=== PATIENT | male | born 1950 | race Caucasian/White ===

== ENCOUNTER → 2023-10-28 12:33 | Outpatient (REF) | payer OTHER, SELFPAY | LOC: HWRCS 12:33 | PROVIDERS: ATTENDING PHYSICIAN Nurse Practitioner Family; FAMILY PHYSICIAN Family Medicine | DX: M79.89 Other specified soft tissue disorders (principal); I10 Essential (primary) hypertension; C34.90 Malignant neoplasm of unspecified part of unspecified bronchus or lung | CPT/HCPCS: 71046; 93306 ==

== ENCOUNTER → 2024-03-09 07:51 | Outpatient (REF) | payer OTHER, SELFPAY | LOC: RAD 07:51 | PROVIDERS: ATTENDING PHYSICIAN Radiology Radiation Oncology; FAMILY PHYSICIAN Family Medicine | DX: C34.11 Malignant neoplasm of upper lobe, right bronchus or lung (principal) | CPT/HCPCS: 71250 ==

== ENCOUNTER → 2024-09-09 09:56 | Outpatient (REF) | payer MEDICARE, SELFPAY | LOC: RAD 09:56 | PROVIDERS: ATTENDING PHYSICIAN Radiology Radiation Oncology; FAMILY PHYSICIAN Family Medicine | DX: C34.11 Malignant neoplasm of upper lobe, right bronchus or lung (principal) | CPT/HCPCS: 71250 ==

== ENCOUNTER 2024-10-04 18:21 | Inpatient (IN) | payer OTHER, SELFPAY ==
[2024-10-03] VITALS (7 sets, daily range): BP systolic 114–149; BP diastolic 69–86; BMI 24.6; BMI 23.6
--- NOTE | 2024-10-03 09:03 | ED.GENMED ---
History of Present Illness
General
Chief Complaint: Failure to Thrive
Source: patient and spouse
Exam Limitations: none
Time Seen by Provider: 10/03/24 08:31
Nursing documentation reviewed up to this point in time: agreed with
History of Present Illness
History of Present Illness:
74-year-old male with history of HLD, HTN, alcohol abuse, cholecystectomy, cancerous spot in left right with radiation therapy and has been told that that is clear, presents stating he is here for 'malnourishment and dehydration brought on by
alcohol abuse.'
He states he drinks 2 bottles of Chardonnay daily but this is not new for him. His last drink was 530 this a.m.
He states for the past 5 to 6 days he lost his appetite, even the smell of food makes him sick.
He states he has had diarrhea the past couple of days, his last diarrheal stool was yesterday, he denies abdominal pain.
He denies vomiting but has been having frequent episodes of dry heaving he states mostly in the mornings.
He lives with his of 41 years, Madi who is at bedside and states this change in his behavior came on suddenly about a week ago after an appointment with his oncologist where he was expecting a really good visit but was told that his left lung
has 'something' and it. He states the patient has had episodes of 'ranting and delirious,' at times stating 'life is awful.' His states he has had severe anxiety and depression since that doctor visit. He has another visit scheduled in
December and will most likely have a scan prescribed at that time.
Al has been preparing him smoothies and soup which patient has been taking very little.
Past History
Past History
ED Past Medical History: GERD, HTN, Hypercholesterolemia and Other (Lung cancer)
ED Past Surgical History: Cholecystectomy
Social History
Tobacco: Former smoker
Alcohol: Daily (1-2 bottles wine)
Drug: None
Personal:
Living: with family
Review of Systems
Review of Systems
Allergies reviewed?: Yes
All Other Systems: ROS reviewed and negative except as documented in HPI and ROS
Constitutional: Reports fatigue; Denies fever
EENT: Denies sore throat
Respiratory: Denies trouble breathing
Cardiac: Denies chest pain
ABD/GI: Reports nausea, diarrhea and anorexia; Denies abdominal pain, vomiting, constipated, bloody stools or black stools
: Denies dysuria, frequency or difficulty voiding
Musculoskeletal: Reports no symptoms
Skin: Reports no symptoms
Neurological: Reports no symptoms
Phy Exam
Physical Exam
Physical Exam:
GENERAL: No acute distress. A&Ox3.
CONSTITUTIONAL: Afebrile.
EYES: clear, conjunctivae normal
ENMT: dry mucus membranes, Pharynx nl
RESPIRATORY: Regular respirations, nonlabored, lungs clear.
CARDIOVASCULAR: Regular rate and rhythm, no murmurs, no rubs.
GI: Soft, nontender, normal BS
MUSCULOSKELETAL: Moves with ease. Well perfused.
SKIN: Warm, dry, pink
PSYCH: Depressed mood and affect. Well kept, interactive and appropriate
NEUROLOGIC: Awake, alert and oriented. No focal neurological deficits
Scores
Withdrawal Assessment of Alcohol
Withdrawal Assessment Completed?: Yes
Nausea and Vomiting: Intermittent nausea with dry heaves
Tactile Disturbances: None
Tremor: No tremor
Auditory Disturbances: Not present
Paroxysmal Sweats: No sweat visible
Visual Disturbances: Not present
Anxiety: Mild anxiety
Headache, Fullness in Head: Not present
Agitation: Normal activity
Orientation and clouding of sensorium: Oriented and can do serial additions
Total CIWA Score: 5
Alcohol Withdrawal Medication Recommendation: Equal to MSAS Score 0-4. Monitor & re-assess q2hrs, NO MEDICATION NEEDED
Course
Orders/Labs/Results
Orders:
Orders
10/03/24 08:58
0.9% Sodium Chloride 1000 ml [Nss] 1,000 ml IV BOLUS
10/03/24 09:07
Pantoprazole [Protonix IV] 80 mg IV NOW STA
10/03/24 09:10
Complete Blood Count/With Diff Urgent
Comprehensive Metabolic Panel Urgent
Lipase Urgent
Serum Osmolality Urgent
Comment: ADD ON
10/03/24 10:00
0.9% Sodium Chloride 1000 ml [Nss] 1,000 ml Mvi, Adult [Multivitamin] 10 ml Thiamine Injection 100 mg IV 250 mls/hr
10/03/24 11:23
Osmolality, Random Urine Urgent
Date Specimen was Collected: 10/03/24
Time Specimen was Collected: 12:04
Urine Sodium Urgent
Date Specimen was Collected: 10/03/24
Time Specimen was Collected: 12:04
10/03/24 11:25
Add On- LAB Urgent
Tests Added?: Serum osmolality
10/03/24 11:26
Osmolality, Random Urine Urgent
Date Specimen was Collected: 10/03/24
Time Specimen was Collected: 12:04
10/03/24 12:25
Admit/Transfer Patient As Directed
Co-Sign Provider:
Level of Care: Observation services
Assign to:: Telemetry
Physician / Group: david
Diagnosis: alcohol withdrawal
Reason for Telemetry: Arrhythmia
Date to Stop Telemetry: 10/06/24
Time to Stop Telemetry: 11:00
PRN Pain Medication Management As Directed
May give lesser potent ordered pain med per pt: Yes
preference::
Protocol:: Medication orders for pain may be administered in a
manner that supports deferring to patient preference
when the pt is:
- Requesting an ordered lesser potent pain medication.
Least to most potent pain medications are defined
as: acetaminophen < NSAID < tramadol < opioids
(morphine, oxycodone, hydromorphone).
- Requesting a lesser dose of the same medication IF
ORDERED.
- Requesting a less intrusive route of administration
if both routes are prescribed by the provider (PO <
IV).
10/03/24 12:27
Code Status As Directed
Resuscitation Status: Full Code
10/03/24 Dinner
Regular
At Your Request: Full Participation
Does patient need a safe tray?: No
Liquid Modification: Thin Liquids
10/03/24 15:36
0.9% Sodium Chloride 1000 ml [Nss] 1,000 ml IV 100 mls/hr
0.9% Sodium Chloride [Nss (Preservative Free)] See Protocol IV PRN PRN
FOLic ACID [Folvite] 1 mg 0.9% Sodium Chloride 50 ml [Nss] 50 ml IV DAILYPRN
Lorazepam [Ativan] 1 mg IV Q1HPRN PRN
Lorazepam [Ativan] 1 mg PO Q2HPRN PRN
Lorazepam [Ativan] 2 mg IV Q1HPRN PRN
Ondansetron Injectable [Zofran] 4 mg IV Q6HPRN PRN
10/03/24 15:36
Activity As Directed
Activity Level: As Tolerated
MSAS SCORE As Directed
MSAS Score 0-4: Repeat MSAS every 2 hours until 0-4 for three consecutive assessments, then every 4 hours x 48
hours.
MSAS Score 5-7: For MILD withdrawl symptoms. Repeat MSAS and RASS every 2 hours
MSAS Score 8-11: For MODERATE withdrawal symptoms. Repeat MSAS and RASS every 1 hour. Consider ICU or IMU
level of care.
MSAS Score > 11: For SEVERE withdrawal symptoms. Repeat MSAS and RASS every 1 hour. Notify provider, consider
ICU level of care.
MSAS Additional Instructions: If no improvement or no decrease in score from severe to moderate within 12
hours, consult psychiatry
MSAS Notify Provider: Notify provider if patient requires more than 10 mg of Lorazepam in eight hour period.
Vital Signs As Directed
Frequency: Per unit guidelines
DX Deep Vein Thrombosis Video Routine
10/03/24 18:00
Lisinopril [Zestril] 40 mg PO QPM
10/03/24 20:00
Carvedilol [Coreg] 6.25 mg PO BID
Heparin 5,000 units SC Q12
Pantoprazole [Protonix IV] 40 mg IV BID
Thiamine Injection 200 mg IV Q12
rrhsrggfyib-nnwnwzvoz-tfe C-Mn 1 tablet PO BID
10/04/24 06:00
Complete Blood Count/With Diff IN AM
Comprehensive Metabolic Panel IN AM
10/04/24 08:00
Ascorbic Acid [Vitamin C] 500 mg PO DAILY
FOLic ACID [Folvite] 1 mg PO DAILY
Gabapentin [Neurontin] 300 mg PO DAILY
Multivitamin [Theragran] 1 tablet PO DAILY
Psyllium [Metamucil, Konsyl] 1 packet PO DAILY
Spironolactone [Aldactone] 50 mg PO DAILY
10/06/24 11:00
DC Protocol for Telemetry ONCE
10/06/24 20:00
Thiamine HCl [Vitamin B1] 100 mg PO BID
Abnormal Lab Results
10/03/24
09:10
RBC 4.11 L 10^6/uL
(4.70-6.10)
Hgb 12.4 L g/dL
(13.0-18.0)
Hct 37.1 L %
(39.0-52.0)
Absolute Lymphs (auto) 0.6 L 10^3/uL
(1.2-3.4)
Neutrophils % 80.6 H %
(42.2-75.2)
Lymphocytes % 10.0 L %
(20.5-51.1)
Sodium 127 L mmol/L
(135-145)
Chloride 90 L mmol/L
(98-107)
Carbon Dioxide 19 L mmol/L
(22-30)
Glucose 100 H mg/dl
(70-99)
Serum Osmolality 313 H mOsm/kg
(275-300)
AST 379 H U/L
(17-59)
ALT 258 H U/L
(0-50)
10/03/24 09:10
10/03/24 09:10
Vital Signs
Initial and Last Documented VS:
Initial Vital Signs
Temp
98.2 F
10/03/24 08:29
Last Documented Vital Signs
Temp Pulse Resp BP Pulse Ox
98.7 F 66 18 142/81 94
10/03/24 15:45 10/03/24 15:45 10/03/24 15:45 10/03/24 15:45 10/03/24 15:45
Television Maintenance Man consulted with Physician
Television Maintenance Man consulted with physician?: Yes
Name of Physician Consulted: Niranjan
MDM/Problems Addressed
Differential Diagnosis Includes:
Alcoholic gastritis, depression/anxiety about health, GERD
MDM/Problems Addressed:
74-year-old male with history of HLD, HTN, alcohol abuse, cholecystectomy, cancerous spot in left right with radiation therapy and has been told that that is clear, presents stating he is here for 'malnourishment and dehydration brought on by
alcohol abuse.'
He states he drinks 2 bottles of Chardonnay daily but this is not new for him. His last drink was 530 this a.m.
He states for the past 5 to 6 days he lost his appetite, even the smell of food makes him sick.
He states he has had diarrhea the past couple of days, his last diarrheal stool was yesterday, he denies abdominal pain.
He denies vomiting but has been having frequent episodes of dry heaving he states mostly in the mornings.
Patient denies wanting to , denies SI
He lives with his of 41 years, Madi who is at bedside and states this change in his behavior came on suddenly about a week ago after an appointment with his oncologist where he was expecting a really good visit but was told that his left lung
has 'something' and it. He states the patient has had episodes of 'ranting and delirious,' at times stating 'life is awful.' His states he has had severe anxiety and depression since that doctor visit. He has another visit scheduled in
December and will most likely have a scan prescribed at that time.
Al has been preparing him smoothies and soup which patient has been taking very little.
MSAS SCORE: 4 medication not indicated at this time
11:15 AM:
CBC with no clinically significant abnormality
CMP sodium 127, chloride 90, bicarb 19, mild to moderate elevated liver enzymes
[id number]
Lipase normal
Albumin normal
Plan: Admit: Acute Hyponatremia, alcoholic ketoacidosis
Hospitalist notified of admission
Patient remains calm, stable
*Critical Care Note
Total Time (30-74mins, 75-104mins- exclusive of procedures): Not Applicable
ED Attending Note
-
Portions of this chart may have been created with voice recognition software.� Occasional wrong word or��sound alike� substitutions may have occurred due to the inherent limitations of voice recognition software.
Discharge Plan
Departure
Patient Disposition: Admit
Date of Disposition: 10/03/24
Time of Disposition: 11:
Admit to: Med/Surg
Presentation/result/management discussed w/ accepting MD/DO: Hospitalist
Condition: Fair
Discharge Problem:
Acute hyponatremia, Alcoholic ketoacidosis
Interventions
Interventions:
*Risk Screen - Suicide Last Done: 10/03/24 08:29
*General Assessment Last Done: 10/03/24 08:29
*Neglect/Abuse Screening Last Done: 10/03/24 08:29
ED- Fall Risk Assessment Last Done: 10/03/24 08:29
*ED COVID-19 Vaccine History Last Done: 10/03/24 08:29
*Nursing Disposition Last Done: 10/03/24 16:00
[2024-10-03 09:23] LABS: % Basophils 0.9 % (0-2); % Eosinophils 0.2 % (0-6); % Immature Granulocytes 0.4 % (0-0.5); % Monocytes 7.9 % (1.7-9.3); % Neutrophils 80.6 % (42.2-75.2); Absolute Basophils 0.1 10^3/uL (0-0.2); Absolute Lymphocytes 0.6 10^3/uL (1.2-3.4); Absolute Monocytes 0.5 10^3/uL (0.1-0.6); Absolute Neutrophils 4.6 10^3/uL (1.4-6.5); Hematocrit 37.1 % (39.0-52.0); Hemoglobin 12.4 g/dL (13.0-18.0); Mean Corp Hgb Conc. 33.4 g/dL (33.0-37.0); Mean Corpuscular Hgb 30.2 pg (27.0-31.0); Mean Corpuscular Volume 90.3 fL (80.0-94.0); Mean Platelet Volume 9.2 fL (7.4-10.4); Nucleated Red Blood Cells % 0 % (-); Platelet Count 183 10^3/uL (130-400); Red Blood Cell Count 4.11 10^6/uL (4.70-6.10); Red Cell Dist. Width 12.6 % (11.5-14.5); White Blood Cell Count 5.7 10^3/uL (4.8-10.8)
[2024-10-03 09:35] LABS: ALT (SGPT) 258 U/L (0-50); AST (SGOT) 379 U/L (17-59); Albumin 4.3 g/dl (3.5-5.0); Alkaline Phosphatase 70 U/L (38-126); Blood Urea Nitrogen 19 mg/dl (9-20); Calcium 9.3 mg/dl (8.4-10.2); Carbon Dioxide 19 mmol/L (22-30); Chloride 90 mmol/L (98-107); Estimated Creatinine Clearance 66 ml/min; Glucose 100 mg/dl (70-99); Lipase 214 U/L (23-300); Sodium 127 mmol/L (135-145); Total Bilirubin 0.8 mg/dl (0.2-1.3); Total Protein 6.4 g/dl (6.3-8.2); eGFR > 60.00
[2024-10-03] MEDS: PROTONIX IV 80 MG IV (09:52)
[2024-10-03] MEDS: MULTIVITAMIN 1011 ML IV (10:34)
[2024-10-03] MEDS: MULTIVITAMIN 1011 MG IV (10:34)
--- NOTE | 2024-10-03 12:33 | HPS.HSE ---
Addendum entered and electronically signed by Kevin Sal MD 10/03/24 16:27:
Patient with sinus bradycardia HR 30s no symptoms. Hold Coreg.
Original Note:
Family Physician
-
Family Physician: Charis Guardado
Chief Complaint
-
alcohol withdrawal
History of Present Illness
74-year-old male past medical history of right lung cancer status post radiation, hypertension, hyperlipidemia, alcohol use disorder presenting for malnourishment and dehydration secondary to alcohol use. He has been having episodes of dry heaving
and spasms sometimes in his chest. He denies sensation of food sticking in his throat but expresses that he has an aversion to consuming solids and no trouble with consuming liquids.
He drinks 2 bottles of Chardonnay daily and his last drink was 530 this morning. For the past 5 to 6 days he has lost appetite and feeling nauseous. He has been having diarrhea for few days but denies abdominal pain. Denies shortness of breath or
fevers or chills. Denies any shaking or tremors or palpitations.
He denies smoking or any drugs.
Patient has a history of right lung cancer status post radiation and previously had a lesion in his lung that could not be biopsied. Lesion subsequently disappeared on further imaging but as per recent appointment with his oncologist last week
there has been a new lesion which patient is very anxious about.
He has been very anxious and depressed. Denies any suicidal intent.
Medical History
Past Medical History
Past Medical History: Reports Other ( right lung cancer status post radiation, hypertension, hyperlipidemia, alcohol use disorder)
Past Surgical History: Reports None
Social History
Tobacco: Non-smoker
Alcohol: Daily
Drug: None
Family History
Family History: Not pertinent
Allergies / Home Medications
Allergies reflects when Allergies were last updated in [facility].
Home Medications with original date entered in [facility]
Allergy/Medication List:
Allergies
Allergy/AdvReac Type Severity Reaction Status Date / Time
codeine Allergy Shortness Verified 07/21/23 08:40
of Breath
Opioids - Morphine Analogues Allergy Unknown Verified 07/21/23 08:40
Home Medications
ascorbic acid (vitamin C) 1,000 mg tablet (Vitamin C) 500 mg PO DAILY Supplement 01/03/21
multivitamin with folic acid 400 mcg tablet (Tab-A-Ellen) 1 tab PO DAILY Supplement 11/10/21
rosuvastatin 20 mg tablet 20 mg PO QPM High Cholesterol 11/10/21
bgxbulbpvbv-kiaqrmhkf-xpk C-Mn 750 mg-600 mg-55 mg-5 mg tablet 1 tab PO BID Supplement 01/09/22
lisinopril 40 mg tablet 40 mg PO QPM Blood Pressure ##0 04/03/23
diphenhydramine HCl 50 mg tablet 50 mg PO HSPRN PRN sleep 07/21/23
carvedilol 6.25 mg tablet (Coreg) 6.25 mg PO BID Blood Pressure 10/03/24
gabapentin 300 mg capsule 300 mg PO DAILY pain 10/03/24
psyllium 1 packet PO DAILY Constipation 10/03/24
spironolactone 50 mg tablet 50 mg PO DAILY Blood Pressure 10/03/24
Review of Systems
-
History Source: Patient
A 12 point ROS was completed and negative except as noted: Yes
Constitutional: Reports No Symptoms
EENT: Reports No Symptoms
Respiratory: Reports No Symptoms
Cardiac: Reports No Symptoms
Abdomen/GI: Reports See HPI
: Reports No Symptoms
Musculoskeletal: Reports No Symptoms
Skin: Reports No Symptoms
Neurological: Reports No Symptoms
Endocrine: Reports No Symptoms
Hematologic/Lymphatic: Reports No Symptoms
Psych: Reports No Symptoms
Physical Exam
Vital Signs
Vital Signs
Temp Pulse Resp BP Pulse Ox
98.2 F 74 13 117/76 94
10/03/24 08:29 10/03/24 11:33 10/03/24 11:33 10/03/24 11:32 10/03/24 11:33
Physical Exam
General: Well Developed, Well Nourished and No Apparent Distress
HEENT: NormoCephalic, Moist mucous membranes and Atraumatic
Respiratory: Clear
Cardiac: S1/S2 and Regular Rhythm; No Murmur or Rub
GI: Soft, Non Tender, Non Distended and Normal Bowel Sounds; No Organomegaly
Rectal: Deferred by Provider
Musculoskeletal: No Clubbing, No Cyanosis and No Edema
Skin: No Rash
Neuro: Nonfocal/grossly intact
Laboratory Results
-
10/03/24 09:10
10/03/24 09:10
Laboratory Results
Total Bilirubin 0.8 mg/dl (0.2-1.3) 10/03/24 09:10
AST 379 U/L (17-59) H 10/03/24 09:10
ALT 258 U/L (0-50) H 10/03/24 09:10
Alkaline Phosphatase 70 U/L (38-126) 10/03/24 09:10
Lipase 214 U/L (23-300) 10/03/24 09:10
Data Reviewed
-
Lab Data: Labs Reviewed by me
Old Records: Reviewed
Impression/Plan
-
IMPRESSION:
PLAN:
# Hyponatremia secondary to alcohol use
# Alcohol use disorder/withdrawal
# Transaminitis secondary to alcohol
-Sodium of 127 from 132 previously
-IV fluids
-Thiamine and folate
-Alcohol withdrawal protocol
# GERD/diarrhea likely secondary to alcohol gastritis/esophagitis
-Protonix 40 twice daily
-Not quite described as dysphagia or esophageal spasm although patient has had documented dysphagia in the past
-He has had endoscopy in 2022 without any notable findings
-Trial regular diet
Lung cancer status post radiation
-Recent recurrence of lung lesion
Anxiety/depression secondary to lung cancer
-No suicidal ideations
Essential hypertension
-Continue Coreg, lisinopril, spironolactone
Hyperlipidemia
-Hold statin
Neuropathy
-Continue gabapentin
Full code
DVT prophylaxis�heparin
Regular diet
[2024-10-03 12:56] LABS: Osmolality Serum 313 mOsm/kg (275-300)
[2024-10-03] MEDS: NSS 1000 IV (16:12)
--- NOTE | 2024-10-03 16:37 | PTCARENOTE ---
Received pt from ER via stretcher, accompanied by ER staff. Pt AAO x3, BURKETT well, ambulatory to bed, with minimal assistance; pt sl unsteady w/OOB activity; denies weakness/dizziness. Pt with (+) arm tremors. Fall prec initiated. VSS. Placed on
telemetry:NSR/SB to 30's. Dr. Sal notified. On room air- pulse ox 94%, no SOB noted. Abd large, rounded, no c/o abd discomfort. To start regular diet. Pt DTV; urinal at bedside. Afebrile; skin intact. IVF's NSS @ 100 ml/hr started via Lt
forearm site, currently infusing without sx of infiltration. Pt oriented to 4East, currently resting comfortably. Will continue to monitor.
[2024-10-03] MEDS: ZESTRIL 40 MG PO (17:46)
[2024-10-03] MEDS: PROTONIX IV 40 MG IV (19:36)
[2024-10-03] MEDS: NSS (PRESERVATIVE FREE) 10 ML IV (19:36)
[2024-10-03] MEDS: THIAMINE INJECTION 200 MG IV (19:36)
[2024-10-03] MEDS: HEPARIN 5000 UNITS SC (19:36)
[2024-10-03] MEDS: TYLENOL 500 MG PO (20:04)
[2024-10-03] MEDS: BENADRYL 25 MG PO (23:42)
[2024-10-04] VITALS (7 sets, daily range): BP systolic 112–140; BP diastolic 58–71
[2024-10-04] MEDS: NSS 1000 IV ×2 (02:19→12:11)
[2024-10-04] MEDS: THERAGRAN 1 TABLET PO (07:56)
[2024-10-04] MEDS: VITAMIN C 500 MG PO (07:56)
[2024-10-04] MEDS: FOLVITE 1 MG PO (07:56)
[2024-10-04] MEDS: NEURONTIN 300 MG PO (07:56)
[2024-10-04] MEDS: NSS (PRESERVATIVE FREE) 10 ML IV ×2 (07:57→20:05)
[2024-10-04] MEDS: METAMUCIL, KONSYL 1 PACKET PO (07:57)
[2024-10-04] MEDS: HEPARIN 5000 UNITS SC ×2 (07:57→20:05)
[2024-10-04] MEDS: PROTONIX IV 40 MG IV ×2 (07:57→20:05)
[2024-10-04] MEDS: ALDACTONE 50 MG PO (07:57)
[2024-10-04] MEDS: THIAMINE INJECTION 200 MG IV ×2 (07:58→20:05)
[2024-10-04 08:14] LABS: % Basophils 1.1 % (0-2); % Eosinophils 2.7 % (0-6); % Immature Granulocytes 0.3 % (0-0.5); % Lymphocytes 27.6 % (20.5-51.1); % Monocytes 12.3 % (1.7-9.3); Absolute Eosinophils 0.1 10^3/uL (0-0.7); Absolute Monocytes 0.5 10^3/uL (0.1-0.6); Absolute Neutrophils 2.1 10^3/uL (1.4-6.5); Hematocrit 30.2 % (39.0-52.0); Hemoglobin 10.2 g/dL (13.0-18.0); Mean Corp Hgb Conc. 33.8 g/dL (33.0-37.0); Mean Corpuscular Hgb 31.4 pg (27.0-31.0); Mean Corpuscular Volume 92.9 fL (80.0-94.0); Mean Platelet Volume 9.7 fL (7.4-10.4); Nucleated Red Blood Cells % 0 % (-); Platelet Count 126 10^3/uL (130-400); Red Blood Cell Count 3.25 10^6/uL (4.70-6.10); Red Cell Dist. Width 13.1 % (11.5-14.5); White Blood Cell Count 3.7 10^3/uL (4.8-10.8)
[2024-10-04 08:15] LABS: ALT (SGPT) 165 U/L (0-50); AST (SGOT) 186 U/L (17-59); Albumin 3.2 g/dl (3.5-5.0); Alkaline Phosphatase 55 U/L (38-126); Blood Urea Nitrogen 19 mg/dl (9-20); Calcium 8.6 mg/dl (8.4-10.2); Carbon Dioxide 20 mmol/L (22-30); Chloride 97 mmol/L (98-107); Estimated Creatinine Clearance 66 ml/min; Glucose 65 mg/dl (70-99); Potassium 4.5 mmol/L (3.5-5.1); Sodium 130 mmol/L (135-145); Total Bilirubin 0.9 mg/dl (0.2-1.3); Total Protein 5.1 g/dl (6.3-8.2); eGFR > 60.00
[2024-10-04 09:00] LABS: Hepatitis C Antibody Negative (Negative)
[2024-10-04 10:02] LABS: Osmolality Urine 638 mOsm/kg (300-900)
[2024-10-04 10:22] LABS: Urine Sodium 42 mmol/L (30-90)
--- NOTE | 2024-10-04 11:54 | PTCARENOTE ---
pt alarming vane on monitor HR dipping as low as 34 briefly. Pt endorses fatigue but denies any other complaints of CP or discomfort. significant other at bedside. Attending notified. obtaining EKG
[2024-10-04 13:11] LABS: Troponin I < 0.012 ng/ml
--- NOTE | 2024-10-04 15:28 | W.PN.HOSP.TC ---
Today's Communication/Plan
-
Patient is interested in alcohol rehab will request case management to look into it
Check routine echo
Watch heart rate off of Coreg
PT eval
Watch and follow sodium
tsh
Assessment / Plan
Assessment / Plan
73-year-old male with alcohol withdrawal. He drinks 2 bottles of Chardonnay daily he has a history of right lung cancer and recently found to have a new lesion
CVS: S1-S2 normal
Chest: CTA B/L
Abdomen: Soft, NT / Bowel sounds present
Extremities: No edema
# Hyponatremia
Elevated serum osmolality
Wait for urine osmolality
Follow sodium-getting better
# Bradycardia-echo. Check troponin. EKG noted. Check TSH. Hold Coreg and watch HR
# Alcohol abuse/withdrawal
Alcohol-related hepatitis elevated transaminitis
Thiamine replacement
Alcohol withdrawal protocol with Ativan as needed
# GERD-continue PPI
Patient may also have alcohol-related gastritis
Able to tolerate diet now without difficulty
# Diarrhea-check stool studies if possible
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
Recent lung lesion discovered ?
CT of the chest without IV contrast on 09/09/2024-shows no acute disease. Mild right upper lobe atelectasis versus scarring versus postsurgical changes-stable. Progressed left lower lobe atelectasis versus scarring.
Needs outpatient follow-up with oncologist
# Mild thrombocytopenia-likely secondary to alcohol use
# Anxiety and depression
No suicidal ideation
Denies any depression to me.
# Hypertension-continue , lisinopril and Aldactone. Hold Coreg
# Hyperlipidemia hold statin secondary to elevated LFTs
# Neuropathy-likely bljhdge-wsmmnjs-tpwffgpz gabapentin
#History of dysphagia
# Ex-smoker
# DVT prophylaxis-subcutaneous heparin
# Full code
Discussed with at bedside
Discussed with nursing
Anticipated Discharge: Within 24 hours
Subjective/Interval History
-
Date of Service: October 04, 2024
Objective Data
-
Labs:
Laboratory Results
10/04/24
06:02
WBC 3.7 L
Hgb 10.2 L
Hct 30.2 L
Plt Count 126 L D
Sodium 130 L
Potassium 4.5
Chloride 97 L
Carbon Dioxide 20 L
BUN 19
Creatinine 1.0
Glucose 65 L
Calcium 8.6
Total Bilirubin 0.9
AST 186 H
ALT 165 H
Alkaline Phosphatase 55
Vital Signs:
Vital Signs
Temp Pulse Resp BP Pulse Ox
98.3 F 52 18 137/61 95
10/04/24 11:46 10/04/24 11:46 10/04/24 11:46 10/04/24 11:46 10/04/24 11:46
I&O
10/03/24 10/04/24 10/05/24
06:59 06:59 06:59
Intake Total 320 / 320
Output Total 0 / 0
Balance 320 / 320
--- NOTE | 2024-10-04 16:11 | CM ---
Alert awake oriented patient who lives with his spouse Marc who lives in a 2 story home with 1 step to enter and 17 steps to bed and bathroom. He is independent in driving and in all activities of daily living.He was offered VN he declined
need.Beverley explained pt signed MIKE on chart copy give.Pt requested Alcohol rehab. Juliocesar called [facility] called pt to be seen in am.
Pt VN hx / No SNF history
Pharmacy [facility]
PCP DR Guardado
PLAN Home with JULIOCESAR recourses
[2024-10-04 16:42] LABS: Cortisol, Random 12.5 ug/dl
[2024-10-04] MEDS: ZESTRIL PO (18:01)
[2024-10-04 18:48] LABS: Troponin I < 0.012 ng/ml
[2024-10-04] MEDS: BENADRYL 25 MG PO (23:40)
[2024-10-05] VITALS (7 sets, daily range): BP systolic 96–147; BP diastolic 55–83; PULSE 82–99; O2SAT 97
[2024-10-05] MEDS: NSS 1000 IV (00:41)
[2024-10-05 07:33] LABS: Hematocrit 30.8 % (39.0-52.0); Hemoglobin 10.1 g/dL (13.0-18.0); Mean Corp Hgb Conc. 32.8 g/dL (33.0-37.0); Mean Corpuscular Hgb 31.1 pg (27.0-31.0); Mean Corpuscular Volume 94.8 fL (80.0-94.0); Mean Platelet Volume 9.9 fL (7.4-10.4); Platelet Count 123 10^3/uL (130-400); Red Blood Cell Count 3.25 10^6/uL (4.70-6.10); Red Cell Dist. Width 13.3 % (11.5-14.5); White Blood Cell Count 3.4 10^3/uL (4.8-10.8)
[2024-10-05 07:54] LABS: ALT (SGPT) 133 U/L (0-50); AST (SGOT) 129 U/L (17-59); Albumin 2.9 g/dl (3.5-5.0); Alkaline Phosphatase 58 U/L (38-126); Blood Urea Nitrogen 16 mg/dl (9-20); Carbon Dioxide 26 mmol/L (22-30); Chloride 101 mmol/L (98-107); Estimated Creatinine Clearance 73 ml/min; Glucose 92 mg/dl (70-99); Sodium 131 mmol/L (135-145); Total Bilirubin 0.5 mg/dl (0.2-1.3); Total Protein 4.9 g/dl (6.3-8.2); eGFR > 60.00
[2024-10-05] MEDS: PROTONIX IV 40 MG IV ×2 (07:59→20:04)
[2024-10-05] MEDS: NEURONTIN 300 MG PO (08:00)
[2024-10-05] MEDS: METAMUCIL, KONSYL PO (08:00)
[2024-10-05] MEDS: ALDACTONE 50 MG PO (08:00)
[2024-10-05] MEDS: NSS (PRESERVATIVE FREE) 10 ML IV ×2 (08:00→20:04)
[2024-10-05] MEDS: THERAGRAN 1 TABLET PO (08:01)
[2024-10-05] MEDS: VITAMIN C 500 MG PO (08:01)
[2024-10-05] MEDS: FOLVITE 1 MG PO (08:01)
[2024-10-05] MEDS: THIAMINE INJECTION 200 MG IV ×2 (08:01→20:03)
[2024-10-05] MEDS: HEPARIN 5000 UNITS SC ×2 (08:01→20:03)
--- NOTE | 2024-10-05 08:49 | CON.CAR ---
Consultation
Consultation Request
Date/Time Consultation Requested: 10/05/24
Date/Time Consultation Performed: 10/05/24
Requesting Provider: Miguelangel
Performing Provider: Ravinder
Reason for Consultation: bradycardia
Medical History
-
Chief Complaint: failure to thrive
History of Present Illness:
74M presents for evaluation of malnutrition and dehydration thought to be 2/2 alcohol use disorder. While being monitored on tele patient was noted to by bradycardia on telemetry with HR into the 30s for which cardiology is consulted.
Admitted for dehydration and treatment of EtOH withdrawal. Receiving IVF currently. Nocturnal bradycardia noted on tele, patient tells me he was sleeping at the time it was asymptomatic. He was recommended to have testing for sleep apnea in the
past but it sounds like he did not complete the testing.
Overall patient is not offering any cardiac complaints at present
No chest pain, shortness of breath, palpitations. Tells me he has not been out of bed since being in the hospital but no lightheadedness or dizziness at rest today.
PMHx:
right lung cancer status post radiation
hypertension
hyperlipidemia
alcohol use disorder
former smoker
Past Medical History
Past Medical History: Other (As above)
Past Surgical History: Other ( as above)
Social History
Tobacco: Former Smoker
Alcohol: Daily
Family History
Family History: Reviewed & Not Pertinent
Allergies / Home Medications
Allergy/AdvReac Type Severity Reaction Status Date / Time
codeine Allergy Shortness Verified 10/03/24 15:52
of Breath
Opioids - Morphine Analogues Allergy Unknown Verified 10/03/24 15:52
�Medication �Instructions �Recorded �Confirmed �Type
ascorbic acid (vitamin C) 1,000 mg 500 mg PO DAILY Supplement 01/03/21 10/03/24 History
tablet (Vitamin C)
multivitamin with folic acid 400 1 tab PO DAILY Supplement 11/10/21 10/03/24 History
mcg tablet (Tab-A-Ellen)
rosuvastatin 20 mg tablet 20 mg PO QPM High Cholesterol 11/10/21 10/03/24 History
esjrtwmdlfb-vigwbyupr-swf C-Mn 750 1 tab PO BID Supplement 01/09/22 10/03/24 History
mg-600 mg-55 mg-5 mg tablet
lisinopril 40 mg tablet 40 mg PO QPM Blood Pressure ##0 04/03/23 10/03/24 History
diphenhydramine HCl 50 mg tablet 50 mg PO HSPRN PRN sleep 07/21/23 10/03/24 History
carvedilol 6.25 mg tablet (Coreg) 6.25 mg PO BID Blood Pressure 10/03/24 10/03/24 History
gabapentin 300 mg capsule 300 mg PO DAILY pain 10/03/24 10/03/24 History
psyllium 1 packet PO DAILY Constipation 10/03/24 10/03/24 History
spironolactone 50 mg tablet 50 mg PO DAILY Blood Pressure 10/03/24 10/03/24 History
Review of Systems
-
History Source: Patient
All other systems: Negative unless noted
Physical Exam
Vital Signs
Temp Pulse Resp BP Pulse Ox
98.7 F 60 18 144/74 96
10/05/24 07:25 10/05/24 08:00 10/05/24 07:25 10/05/24 08:00 10/05/24 07:59
Lab Results
10/05/24 05:14
10/05/24 05:14
Troponin I < 0.012 ng/ml 10/04/24 18:13
Physical Exam
General: Well Developed
HEENT: Normocephalic
Respiratory: Clear and Non Labored Respirations
Cardiac: S1/S2 and Regular Rhythm
GI: Soft
Musculoskeletal: No Edema
Skin: Warm and Dry
Neuro: AO x 3
Psych: Calm
Impression / Plan
-
Enlisted Aircrew/Aerial Observer/Gunner: DL Castellon, has not seen in many years
Assessment:
HypoNa
EtOH use disorder
Bradycardia
Lung CA
HTN
HLD
Plan:
-We are asked to comment on bradycardia. Initially ECG showing sinus bradycardia in the 40s. Patient is not reporting any presyncope or syncope to me.
-Telemetry reviewed showing sinus bradycardia, but no significant pauses >3 seconds seen.
-Agree with discontinuing Coreg which he is on for hypertension. Would avoid AV augusta blockers for now. If additional anti-hypertensive medication is needed could consider amlodipine as an alternative.
-Monitor on tele overnight.
-Discussed with patient possible KARMEN as a cause of nocturnal bradycardiac and consideration of sleep study as an outpatient.
Data Reviewed
-
EKG: Tracing Personally Visualized and interpreted
Medical Tests (Nuc Med, Echo etc): Report Reviewed by me
Labs: Labs Reviewed by me
Old Records: Reviewed
[2024-10-05] MEDS: D5/0.9% SODIUM CHLORIDE 1000 IV (14:02)
--- NOTE | 2024-10-05 15:19 | W.PN.HOSP.TC ---
Today's Communication/Plan
-
patient did not do well in PT he was orthostatic and also tachycardic therefore discharge plan dropped. Hold Aldactone and lisinopril. Lisinopril was held last night. IV fluids ordered.
Watch
Assessment / Plan
Assessment / Plan
73-year-old male with alcohol withdrawal. He drinks 2 bottles of Chardonnay daily he has a history of right lung cancer and recently found to have a new lesion
CVS: S1-S2 normal
Chest: CTA B/L
Abdomen: Soft, NT / Bowel sounds present
Extremities: No edema
# Hyponatremia
Elevated serum osmolality
Wait for urine osmolality
Follow sodium-getting better
# Bradycardia-echo 10/05/2024-normal LV size, wall thickness and systolic function. EF 68%. Normal diastolic function. Normal RV size and function.
Negative troponin. EKG noted. Normal TSH. Hold Coreg
Heart rate improved.
Tachycardia noted with patient ambulating
# Orthostatic hypotension-
# Alcohol abuse/withdrawal
Alcohol-related hepatitis elevated transaminitis
Thiamine replacement
Alcohol withdrawal protocol with Ativan as needed
He was seen by Bacilio ortiz and he wants to follow-up as outpatient.
# GERD-continue PPI
Patient may also have alcohol-related gastritis
Able to tolerate diet now without difficulty
# Diarrhea-check stool studies if possible
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
Recent lung lesion discovered ?
CT of the chest without IV contrast on 09/09/2024-shows no acute disease. Mild right upper lobe atelectasis versus scarring versus postsurgical changes-stable. Progressed left lower lobe atelectasis versus scarring.
Needs outpatient follow-up with oncologist
# Mild thrombocytopenia-likely secondary to alcohol use
# Anxiety and depression
No suicidal ideation
Denies any depression to me.
# Hypertension-continue , lisinopril and Aldactone. Hold Coreg
# Hyperlipidemia hold statin secondary to elevated LFTs
# Neuropathy-likely nydnnzu-oqogkak-muzqqgzm gabapentin
#History of dysphagia
# Ex-smoker
# DVT prophylaxis-subcutaneous heparin
# Full code
Discussed with at bedside
Discussed with nursing
Discussed with case management
Discussed with cardiology
Discussed with physical therapy-patient did not do well in PT he was orthostatic and also tachycardic therefore discharge plan dropped. Hold Aldactone and lisinopril. Lisinopril was held last night. IV fluids ordered.
Watch
time over 50 min
Anticipated Discharge: Within 24 hours
Subjective/Interval History
-
Date of Service: October 05, 2024
Objective Data
-
Labs:
Laboratory Results
10/05/24
05:14
WBC 3.4 L
Hgb 10.1 L
Hct 30.8 L
Plt Count 123 L
Sodium 131 L
Potassium 4.0
Chloride 101
Carbon Dioxide 26
BUN 16
Creatinine 0.9
Glucose 92
Calcium 9.0
Total Bilirubin 0.5
AST 129 H
ALT 133 H
Alkaline Phosphatase 58
Vital Signs:
Vital Signs
Temp Pulse Resp BP Pulse Ox
98.1 F 85 18 101/66 95
10/05/24 15:02 10/05/24 15:02 10/05/24 15:02 10/05/24 15:02 10/05/24 11:25
I&O
10/04/24 10/05/24 10/06/24
06:59 06:59 06:59
Intake Total 320 / 320 2079 / 2079
Output Total 0 / 0 200 / 200
Balance 320 / 320 1880 / 1880
--- NOTE | 2024-10-05 15:26 | CM ---
Pt changed to inpatient . IMM reviewed signed and on chart.
BCARES saw pt and gave out pt resources for alcohol rehab.
Pt said he will follow up with alcohol rehab.
Marc will drive him home.
PLAN Home no needs
--- NOTE | 2024-10-05 16:04 | PTCARENOTE ---
Pt AAO x3, BURKETT; sl unsteady w/OOB activity. Tremulous at times. Pleasant and cooperative. VSS. Telemetry:NSR; tachy to 130's with OOB activity, no c/o weakness/dizziness. On room air- pulse ox 97%, no SOB noted. Abd large, soft, turner PO well.
Voiding clear lt yana urine in urinal; also voids in BR. Knee high TEDS in place. IVF's D5NSS @ 80 ml/hr infusing via Lt forearm site without sx of infiltration. Resting comfortably at present, no c/o. Will continue to monitor.
[2024-10-05] MEDS: BENADRYL 25 MG PO (22:56)
[2024-10-06] MEDS: D5/0.9% SODIUM CHLORIDE 1000 IV (02:08)
[2024-10-06 03:44] VITALS: BP 135/79
[2024-10-06 07:38] VITALS: BP 135/86
[2024-10-06] MEDS: NEURONTIN 300 MG PO (09:43)
[2024-10-06] MEDS: PROTONIX IV 40 MG IV (09:43)
[2024-10-06] MEDS: NSS (PRESERVATIVE FREE) 10 ML IV (09:43)
[2024-10-06] MEDS: THIAMINE INJECTION 200 MG IV (09:43)
[2024-10-06] MEDS: HEPARIN 5000 UNITS SC (09:43)
[2024-10-06] MEDS: METAMUCIL, KONSYL PO (09:44)
[2024-10-06] MEDS: THERAGRAN 1 TABLET PO (09:44)
[2024-10-06] MEDS: FOLVITE 1 MG PO (09:44)
[2024-10-06] MEDS: VITAMIN C 500 MG PO (09:44)
[2024-10-06 11:45] VITALS: BP 120/67
--- NOTE | 2024-10-06 14:30 | W.PN.CARDCBS ---
Today's Communication / Plan
-
D/C to home and follow up with PCP for BP meds
Impression / Plan
-
PCP: Dr. Charis Guardado
Medication Administration Professional: SERENITY Castellon, has not seen in many years
Impression:
Admitted with change in mental status, anorexia and ETOH abuse 10/03/24
Hyponatremia
ETOH use disorder, severe and longstanding
Sinus bradycardia
Orthostatic hypotension
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
h/o HTN
HLD
Echo 10/05/24: EF 68%, normal RV size and function, no significant valve disease, compared to prior study dated 10/28/23, there is no significant change
Plan:
-Patient with increased agitation on admission thought to be related to recent bad news at an oncology appt coupled with severe long-term ETOH use disorder.
-EF stable on echo
-Patient with a h/o HTN and was on a regimen of Coreg 6.25 mg BID, lisinopril 40 mg daily and spironolactone 50 mg daily. This regimen looks like standard GDMT for CHF, but patient does not have a h/o CHF.
-Spent time looking through [facility] records and patient used to be on amlodipine, but was switched to lisinopril due to LE edema in 2022. Same thing with nifedipine that was stopped due to edema and changed to Coreg in 12/2023.
-BP this admission has been normotensive to hypotensive, but asymptomatic. Recommend stopping all BP meds for now and to follow BP at home. Patient should follow up with his PCP for BP med management.
-Tele reviewed by me looks like sinus bradycardia.
-Recommend an outpatient sleep study to investigate nocturnal bradycardia. Patient is not terribly receptive to additional testing for now and currently awaiting more information about an abnormality seen on lung scan recently with his h/o lung CA.
-Stable for d/c to home from a cardiac standpoint
Progress Note - Medication Administration Professional
Subjective
Date of Service: October 06, 2024
Feels well, wants to go home
Objective
Labs:
10/05/24 05:14
10/05/24 05:14
Labs
Hgb 10.1 g/dL (13.0-18.0) L 10/05/24 05:14
Hct 30.8 % (39.0-52.0) L 10/05/24 05:14
Plt Count 123 10^3/uL (130-400) L 10/05/24 05:14
Sodium 131 mmol/L (135-145) L 10/05/24 05:14
Potassium 4.0 mmol/L (3.5-5.1) 10/05/24 05:14
BUN 16 mg/dl (9-20) 10/05/24 05:14
Creatinine 0.9 mg/dL (0.7-1.3) 10/05/24 05:14
Glucose 92 mg/dl (70-99) 10/05/24 05:14
Troponins
10/04/24 10/04/24
12:17 18:13
Troponin I < 0.012 < 0.012
Vital Signs and I&O:
Vital Signs
Temp Pulse Resp BP Pulse Ox
98.6 F 82 18 120/67 98
10/06/24 11:45 10/06/24 11:45 10/06/24 11:45 10/06/24 11:45 10/06/24 11:45
Vital Signs
Temp Pulse Resp BP Pulse Ox
98.6 F 82 18 120/67 98
10/06/24 11:45 10/06/24 11:45 10/06/24 11:45 10/06/24 11:45 10/06/24 11:45
Intake & Output
10/04/24 10/05/24 10/06/24 10/07/24
06:59 06:59 06:59 06:59
Intake Total 320 / 320 2080 / 2080 2340 / 2340
Output Total 0 / 0 200 / 200 300 / 300
Balance 320 / 320 188 / 1880 2039
Physical Exam
Physical Exam
General: AAO x3
HEENT: EOMI
Respiratory: RA. No audible wheeze
Cardiac: SR on tele
GI: ND
Musculoskeletal: No edema B/L
Skin: No rash
Neuro: AO x 3
[2024-10-06 15:02] VITALS: BP 144/85
--- NOTE | 2024-10-06 15:31 | W.PN.HOSP.TC ---
Today's Communication/Plan
-
Discharge
Assessment / Plan
Assessment / Plan
73-year-old male with alcohol withdrawal. He drinks 2 bottles of Chardonnay daily he has a history of right lung cancer and recently found to have a new lesion
Really wants to go home. He did not sleep well last night because of his roommate
CVS: S1-S2 normal
Chest: CTA B/L
Abdomen: Soft, NT / Bowel sounds present
Extremities: No edema
# Hyponatremia
Follow sodium-getting better
# Bradycardia-echo 10/05/2024-normal LV size, wall thickness and systolic function. EF 68%. Normal diastolic function. Normal RV size and function.
Negative troponin. EKG noted. Normal TSH. Hold Coreg
Heart rate improved.
Does not appear that patient has heart failure. He has seen Dr. Edel Castellon in the past but not followed up. Blood pressure stable without any medicines therefore discontinued lisinopril Aldactone and Coreg
# Orthostatic hypotension- Resolved
# Alcohol abuse/withdrawal
Alcohol-related hepatitis elevated transaminitis
Thiamine replacement
Alcohol withdrawal protocol with Ativan as needed
He was seen by Bacilio ortiz and he wants to follow-up as outpatient.
# GERD-continue PPI
Patient may also have alcohol-related gastritis
Able to tolerate diet now without difficulty
# Diarrhea-check stool studies if possible
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
Recent lung lesion discovered ?
CT of the chest without IV contrast on 09/09/2024-shows no acute disease. Mild right upper lobe atelectasis versus scarring versus postsurgical changes-stable. Progressed left lower lobe atelectasis versus scarring.
Needs outpatient follow-up with oncologist
# Mild thrombocytopenia-likely secondary to alcohol use. Rpt cbc and BMP as OP
# Anxiety and depression
No suicidal ideation
Denies any depression to me.
# Hypertension-continue , lisinopril and Aldactone. Hold Coreg
# Hyperlipidemia hold statin secondary to elevated LFTs
# Neuropathy-likely zdefnrm-qopebyv-wcvpifkd gabapentin
#History of dysphagia
# Ex-smoker
# DVT prophylaxis-subcutaneous heparin
# Full code
Discussed with at bedside
Discussed with nursing
Discussed with case management
Discussed with cardiology
More than 30 minutes spent in discharge including
Final examination of the patient
Summarizing hospital stay
Instructions for continuing care to all relevant caregivers
Preparation of discharge records, prescriptions, and referral forms
Total time spent (in minutes): 35
Anticipated Discharge: Today
Subjective/Interval History
-
Date of Service: October 06, 2024
Objective Data
-
Vital Signs:
Vital Signs
Temp Pulse Resp BP Pulse Ox
98.6 F 82 18 120/67 98
10/06/24 11:45 10/06/24 11:45 10/06/24 11:45 10/06/24 11:45 10/06/24 11:45
I&O
10/05/24 10/06/24 10/07/24
06:59 06:59 06:59
Intake Total 2079 / 2339
Output Total 200 / 200 300 / 300
Balance 1879
--- NOTE | 2024-10-06 15:46 | W.DS.TRANS ---
Addendum entered and electronically signed by Rickey Means MD 10/06/24 17:18:
Dictation- [id number]
Original Note:
DC Summary - Relief Charge Nurse
-
Discharge Instructions:
Discharge Diagnosis/Procedures Alcohol abuse and withdrawal
Hyponatremia
Bradycardia
History of adenocarcinoma of the right upper
lobe of the lung
Mild thrombocytopenia
Hyperlipidemia
Neuropathy
Diet As tolerated
Activity As tolerated
Driving Restrictions No driving for 1 week
Blood Work CBC, CMP in 1 week
Other Services VN
Instructions:
Stand-Alone Forms:
Changes to Home Medications: Yes
Discharge Medications:
DC Medications w/original date entered in [employer]
Ascorbic acid (vitamin C) 1,000 mg tablet (Vitamin C) 500 mg PO DAILY Supplement 01/03/21
Multivitamin with folic acid 400 mcg tablet (Tab-A-Ellen) 1 tab PO DAILY Supplement 11/10/21
Rosuvastatin 20 mg tablet 20 mg PO QPM High Cholesterol 11/10/21
Ukqiupaspad-ymquvgnpw-pcx C-Mn 750 mg-600 mg-55 mg-5 mg tablet 1 tab PO BID Supplement 01/09/22
Diphenhydramine HCl 50 mg tablet 50 mg PO HSPRN PRN sleep 07/21/23
Gabapentin 300 mg capsule 300 mg PO DAILY pain 10/03/24
Psyllium 1 packet PO DAILY Constipation 10/03/24
Folic acid 1 mg tablet 1 mg PO DAILY Supplement #30 tabs 10/06/24
Thiamine mononitrate (vit B1) 100 mg tablet 100 mg PO BID Supplement #0 tabs 10/06/24
Home Medication Changes
Stopped Coreg, Lisinopril, Aldactone
new
Folic acid 1 mg tablet 1 mg PO DAILY Supplement #30 tabs 10/06/24
Thiamine mononitrate (vit B1) 100 mg tablet 100 mg PO BID Supplement #0 tabs 10/06/24
Pending Results: No
--- NOTE | 2024-10-06 16:11 | CM ---
MD entered order for discharge.
ENEIDA saw pt and gave out pt resources for alcohol rehab.
Pt said he will follow up with alcohol rehab.
Marc will drive him home.
PLAN Home no needs
== END 2024-10-06 17:06 | disposition home or self-care (01) | DRG 433 ==
LOC: 4 EAST ACU 18:21
PROVIDERS: Registered Nurse; ADMITTING PHYSICIAN Hospitalist; ATTENDING PHYSICIAN Hospitalist; CONSULT PHYSICIAN Internal Medicine Cardiovascular Disease; EMERGENCY PHYSICIAN Student in an Organized Health Care Education/Training Program; FAMILY PHYSICIAN Family Medicine
DX: K70.10 Alcoholic hepatitis without ascites (principal); E46 Unspecified protein-calorie malnutrition; E87.1 Hypo-osmolality and hyponatremia; F10.139 Alcohol abuse with withdrawal, unspecified; E87.29 Other acidosis; K29.20 Alcoholic gastritis without bleeding; R00.1 Bradycardia, unspecified; G62.9 Polyneuropathy, unspecified; E86.0 Dehydration; F32.A Depression, unspecified; F41.9 Anxiety disorder, unspecified; K21.9 Gastro-esophageal reflux disease without esophagitis; D69.6 Thrombocytopenia, unspecified; R62.7 Adult failure to thrive; I95.1 Orthostatic hypotension; I10 Essential (primary) hypertension; Z87.891 Personal history of nicotine dependence; Z88.5 Allergy status to narcotic agent; Z92.3 Personal history of irradiation; Z85.118 Personal history of other malignant neoplasm of bronchus and lung; Z79.899 Other long term (current) drug therapy; Z68.23 Body mass index [BMI] 23.0-23.9, adult
CPT/HCPCS: 80053; 82533; 83690; 83735; 83930; 83935; 84300; 84443; 84484; 85025; 85027; 86803; 93005; 93306; 96374; 96375; 97116; 97163; 99285

== ENCOUNTER → 2024-12-14 09:31 | Outpatient (REF) | payer OTHER, SELFPAY | LOC: HWRAD 09:31 | PROVIDERS: ATTENDING PHYSICIAN Radiology Radiation Oncology; FAMILY PHYSICIAN Family Medicine | DX: C34.11 Malignant neoplasm of upper lobe, right bronchus or lung (principal) | CPT/HCPCS: 71250 ==

== ENCOUNTER → 2025-01-19 13:20 | Outpatient (REF) | payer OTHER, SELFPAY ==
[2025-01-19 14:18] LABS: Lactic Acid 1.4 mmol/L (0.7-2.0)
[2025-01-19 15:15] LABS: Urine Albumin Negative (Neg - Trace); Urine Bilirubin Negative (Negative); Urine Character Clear (Clear); Urine Color Yellow; Urine Glucose Negative (Negative); Urine Ketone 2+ (Negative); Urine Leukocyte Negative (Negative); Urine Nitrite Negative (Negative); Urine Occult Blood Negative (Negative); Urine Specific Gravity 1.025 (<1.030); Urine Urobilinogen Negative (Neg - 1+)
[2025-01-19 15:32] LABS: Hematocrit 44.1 % (39.0-52.0); Hemoglobin 14.2 g/dL (13.0-18.0); Mean Corp Hgb Conc. 32.2 g/dL (33.0-37.0); Red Blood Cell Count 5.25 10^6/uL (4.70-6.10); Red Cell Dist. Width 13.4 % (11.5-14.5); White Blood Cell Count 5.1 10^3/uL (4.8-10.8)
[2025-01-19 15:39] LABS: ALT (SGPT) 23 U/L (0-50); AST (SGOT) 396 U/L (17-59); Albumin 4.3 g/dl (3.5-5.0); Alkaline Phosphatase 144 U/L (38-126); Blood Urea Nitrogen 30 mg/dl (9-20); Calcium 10.7 mg/dl (8.4-10.2); Carbon Dioxide 24 mmol/L (22-30); Chloride 94 mmol/L (98-107); Glucose 86 mg/dl (70-99); Potassium 4.9 mmol/L (3.5-5.1); Sodium 129 mmol/L (135-145); Total Bilirubin 0.8 mg/dl (0.2-1.3); eGFR > 60.00
[2025-01-19 15:53] LABS: Free T4 1.42 ng/dl (0.78-2.19)
[2025-01-19 16:07] LABS: TSH 2.53 uIU/ml (0.47-4.68)
[2025-01-19 16:31] LABS: % Basophils 1.6 % (0-2); % Immature Granulocytes 13.4 % (0-0.5); % Lymphocytes 22.5 % (20.5-51.1); % Monocytes 10.1 % (1.7-9.3); % Neutrophils 51.4 % (42.2-75.2); Absolute Basophils 0.1 10^3/uL (0-0.2); Absolute Eosinophils 0.1 10^3/uL (0-0.7); Absolute Immature Granulocytes 0.7 10^3/uL (0-0.05); Absolute Lymphocytes 1.1 10^3/uL (1.2-3.4); Absolute Monocytes 0.5 10^3/uL (0.1-0.6); Absolute Neutrophils 2.6 10^3/uL (1.4-6.5); Nucleated Red Blood Cells % 0.8 % (-)
[2025-01-19 16:33] LABS: Mean Platelet Volume 11.2 fL (7.4-10.4); Platelet Count 97 10^3/uL (130-400)
[2025-01-20 11:25] LABS: Lipase 140 U/L (23-300)
== END ==
LOC: RAD 13:20
PROVIDERS: ATTENDING PHYSICIAN Nurse Practitioner Family
DX: R10.32 Left lower quadrant pain (principal); K21.01 Gastro-esophageal reflux disease with esophagitis, with bleeding; F10.10 Alcohol abuse, uncomplicated; R79.89 Other specified abnormal findings of blood chemistry
CPT/HCPCS: 36415; 74177; 80053; 81003; 83605; 83690; 84439; 84443; 85025; Q9967

== ENCOUNTER → 2025-02-13 18:02 | Outpatient (REF) | payer OTHER, SELFPAY | LOC: MRI 18:02 | PROVIDERS: ATTENDING PHYSICIAN Family Medicine | DX: R10.32 Left lower quadrant pain (principal); R10.84 Generalized abdominal pain; F10.10 Alcohol abuse, uncomplicated; R79.89 Other specified abnormal findings of blood chemistry | CPT/HCPCS: 74183; A9575 ==

== ENCOUNTER 2025-03-08 07:34 | Inpatient (IN) | payer OTHER, SELFPAY ==
[2025-03-07] VITALS (9 sets, daily range): BP systolic 98–138; BP diastolic 57–77; PULSE 87–107; BMI 21.0
--- NOTE | 2025-03-07 13:04 | ED.GENMED ---
History of Present Illness
General
Chief Complaint: Breathing Problem
Time Seen by Provider: 03/07/25 12:39
History of Present Illness
History of Present Illness:
Patient is a 74 year old man with history of lung cancer s/p radiation, new renal and pancreatic masses presenting to the emergency department with shortness of breath and weight loss over the past month. Patient states for the past month he has
been having significant shortness of breath especially upon exertion. He also has decreased appetite with a 30 pound weight loss in 3 months. He has noticed some perioral numbness as well. He states that he has seen his primary care doctor has
had numerous blood work done with unclear etiology. He does state that he has had new pancreatic and renal masses found. No treatment plan in place just yet. He denies any chest pain hemoptysis leg swelling fevers or chills. He has been having
increased night sweats.
Past History
Past History
ED Past Medical History: GERD, HTN, Hypercholesterolemia and Other (Lung cancer)
ED Past Surgical History: Cholecystectomy
Social History
Tobacco: Former smoker
Alcohol: Daily (1-2 bottles wine)
Drug: None
Personal:
Living: with family
Phy Exam
Physical Exam
Physical Exam:
GENERAL: in no acute distress
HEENT: normocephalic, extraocular movements intact, dry oral mucosa
NECK: normal inspection
RESPIRATORY: no respiratory distress, diminished breath sounds left upper base otherwise clear breath sounds
CARDIOVASCULAR: regular rate and rhythm
ABDOMEN/: soft, non-distended, non-tender to palpation, no rebound or guarding
EXTREMITIES: non-tender, no edema/swelling
NEUROLOGIC: awake and alert, moves all extremities
SKIN: warm
Scores
Heart Failure Risk
Heart Failure Risk Score: Not Applicable
Course
Orders/Labs/Results
Orders:
Orders
03/07/25 11:09
Electrocardiogram (*1) Urgent
Reason for Study: Shortness of Breath
EKG- Treatment ONCE
03/07/25 13:03
CT Pe/abd/pel W Urgent
Comment:
Reason For Exam: sob lung mass, dec apetite, panc/renal mass
03/07/25 13:04
0.9% Sodium Chloride 1000 ml [Nss] 1,000 ml IV BOLUS
03/07/25 13:25
Complete Blood Count/With Diff Urgent
Comprehensive Metabolic Panel Urgent
Lipase Urgent
Manual Differential Urgent
NT-proBNP Urgent
Troponin I Urgent
Urinalysis Reflex To Culture Urgent
Date Specimen was Collected: 03/07/25
Time Specimen was Collected: 13:16
Urine Microscopic Reflex Cult Urgent
Abnormal Lab Results
03/07/25
13:25
RBC 3.24 L 10^6/uL
(4.70-6.10)
Hgb 8.6 L g/dL
(13.0-18.0)
Hct 27.7 L %
(39.0-52.0)
MCH 26.5 L pg
(27.0-31.0)
MCHC 31.0 L g/dL
(33.0-37.0)
RDW 17.1 H %
(11.5-14.5)
Plt Count 53 L 10^3/uL
(130-400)
MPV 11.4 H fL
(7.4-10.4)
Segmented Neutrophils 27 L %
(42-75)
Band Neutrophils 22 H %
(0-3)
Sodium 130 L mmol/L
(135-145)
BUN 27 H mg/dl
(9-20)
AST 277 H U/L
(17-59)
Alkaline Phosphatase 135 H U/L
(38-126)
Total Protein 6.2 L g/dl
(6.3-8.2)
Urine Ketones 1+ A
(Negative)
Urine Albumin (Reflex) 1+ A
(Neg - Trace)
03/07/25 13:25
03/07/25 13:25
Vital Signs
Initial and Last Documented VS:
Initial Vital Signs
Temp Pulse Resp BP Pulse Ox
97.8 F 117 20 98/72 99
03/07/25 11:22 03/07/25 11:22 03/07/25 11:22 03/07/25 11:22 03/07/25 11:22
Last Documented Vital Signs
Temp Pulse Resp BP Pulse Ox
97.8 F 83 21 126/77 97
03/07/25 11:22 03/07/25 14:00 03/07/25 14:00 03/07/25 14:00 03/07/25 14:00
MDM/Problems Addressed
Differential Diagnosis Includes:
Patient is a 74-year-old male with history of lung cancer in remission who recently found new renal and pancreatic masses presenting to the emergency department with shortness of breath upon exertion as well as decreased appetite and weight loss.
Vitals initially were notable for blood pressure of 98/72 with a heart rate in the 1 teens. Malachi does show dry oral mucosa and clear breath sounds with a benign abdomen. Concern for PE versus atypical ACS versus new malignancy. Will obtain broad
workup with blood work urine EKG CT PE as well as CT abdomen pelvis. Will give IV fluids.
*Pulse Oximetry
SaO2: 99
Oxygen Mode of Delivery: Room air
Patient hypoxic: no
*Critical Care Note
Total Time (30-74mins, 75-104mins- exclusive of procedures): Not Applicable
Update Note
Update Note:
Hemoglobin with significant drop. This 8.6 today. No melena. No hematochezia. Received a critical from radiology. He does have pathologic retroperitoneal and right pelvic lymphadenopathy that could be amenable to CT-guided biopsy. Given the
ongoing weakness new lymphadenopathy anemia patient will need admission. Discussed with hospitalist accepted patient to their service.
ED Attending Note
-
Portions of this chart may have been created with voice recognition software.� Occasional wrong word or��sound alike� substitutions may have occurred due to the inherent limitations of voice recognition software.
Discharge Plan
Departure
Patient Disposition: Admit
Date of Disposition: 03/07/25
Time of Disposition: 15:25
Presentation/result/management discussed w/ accepting MD/DO: Hospitalist
Discharge Problem:
Weakness, Lymphadenopathy
Prescriptions:
No Action
ascorbic acid (vitamin C) [Vitamin C] 1,000 MG tablet
500 mg PO DAILY
rosuvastatin 20 MG tablet
20 mg PO QPM
multivitamin with folic acid [Tab-A-Ellen] 1 TABLET tablet
1 tab PO DAILY
mvdhuoqcftl-uxircjkkr-cfc C-Mn 1 TAB tablet
1 tab PO BID
diphenhydramine HCl 50 mg Tablet
50 mg PO HSPRN PRN (Reason: sleep)
psyllium Packet
1 packet PO DAILY
gabapentin 300 mg Capsule
300 mg PO DAILY
folic acid 1 mg Tablet
1 mg PO DAILY Qty: 30 0RF
thiamine mononitrate (vit B1) 100 mg Tablet
100 mg PO BID Qty: 0 0RF
Referrals:
Charis Guardado DO [Family Provider, Family Practice]
Interventions
Interventions:
*Risk Screen - Suicide Last Done: 03/07/25 11:22
*General Assessment Last Done: 03/07/25 13:07
*Neglect/Abuse Screening Last Done: 03/07/25 11:22
*ED COVID-19 Vaccine History Last Done: 03/07/25 11:22
ED- Cardiac Assessment Last Done: 03/07/25 13:07
ED- Pulmonary Assessment Last Done: 03/07/25 13:07
Discharge Date and Time
Print Language: SLOVAK
[2025-03-07] MEDS: NSS 1000 IV (13:22)
[2025-03-07 13:35] LABS: Urine Character Clear (Clear)
[2025-03-07 13:52] LABS: Potassium 4.7 mmol/L (3.5-5.1)
[2025-03-07 13:54] LABS: Hematocrit 27.7 % (39.0-52.0); Hemoglobin 8.6 g/dL (13.0-18.0); Mean Corp Hgb Conc. 31.0 g/dL (33.0-37.0); Mean Corpuscular Volume 85.5 fL (80.0-94.0); Platelet Count 53 10^3/uL (130-400); Red Cell Dist. Width 17.1 % (11.5-14.5)
[2025-03-07 13:55] LABS: ALT (SGPT) 16 U/L (0-50); AST (SGOT) 277 U/L (17-59); Albumin 3.6 g/dl (3.5-5.0); Alkaline Phosphatase 135 U/L (38-126); Blood Urea Nitrogen 27 mg/dl (9-20); Calcium 10.2 mg/dl (8.4-10.2); Carbon Dioxide 24 mmol/L (22-30); Chloride 98 mmol/L (98-107); Estimated Creatinine Clearance 68 ml/min; Glucose 99 mg/dl (70-99); Lipase 94 U/L (23-300); Sodium 130 mmol/L (135-145); Total Protein 6.2 g/dl (6.3-8.2); eGFR > 60.00
[2025-03-07 14:06] LABS: Troponin I < 0.012 ng/ml; Urine Squamous Cell 0-2 /LPF (Few)
[2025-03-07 14:08] LABS: Urine Red Blood Cell 0-2 /HPF (0-2)
[2025-03-07 15:04] LABS: Absolute Neutrophils -Man Diff 2.8 10^3/uL (1.4-6.5)
[2025-03-07 15:05] LABS: Platelets Checked Yes
[2025-03-07 15:06] LABS: Anisocytosis 1+; Normal RBC Morphology No; Ovalocytes FEW; Polychromasia 1+; Total Cells Counted 100
--- NOTE | 2025-03-07 15:29 | HPS.HSE ---
Family Physician
-
Family Physician: Charis Guardado
Chief Complaint
-
shortness of breath and unintentional weight loss
History of Present Illness
Patient is a 74-year-old male with past medical history significant for hypertension, hyperlipidemia, alcohol use disorder and Hx right lung adenocarcinoma, in remission, who presented to [facility] ED for evaluation at recommendation of primary provider.
Patient saw primary provider today in regards to progressive exertional dyspnea and unintentional weight loss of about 45 pounds in 2-3 months. Patient states approximately 3 months ago he had acute onset of chest and abdominal pain that started a
series of doctor visits and testing. With most recently having been told there was a pancreatic and renal mass found, pending further testing for a treatment plan to be put in place. Patient reports significant decreased appetite in last several
months with some days only have protein shake for intake. He reports diarrhea and lightheadedness over past 1-2 weeks. He also has complaint of perioral numbness more prominent in lower jaw. Denies any recent sick contact, fever, chills, cough,
constipation or urinary symptoms.
Medical History
Past Medical History
Past Medical History: Reports Other
Additional Past Medical History:
hypertension
hyperlipidemia
alcohol use disorder
Hx right lung adenocarcinoma
Past Surgical History: Reports Other
Additional Past Surgical History:
cholecystectomy
right lung biopsy (01/03/2021)
Social History
Tobacco: Former Smoker (approximate 40 pack year history, quiting 20 years ago )
Alcohol: Former (generally 2 cups of wine per day, has not had any alcohol in 10 days )
Drug: None
Personal:
Living: With Family
Family History
Family History: Not pertinent
Allergies / Home Medications
Allergies reflects when Allergies were last updated in [employer].
Home Medications with original date entered in [employer]
Allergy/Medication List:
Allergies
Allergy/AdvReac Type Severity Reaction Status Date / Time
aspirin (From Percodan) Allergy Shortness Verified 03/07/25 11:31
of Breath
codeine Allergy Shortness Verified 03/07/25 11:31
of Breath
Opioids - Morphine Analogues Allergy Unknown Verified 03/07/25 11:31
oxycodone (From Percodan) Allergy Shortness Verified 03/07/25 11:31
of Breath
Home Medications
caqulhwhibr-scpzlbdcf-whk C-Mn 750 mg-600 mg-55 mg-5 mg tablet 1 tab PO DAILYPRN PRN supplement 01/09/22
gabapentin 300 mg capsule 300 mg PO HS pain 10/03/24
folic acid 1 mg tablet 1 mg PO DAILY Supplement #30 tabs 10/06/24
Stool Softener-Laxative 2 cap PO HSPRN PRN constipation 03/07/25
acetaminophen 500 mg tablet (Tylenol Extra Strength) 1,000 mg PO BIDPRN PRN mild pain 03/07/25
ascorbic acid (vitamin C) 500 mg tablet (Vitamin C) 500 mg PO DAILY 03/07/25
diphenhydramine HCl 50 mg/30 mL oral liquid (ZzzQuil) 50 mg PO HS PRN sleep 03/07/25
niacin 1 tab PO DAILY 03/07/25
pantoprazole 40 mg tablet,delayed release 40 mg PO BID 03/07/25
rosuvastatin 20 mg tablet 20 mg PO HS 03/07/25
spironolactone 50 mg tablet 25 mg PO DAILY 03/07/25
therapeutic multivitamin 1 tab PO DAILY 03/07/25
thiamine mononitrate (vit B1) 100 mg tablet 100 mg PO DAILY Supplement 03/07/25
Review of Systems
-
History Source: Patient
Constitutional: Reports Weight Loss (45 pounds in 2-3 months )
EENT: Reports Other (perioral numbness )
Respiratory: Reports Trouble Breathing (exertional dyspnea )
Cardiac: Reports Chest Pain
Abdomen/GI: Reports Abdominal Pain, Diarrhea and Anorexia; Denies Bloody Stools or Black Stools
: Reports No Symptoms
Musculoskeletal: Reports No Symptoms
Skin: Reports No Symptoms
Neurological: Reports Dizzy
Endocrine: Reports No Symptoms
Hematologic/Lymphatic: Reports No Symptoms
Psych: Reports No Symptoms
Physical Exam
Vital Signs
Vital Signs
Temp Pulse Resp BP Pulse Ox
97.8 F 83 21 126/77 97
03/07/25 11:22 03/07/25 14:00 03/07/25 14:00 03/07/25 14:00 03/07/25 14:00
Physical Exam
General: Well Developed, Well Nourished, No Apparent Distress, Comfortable and Conversant
HEENT: NormoCephalic, Moist mucous membranes, Atraumatic, [place] Conjunctivae, Nose Appears Normal and Ears Appear Normal
Respiratory: Clear
Cardiac: S1/S2 and Regular Rhythm
Breast: Deferred by me
GI: Soft, Non Tender, Non Distended and Normal Bowel Sounds; No Organomegaly
Rectal: Deferred by Provider
Genito-urinary: Deferred by me
Musculoskeletal: No Clubbing, No Cyanosis and No Edema
Skin: Warm and IV/Catheter Site
Neuro: Awake, Alert, AO x 3 and Nonfocal/grossly intact
Psych: Calm and Intact Judgment/Insight
Laboratory Results
-
03/07/25 13:25
03/07/25 13:25
Laboratory Results
Total Bilirubin 0.7 mg/dl (0.2-1.3) 03/07/25 13:25
AST 277 U/L (17-59) H 03/07/25 13:25
ALT 16 U/L (0-50) 03/07/25 13:25
Alkaline Phosphatase 135 U/L (38-126) H 03/07/25 13:25
Troponin I < 0.012 ng/ml 03/07/25 13:25
Lipase 94 U/L (23-300) 03/07/25 13:25
Data Reviewed
-
CT Scan: Report Reviewed by me (Chest/Abd/Pel: 1. No evidence of pulmonary embolism or thoracic aortic dissection. 2. Pathologic retroperitoneal and right pelvic lymphadenopathy, new/increased in size compared to recent prior CT dated 01/19/2025.
Large confluent mass of lymph nodes in the right external iliac region measures 3.1 c)
Lab Data: Labs Reviewed by me (hgb 8.6, hct 27.7, plt 53, Na+ 130, AST 277, ALT 16, Alk Phos 135)
Impression/Plan
-
IMPRESSION/PLAN:
#adult failure to thrive likely 2/2 reoccurrence of cancer
unintentional weight loss of about 45 pounds in 2-3 months
Na+ 130, AST 277, ALT 16, Alk Phos 135
EKG: SINUS TACHYCARDIA
Chest/Abd/Pel CT: 1. No evidence of pulmonary embolism or thoracic aortic dissection.
2. Pathologic retroperitoneal and right pelvic lymphadenopathy, new/increased in size compared to recent prior CT dated 01/19/2025. Large confluent mass of lymph nodes in the right
external iliac region measures 3.1 cm and diameter, significantly increased in size compared to recent prior CT. This confluent mass of lymph nodes may be amenable to CT-guided
percutaneous biopsy, as clinically appropriate.
3. Small lung nodules as detailed above, measuring up to 4 mm in diameter. As per Fleischner Society recommendations, no further CT follow-up is required unless the patient is high risk
for lung carcinoma, in which case a follow-up chest CT should be considered in approximately 12 months.
4. Moderate coronary arterial calcification. Please correlate with symptoms of and risk factors for coronary artery disease, with further workup as clinically appropriate.
5. Mild hydronephrosis of the left kidney, and perhaps dilation of the left extrarenal pelvis. Transition point at the left UPJ, which may be related to chronic or functional UPJ obstruction.
6. Mild prostatic enlargement.
- Admit to med/surg
- Consult Heme/Onc
- Consult IR for biopsy
- supportive care
#anemia
#thrombocytopenia
hgb 8.6, hct 27.7, plt 53
- heme test stool
- Consult Heme/Onc
- iron studies
#transaminitis
#Hx alcohol use disorder
known alcohol use disorder, no drink in 10 days
AST 277, ALT 16, Alk Phos 135
- monitor LFTs
#hypertension
- continue spironolactone
#hyperlipidemia
- continue rosuvastatin
#GERD
- continue pantoprazole
#Hx right lung adenocarcinoma
s/p radiation at [facility], now in remission
Follows out patient with [facility]
Code status: full code
DVT prophylaxis: Lovenox sq
--- NOTE | 2025-03-07 17:59 | W.PN.UPDATE ---
Update Note
Progress Note Update
This is an addendum to H&P written by Gracie Drummond on 03/07/2025. �Patient seen and examined independently with PODIATRIC SURGEON.
74-year-old male past medical history of lung cancer status post radiation, new renal and pancreatic masses, alcohol use disorder, orthostatic hypotension, GERD, thrombocytopenia, anxiety/depression, hypertension, hyperlipidemia, elevated
neuropathy, dysphagia, former smoker, hyponatremia, here for shortness of breath, 30 pound weight loss. �Also perioral numbness.
Labs show hemoglobin 8.6 significantly decreased from 14.2.
CT abdomen pelvis shows retroperitoneal/right pelvic lymphadenopathy increased in size, large mass of lymph nodes in the right external iliac region.
Patient with symptomatic anemia as well as thrombocytopenia. �Check Hemoccult, iron studies, B12 and folate. �Oncology consulted. �IR consulted for biopsy.
Unclear etiology of perioral numbness could be related to underlying malignancy versus less likely hyponatremia.
[2025-03-07] MEDS: PROTONIX 40 MG PO (20:46)
[2025-03-07] MEDS: LOVENOX 40 MG SC (20:46)
[2025-03-07] MEDS: NEURONTIN 300 MG PO (20:46)
[2025-03-07] MEDS: CRESTOR 20 MG PO (20:47)
[2025-03-07] MEDS: BENADRYL 50 MG PO (22:33)
[2025-03-08] MEDS: THERAGRAN 1 TABLET PO (07:28)
[2025-03-08] MEDS: ALDACTONE 25 MG PO (07:28)
[2025-03-08] MEDS: PROTONIX 40 MG PO ×2 (07:28→21:30)
[2025-03-08] MEDS: FOLVITE 1 MG PO (07:28)
[2025-03-08] MEDS: VITAMIN C 500 MG PO (07:28)
[2025-03-08] MEDS: NIACIN 100 MG PO (07:28)
[2025-03-08] MEDS: LOVENOX SC (07:30)
[2025-03-08] MEDS: VITAMIN B1 100 MG PO (07:30)
[2025-03-08 07:31] VITALS: BP 132/69
--- NOTE | 2025-03-08 07:45 | W.PN.HOSP.TC ---
Addendum entered and electronically signed by Jw Coy MD 03/08/25 21:09:
Attending Addendum-
I saw and evaluated the patient. I reviewed the resident�s note and agree with findings and plan as documented in the resident�s note. Sub: seen with SO present. Feels weak. States that his SOB has improved. 'I wanna figure out whats going on!'
Full 12 point ROS reviewed and negative except as documented Exam: Vitals reviewed in chart GEN-NAD heart RRR no MRG Lungs clear abd soft NT ND LE no edema
Plan:
#Weight Loss likely 2/2 reoccurrence of cancer
unintentional weight loss of about 45 pounds in 2-3 months
Chest/Abd/Pel CT: -No evidence of pulmonary embolism or thoracic aortic dissection.
-Pathologic retroperitoneal and right pelvic lymphadenopathy, new/increased in size compared to recent prior CT dated 01/19/2025. Large confluent mass of lymph nodes in the right
external iliac region measures 3.1 cm and diameter, significantly increased in size
-Small lung nodules as detailed above, measuring up to 4 mm in diameter-CT should be considered in approximately 12 months
-Mild hydronephrosis of the left kidney
- Appreciate Heme/Onc input- multiple lab tests ordered - follow
- IRAD for biopsy of right ext iliac LN today
- supportive care
#Pancytopenia
-appreciate Heme/Onc input- for bx of LN today
-may eventually need BMbx
-r/o HLH,marrow infiltration, heme malig
-cont to trend
#Transaminitis
#Hx alcohol use disorder
-no ETOH in 7-10 days per patient and verified with partner
-isolated worsening AST
-monitor LFTs
-possible BM, RBC, LN source
-cont to trend
# Left Mild Hydronephrosis (congenital)
- urinating as usual
- CTM
# Hyponatremia-
- appears euvolemic
- possibly SIADH
- check studies
#Hx right lung adenocarcinoma
-s/p radiation at [facility], now in remission
-Follows out patient with [facility]
#hypertension
-continue spironolactone
#hyperlipidemia
-continue rosuvastatin
#GERD
-continue pantoprazole
CODE FULL d/w SO
DVT-P- SCDs thrombocytopenia
ACP
Patient consented to discuss, was with , time spent explanation of advance directives, changes in health status, patient�s health care wishes if the patient becomes unable to make health decisions, goals of care, code status, and prognosis,
'yes i want everything to be done'- 16 minutes
Time spent coordinating care, review of plan of care with resident, personally reviewed previous records in EMR, med rec, labs, radiology, d/w nursing, family total time documented is exclusive of any additional time listed that was spent in advance
care planning discussion - 52� minutes
Original Note:
Today's Communication/Plan
-
HIV Screening tomorrow
Biopsy done today
Oncology referal
Assessment / Plan
Assessment / Plan
CT Scan: (Chest/Abd/Pel: 1. No evidence of pulmonary embolism or thoracic aortic dissection.
2. Pathologic retroperitoneal and right pelvic lymphadenopathy, new/increased in size compared to recent prior CT dated 01/19/2025.
Large confluent mass of lymph nodes in the right external iliac region measures 3.1 c)
Lab Data: Labs Reviewed by me (hgb 8.6, hct 27.7, plt 53, Na+ 130, AST 277, ALT 16, Alk Phos 135)
CT Guided biopsy: Retroperitoneal and right iliac lymphadenopathy
adult failure to thrive likely 2/2 reoccurrence of cancer
unintentional weight loss of about 45 pounds in 2-3 months
Na+ 130, AST 277, ALT 16, Alk Phos 135
EKG: SINUS TACHYCARDIA
Chest/Abd/Pel CT: 1. No evidence of pulmonary embolism or thoracic aortic dissection.
2. Pathologic retroperitoneal and right pelvic lymphadenopathy, new/increased in size compared to recent prior CT dated 01/19/2025. Large confluent mass of lymph nodes in the right
external iliac region measures 3.1 cm and diameter, significantly increased in size compared to recent prior CT. This confluent mass of lymph nodes may be amenable to CT-guided
percutaneous biopsy, as clinically appropriate.
3. Small lung nodules as detailed above, measuring up to 4 mm in diameter. As per Fleischner Society recommendations, no further CT follow-up is required unless the patient is high risk
for lung carcinoma, in which case a follow-up chest CT should be considered in approximately 12 months.
4. Moderate coronary arterial calcification. Please correlate with symptoms of and risk factors for coronary artery disease, with further workup as clinically appropriate.
5. Mild hydronephrosis of the left kidney, and perhaps dilation of the left extrarenal pelvis. Transition point at the left UPJ, which may be related to chronic or functional UPJ obstruction.
6. Mild prostatic enlargement.
thrombocytopenia
hgb 8.6, hct 27.7, plt 53
- heme test stool
- Consult Heme/Onc
- iron studies
Hx right lung adenocarcinoma
s/p radiation at [facility], now in remission
Follows out patient with [facility]
Anticipated Discharge: > 48 hours
Subjective/Interval History
-
Date of Service: March 08, 2025
74 M arrived to the ER yesterday with shortness of breath, unintentional weight loss with known h/o right side lung adenocarcinoma, in remission, recommended by primary care provider because of progressive exertional dyspnea and unintentional weight
loss of about 45 pounds in 2-3 months. Patient states approximately 3 months ago he had acute onset of chest and abdominal pain that started a series of doctor visits and testing. With most recently having been told there was a pancreatic and renal
mass found, pending further testing for a treatment plan to be put in place. complaint of perioral numbness more prominent in lower jaw. Denied any recent sick contact, fever, chills, cough, constipation or urinary symptoms.
past medical history hypertension
hyperlipidemia
alcohol use disorder.
Objective Data
-
Labs:
Laboratory Results
03/08/25 07:46
03/08/25 07:46
Laboratory Results
PT 18.8 Sec (11.4-14.6) H 03/08/25 08:19
INR 1.51 03/08/25 08:19
APTT Cancelled 03/08/25 12:44
Total Bilirubin 0.7 mg/dl (0.2-1.3) 03/08/25 07:46
AST 528 U/L (17-59) H* 03/08/25 07:46
ALT 15 U/L (0-50) 03/08/25 07:46
Alkaline Phosphatase 144 U/L (38-126) H 03/08/25 07:46
Troponin I < 0.012 ng/ml 03/07/25 13:25
Lipase 94 U/L (23-300) 03/07/25 13:25
Vital Signs:
Vital Signs
Temp Pulse Resp BP Pulse Ox
98.1 F 87 18 104/57 97
03/07/25 23:55 03/07/25 23:55 03/07/25 23:55 03/07/25 23:55 03/07/25 23:55
I&O
03/07/25 03/08/25 03/09/25
06:59 06:59 06:59
Intake Total 480 / 480
Balance 480 / 480
Review of Systems
-
History Source: Patient
Constitutional: Reports Weight Loss (30 pounds weight loss)
Respiratory: Reports No Symptoms
Cardiac: Reports No Symptoms
Abdomen/GI: Reports No Symptoms
Genitourinary: Reports No Symptoms
Musculoskeletal: Reports No Symptoms
Skin: Reports No Symptoms
Neuro: Reports No Symptoms
Endocrine: Reports No Symptoms
Hematologic / Lymphatic: Reports No Symptoms
Allergy / Immunology: Reports No Symptoms
Physical Exam
-
General: Cachectic
Respiratory: Decreased Breath Sounds (right upper, middle lobe )
Cardiac: Regular Rhythm and S1/S2
GI: Soft and Nontender
Genito-urinary: No Costovertebral Tender
Musculoskeletal: No Clubbing and No Edema
Neuro: Awake
[2025-03-08 08:33] VITALS: BP 110/65; BP 115/74; BP 132/69; PULSE 105; PULSE 112; PULSE 92
[2025-03-08 08:50] LABS: Hematocrit 26.5 % (39.0-52.0); Hemoglobin 8.2 g/dL (13.0-18.0); Mean Corp Hgb Conc. 30.9 g/dL (33.0-37.0); Mean Corpuscular Volume 86.3 fL (80.0-94.0); Platelet Count 41 10^3/uL (130-400); Red Cell Dist. Width 17.4 % (11.5-14.5)
[2025-03-08 08:52] LABS: INR 1.51; PT 18.8 Sec (11.4-14.6)
[2025-03-08 09:07] LABS: ALT (SGPT) 15 U/L (0-50); AST (SGOT) 528 U/L (17-59); Albumin 3.5 g/dl (3.5-5.0); Alkaline Phosphatase 144 U/L (38-126); Blood Urea Nitrogen 21 mg/dl (9-20); Calcium 10.0 mg/dl (8.4-10.2); Carbon Dioxide 23 mmol/L (22-30); Chloride 102 mmol/L (98-107); Estimated Creatinine Clearance 77 ml/min; Glucose 86 mg/dl (70-99); Iron 38 ug/dl (49-181); Potassium 4.2 mmol/L (3.5-5.1); Sodium 132 mmol/L (135-145); Total Protein 5.9 g/dl (6.3-8.2); eGFR > 60.00
[2025-03-08 09:12] LABS: Total Iron Binding Capacity 227 ug/dl (261-462)
[2025-03-08 09:37] LABS: Absolute Neutrophils -Man Diff 1.4 10^3/uL (1.4-6.5)
[2025-03-08 09:38] LABS: Anisocytosis 1+; Normal RBC Morphology No; Platelets Checked Yes; Polychromasia 1+; Total Cells Counted 100
[2025-03-08 09:48] LABS: Vitamin B12 506 pg/ml (239-931)
--- NOTE | 2025-03-08 09:57 | CM ---
Initial assessment completed. Patient is a 74-year-old male with past medical history significant for hypertension, hyperlipidemia, alcohol use disorder and Hx right lung adenocarcinoma, in remission, who presented to [facility] ED for evaluation of sob
and unintentional weight loss.
Patient resides w/ spouse in a 2STH, 1 step to enter. 17 steps to second floor where bedroom and main bathroom is located. Patient is independent in all area, no DME. No SNF/HC hx reported.
Address, point of contact and insurance verified
PCP: Charis Guardado
Pharmacy: [facility]
Plan: Anticipate home, will watch for any needs
[2025-03-08 10:23] VITALS: BMI 21.0
[2025-03-08 11:06] LABS: Ferritin > 10000.0 ng/ml (17.9-464.0)
[2025-03-08 13:07] LABS: Reticulocyte Count 4.6 % (0.4-2.8)
[2025-03-08 13:10] LABS: APTT 42.2 Sec (23.4-35.0); Fibrinogen 761 MG/DL (199-459)
--- NOTE | 2025-03-08 13:30 | CON.ONC ---
Documented by User: Tamela Pickett DO, Resident 03/08/25 14:29
Consultation
-
Date Consultation Requested: 03/08/25
Date Consultation Performed: 03/08/25
Performing Provider: Abdi Chandler
Impression
Impression
Patient is a 74 year old male with a PMH of lung cancer diagnosed in 2020, s/p SBRT (50 Gy in 5 fractions), now presenting to the ED with SOB and 40lbs weight loss over the last two months.
History of Lung Cancer
- patient has been in followup with [facility], s/p SBRT in 2020
Anemia and Thrombocytopenia
- hgb 8.2, hct 26.75, plt 41
R iliac mass
- seen on CT AP 03/07
- pending IR consult for biopsy
Plan
Plan
IR consult pending for biopsy of lymph node mass
Will continue to follow
Would suggest additional infectious work up and GI consult for abnormal liver enzymes
Orders entered:
- Flow cytometry
- B12, folic acid, iron
- SPEP
- hemolysis panel: retic count, LDH, haptoglobin
- hepatitis B and C panel
- PTT and fibrinogen
Patient History
History of Present Illness
Patient is a 74 year old male with a PMH of lung cancer diagnosed in 2020, s/p SBRT (50 Gy in 5 fractions), now presenting to the ED with SOB and 30lb weight loss over the last two months. Patient was first diagnosed with lung cancer in December 2020
via a screening chest CT which revealed a pulmonary nodule in the RUL. Biopsy showed it to be adenocarcinoma in situ. 01/16/21 patient had a PET showing the known 1.1 cm RUL nodule (0.7 SUV), no evidence of metastatic disease. Patient was recommended
for surgery but decided to undergo RT (50 Gy in 5 fxs) with Dr. Zuniga/Dr. Arambula at [facility]. Patient was followed every [address] Arambula, had a CT chest most recently in 12/14/2024, which showed No convincing evidence for
residual/recurrent or metastatic disease in the chest.
Patient has been recently experiencing worsening shortness of breath on exertion, weight loss for the last 2 months, night sweats, pain in his abdomen and perioral numbness. He was seeing his PCP, Dr. Guardado, for these issues and she advised he come
to the ED to get worked up for a possible underlying malignancy.
Patient had a CT CAP completed in the ED 03/07/2025 which showed retroperitoneal and right pelvic lymphadenopathy, new/increased in size compared to recent prior CT dated 01/19/2025. Large confluent mass of lymph nodes in the right external iliac
region measures 3.1 cm and diameter, significantly increased in size compared to recent prior CT.
Patient also found to have symptomatic anemia and thrombocytopenia on lab work
Patient was seen today at the bedside. Patient is aware of the results the CT AP and is eager to schedule the biopsy. Per patient, he is up to date on colonoscopies and was told he didn't need another one in his life time.
Patient denies chest pain, N/V, changes in bowel movements.
Past-Medical/Surgical History
Medical History
T0N0M0 adenocarcinoma of the lung s/p SBRT
alcohol use disorder,
GERD,
thrombocytopenia,
anxiety/depression,
hypertension,
hyperlipidemia,
former smoker
Patient Medication
�Medication �Instructions �Recorded �Confirmed �Last Taken �Type
glrdedqvefg-gushpdlhu-rrg C-Mn 750 1 tab PO DAILYPRN PRN supplement 01/09/22 03/07/25 1 Week Ago History
mg-600 mg-55 mg-5 mg tablet ~02/28/25
gabapentin 300 mg capsule 300 mg PO HS pain 10/03/24 03/07/25 03/06/25 History
folic acid 1 mg tablet 1 mg PO DAILY Supplement #30 tabs 10/06/24 03/07/25 03/07/25 Rx
Stool Softener-Laxative 2 cap PO HSPRN PRN constipation 03/07/25 03/07/25 Unknown History
acetaminophen 500 mg tablet 1,000 mg PO BIDPRN PRN mild pain 03/07/25 03/07/25 03/06/25 History
(Tylenol Extra Strength)
ascorbic acid (vitamin C) 500 mg 500 mg PO DAILY Supplement 03/07/25 03/07/25 03/07/25 History
tablet (Vitamin C)
diphenhydramine HCl 50 mg/30 mL 50 mg PO HS PRN sleep 03/07/25 03/07/25 1 Week Ago History
oral liquid (ZzzQuil) ~02/28/25
niacin 1 tab PO DAILY Supplement 03/07/25 03/07/25 03/07/25 History
pantoprazole 40 mg tablet,delayed 40 mg PO BID GERD 03/07/25 03/07/25 03/07/25 History
release
rosuvastatin 20 mg tablet 20 mg PO HS High Cholesterol 03/07/25 03/07/25 03/06/25 History
spironolactone 50 mg tablet 25 mg PO DAILY Fluid 03/07/25 03/07/25 03/07/25 History
Retention/Swelling
therapeutic multivitamin 1 tab PO DAILY Supplement 03/07/25 03/07/25 03/07/25 History
thiamine mononitrate (vit B1) 100 100 mg PO DAILY Supplement 03/07/25 03/07/25 03/07/25 History
mg tablet
Active Medications
Generic Name Dose Route Start Last Admin
Trade Name Freq PRN Reason Stop Dose Admin
Acetaminophen 650 mg 03/07/25 20:02
Acetaminophen 325 Mg Tablet PO 04/04/25 20:01
Q4HPRN PRN
mild pain/LOPEZ/temp> 100.4F
Ascorbic Acid 500 mg 03/08/25 08:00 03/08/25 07:28
Ascorbic Acid 500 Mg Tablet PO 04/05/25 07:59 500 mg
DAILY YOJANA Administration
Diphenhydramine HCl 50 mg 03/07/25 20:14 03/07/25 22:33
Diphenhydramine 50 Mg Capsule PO 04/04/25 20:13 50 mg
HS PRN Administration
sleep
Enoxaparin Sodium 40 mg 03/07/25 20:02 03/08/25 07:30
Enoxaparin Sodium 40 Mg/0.4 Ml Syringe SC 04/04/25 20:01 Not Given
QPM YOJANA
Folic Acid 1 mg 03/08/25 08:00 03/08/25 07:28
Folic Acid 1 Mg Tablet PO 04/05/25 07:59 1 mg
DAILY YOJANA Administration
Gabapentin 300 mg 03/07/25 22:00 03/07/25 20:46
Gabapentin 300 Mg Capsule PO 04/04/25 21:59 300 mg
HS YOJANA Administration
Multivitamins Therapeutic 1 tablet 03/08/25 08:00 03/08/25 07:28
Multivitamin Tablet PO 04/05/25 07:59 1 tablet
DAILY YOJANA Administration
Niacin 100 mg 03/08/25 08:00 03/08/25 07:28
Niacin 100 Mg Tablet PO 04/05/25 07:59 100 mg
DAILY YOJANA Administration
Pantoprazole Sodium 40 mg 03/07/25 20:02 03/08/25 07:28
Pantoprazole 40 Mg Delayed Release Tablet PO 04/04/25 20:01 40 mg
BID YOJANA Administration
Rosuvastatin Calcium 20 mg 03/07/25 22:00 03/07/25 20:47
Rosuvastatin (Crestor) 20 Mg Tablet PO 04/04/25 21:59 20 mg
HS YOJANA Administration
Sodium Chloride 0 flush 03/07/25 21:00
Sodium Chloride 0.9% (Flush) Syringe IV 04/04/25 20:59
PER PROTOCOL YOJANA
Spironolactone 25 mg 03/08/25 08:00 03/08/25 07:28
Spironolactone 50 Mg Tablet PO 04/05/25 07:59 25 mg
DAILY YOJANA Administration
Thiamine HCl 100 mg 03/08/25 08:00 03/08/25 07:30
Thiamine 100 Mg Tablet PO 04/05/25 07:59 100 mg
DAILY YOJANA Administration
Review of Systems
-
History Source: Patient
Constitutional: Reports Weight Loss and Night Sweats
Respiratory: Reports Cough and Trouble Breathing (SOB on exertion)
Cardiac: Reports No Symptoms
GI: Reports No Symptoms and GERD
Neuro: Reports No Symptoms and Numbness (perioral numbness)
Endocrine: Reports No Symptoms
Hematologic/Lymphatic: Reports No Symptoms
Physical Exam
-
General: No Apparent Distress
Cardiology: Normal Sinus Rhythm
Pulmonary: Clear
GI: Soft
Skin: Warm and Dry
Psych: Calm and Intact Judgement/Insight
Labs
Lab Results
WBC 4.3 10^3/uL (4.8-10.8) L 03/08/25 07:46
RBC 3.07 10^6/uL (4.70-6.10) L 03/08/25 07:46
Hgb 8.2 g/dL (13.0-18.0) L 03/08/25 07:46
Hct 26.5 % (39.0-52.0) L 03/08/25 07:46
MCV 86.3 fL (80.0-94.0) 03/08/25 07:46
MCH 26.7 pg (27.0-31.0) L 03/08/25 07:46
MCHC 30.9 g/dL (33.0-37.0) L 03/08/25 07:46
RDW 17.4 % (11.5-14.5) H 03/08/25 07:46
Plt Count 41 10^3/uL (130-400) L D 03/08/25 07:46
MPV 9.4 fL (7.4-10.4) 03/08/25 07:46
Creatinine 0.8 mg/dL (0.7-1.3) 03/08/25 07:46
Vital Signs
Vital Signs
Temp Pulse Resp BP Pulse Ox
99.3 F 92 16 132/69 95
03/08/25 07:31 03/08/25 07:31 03/08/25 07:31 03/08/25 07:31 03/08/25 07:31

Documented by User: Abdi Chandler MD 03/08/25 17:43
Plan
Plan
IR consult pending for biopsy of lymph node mass
Will continue to follow
Would suggest additional infectious work up and GI consult for abnormal liver enzymes
Orders entered:
- Flow cytometry
- B12, folic acid, iron
- SPEP
- hemolysis panel: retic count, LDH, haptoglobin
- hepatitis B and C panel
- PTT and fibrinogen
Hematology/Oncology Addendum:
Patient seen and evaluated and agree w/ resident note and plan as outlined
-h/o small lung nodule 2020 - tx w/ SBRT
-now w/ retroperitoneal /pelvic adenopathy and pancytopenia
-reviewed peripheral smear - demonstrating numerous nucleated RBCs concerning for underlying hematologic process
-for IR guided biopsy of retroperitoneal node
-depending upon pathology - bone marrow biopsy could be considered
-check anemia w/u iron studies, B12/ folic acid levels, hemolysis panel, SPEP
-peripheral blood flow cytometry
-PT/INR slightly prolonged w/ AST elevation - pt admits to being an alcoholic - check PTT and fibrinogen
-check hepatitis panel/ HIV
Will continue to follow with you
Patient History
Past-Medical/Surgical History
Medical History
T0N0M0 carcinoma of the lung s/p SBRT
alcohol use disorder,
GERD,
thrombocytopenia,
anxiety/depression,
hypertension,
hyperlipidemia,
former smoker
[2025-03-08 13:48] LABS: LDH 4393 U/L (120-246)
[2025-03-08 14:47] LABS: Folate > 20.0 ng/ml (2.76-20); Vitamin B12 498 pg/ml (239-931)
[2025-03-08 15:02] VITALS: BP 130/69; BP_SYST 99
[2025-03-08 15:46] LABS: Ferritin > 10000.0 ng/ml (17.9-464.0)
[2025-03-08 16:00] VITALS: BP 122/69; BP_SYST 91
[2025-03-08] MEDS: CRESTOR 20 MG PO (21:30)
[2025-03-08] MEDS: NEURONTIN 300 MG PO (21:30)
[2025-03-08] MEDS: BENADRYL 50 MG PO (21:32)
[2025-03-08 23:19] VITALS: BP 124/70
[2025-03-09 07:42] VITALS: BP 109/67
[2025-03-09] MEDS: NIACIN 100 MG PO (07:55)
[2025-03-09] MEDS: FOLVITE 1 MG PO (07:55)
[2025-03-09] MEDS: PROTONIX 40 MG PO ×2 (07:55→20:41)
[2025-03-09] MEDS: THERAGRAN 1 TABLET PO (07:55)
[2025-03-09] MEDS: ALDACTONE 25 MG PO (07:56)
[2025-03-09] MEDS: VITAMIN B1 100 MG PO (07:56)
[2025-03-09] MEDS: VITAMIN C 500 MG PO (07:56)
[2025-03-09 08:11] LABS: Hematocrit 23.2 % (39.0-52.0); Hemoglobin 7.2 g/dL (13.0-18.0); Mean Corp Hgb Conc. 31.0 g/dL (33.0-37.0); Mean Corpuscular Volume 85.9 fL (80.0-94.0); Platelet Count 42 10^3/uL (130-400); Red Cell Dist. Width 17.3 % (11.5-14.5)
[2025-03-09 08:40] LABS: Absolute Neutrophils -Man Diff 2.1 10^3/uL (1.4-6.5)
[2025-03-09 08:41] LABS: Anisocytosis 1+; Hypochromasia Slight; Normal RBC Morphology No; Platelets Checked Yes; Polychromasia Slight; Total Cells Counted 100
--- NOTE | 2025-03-09 08:57 | W.PN.ONC ---
Today's Communication / Plan
-
R illiac mass
-03/08 biopsy results pending
- Suggested to patient to follow up with [facility] after results come back and make an appointment for the week of 03/20/25
Anemia and Thrombocytopenia
- ferritin > 92470 possibly indicating infectious process
- blood cultures pending
Will continue to follow
Impression
Impression
Patient is a 74 year old male with a PMH of lung cancer diagnosed in 2020, s/p SBRT (50 Gy in 5 fractions), now presenting to the ED with SOB and 40lbs weight loss over the last two months.
History of Lung Cancer
- patient has been in followup with [facility] onc, s/p SBRT in 2020
Anemia and Thrombocytopenia
- hgb 7.2, wbc 4.5, hct 23.2, plt 42
R iliac mass
- seen on CT AP 03/07
- biopsy completed 03/08, pending results
Plan
Plan
R illiac mass
-03/08 biopsy results pending
- Suggested to patient to follow up with [facility] after results come back and make an appointment for the week of 03/20/25
Anemia and Thrombocytopenia
- blood cultures pending
Will continue to follow
Subjective/Objective
Subjective/Objective
Patient feels well today. Seen sitting in chair doing the crossword. Patient denies all ROS. Patient notes he had the largest meal he has had in weeks this morning and plans to shower later today.
General: AAOx3, not in acute distress
Cardiovascular: RRR
Respiratory: normal breath sounds b/l
Vital Signs:
Vital Signs
Temp Pulse Resp BP Pulse Ox
97.5 F 100 20 109/67 99
03/09/25 07:42 03/09/25 07:42 03/09/25 07:42 03/09/25 07:42 03/09/25 07:42
Lab Results:
Laboratory Data
WBC 4.5 10^3/uL (4.8-10.8) L 03/09/25 07:43
Hgb 7.2 g/dL (13.0-18.0) L 03/09/25 07:43
Plt Count 42 10^3/uL (130-400) L 03/09/25 07:43
PT 18.8 Sec (11.4-14.6) H 03/08/25 08:19
INR 1.51 03/08/25 08:19
APTT Cancelled 03/08/25 12:44
eGFR > 60.00 03/08/25 07:46
[2025-03-09 08:58] LABS: ALT (SGPT) 18 U/L (0-50); AST (SGOT) 308 U/L (17-59); Albumin 3.4 g/dl (3.5-5.0); Alkaline Phosphatase 125 U/L (38-126); Blood Urea Nitrogen 18 mg/dl (9-20); Calcium 9.9 mg/dl (8.4-10.2); Carbon Dioxide 24 mmol/L (22-30); Chloride 100 mmol/L (98-107); Estimated Creatinine Clearance 77 ml/min; Glucose 105 mg/dl (70-99); Potassium 3.9 mmol/L (3.5-5.1); Sodium 131 mmol/L (135-145); Total Protein 5.8 g/dl (6.3-8.2); eGFR > 60.00
--- NOTE | 2025-03-09 10:52 | PN.CDI ---
CDI
- -
CDI:
Physician Documentation Request
Admit Date: 03/08/25 07:34
Dear Doctor Piter,
Please review the following and provide your response in the progress notes.
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
#Current BW: (03/07) 150 lbs 5.684 oz BMI: 21.0 (normal).
#...Weight history (10/04/24) 171 lbs. This is a 12.3% BW loss over 6 months (significant).
#...meets AND and ASPEN criteria for severe protein calorie malnutrition
#...of chronic disease due to a BW loss of more than 10% over 6 months
#...and due to consuming less than 75% of estimated needs for over 1 month.
Based on the above information and your clinical assessment, which of the following most accurately represents the patient's nutritional status?
Severe protein calorie malnutrition of chronic disease
Other (please specify)
[place] Criteria (ACP Hospitalist 2017)
2 or more criteria must be present for either
non severe or severe malnutrition
Note that the criteria differs related to the
presence of an acute or chronic illness
Chronic Illness
Energy Intake Non Severe: <75% for >1 month
Severe: <75% for >1 month
Weight Loss Non Severe: 5% over 1 month
7.5% over 3 months
10% over 6 months
20% over 1 year
Severe: >5% over 1 month
>7.5% over 3 months
>10% over 6 months
>20% over 1 year
Body Fat Non Severe: Mild Loss
Severe: Severe Loss
Use of terms such as suspected, likely, concern for, or probable (associated with a specific diagnosis that is being evaluated, monitored, or treated as if it exists) are acceptable and can be coded in the inpatient setting, when documented at the
time of discharge.
Thank you,
Yessica Rivers RN BSN CCDS
CDI Specialist
Please contact via tiger text
Please use your independent medical judgment in providing your response.
[2025-03-09 12:19] VITALS: BP 107/71; BP 118/68; PULSE 98; O2SAT 97
[2025-03-09 15:25] VITALS: BP 117/67
[2025-03-09] MEDS: CASODEX 50 MG PO (16:06)
--- NOTE | 2025-03-09 16:24 | W.PN.HOSP.TC ---
Addendum entered and electronically signed by Jw Coy MD 03/09/25 19:44:
Attending Addendum-
I saw and evaluated the patient. I reviewed the resident�s note and agree with findings and plan as documented in the resident�s note. Sub: seen with SO present. Feels improved. States SOB still present but has improved. complains of constipation.
Full 12 point ROS reviewed and negative except as documented Exam: Vitals reviewed in chart GEN-NAD heart RRR no MRG Lungs clear abd soft NT ND LE no edema
Plan:
#Weight Loss likely 2/2 malignancy / Severe PCM
unintentional weight loss of about 45 pounds in 2-3 months
Chest/Abd/Pel CT: -No evidence of pulmonary embolism or thoracic aortic dissection.
-Pathologic retroperitoneal and right pelvic lymphadenopathy, new/increased in size compared to recent prior CT dated 01/19/2025. Large confluent mass of lymph nodes in the right
external iliac region measures 3.1 cm and diameter, significantly increased in size
-Small lung nodules as detailed above, measuring up to 4 mm in diameter-CT should be considered in approximately 12 months
-Mild hydronephrosis of the left kidney
- Appreciate Heme/Onc input- multiple lab tests ordered - follow
- IRAD for biopsy of right ext iliac LN-03/08 results P
- supportive care
#Pancytopenia
# Anemia of Chronic Disease, Thrombocytopenia, Leukopenia
-appreciate Heme/Onc input- bx of LN 03/08
-may eventually need BMbx as OP
-ferritin > 10,000! r/o HLH, marrow infiltration, heme malig
-cont to trend CBC daily
#constipation
- start bowel regimin
#Transaminitis
#Hx alcohol use disorder
-no ETOH in 7-10 days per patient and verified with partner
-isolated improving AST
-monitor LFTs
-possible BM, RBC, LN source
-cont to trend
# Left Mild Hydronephrosis (congenital)
- urinating as usual
- CTM
# Hyponatremia-
- stable
- appears euvolemic
- possibly SIADH
- check studies
#Hx right lung adenocarcinoma
-s/p radiation at [facility], now in remission
-Follows out patient with [facility]
#hypertension
-continue spironolactone
#hyperlipidemia
-continue rosuvastatin
#GERD
-continue pantoprazole
CODE FULL d/w SO
DVT-P- SCDs thrombocytopenia
Dispo Eventual DC home with HC
Time spent coordinating care, review of plan of care with resident, personally reviewed records in EMR, med rec, consults, notes, labs, radiology, d/w nursing and POA � 51 mins
Original Note:
Today's Communication/Plan
-
PT/OT Assessment done today
Tomorrow CBC, CMP.
Waiting for the CT guided right iliac mass biopsy.
Assessment / Plan
Assessment / Plan
CT Scan: (Chest/Abd/Pel: 1. No evidence of pulmonary embolism or thoracic aortic dissection.
2. Pathologic retroperitoneal and right pelvic lymphadenopathy, new/increased in size compared to recent prior CT dated 01/19/2025.
Large confluent mass of lymph nodes in the right external iliac region measures 3.1 c)
Lab Data: (hgb 7.2, )
CT Guided biopsy: Retroperitoneal and right iliac lymphadenopathy
waiting for the Biopsy results.
adult failure to thrive likely 2/2 reoccurrence of cancer
unintentional weight loss of about 45 pounds in 2-3 months
EKG: SINUS TACHYCARDIA
Chest/Abd/Pel CT: 1. No evidence of pulmonary embolism or thoracic aortic dissection.
2. Pathologic retroperitoneal and right pelvic lymphadenopathy, new/increased in size compared to recent prior CT dated 01/19/2025. Large confluent mass of lymph nodes in the right
external iliac region measures 3.1 cm and diameter, significantly increased in size compared to recent prior CT. This confluent mass of lymph nodes may be amenable to CT-guided
percutaneous biopsy, as clinically appropriate.
3. Small lung nodules as detailed above, measuring up to 4 mm in diameter. As per Fleischner Society recommendations, no further CT follow-up is required unless the patient is high risk
for lung carcinoma, in which case a follow-up chest CT should be considered in approximately 12 months.
4. Moderate coronary arterial calcification. Please correlate with symptoms of and risk factors for coronary artery disease, with further workup as clinically appropriate.
5. Mild hydronephrosis of the left kidney, and perhaps dilation of the left extrarenal pelvis. Transition point at the left UPJ, which may be related to chronic or functional UPJ obstruction.
6. Mild prostatic enlargement.
thrombocytopenia
- heme test stool
- Consulted Heme/Onc
- iron studies
Hx right lung adenocarcinoma
s/p radiation at [facility], now in remission
Follows out patient with [facility]
#Severe protein calorie malnutrition of chronic disease
Anticipated Discharge: Within 24 hours
Subjective/Interval History
-
Date of Service: March 09, 2025
Patient had a known h/o lung cancer (right side adeno carcinoma) with weight loss, today the patient is feeling good. He doesnt have abdominal pain, fever, vomiting.
Objective Data
-
Labs:
Laboratory Results
03/09/25 07:43
03/09/25 07:43
Laboratory Results
PT 18.8 Sec (11.4-14.6) H 03/08/25 08:19
INR 1.51 03/08/25 08:19
APTT Cancelled 03/08/25 12:44
Total Bilirubin 0.6 mg/dl (0.2-1.3) 03/09/25 07:43
AST 308 U/L (17-59) H 03/09/25 07:43
ALT 18 U/L (0-50) 03/09/25 07:43
Alkaline Phosphatase 125 U/L (38-126) 03/09/25 07:43
Troponin I < 0.012 ng/ml 03/07/25 13:25
Lipase 94 U/L (23-300) 03/07/25 13:25
03/09/25
07:43
WBC 4.5 L
Hgb 7.2 L
Hct 23.2 L
Plt Count 42 L
Sodium 131 L
Potassium 3.9
Chloride 100
Carbon Dioxide 24
BUN 18
Creatinine 0.8
Glucose 105 H
Calcium 9.9
Total Bilirubin 0.6
AST 308 H
ALT 18
Alkaline Phosphatase 125
Vital Signs:
Vital Signs
Temp Pulse Resp BP Pulse Ox
98.1 F 96 20 117/67 100
03/09/25 15:25 03/09/25 15:25 03/09/25 15:25 03/09/25 15:25 03/09/25 15:25
I&O
03/08/25 03/09/25 03/10/25
06:59 06:59 06:59
Intake Total 480 / 480 570 / 570
Balance 480 / 480 570 / 570
Review of Systems
-
History Source: Patient
All other systems: Reviewed and negative
Constitutional: Reports No Symptoms
EENT: Reports No Symptoms Reported
Respiratory: Reports No Symptoms
Cardiac: Reports No Symptoms
Abdomen/GI: Reports No Symptoms
Genitourinary: Reports No Symptoms
Musculoskeletal: Reports No Symptoms
Skin: Reports No Symptoms
Neuro: Reports No Symptoms
Endocrine: Reports No Symptoms
Hematologic / Lymphatic: Reports No Symptoms
Allergy / Immunology: Reports No Symptoms
Physical Exam
-
General: Well Developed
Respiratory: Clear to Auscultation
Cardiac: Regular Rhythm and S1/S2
GI: Soft and Nontender
Genito-urinary: No Costovertebral Tender
Musculoskeletal: No Clubbing
Skin: Warm
Neuro: AO x 3
Psych: Calm
--- NOTE | 2025-03-09 17:00 | CM ---
Spoke with pt and Macr in room.
Offered VN they declined need.
Marc will drive him home.
PLAN Home no needs
[2025-03-09 19:46] LABS: Hepatitis B Surface Antigen Negative (Negative)
[2025-03-09 20:04] LABS: Hepatitis A Antibody, Total Negative (Negative); Hepatitis C Antibody Negative (Negative)
[2025-03-09] MEDS: TYLENOL 650 MG PO (20:41)
[2025-03-09] MEDS: MIRALAX 17 GRAMS PO (21:06)
[2025-03-09] MEDS: CRESTOR 20 MG PO (21:07)
[2025-03-09] MEDS: NEURONTIN 300 MG PO (21:07)
[2025-03-09] MEDS: COLACE 100 MG PO (21:08)
[2025-03-09 23:09] VITALS: BP 104/65
[2025-03-10 07:19] VITALS: BP 107/62
[2025-03-10 07:26] LABS: Hematocrit 23.2 % (39.0-52.0); Hemoglobin 7.4 g/dL (13.0-18.0); Mean Corp Hgb Conc. 31.9 g/dL (33.0-37.0); Mean Corpuscular Volume 85.9 fL (80.0-94.0); Platelet Count 40 10^3/uL (130-400); Red Cell Dist. Width 17.1 % (11.5-14.5)
[2025-03-10] MEDS: NIACIN 100 MG PO (07:47)
[2025-03-10] MEDS: VITAMIN C 500 MG PO (07:48)
[2025-03-10] MEDS: VITAMIN B1 100 MG PO (07:48)
[2025-03-10] MEDS: THERAGRAN 1 TABLET PO (07:48)
[2025-03-10] MEDS: ALDACTONE 25 MG PO (07:49)
[2025-03-10] MEDS: PROTONIX 40 MG PO (07:49)
[2025-03-10] MEDS: CASODEX 50 MG PO (07:50)
[2025-03-10 07:52] LABS: ALT (SGPT) 22 U/L (0-50); AST (SGOT) 557 U/L (17-59); Albumin 3.1 g/dl (3.5-5.0); Alkaline Phosphatase 131 U/L (38-126); Blood Urea Nitrogen 18 mg/dl (9-20); Calcium 9.6 mg/dl (8.4-10.2); Carbon Dioxide 23 mmol/L (22-30); Chloride 99 mmol/L (98-107); Estimated Creatinine Clearance 77 ml/min; Glucose 87 mg/dl (70-99); Potassium 4.5 mmol/L (3.5-5.1); Sodium 130 mmol/L (135-145); Total Protein 5.4 g/dl (6.3-8.2); eGFR > 60.00
[2025-03-10] MEDS: FOLVITE 1 MG PO (07:52)
[2025-03-10] MEDS: TYLENOL 650 MG PO (07:54)
[2025-03-10 08:32] LABS: Nucleated Red Blood Cells % 8.9 % (-)
[2025-03-10 08:39] LABS: Absolute Neutrophils -Man Diff 1.7 10^3/uL (1.4-6.5)
[2025-03-10 08:41] LABS: Anisocytosis 1+; Hypochromasia Slight; Normal RBC Morphology No; Platelets Checked Yes; Polychromasia FEW
[2025-03-10 08:42] LABS: Total Cells Counted 100
[2025-03-10 08:55] LABS: PSA, Total - Diagnostic 178.00 ng/ml (0.0-4.0)
--- NOTE | 2025-03-10 13:16 | W.PN.ONC ---
Today's Communication / Plan
-
Started Casodex 03/09/25 for stage 4 prostate cancer; Rx sent for 30 day supply
Will initiate Lupron as outpatient in ~2 weeks
f/u with Dr. Amanda to be scheduled. t/c bone marrow biopsy as outpatient. High fibrinogen suggests against HLH, suspect malignant marrow involvement
Okay for d/c
Impression
Impression
Metastatic prostate cancer, confirmed w/ biopsy of right iliac node
Pancytopenia, suspect marrow involvement
h/o early stage lung ca, tx w/ SBRT 2020
Plan
Plan
Started Casodex 03/09/25 for stage 4 prostate cancer; Rx sent for 30 day supply
Will initiate Lupron as outpatient in ~2 weeks
f/u with Dr. Amanda to be scheduled. t/c bone marrow biopsy as outpatient. High fibrinogen suggests against HLH, suspect malignant marrow involvement
Okay for d/c
Subjective/Objective
Subjective/Objective
eager to go home
Vital Signs:
Vital Signs
Temp Pulse Resp BP Pulse Ox
98.5 F 91 16 107/62 98
03/10/25 07:19 03/10/25 07:49 03/10/25 07:19 03/10/25 07:49 03/10/25 07:19
Lab Results:
Laboratory Data
WBC 4.0 10^3/uL (4.8-10.8) L 03/10/25 06:13
Hgb 7.4 g/dL (13.0-18.0) L 03/10/25 06:13
Plt Count 40 10^3/uL (130-400) L 03/10/25 06:13
PT 18.8 Sec (11.4-14.6) H 03/08/25 08:19
INR 1.51 03/08/25 08:19
APTT Cancelled 03/08/25 12:44
eGFR > 60.00 03/10/25 06:13
--- NOTE | 2025-03-10 13:39 | W.PN.HOSP.TC ---
Addendum entered and electronically signed by Jw Coy MD 03/10/25 22:20:
Attending Addendum-
I saw and evaluated the patient. I reviewed the resident�s note and agree with findings and plan as documented in the resident�s note. Sub: seen with SO present. ready to go home. constipation and sob resolved. Full 12 point ROS reviewed and
negative except as documented Exam: Vitals reviewed in chart GEN-NAD heart RRR no MRG Lungs clear abd soft NT ND LE no edema
Plan:
#Weight Loss 2/2 malignancy / Severe PCM
unintentional weight loss of about 45 pounds in 2-3 months
Chest/Abd/Pel CT: -No evidence of pulmonary embolism or thoracic aortic dissection.
-Pathologic retroperitoneal and right pelvic lymphadenopathy, new/increased in size compared to recent prior CT dated 01/19/2025. Large confluent mass of lymph nodes in the right
external iliac region measures 3.1 cm and diameter, significantly increased in size
-Small lung nodules as detailed above, measuring up to 4 mm in diameter-CT should be considered in approximately 12 months
-Mild hydronephrosis of the left kidney
- IRAD right ext iliac LN-03/08- results met prostate ca d/w onc started on casodex
- d/c home with close follow up with onc
- d/w onc at great length
#Pancytopenia due to malignancy
# Anemia of Chronic Disease, Thrombocytopenia, Leukopenia
-appreciate Heme/Onc input- bx of LN /-met prostate ca
-may eventually need BMbx as OP
-ferritin > 10,000!
#constipation
- start bowel regimin
- resolved
#Transaminitis
#Hx alcohol use disorder
-no ETOH in 7-10 days per patient and verified with partner
-isolated improving AST
-monitor LFTs
-possible BM, RBC, LN source
-cont to trend
# Left Mild Hydronephrosis (congenital)
- urinating as usual
- CTM
# Hyponatremia-
- stable
- appears euvolemic
- possibly SIADH
- check studies
#Hx right lung adenocarcinoma
-s/p radiation at [facility], now in remission
-Follows out patient with [facility]
#hypertension
-continue spironolactone
#hyperlipidemia
-continue rosuvastatin
#GERD
-continue pantoprazole
CODE FULL d/w SO
DVT-P- SCDs thrombocytopenia
DispoDC home with HC
Time spent coordinating care, DC planning, review of DC plan of care with resident, transition of care, review of records, med rec/scripts sent electronically, consults, notes, d/w consultants, nursing, family, and CM� 32 mins >50% of this time was
devoted to counseling and coordination of care
Original Note:
Today's Communication/Plan
-
discharge to home
Follow up Oncology OP for Stage 4 PROSTATE CANCER, f/u with Dr. Amanda to be scheduled.
Follow up with PCP in a week.
Biopsy results are pending.
Assessment / Plan
Assessment / Plan
#adult failure to thrive likely 2/2 reoccurrence of cancer
unintentional weight loss of about 45 pounds in 2-3 months
Started Casodex 03/09/25 for stage 4 prostate cancer; Rx sent for 30 day supply
Will initiate Lupron as outpatient in ~2 weeks
f/u with Dr. Amanda to be scheduled.
t/c bone marrow biopsy as outpatient.
#High fibrinogen suggests against HLH, suspect malignant marrow involvement.
CT Scan: (Chest/Abd/Pel: 1. No evidence of pulmonary embolism or thoracic aortic dissection.
2. Pathologic retroperitoneal and right pelvic lymphadenopathy, new/increased in size compared to recent prior CT dated 01/19/2025.
Large confluent mass of lymph nodes in the right external iliac region measures 3.1 c)
Lab Data: (hgb 7.2, )
CT Guided biopsy: Retroperitoneal and right iliac lymphadenopathy
waiting for the Biopsy results.
#Severe protein calorie malnutrition of chronic disease.
EKG: SINUS TACHYCARDIA:
Chest/Abd/Pel CT: 1. No evidence of pulmonary embolism or thoracic aortic dissection.
2. Pathologic retroperitoneal and right pelvic lymphadenopathy, new/increased in size compared to recent prior CT dated 01/19/2025. Large confluent mass of lymph nodes in the right
external iliac region measures 3.1 cm and diameter, significantly increased in size compared to recent prior CT. This confluent mass of lymph nodes may be amenable to CT-guided
percutaneous biopsy, as clinically appropriate.
3. Small lung nodules as detailed above, measuring up to 4 mm in diameter. As per Fleischner Society recommendations, no further CT follow-up is required unless the patient is high risk
for lung carcinoma, in which case a follow-up chest CT should be considered in approximately 12 months.
4. Moderate coronary arterial calcification. Please correlate with symptoms of and risk factors for coronary artery disease, with further workup as clinically appropriate.
5. Mild hydronephrosis of the left kidney, and perhaps dilation of the left extrarenal pelvis. Transition point at the left UPJ, which may be related to chronic or functional UPJ obstruction.
6. Mild prostatic enlargement.
#thrombocytopenia
- heme test stool
- Consulted Heme/Onc
- iron studies.
#Hx right lung adenocarcinoma
s/p radiation at [facility], now in remission
Follows out patient with [facility].
Anticipated Discharge: Today
Subjective/Interval History
-
Date of Service: March 10, 2025
74 yrs M with past h/o anemia, Adenocarcinoma of the upper lobe lung, transaminitis, alcohol withdrawal has no concerns for today.
Objective Data
-
Labs:
Laboratory Results
03/10/25 06:13
03/10/25 06:13
Laboratory Results
PT 18.8 Sec (11.4-14.6) H 03/08/25 08:19
INR 1.51 03/08/25 08:19
APTT Cancelled 03/08/25 12:44
Total Bilirubin 0.5 mg/dl (0.2-1.3) 03/10/25 06:13
AST 557 U/L (17-59) H* 03/10/25 06:13
ALT 22 U/L (0-50) 03/10/25 06:13
Alkaline Phosphatase 131 U/L (38-126) H 03/10/25 06:13
Troponin I < 0.012 ng/ml 03/07/25 13:25
Lipase 94 U/L (23-300) 03/07/25 13:25
03/10/25
06:13
WBC 4.0 L
Hgb 7.4 L
Hct 23.2 L
Plt Count 40 L
Sodium 130 L
Potassium 4.5
Chloride 99
Carbon Dioxide 23
BUN 18
Creatinine 0.8
Glucose 87
Calcium 9.6
Total Bilirubin 0.5
AST 557 H*
ALT 22
Alkaline Phosphatase 131 H
Vital Signs:
Vital Signs
Temp Pulse Resp BP Pulse Ox
98.5 F 91 16 107/62 98
03/10/25 07:19 03/10/25 07:49 03/10/25 07:19 03/10/25 07:49 03/10/25 07:19
I&O
03/09/25 03/10/25 03/11/25
06:59 06:59 06:59
Intake Total 570 / 570
Balance 570 / 570
Review of Systems
-
History Source: Patient
All other systems: Reviewed and negative
Constitutional: Reports No Symptoms
Respiratory: Reports No Symptoms
Cardiac: Reports No Symptoms
Abdomen/GI: Reports No Symptoms
Genitourinary: Reports No Symptoms
Musculoskeletal: Reports No Symptoms
Skin: Reports No Symptoms
Endocrine: Reports No Symptoms
Hematologic / Lymphatic: Reports No Symptoms
Allergy / Immunology: Reports No Symptoms
Physical Exam
-
General: Well Developed
HEENT: Moist Mucous Membranes
Respiratory: Clear to Auscultation
Cardiac: Regular Rhythm and S1/S2
GI: Soft and Nontender
Genito-urinary: No Costovertebral Tender
Musculoskeletal: No Clubbing
Skin: Warm
Neuro: Awake
Hematologic / Lymphatic: No Lymphadenopathy
Psych: Calm
[2025-03-10 15:25] VITALS: BP 125/76
--- NOTE | 2025-03-10 22:40 | W.DCSUMMARY ---
Addendum entered and electronically signed by Jw Coy MD 03/13/25 19:29:
Read, reviewed, and agree. See same day progress note for additional details.
Jonathon Coy MD
Original Note:
Documented by User: Quinn Dumas MD, Resident 03/11/25 23:28
Discharge Summary
Discharge Data
Date of Admission: 03/08/25
Date of Discharge: 03/10/25
-
Pending Results: No
Hospital Course
Discharging Physician : Dr Olive Dumas
Dr Jw Coy
Disposition : Home
Primary care physician : Charis Guardado
Principal Discharge diagnosis : Weight Loss 2/2 malignancy / Severe PCM
unintentional weight loss of about 45 pounds in 2-3 months
Chronic Discharge diagnosis :
#hypertension
#hyperlipidemia
#alcohol use disorder.
# Right side Lung Adenocarcinoma tx w/ radiotherapy at [facility] 2020
Hospital Course : On 03/07 74 M arrived to the ER with shortness of breath, unintentional weight loss with known h/o right side lung adenocarcinoma, in remission, recommended by primary care provider because of progressive exertional dyspnea and
unintentional weight loss of about 45 pounds in 2-3 months. complaints of perioral numbness more prominent in lower jaw and denied any recent sick contact, fever, chills, cough, constipation or urinary symptoms.
During the hospital course Oncology depart was consulted for Right side Metastatic prostate cancer, confirmed w/ biopsy of right iliac node from 03/09 suspecting marrow involvement.
Started Casodex 03/09/25 for stage 4 prostate cancer; Rx sent for 30 day supply
Will initiate Lupron as outpatient in ~2 weeks
Discharge advice:
f/u with Dr. Amanda to be scheduled for t/c bone marrow biopsy as outpatient. High fibrinogen suggests against HLH, suspect malignant marrow involvement.
Continue the home medications.
Important imaging findings :
03/07/25 CT scan Abd/Pel:
1. Pathologic retroperitoneal and right pelvic lymphadenopathy, new/increased in size compared to recent prior CT dated 01/19/2025. Large confluent mass of lymph nodes in the right external iliac region. This confluent mass of lymph nodes may be
amenable to CT-guided percutaneous biopsy.
2. Small lung nodules as detailed above, measuring up to 4 mm in diameter. As per Fleischner Society recommendations, no further CT follow-up is required unless the patient is high risk for lung carcinoma, in which case a follow-up chest CT should
be considered in approximately 12 months.
Procedure findings :
On 03/09 biopsy of right iliac node resulted in Metastatic right side prostate cancer.
Discharge Plan
-
Patient Disposition: Home (Routine Discharge)
Discharge Diagnosis/Procedures: Pancytopenia, Weight loss likely secondary to malignancy, h/o Right lung adenocarcinoma.
Condition: Fair
Diet: Regular
Activity: No restrictions
Driving Restrictions: As prior to admission
Bathing Restrictions: None
Others Tests: Right Illiac mass Biopsy results pending
Other Services: PT and OT
Referrals:
Federico Amanda DO [Active, Hematology / Oncology] - in one to two weeks
Referral Note: Bone marrow biopsy as outpatient, High fibrinogen suspect malignancy marrow involvement.
Charis Guardado DO [Family Provider, Family Practice]
Additional Discharge Medication Instructions:
FOLLOW UP with PCP in 1 week from today after the discharge
Oncology Follow up: with Outpatient Dr Amanda for the future. (T/C Bone marrow biopsy)
Started Casodex 03/09/25 for stage 4 prostate cancer;
Will initiate Lupron as outpatient in ~2 weeks.
Prescriptions:
New
bicalutamide 50 mg Tablet
50 mg PO DAILY 30 Days Qty: 30 0RF
Continued
luznlaklyyv-engdvbifr-zim C-Mn 1 TAB tablet
1 tab PO DAILYPRN PRN (Reason: supplement)
gabapentin 300 mg Capsule
300 mg PO HS
folic acid 1 mg Tablet
1 mg PO DAILY Qty: 30 0RF
therapeutic multivitamin Tablet
1 tab PO DAILY
acetaminophen [Tylenol Extra Strength] 500 mg Tablet
1,000 mg PO BIDPRN PRN (Reason: mild pain)
ascorbic acid (vitamin C) [Vitamin C] 500 mg Tablet
500 mg PO DAILY
pantoprazole 40 mg Tablet,Delayed Release (Dr/Ec)
40 mg PO BID
spironolactone 50 mg Tablet
25 mg PO DAILY
rosuvastatin 20 mg Tablet
20 mg PO HS
ZzzQuil 50 mg/30 mL Liquid
50 mg PO HS PRN (Reason: sleep)
Stool Softener-Laxative
2 cap PO HSPRN PRN (Reason: constipation)
Patient Comments:
03/07/2025, pt. uses some herbal stool-softener w/ laxative for constipation.
niacin
1 tab PO DAILY
thiamine mononitrate (vit B1) 100 mg tablet
100 mg PO DAILY
Discharge Orders:
Discharge Patient (As Directed); Ordered 03/10/25
Ordered By: Quinn Dumas
Discharge Date and Time
Discharge Date/Time: 03/10/25 16:37
Print Language: HONG KONGER

Documented by User: Jw Coy MD 03/13/25 19:29
Discharge Summary
Discharge Data
Date of Admission: 03/08/25
Date of Discharge: 03/13/25
Discharge Plan
-
Patient Disposition: Home (Routine Discharge)
Discharge Diagnosis/Procedures: Pancytopenia, Weight loss likely secondary to malignancy, h/o Right lung adenocarcinoma.
Condition: Fair
Diet: Regular
Activity: No restrictions
Driving Restrictions: As prior to admission
Bathing Restrictions: None
Others Tests: Right Illiac mass Biopsy results pending
Other Services: PT and OT
Referrals:
Federico Amanda DO [Active, Hematology / Oncology] - in one to two weeks
Referral Note: Bone marrow biopsy as outpatient, High fibrinogen suspect malignancy marrow involvement.
Charis Guardado DO [Family Provider, Family Practice]
Additional Discharge Medication Instructions:
FOLLOW UP with PCP in 1 week from today after the discharge
Oncology Follow up: with Outpatient Dr Amanda for the future. (T/C Bone marrow biopsy)
Started Casodex 03/09/25 for stage 4 prostate cancer;
Will initiate Lupron as outpatient in ~2 weeks.
Prescriptions:
New
bicalutamide 50 mg Tablet
50 mg PO DAILY 30 Days Qty: 30 0RF
Continued
qyjqdksxznx-rhiqhskvf-bev C-Mn 1 TAB tablet
1 tab PO DAILYPRN PRN (Reason: supplement)
gabapentin 300 mg Capsule
300 mg PO HS
folic acid 1 mg Tablet
1 mg PO DAILY Qty: 30 0RF
therapeutic multivitamin Tablet
1 tab PO DAILY
acetaminophen [Tylenol Extra Strength] 500 mg Tablet
1,000 mg PO BIDPRN PRN (Reason: mild pain)
ascorbic acid (vitamin C) [Vitamin C] 500 mg Tablet
500 mg PO DAILY
pantoprazole 40 mg Tablet,Delayed Release (Dr/Ec)
40 mg PO BID
spironolactone 50 mg Tablet
25 mg PO DAILY
rosuvastatin 20 mg Tablet
20 mg PO HS
ZzzQuil 50 mg/30 mL Liquid
50 mg PO HS PRN (Reason: sleep)
Stool Softener-Laxative
2 cap PO HSPRN PRN (Reason: constipation)
Patient Comments:
03/07/2025, pt. uses some herbal stool-softener w/ laxative for constipation.
niacin
1 tab PO DAILY
thiamine mononitrate (vit B1) 100 mg tablet
100 mg PO DAILY
Discharge Orders:
Discharge Patient (As Directed); Ordered 03/10/25
Ordered By: Quinn Dumas
Discharge Date and Time
Discharge Date/Time: 03/10/25 16:37
Print Language: HONG KONGER
[2025-03-11 14:12] LABS: Source Blood
[2025-03-14 15:00] LABS: Albumin 2.76 g/dL (3.75-5.01); SPEP IFE Reflex IFE Done; Total Protein-Electrophoresis 5.8 g/dL (6.3-8.2)
== END 2025-03-10 16:37 | disposition home or self-care (01) | DRG 715 ==
LOC: 4 WEST ACU 07:34
PROVIDERS: Internal Medicine Hematology & Oncology; Nurse Practitioner Family; Radiology Vascular & Interventional Radiology; ADMITTING PHYSICIAN Hospitalist; ATTENDING PHYSICIAN Family Medicine; EMERGENCY PHYSICIAN Student in an Organized Health Care Education/Training Program; FAMILY PHYSICIAN Family Medicine; OTHER PHYSICIAN Internal Medicine Hematology & Oncology
PROC: 0QB23ZX Excision of Right Pelvic Bone, Percutaneous Approach, Diagnostic (ICD-10-PCS; 2025-03-08)
DX: C61 Malignant neoplasm of prostate (principal); E43 Unspecified severe protein-calorie malnutrition; D61.818 Other pancytopenia; Z85.118 Personal history of other malignant neoplasm of bronchus and lung; R62.7 Adult failure to thrive; E78.00 Pure hypercholesterolemia, unspecified; F10.10 Alcohol abuse, uncomplicated; I10 Essential (primary) hypertension; Z87.891 Personal history of nicotine dependence; Z88.5 Allergy status to narcotic agent; K21.9 Gastro-esophageal reflux disease without esophagitis; Z92.3 Personal history of irradiation; F32.A Depression, unspecified; F41.9 Anxiety disorder, unspecified; Z68.21 Body mass index [BMI] 21.0-21.9, adult
CPT/HCPCS: 49180; 71275; 74177; 77012; 80053; 81003; 81015; 82550; 82607; 82728; 82746; 82784; 83010; 83540; 83550; 83615; 83690; 83880; 84153; 84155; 84165; 84484; 85025; 85045; 85384; 85610; 85730; 86334; 86704; 86706; 86708; 86803; 87040; 87340; 88305; 88333; 88341; 88342; 93005; 97162; 99152; 99153; 99285; Q9967

== ENCOUNTER → 2025-04-07 11:53 | Outpatient (REF) | payer OTHER, SELFPAY | LOC: PET 11:53 | PROVIDERS: ATTENDING PHYSICIAN Internal Medicine Hematology & Oncology | DX: C61 Malignant neoplasm of prostate (principal) | CPT/HCPCS: 78815 ==

== ENCOUNTER → 2025-04-25 06:56 | Outpatient (REF) | payer OTHER, SELFPAY ==
[2025-04-25] VITALS (9 sets, daily range): BP systolic 74–134; BP diastolic 57–80
[2025-04-25 07:48] LABS: Hematocrit 27.3 % (39.0-52.0); Hemoglobin 8.0 g/dL (13.0-18.0); Mean Corp Hgb Conc. 29.3 g/dL (33.0-37.0); Mean Corpuscular Volume 95.1 fL (80.0-94.0); Platelet Count 40 10^3/uL (130-400); Red Cell Dist. Width 20.9 % (11.5-14.5)
[2025-04-25] MEDS: ATIVAN 1 MG PO (07:54)
[2025-04-25 08:53] LABS: Absolute Neutrophils -Man Diff 1.4 10^3/uL (1.4-6.5)
[2025-04-25 08:54] LABS: Platelets Checked Yes
[2025-04-25 08:55] LABS: Anisocytosis 1+; Basophilic Stippling 2+; Hypochromasia 1+; Normal RBC Morphology No; Ovalocytes 1+; Polychromasia 2+; Total Cells Counted 100
== END ==
LOC: RADI 06:56
PROVIDERS: ATTENDING PHYSICIAN Internal Medicine Hematology & Oncology; FAMILY PHYSICIAN Family Medicine; REFERRING PHYSICIAN Physician Assistant
DX: D46.9 Myelodysplastic syndrome, unspecified (principal); D61.818 Other pancytopenia; C61 Malignant neoplasm of prostate; C34.2 Malignant neoplasm of middle lobe, bronchus or lung; D68.8 Other specified coagulation defects
CPT/HCPCS: 36415; 38222; 77012; 85025; 88305; 88311; 88312; 88313

== ENCOUNTER 2025-07-05 17:21 | Inpatient (IN) | payer OTHER, SELFPAY ==
[2025-07-05] VITALS (9 sets, daily range): BP systolic 127–163; BP diastolic 67–77; BMI 22.5; BMI 21.9
--- NOTE | 2025-07-05 14:46 | ED.GENMED ---
History of Present Illness
<Chivo Rivera PA-C - Last Filed: 07/05/25 16:48>
General
Chief Complaint: Abdominal Symptoms
Time Seen by Provider: 07/05/25 14:43
History of Present Illness
History of Present Illness:
75-year-old male with history of metastatic prostate cancer presents to the emergency department for evaluation of diffuse body pain for the past several days. Initially was seen in urgent care where he had negative COVID and flu test. Pain is new
to him and this is not a symptom of his prostate cancer previously. He reports diffuse abdominal as well as widespread bone and joint pain. Denies any night sweats or weight loss. Patient does note a productive cough, uncertain duration that this
has been going on. Denies dyspnea but was noted to have a room air saturation of 90%
Past History
<Chivo Rivera PA-C - Last Filed: 07/05/25 16:48>
Past History
ED Past Medical History: GERD, HTN, Hypercholesterolemia and Other (Lung cancer)
ED Past Surgical History: Cholecystectomy
Social History
Tobacco: Former smoker
Alcohol: Daily (1-2 bottles wine)
Drug: None
Personal:
Living: with family
Review of Systems
<Chivo Rivera PA-C - Last Filed: 07/05/25 16:48>
Review of Systems
Allergies reviewed?: Yes
All Other Systems: ROS reviewed and negative except as documented in HPI and ROS
Phy Exam
<Chivo Rivera PA-C - Last Filed: 07/05/25 16:48>
Physical Exam
Physical Exam:
GEN: Well appearing, NAD, WDWN
HEENT: Oral mucosa moist, no scleral icterus
Cardiac: Regular rate and rhythm, no murmur
Lung: No respiratory distress, no tachypnea, lungs clear to auscultation
Abdomen: Soft, grossly nontender
MSK: No gross deformity or injuries
Skin: Good color, no pallor or jaundice, no rashes
Neuro: AO x3, moves all extremities freely
Psych: Calm, cooperative
Course
<Chivo Rivera PA-C - Last Filed: 07/05/25 16:48>
Orders/Labs/Results
Orders:
Orders
07/05/25 14:46
HYDROmorphone [Dilaudid] 0.5 mg IV NOW STA
07/05/25 14:47
0.9% Sodium Chloride 1000 ml [Nss] 1,000 ml IV BOLUS
CR Chest - 2 Views Urgent
Comment:
Reason For Exam: chest burning
07/05/25 14:48
Electrocardiogram (*1) Urgent
Reason for Study: Chest Pain
EKG- Treatment ONCE
07/05/25 16:21
COVID-19 Antigen Urgent
Source: Nasal Swab
Complete Blood Count/With Diff Urgent
Comprehensive Metabolic Panel Urgent
Lactic Acid Q4H
Comment: CANCEL 2nd LACTIC ACID IF 1st LACTIC ACID IS LESS THAN 2
Magnesium Urgent
Troponin I Urgent
Urinalysis Reflex To Culture Urgent
Date Specimen was Collected: 07/05/25
Time Specimen was Collected: 16:14
Urine Microscopic Reflex Cult Urgent
Blood Culture Q30M
RONALD Source: Blood/Venous
Specimen Description:
Blood Culture Q30M
RONALD Source: Blood/Venous
Specimen Description:
Influenza A+B Rapid Molecular Urgent
RONALD Source: Nasal Swab
Specimen Description:
07/05/25 16:39
Acetaminophen [Tylenol] 1,000 mg PO NOW STA
Azithromycin 500 mg/250 ml [Zithromax Infusion] 500 mg in 250 ml IV NOW
CefTRIAXone [Rocephin] 1,000 mg IV NOW STA
07/05/25 20:30
Lactic Acid Q4H
Comment: CANCEL 2nd LACTIC ACID IF 1st LACTIC ACID IS LESS THAN 2
Abnormal Lab Results
07/05/25
16:21
WBC 4.5 L 10^3/uL
(4.8-10.8)
RBC 3.32 L 10^6/uL
(4.70-6.10)
Hgb 9.3 L g/dL
(13.0-18.0)
Hct 28.7 L %
(39.0-52.0)
MCHC 32.4 L g/dL
(33.0-37.0)
RDW 17.2 H %
(11.5-14.5)
MPV 10.6 H fL
(7.4-10.4)
Abs Immat Gran (auto) 0.2 H 10^3/uL
(0-0.05)
Absolute Lymphs (auto) 0.7 L 10^3/uL
(1.2-3.4)
Immature Gran % 4.2 H %
(0-0.5)
Lymphocytes % 16.2 L %
(20.5-51.1)
Monocytes % 12.6 H %
(1.7-9.3)
Urine Albumin (Reflex) 2+ A
(Neg - Trace)
07/05/25 16:21
Vital Signs
Initial and Last Documented VS:
Initial Vital Signs
Temp Pulse Resp BP Pulse Ox
99.7 F 107 20 127/67 97
07/05/25 13:54 07/05/25 13:54 07/05/25 13:54 07/05/25 13:54 07/05/25 13:54
Last Documented Vital Signs
Temp Pulse Resp BP Pulse Ox
102 F H 104 14 153/76 96
07/05/25 16:15 07/05/25 16:15 07/05/25 16:15 07/05/25 16:10 07/05/25 16:30
<Stefan MercadoViridiana Calel, DO - Last Filed: 07/05/25 14:53>
Orders/Labs/Results
Orders:
Orders
07/05/25 14:46
HYDROmorphone [Dilaudid] 0.5 mg IV NOW STA
07/05/25 14:47
0.9% Sodium Chloride 1000 ml [Nss] 1,000 ml IV BOLUS
CR Chest - 2 Views Urgent
Comment:
Reason For Exam: chest burning
07/05/25 14:48
Electrocardiogram (*1) Urgent
Reason for Study: Chest Pain
EKG- Treatment ONCE
07/05/25 16:21
COVID-19 Antigen Urgent
Source: Nasal Swab
Complete Blood Count/With Diff Urgent
Comprehensive Metabolic Panel Urgent
Lactic Acid Q4H
Comment: CANCEL 2nd LACTIC ACID IF 1st LACTIC ACID IS LESS THAN 2
Magnesium Urgent
Troponin I Urgent
Urinalysis Reflex To Culture Urgent
Date Specimen was Collected: 07/05/25
Time Specimen was Collected: 16:14
Urine Microscopic Reflex Cult Urgent
Blood Culture Q30M
RONALD Source: Blood/Venous
Specimen Description:
Blood Culture Q30M
RONALD Source: Blood/Venous
Specimen Description:
Influenza A+B Rapid Molecular Urgent
RONALD Source: Nasal Swab
Specimen Description:
07/05/25 16:39
Acetaminophen [Tylenol] 1,000 mg PO NOW STA
Azithromycin 500 mg/250 ml [Zithromax Infusion] 500 mg in 250 ml IV NOW
CefTRIAXone [Rocephin] 1,000 mg IV NOW STA
07/05/25 20:30
Lactic Acid Q4H
Comment: CANCEL 2nd LACTIC ACID IF 1st LACTIC ACID IS LESS THAN 2
Abnormal Lab Results
07/05/25
16:21
WBC 4.5 L 10^3/uL
(4.8-10.8)
RBC 3.32 L 10^6/uL
(4.70-6.10)
Hgb 9.3 L g/dL
(13.0-18.0)
Hct 28.7 L %
(39.0-52.0)
MCHC 32.4 L g/dL
(33.0-37.0)
RDW 17.2 H %
(11.5-14.5)
MPV 10.6 H fL
(7.4-10.4)
Abs Immat Gran (auto) 0.2 H 10^3/uL
(0-0.05)
Absolute Lymphs (auto) 0.7 L 10^3/uL
(1.2-3.4)
Immature Gran % 4.2 H %
(0-0.5)
Lymphocytes % 16.2 L %
(20.5-51.1)
Monocytes % 12.6 H %
(1.7-9.3)
Urine Albumin (Reflex) 2+ A
(Neg - Trace)
07/05/25 16:21
Vital Signs
Initial and Last Documented VS:
Initial Vital Signs
Temp Pulse Resp BP Pulse Ox
99.7 F 107 20 127/67 97
07/05/25 13:54 07/05/25 13:54 07/05/25 13:54 07/05/25 13:54 07/05/25 13:54
Last Documented Vital Signs
Temp Pulse Resp BP Pulse Ox
102 F H 104 14 153/76 96
07/05/25 16:15 07/05/25 16:15 07/05/25 16:15 07/05/25 16:10 07/05/25 16:30
<Chivo Rivera PA-C - Last Filed: 07/05/25 16:48>
MDM/Problems Addressed
MDM/Problems Addressed:
Patient is immunocompromised currently with metastatic prostate cancer, he has a productive cough and signs of sepsis with fever, tachypnea, and tachycardia. Source is most likely pneumonia based on chest x-ray findings in the right lower field.
Will plan to admit to the hospital for IV antibiotics
<Chivo Rivera PA-C - Last Filed: 07/05/25 16:48>
Comment
Comment:
EKG independently interpreted by me shows normal sinus rhythm at a rate of [address] changes and a normal QT interval. Chest x-ray independently interpreted by me shows fluid in the right upper fissure as well as a nodular density in
the left lower lobe, no acute disease
*Pulse Oximetry
SaO2: 97
Oxygen Mode of Delivery: Room air
Patient hypoxic: yes (90% RA)
*Critical Care Note
Total Time (30-74mins, 75-104mins- exclusive of procedures): Not Applicable
ED Attending Note
<Chivo Rivera PA-C - Last Filed: 07/05/25 16:48>
-
Portions of this chart may have been created with voice recognition software.� Occasional wrong word or��sound alike� substitutions may have occurred due to the inherent limitations of voice recognition software.
<Stefan Calle DO - Last Filed: 07/05/25 14:53>
ED Attending Note
Patient seen and examined by attending physician: Yes
I performed the substantive portion of visit, reviewed & personally made and approve the management plan that is documented in note by myself or SAMEER.: Yes
ED Attending Note:
Patient presents with generalized pain, fatigue, nausea. Patient's been feeling increasingly poor for the past 10 days or so. He has been diagnosed with prostate cancer which is widely metastatic. However he was doing fairly well until 10 days
ago. He went to an urgent care where he had a negative COVID and flu test. Symptoms have not improved. He has been taking Advil for pain. Patient sees [facility] here at [place].
General: Awake, Alert, Oriented X3. Appears uncomfortable
Vitals: unremarkable
Head: Atraumatic
Eyes: Pupils equal, EOMI
Throat: Airway intact, no exudates
Neck: Trachea midline
Lungs: Clear and equal b/l
Heart: Regular rate, no murmurs
Abd: Soft, no significant tenderness to palpation, certainly no peritoneal signs, No pulsatile mass
Neuro: Nonfocal
Skin: Warm, dry, no rash
Extremities: pulses equal b/l, no edema
Analgesia, IV fluids, check labs and a chest x-ray
Discharge Plan
Departure
Patient Disposition: Admit
Date of Disposition: 07/05/25
Time of Disposition: 16:48
Admit to: Med/Surg
Presentation/result/management discussed w/ accepting MD/DO: Hospitalist
Discharge Problem:
Pneumonia
Prescriptions:
No Action
avrmvmacuuu-oxjbtmxit-jvm C-Mn 1 TAB tablet
1 tab PO DAILYPRN PRN (Reason: supplement)
gabapentin 300 mg Capsule
300 mg PO HS
therapeutic multivitamin Tablet
1 tab PO DAILY
acetaminophen [Tylenol Extra Strength] 500 mg Tablet
1,000 mg PO BIDPRN PRN (Reason: mild pain)
ascorbic acid (vitamin C) [Vitamin C] 500 mg Tablet
500 mg PO DAILY
spironolactone 50 mg Tablet
100 mg PO DAILY
ZzzQuil 50 mg/30 mL Liquid
50 mg PO HS PRN (Reason: sleep)
Stool Softener-Laxative
2 cap PO HSPRN PRN (Reason: constipation)
Patient Comments:
03/07/2025, pt. uses some herbal stool-softener w/ laxative for constipation.
thiamine mononitrate (vit B1) 100 mg tablet
100 mg PO DAILY
diphenhydramine HCl 50 mg Capsule
50 mg PO HS PRN (Reason: sleep)
rosuvastatin 5 mg Tablet
5 mg PO DAILY
folic acid 0.8 mg Capsule
0.8 mg PO DAILY
Nubeqa 300 mg Tablet
600 mg PO BID
Referrals:
Charis Guardado DO [Family Provider, Family Practice]
Interventions
Interventions:
*Risk Screen - Suicide Last Done: 07/05/25 16:30
*General Assessment Last Done: 07/05/25 16:30
*Neglect/Abuse Screening Last Done: 07/05/25 16:30
*ED- Fall Risk Assessment Last Done: 07/05/25 16:30
*ED COVID-19 Vaccine History Last Done: 07/05/25 16:30
*ED Influenza Vaccine History Last Done: 07/05/25 16:30
SJ-Ctepca-Bpkbqcaqqm Assessment Last Done: 07/05/25 16:30
Discharge Date and Time
Print Language: UPPER SORBIAN
[2025-07-05] MEDS: DILAUDID 0.5 MG IV (16:05)
[2025-07-05] MEDS: NSS 1000 IV ×2 (16:07→19:31)
[2025-07-05 16:33] LABS: Urine Character Clear (Clear)
[2025-07-05 16:34] LABS: Hematocrit 28.7 % (39.0-52.0); Hemoglobin 9.3 g/dL (13.0-18.0); Mean Corp Hgb Conc. 32.4 g/dL (33.0-37.0); Mean Corpuscular Volume 86.4 fL (80.0-94.0); Nucleated Red Blood Cells % 0.9 % (-); Platelet Count 203 10^3/uL (130-400); Red Cell Dist. Width 17.2 % (11.5-14.5)
[2025-07-05 16:47] LABS: COVID-19 Antigen Negative (Negative)
[2025-07-05 16:49] LABS: Urine Squamous Cell 0-2 /LPF (Few)
[2025-07-05 16:50] LABS: Urine Red Blood Cell 0-2 /HPF (0-2); Urine White Cell 0-2 /HPF (0-5)
[2025-07-05 16:53] LABS: ALT (SGPT) 16 U/L (0-50); Albumin 4.0 g/dl (3.5-5.0); Alkaline Phosphatase 369 U/L (38-126); Blood Urea Nitrogen 14 mg/dl (9-20); Calcium 9.2 mg/dl (8.4-10.2); Carbon Dioxide 25 mmol/L (22-30); Chloride 91 mmol/L (98-107); Estimated Creatinine Clearance 90 ml/min; Glucose 97 mg/dl (70-99); Magnesium 1.6 mg/dl (1.6-2.3); Potassium 4.7 mmol/L (3.5-5.1); Sodium 125 mmol/L (135-145); Total Protein 6.6 g/dl (6.3-8.2); eGFR > 60.00
[2025-07-05] MEDS: TYLENOL 1000 MG PO ×2 (16:53→23:03)
[2025-07-05 16:57] LABS: Troponin I < 0.012 ng/ml
[2025-07-05 16:58] LABS: AST (SGOT) 796 U/L (17-59)
[2025-07-05] MEDS: ROCEPHIN 1000 MG IV (17:00)
--- NOTE | 2025-07-05 17:09 | HPS.HSE ---
Family Physician
-
Family Physician: Charis Guardado
Chief Complaint
-
Muscle aches, dyspnea
History of Present Illness
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
today with a complaint of generalized bodyaches over the last several days. Was seen in urgent care prior to arrival where he had negative COVID and flu test. Reports diffuse abdomen tenderness as well as widespread bone and joint pain. Denies
night sweats, weight loss. Does complain of productive cough over the last few days with dyspnea. Upon arrival was febrile 102 �F but otherwise hemodynamically stable, saturating in the 90s on 2 L O2 via NC. Labs in the ED showed WBC 4.5,
hemoglobin 9.3, sodium 125, ALP 369. UA was with many bacteria though otherwise bland, no pyuria or other infectious markers. ECG showed NSR without ischemic findings or QTc prolongation. CXR showed small infiltrate at the right lung base
consistent with pneumonia. Blood cultures x 2 obtained and he was was ordered IV ceftriaxone and azithromycin in the ED, as well as IVF.
Medical History
Past Medical History
Past Medical History: Reports Other
Additional Past Medical History:
Gastritis/duodenitis
Alcohol use disorder
Obstructive sleep apnea
Primary hypertension
Dyslipidemia
Dysphagia
Right lung cancer s/p proton therapy
Stage IV pancreatic cancer
Past Surgical History: Reports Other
Additional Past Surgical History:
Cholecystectomy
Right lung biopsy (01/03/2021)
Social History
Tobacco: Former Smoker
Alcohol: Daily
Drug: None
Personal:
Living: With Family
Family History
Family History: Not pertinent
Allergies / Home Medications
Allergies reflects when Allergies were last updated in [facility].
Home Medications with original date entered in [facility]
Allergy/Medication List:
Allergies
Allergy/AdvReac Type Severity Reaction Status Date / Time
aspirin (From Percodan) Allergy Shortness Verified 04/25/25 07:56
of Breath
codeine Allergy Anaphylaxis Verified 04/25/25 07:56
Opioids - Morphine Analogues Allergy Unknown Verified 04/25/25 07:56
oxycodone (From Percodan) Allergy Shortness Verified 04/25/25 07:56
of Breath
Home Medications
cgqkhrrlyku-zpijgxbyf-jxz C-Mn 750 mg-600 mg-55 mg-5 mg tablet 1 tab PO DAILYPRN PRN supplement 01/09/22
gabapentin 300 mg capsule 300 mg PO HS pain 10/03/24
Stool Softener-Laxative 2 cap PO HSPRN PRN constipation 03/07/25
acetaminophen 500 mg tablet (Tylenol Extra Strength) 1,000 mg PO BIDPRN PRN mild pain 03/07/25
ascorbic acid (vitamin C) 500 mg tablet (Vitamin C) 500 mg PO DAILY Supplement 03/07/25
diphenhydramine HCl 50 mg/30 mL oral liquid (ZzzQuil) 50 mg PO HS PRN sleep 03/07/25
spironolactone 50 mg tablet 100 mg PO DAILY Fluid Retention/Swelling 03/07/25
therapeutic multivitamin 1 tab PO DAILY Supplement 03/07/25
thiamine mononitrate (vit B1) 100 mg tablet 100 mg PO DAILY Supplement 03/07/25
darolutamide 300 mg tablet (Nubeqa) 600 mg PO BID 04/25/25
diphenhydramine HCl 50 mg capsule 50 mg PO HS PRN sleep 04/25/25
folic acid 0.8 mg capsule 0.8 mg PO DAILY 04/25/25
rosuvastatin 5 mg tablet 5 mg PO DAILY 04/25/25
Review of Systems
-
History Source: Patient
A 12 point ROS was completed and negative except as noted: Yes
Constitutional: Reports See HPI
EENT: Reports No Symptoms
Respiratory: Reports See HPI
Cardiac: Reports No Symptoms
Abdomen/GI: Reports See HPI
: Reports No Symptoms
Musculoskeletal: Reports No Symptoms
Skin: Reports No Symptoms
Neurological: Reports No Symptoms
Endocrine: Reports No Symptoms
Hematologic/Lymphatic: Reports No Symptoms
Psych: Reports No Symptoms
Physical Exam
Vital Signs
Vital Signs
Temp Pulse Resp BP Pulse Ox
102 F H 104 14 153/76 96
07/05/25 16:15 07/05/25 16:15 07/05/25 16:15 07/05/25 16:10 07/05/25 16:30
Physical Exam
General: Well Developed, No Apparent Distress and Appears Chronically Ill
HEENT: NormoCephalic, Anicteric, Moist mucous membranes, Atraumatic, Good Dentition and PERRLA
Respiratory: Rhonchi and Non Labored Respirations; No Wheezes, Crackles or Accessory Resp Muscle Use
Cardiac: S1/S2, Regular Rhythm and Tachycardia; No Murmur, Rub, Gallop or Peripheral Edema
GI: Soft, Non Tender, Non Distended and Normal Bowel Sounds
Musculoskeletal: No Clubbing and No Cyanosis
Skin: Warm and Dry; No Rash
Neuro: AO x 3, Nonfocal/grossly intact and Cranial Nerves Intact; No Tremors
Psych: Calm
Laboratory Results
-
07/05/25 16:21
07/05/25 16:21
Laboratory Results
Lactic Acid 1.3 mmol/L (0.7-2.0) 07/05/25 16:21
Total Bilirubin 1.0 mg/dl (0.2-1.3) 07/05/25 16:21
AST 796 U/L (17-59) H* 07/05/25 16:21
ALT 16 U/L (0-50) 07/05/25 16:21
Alkaline Phosphatase 369 U/L (38-126) H 07/05/25 16:21
Troponin I < 0.012 ng/ml 07/05/25 16:21
Data Reviewed
-
Diagnostic Radiology: Report Reviewed by me, Discussed with Physician (ED) and Discussed with Patient
Lab Data: Labs Reviewed by me and Discussed with Patient
Impression/Plan
-
#Acute hypoxemic respiratory insufficiency
#Sepsis secondary to community-acquired pneumonia
#History of dysphagia
- Question aspiration event with possible deconditioning in context of metastatic cancer
- Presented with high-grade fever, RLL opacity, leukopenia, tachycardia and hypoxemia
- Since blood cultures x 2 were obtained in the ED, started on IV ceftriaxone and azithromycin
- Placed on the 2 L O2 in the ED, SpO2 now in the mid to high 90s, nonlabored on exam
- Hemodynamically stable without need for vasopressors at this time
Plan
- Order sputum culture, Streptococcus and Legionella antigens
- Continue IV ceftriaxone and azithromycin
- Trend CBC and temperature curve
- Follow blood cultures and sputum culture
- Tylenol as needed for fever
- SpO2 goal >90%
- FLIGHT COMMUNICATIONS OPERATOR eval
#Hypovolemic hyponatremia
- Presented with serum sodium 125, likely hypovolemic with systemic illness and reduced intake
- Does have a chronic component with sodium baseline near 130, possibly SIADH with previous lung mass
- No signs or symptoms associated with hyponatremia at this time, started on IVF in ED
- Examines hypovolemic
Plan
- Continue with maintenance IV fluid
- Start dietary fluid restriction
- Check urine osmolality, urine sodium
- Trend BMP, consider neph consult
#Alcohol use disorder
- Drinks 1-2 bottles of wine daily, does have history of withdrawal
- No signs of active withdrawal throughout ED course
- Start MSAS protocol for now
- Folate and thiamine supplement
#Elevated AST and ALP
- Suspect this is not associated with liver disease/metastases as ALT normal
- Likely related to bone metastases and possibly component of muscle breakdown/wasting
- Will trend LFTs for now on IV fluids, check CK level to rule out rhabdo
- Maintenance IVF as above
#Severe protein calorie malnutrition
- Likely associated with metastatic disease, increased caloric demand and poor intake
- Patient states he has lost 40 to 45 pounds since the start of this year
- Current BMI 22.5, does not appear significantly cachectic
- Will monitor calorie counts, start Ensure with meals
#Gastritis/duodenitis
#Anemia of chronic disease
- Chronic, likely associated with alcohol use
- Hemoglobin baseline near 9-10, was at 9.3 on arrival
- Not currently on PPI or other antacid therapies
- With active drinking status will start daily PPI
#Obstructive sleep apnea
- Ordered CPAP with order to titrate to comfort
#Primary hypertension
- Home regimen includes spironolactone 100 mg daily, not on first-line agents
- Blood pressure currently elevated though possibly in the context of hypoxemia and stress
- Monitor blood pressure and uptitrate antihypertensives as needed
#Dyslipidemia
- No known ASCVD history
- Home regimen includes moderate intensity rosuvastatin
#Insomnia
- Home regimen includes NyQuil and Benadryl
- Consider transitioning to trazodone if effective to avoid anticholinergic effects
#Right lung cancer s/p proton therapy
- Received care at [facility], seems to be in remission
- Adenocarcinoma on lung biopsy in 2020
#Stage IV pancreatic cancer
- Noted to have metastases to bone
- Home regimen includes darolutamide 600 mg BID
Diet -- Regular with 48 oz FR, aspiration precautions pending FLIGHT COMMUNICATIONS OPERATOR eval
Thromboprophylaxis -- SQ lovenox
CODE STATUS -- Full code
Disposition -- Admit to telemetry
Discussed with ED attending
[2025-07-05] MEDS: ZITHROMAX INFUSION 250 IV ×2 (17:10→19:30)
[2025-07-05] MEDS: THIAMINE INJECTION 200 MG IV (19:31)
[2025-07-05] MEDS: LOVENOX 40 MG SC (19:31)
[2025-07-05 21:37] LABS: Procalcitonin 0.51 ng/ml (0.0-0.25)
[2025-07-05] MEDS: NEURONTIN 300 MG PO (21:39)
[2025-07-05] MEDS: NON-FORMULARY ITEM PO (23:18)
--- NOTE | 2025-07-05 23:20 | PTCARENOTE ---
Pt's own medication was sent down to pharmacy for verification. Pt refused to take his own medication Marissa newell, he stated 'I didn't eat anything, I will take it tomorrow.'
--- NOTE | 2025-07-06 02:00 | PTCARENOTE ---
Made FINANCIAL OPERATIONS ANALYST aware of pt's procalcitonin lab result. Will continue to monitor.
[2025-07-06 03:58] VITALS: BP 140/79
[2025-07-06] MEDS: NSS 1000 IV ×2 (05:25→17:57)
[2025-07-06 06:00] VITALS: BMI 22.0
[2025-07-06] MEDS: TYLENOL 1000 MG PO ×3 (06:19→21:39)
[2025-07-06 07:00] VITALS: BP 129/70
--- NOTE | 2025-07-06 08:12 | W.PN.HOSP.TC ---
Addendum entered and electronically signed by Abdi Junior DO 07/06/25 15:51:
Dictation error: patient with stage IV prostate ca, not pancreatic cancer as noted below
Original Note:
Today's Communication/Plan
-
Continue IV antibiotics
Follow cultures
Calorie counts
40 ounce FR diet
Assessment / Plan
Assessment / Plan
#Acute hypoxemic respiratory insufficiency
#Sepsis secondary to community-acquired pneumonia
#History of dysphagia
- Likely postviral; had viral prodrome likely nonspecific etiology, then developed worsening
- Question aspiration event with possible deconditioning in context of metastatic cancer
- Presented with high-grade fever, RLL opacity, leukopenia, tachycardia and hypoxemia
- Since blood cultures x 2 were obtained in the ED, started on IV ceftriaxone and azithromycin
- Placed on the 2 L O2 in the ED, SpO2 now in the mid to high 90s, nonlabored on exam
- Hemodynamically stable without need for vasopressors at this time
- Strep and Legionella urinary antigens were negative
Plan
- Continue IV ceftriaxone and azithromycin
- Trend CBC and temperature curve
- Follow blood cultures and sputum culture
- Tylenol as needed for fever
- SpO2 goal >90%
- PLYWOOD PATCHER eval
# Euvolemic hyponatremia
- Presented with serum sodium 125, urine osmolality 538; likely SIADH from cancer versus lung disease
- Does have a chronic component with sodium baseline near 130, possibly SIADH with previous lung mass
- No signs or symptoms associated with hyponatremia at this time, started on IVF in ED
- Examines euvolemic as of this morning, sodium stable at 125
Plan
- Fluid restricted diet of 40 ounces daily
- Trend BMP and volume status
- Consider neph consult for tolvaptan
#Alcohol use disorder
- Drinks 1-2 bottles of wine daily, does have history of withdrawal
- No signs of active withdrawal throughout ED course
- Start MSAS protocol for now
- Folate and thiamine supplement
#Elevated AST and ALP
- Suspect this is not associated with liver disease/metastases as ALT normal
- Likely related to bone metastases and possibly component of muscle breakdown/wasting
- Will trend LFTs for now on IV fluids, check CK level to rule out rhabdo
- Maintenance IVF as above
#Severe protein calorie malnutrition
- Likely associated with metastatic disease, increased caloric demand and poor intake
- Patient states he has lost 40 to 45 pounds since the start of this year
- Current BMI 22.5, does not appear significantly cachectic
- Will monitor calorie counts, start Ensure with meals
#Gastritis/duodenitis
#Anemia of chronic disease
- Chronic, likely associated with alcohol use
- Hemoglobin baseline near 9-10, was at 9.3 on arrival
- Not currently on PPI or other antacid therapies
- With active drinking status will start daily PPI
#Obstructive sleep apnea
- Ordered CPAP with order to titrate to comfort
#Primary hypertension
- Home regimen includes spironolactone 100 mg daily, not on first-line agents
- Blood pressure currently elevated though possibly in the context of hypoxemia and stress
- Monitor blood pressure and uptitrate antihypertensives as needed
#Dyslipidemia
- No known ASCVD history
- Home regimen includes moderate intensity rosuvastatin
#Insomnia
- Home regimen includes NyQuil and Benadryl
- Consider transitioning to trazodone if effective to avoid anticholinergic effects
#Right lung cancer s/p proton therapy
- Received care at [facility], seems to be in remission
- Adenocarcinoma on lung biopsy in 2020
#Stage IV pancreatic cancer
- Noted to have metastases to bone
- Home regimen includes darolutamide 600 mg BID
Diet -- Regular with 48 oz FR, aspiration precautions pending PLYWOOD PATCHER eval
Thromboprophylaxis -- SQ lovenox
CODE STATUS -- Full code
Disposition -- Admit to telemetry
Anticipated Discharge: 24 - 48 hours
Subjective/Interval History
-
Date of Service: July 06, 2025
Seen and examined at the bedside. No acute events reported overnight. AFVSS
Patient feeling slightly better today. Tachycardia improved. WBC down trended from 4.5-3.8. Sodium and LFT stable
Denies any new complaints this morning
Objective Data
-
Labs:
Laboratory Results
07/06/25
07:38
WBC Pending
Hgb Pending
Hct Pending
Plt Count Pending
Sodium Pending
Potassium Pending
Chloride Pending
Carbon Dioxide Pending
BUN Pending
Creatinine Pending
Glucose Pending
Calcium Pending
Vital Signs:
Vital Signs
Temp Pulse Resp BP Pulse Ox
99 F 94 16 129/70 98
07/06/25 07:00 07/06/25 07:00 07/06/25 07:00 07/06/25 07:00 07/06/25 07:00
I&O
07/05/25 07/06/25 07/07/25
06:59 06:59 06:59
Intake Total 480 / 480
Output Total 425 / 425
Balance 55 / 55
Review of Systems
-
History Source: Patient
All other systems: Reviewed and negative
Physical Exam
-
General: Well Developed, No Apparent Distress and Appears Chronically Ill
HEENT: Normocephalic, Atraumatic, Moist Mucous Membranes and Anicteric
Respiratory: Clear to Auscultation and Non Labored Respirations; Negative Accessory Resp Muscle Use
Cardiac: Regular Rhythm and S1/S2; Negative Murmur, Rub or Gallop
GI: Soft, Nontender, Nondistended and Normal Bowel Sounds
Musculoskeletal: No Clubbing, No Cyanosis and No Edema
Skin: Warm and Dry; Negative Rash
Neuro: AO x 3, Nonfocal/Grossly Intact and Central Nerve's Intact
Psych: Calm
[2025-07-06 08:23] LABS: Hematocrit 25.4 % (39.0-52.0); Hemoglobin 8.1 g/dL (13.0-18.0); Mean Corp Hgb Conc. 31.9 g/dL (33.0-37.0); Mean Corpuscular Volume 89.4 fL (80.0-94.0); Nucleated Red Blood Cells % 1.1 % (-); Red Cell Dist. Width 17.1 % (11.5-14.5)
[2025-07-06 08:30] LABS: Blood Urea Nitrogen 17 mg/dl (9-20); Calcium 8.9 mg/dl (8.4-10.2); Carbon Dioxide 25 mmol/L (22-30); Chloride 97 mmol/L (98-107); Estimated Creatinine Clearance 103 ml/min; Glucose 95 mg/dl (70-99); Magnesium 1.6 mg/dl (1.6-2.3); Potassium 4.6 mmol/L (3.5-5.1); Sodium 125 mmol/L (135-145); eGFR > 60.00
[2025-07-06 08:43] LABS: ALT (SGPT) 17 U/L (0-50); AST (SGOT) 737 U/L (17-59); Albumin 2.9 g/dl (3.5-5.0); Alkaline Phosphatase 360 U/L (38-126); Total Protein 5.4 g/dl (6.3-8.2)
--- NOTE | 2025-07-06 09:15 | PTOTSP ---
Speech Language Pathology
Pt seen for clinical bedside swallow evaluation. Pt reported significant GI history, but reported no significant difficulties recently. Denied previous PNA. P.O. trials of puree, regular solids, and thin liquids provided. Adequate mastication,
bolus formation, and A-P transit noted with no oral residue. No overt signs of aspiration.
Recommend:
(1) Regular solids/thin liquids
(2) General aspiration precautions
(3) Meds as tolerated
(4) SALES SUPPORT CONSULTANT to sign off. Please reconsult as indicated
[2025-07-06 09:22] LABS: Platelet Count 153 10^3/uL (130-400)
[2025-07-06] MEDS: PROTONIX 40 MG PO (09:48)
[2025-07-06] MEDS: THERAGRAN 1 TABLET PO (09:50)
[2025-07-06] MEDS: ALDACTONE 12.5 MG PO (09:50)
[2025-07-06] MEDS: CRESTOR 5 MG PO (09:50)
[2025-07-06] MEDS: THIAMINE INJECTION 200 MG IV ×2 (09:50→20:15)
[2025-07-06] MEDS: VITAMIN C 500 MG PO (09:51)
[2025-07-06] MEDS: FOLVITE 1 MG PO (09:52)
[2025-07-06] MEDS: NON-FORMULARY ITEM 600 MG PO ×2 (09:52→20:15)
[2025-07-06 11:16] VITALS: BP 109/63
[2025-07-06 11:33] VITALS: BMI 22.0
[2025-07-06 11:47] LABS: Glucose - Point of Care 141 mg/dl (70-99)
[2025-07-06 15:00] VITALS: BP 126/63
--- NOTE | 2025-07-06 15:40 | CM ---
Initial assessment completed. Patient is a 74-year-old male with past medical history significant for hypertension, hyperlipidemia, alcohol use disorder and Hx right lung adenocarcinoma, in remission, who presented to [facility] ED for evaluation of sob
and unintentional weight loss.
Patient resides w/ spouse in a 2STH, 1 step to enter. 17 steps to second floor where bedroom and main bathroom is located. Patient is independent in all area, no DME. No SNF/HC hx reported.
Address, point of contact and insurance verified
PCP: Charis Guardado
Pharmacy: [facility]
[2025-07-06] MEDS: ROCEPHIN 1000 MG IV (17:49)
[2025-07-06] MEDS: LOVENOX 40 MG SC (17:50)
[2025-07-06] MEDS: STERILE WATER FOR INJECTION 10 ML IV (17:50)
[2025-07-06] MEDS: ZITHROMAX INFUSION 250 IV (18:08)
[2025-07-06] MEDS: MAALOX 30 ML PO (18:08)
[2025-07-06 19:40] VITALS: BP 104/54
[2025-07-06] MEDS: NEURONTIN 300 MG PO (20:17)
[2025-07-06 23:43] VITALS: BP 123/63
[2025-07-07] VITALS (8 sets, daily range): BP systolic 104–152; BP diastolic 58–88; PULSE 71–99; O2SAT 98–99; BMI 22.5
[2025-07-07] MEDS: NSS 1000 IV (04:43)
[2025-07-07 07:00] LABS: Hematocrit 24.7 % (39.0-52.0); Hemoglobin 7.4 g/dL (13.0-18.0); Mean Corp Hgb Conc. 30.0 g/dL (33.0-37.0); Mean Corpuscular Volume 92.2 fL (80.0-94.0); Nucleated Red Blood Cells % 0.7 % (-); Platelet Count 150 10^3/uL (130-400); Red Cell Dist. Width 17.1 % (11.5-14.5)
[2025-07-07 07:27] LABS: Blood Urea Nitrogen 15 mg/dl (9-20); Calcium 8.9 mg/dl (8.4-10.2); Carbon Dioxide 24 mmol/L (22-30); Chloride 100 mmol/L (98-107); Estimated Creatinine Clearance 106 ml/min; Glucose 88 mg/dl (70-99); Potassium 4.4 mmol/L (3.5-5.1); Sodium 125 mmol/L (135-145); eGFR > 60.00
[2025-07-07] MEDS: PROTONIX 40 MG PO (08:36)
[2025-07-07] MEDS: FOLVITE 1 MG PO (08:36)
[2025-07-07] MEDS: CRESTOR 5 MG PO (08:36)
[2025-07-07] MEDS: ALDACTONE 12.5 MG PO (08:36)
[2025-07-07] MEDS: THERAGRAN 1 TABLET PO (08:37)
[2025-07-07] MEDS: VITAMIN C 500 MG PO (08:37)
[2025-07-07] MEDS: THIAMINE INJECTION 200 MG IV ×2 (08:38→19:52)
[2025-07-07] MEDS: TYLENOL 1000 MG PO ×2 (08:38→15:41)
[2025-07-07] MEDS: SENOKOT-S 1 TABLET PO (08:38)
[2025-07-07] MEDS: NON-FORMULARY ITEM 600 MG PO ×2 (08:39→19:52)
[2025-07-07] MEDS: FLUSH (NSS) 2 FLUSH IV (08:40)
--- NOTE | 2025-07-07 08:54 | W.PN.HOSP.TC ---
Today's Communication/Plan
-
Continue IV antibiotic
Nephrology consult for that a.m. consideration
Possibly transition to oral antibiotics tomorrow
CBC and temperature
Follow-up repeat CXR
Assessment / Plan
Assessment / Plan
#Acute hypoxemic respiratory insufficiency
#Sepsis secondary to community-acquired pneumonia
#History of dysphagia
- Likely postviral; had viral prodrome likely nonspecific etiology, then developed worsening
- Question aspiration event with possible deconditioning in context of metastatic cancer
- Presented with high-grade fever, RLL opacity, leukopenia, tachycardia and hypoxemia
- Since blood cultures x 2 were obtained in the ED, started on IV ceftriaxone and azithromycin
- Placed on the 2 L O2 in the ED, SpO2 now in the mid to high 90s, nonlabored on exam
- Hemodynamically stable without need for vasopressors at this time
- Strep and Legionella urinary antigens were negative
Plan
- Continue IV ceftriaxone and azithromycin
- Trend CBC and temperature curve
- Follow blood cultures and sputum culture
- Follow-up repeat two-view chest x-ray this morning
- Tylenol as needed for fever
- SpO2 goal >90%
#Euvolemic hyponatremia
- Presented with serum sodium 125, urine osmolality 538; likely SIADH from cancer versus lung disease
- Does have a chronic component with sodium baseline near 130, possibly SIADH with previous lung mass
- No signs or symptoms associated with hyponatremia at this time, started on IVF in ED
- Examines euvolemic as of this morning, sodium stable at 125
Plan
- Fluid restricted diet of 40 ounces daily
- Trend BMP and volume status
- Neph consult for consideration of tolvaptan
#Alcohol use disorder
- Drinks 1-2 bottles of wine daily, does have history of withdrawal
- No signs of active withdrawal throughout ED course
- Start MSAS protocol for now
- Folate and thiamine supplement
#Elevated AST and ALP
- Suspect this is not associated with liver disease/metastases as ALT normal
- Likely related to bone metastases and possibly component of muscle breakdown/wasting
- CK level was low, LFTs stable otherwise
#Severe protein calorie malnutrition
- Likely associated with metastatic disease, increased caloric demand and poor intake
- Patient states he has lost 40 to 45 pounds since the start of this year
- Current BMI 22.5, does not appear significantly cachectic
- Will monitor calorie counts, start Ensure with meals
#Gastritis/duodenitis
#Anemia of chronic disease
- Chronic, likely associated with alcohol use
- Hemoglobin baseline near 9-10, was at 9.3 on arrival
- Not currently on PPI or other antacid therapies
- With active drinking status will start daily PPI
#Obstructive sleep apnea
- Ordered CPAP with order to titrate to comfort
#Primary hypertension
- Home regimen includes spironolactone 100 mg daily, not on first-line agents
- Blood pressure currently elevated though possibly in the context of hypoxemia and stress
- Monitor blood pressure and uptitrate antihypertensives as needed
#Dyslipidemia
- No known ASCVD history
- Home regimen includes moderate intensity rosuvastatin
#Insomnia
- Home regimen includes NyQuil and Benadryl
- Consider transitioning to trazodone if effective to avoid anticholinergic effects
#Right lung cancer s/p proton therapy
- Received care at [facility], seems to be in remission
- Adenocarcinoma on lung biopsy in 2020
#Stage IV prostate cancer
- Noted to have metastases to bone
- Home regimen includes darolutamide 600 mg BID
Diet -- Regular with 40 oz FR, aspiration precautions pending LOOM FIXER HELPER eval
Thromboprophylaxis -- SQ lovenox
CODE STATUS -- Full code
Disposition -- Home when medically stable
Anticipated Discharge: 24 - 48 hours
Subjective/Interval History
-
Date of Service: July 07, 2025
Seen and examined at the bedside. No acute events reported overnight. AFVSS this morning, no further fever since yesterday
Patient states he is feeling better today, less pleuritic chest pain and breathing is improved. Denies any new complaints
Serum sodium remains stable at 125 over multiple lab draws. Fluid restriction was increased yesterday
Objective Data
-
Labs:
Laboratory Results
07/07/25
06:29
WBC 2.9 L
Hgb 7.4 L
Hct 24.7 L
Plt Count 150
Sodium 125 L
Potassium 4.4
Chloride 100
Carbon Dioxide 24
BUN 15
Creatinine 0.5 L
Glucose 88
Calcium 8.9
Vital Signs:
Vital Signs
Temp Pulse Resp BP Pulse Ox
98.9 F 100 20 140/73 96
07/07/25 07:00 07/07/25 08:36 07/07/25 07:00 07/07/25 08:36 07/07/25 07:00
I&O
07/06/25 07/07/25 07/08/25
06:59 06:59 06:59
Intake Total 480 / 480
Output Total 425 / 425 200 / 200
Balance 55 / 55 -200 / -200
Review of Systems
-
History Source: Patient
All other systems: Reviewed and negative
Physical Exam
-
General: Well Developed, No Apparent Distress and Comfortable
HEENT: Normocephalic, Atraumatic, Moist Mucous Membranes and Anicteric
Respiratory: Clear to Auscultation and Non Labored Respirations; Negative Accessory Resp Muscle Use
Cardiac: Regular Rhythm and S1/S2; Negative Murmur, Rub or Gallop
GI: Soft, Nontender, Nondistended and Normal Bowel Sounds
Musculoskeletal: No Clubbing, No Cyanosis and No Edema
Skin: Warm and Dry; Negative Rash
Neuro: AO x 3, Nonfocal/Grossly Intact and Central Nerve's Intact
Psych: Calm
Data Reviewed
-
Labs: Labs Reviewed by me, Discussed with Patient and Discussed with Family
[2025-07-07] MEDS: SAMSCA 7.5 MG PO (12:52)
--- NOTE | 2025-07-07 15:28 | W.CON.NEPH ---
Consultation
-
Date/Time Consultation Requested: 07/07/2025 9 AM
Date/Time Consultation Performed: 07/07/2025 10 AM
Requesting Provider: Dr. Sims
Performing Provider: Dr. Ma
Reason for Consultation: Hyponatremia
Medical History
-
Chief Complaint: Hyponatremia
History of Present Illness:
This is a 75-year-old gentleman who has alcohol use disorder, hypertension on a mild therapy regimen only of spironolactone 100 mg daily by his report. He has known history of lung cancer status post proton therapy in the past. He also has stage
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 He was admitted because of generalized malaise and bodyaches over several days. He was febrile on admission and was found to have a pneumonia. He appears to have had chronic hyponatremia
at least beginning this year. Typically it runs in the 130s though on admission he was 125. He says that he has never known about hyponatremia previously. He does have blood work done fairly frequently for oncology though is not certain if there
are metabolic panels.
Past Medical History
Gastritis/duodenitis
Alcohol use disorder
Obstructive sleep apnea
Primary hypertension
Dyslipidemia
Dysphagia
Right lung cancer s/p proton therapy
Stage IV pancreatic cancer
Cholecystectomy
Right lung biopsy (01/03/2021)
Social History
Tobacco: Former Smoker
Alcohol: Daily
Family History
Family History: Not Pertinent
Allergies / Home Medications
Allergy/AdvReac Type Severity Reaction Status Date / Time
aspirin (From Percodan) Allergy Shortness Verified 04/25/25 07:56
of Breath
codeine Allergy Anaphylaxis Verified 04/25/25 07:56
Opioids - Morphine Analogues Allergy Unknown Verified 04/25/25 07:56
oxycodone (From Percodan) Allergy Shortness Verified 04/25/25 07:56
of Breath
�Medication �Instructions �Recorded �Confirmed �Type
acwxreyapjf-qvnyckhzc-lsk C-Mn 750 1 tab PO DAILY Supplement 01/09/22 07/05/25 History
mg-600 mg-55 mg-5 mg tablet
gabapentin 300 mg capsule 300 mg PO HS Neurological Condition 10/03/24 07/05/25 History
ascorbic acid (vitamin C) 500 mg 500 mg PO DAILY Supplement 03/07/25 07/05/25 History
tablet (Vitamin C)
sennosides 8.6 mg tablet (senna) 8.6 mg PO DAILYPRN PRN 03/07/25 07/05/25 History
constipation ##0
spironolactone 50 mg tablet 12.5 mg PO DAILY Fluid 03/07/25 07/05/25 History
Retention/Swelling
therapeutic multivitamin 1 tab PO DAILY Supplement 03/07/25 07/05/25 History
thiamine mononitrate (vit B1) 100 100 mg PO DAILY Supplement 03/07/25 07/05/25 History
mg tablet
darolutamide 300 mg tablet (Nubeqa) 600 mg PO BID chemo 04/25/25 07/05/25 History
diphenhydramine HCl 50 mg capsule 50 mg PO HSPRN PRN sleep 04/25/25 07/05/25 History
folic acid 0.8 mg capsule 0.8 mg PO DAILY Supplement 04/25/25 07/05/25 History
rosuvastatin 5 mg tablet 5 mg PO DAILY High Cholesterol 04/25/25 07/05/25 History
Review of Systems
-
Malaise, decreased appetite
All other systems: Negative unless noted
Physical Exam
Vital Signs
Vital Signs
Temp Pulse Resp BP Pulse Ox
97.7 F 95 16 104/58 96
07/07/25 11:06 07/07/25 11:06 07/07/25 11:06 07/07/25 11:06 07/07/25 11:06
Lab Results
WBC 2.9 10^3/uL (4.8-10.8) L 07/07/25
RBC 2.68 10^6/uL (4.70-6.10) L 07/07/25
Hgb 7.4 g/dL (13.0-18.0) L 07/07/25
Hct 24.7 % (39.0-52.0) L 07/07/25
Plt Count 150 10^3/uL (130-400) 07/07/25
Sodium 125 mmol/L (135-145) L 07/07/25
Potassium 4.4 mmol/L (3.5-5.1) 07/07/25
Chloride 100 mmol/L (98-107) 07/07/25
Carbon Dioxide 24 mmol/L (22-30) 07/07/25
BUN 15 mg/dl (9-20) 07/07/25
Creatinine 0.5 mg/dL (0.7-1.3) L 07/07/25
eGFR > 60.00 07/07/25
Glucose 88 mg/dl (70-99) 07/07/25
Calcium 8.9 mg/dl (8.4-10.2) 07/07/25
Albumin 2.9 g/dl (3.5-5.0) L 07/06/25 07:38
Laboratory Tests
03/10/25 07/05/25
06:13 16:21
Sodium 130 L
Urine Osmolality 563
Urine Sodium 39
Physical Exam
Patient is awake alert oriented and in no distress. Mood and affect were pleasant, insight and judgment were good. Pupils are equal round and reactive to light, extraocular movements are intact, sclera were anicteric. Hearing was normal, ears and
nose are intact. Oropharynx was clear. Neck was supple with trachea midline and no thyromegaly. Heart was regular rate and rhythm without rubs. Lower extremities without edema. Lungs were coarse to auscultation bilaterally and with normal
excursion. Abdomen was soft, nontender, with normal active bowel sounds, and no hepatosplenomegaly. Skin was without rash and with normal turgor.
Data Reviewed
-
Radiology: Image Personally Visualized and interpreted (Chest x-ray 07/07/2025 by my reading bilateral lower lobe infiltrates)
Medical Tests (Nuc Med, Echo etc): Image Personally Visualized and interpreted (EKG 07/05/2025 by my reading normal sinus rhythm)
Labs: Labs Reviewed by me
Old Records: Reviewed
Assessment/Plan
-
Assessment
Hypertension
Hyponatremia acute on chronic
pneumonia
Metastatic prostate cancer to bone
History lung cancer with proton therapy
Chronic alcohol use
elevated LFTs
Plan
Samsca low-dose today
Follow BMP
Maintain fluid restriction
Encourage oral intake
[2025-07-07] MEDS: MAALOX 30 ML PO (15:40)
--- NOTE | 2025-07-07 16:34 | CM ---
Addendum entered by Brandy Tijerina 07/07/25 16:52:
IA worklist completed on 07/06/25. Remainder of IA completed. Pt lives in w 2 story home with his spouse . There are 2 steps to the entrance of the home and 18 steps inside the home. Full BR is on the 2nd floor. Independent with ADLs and IADLs. No
hx of HH,, snf or home O2. DME: [facility]. No insecurities identified. COnfirmd PCP, RX, insurance and drug coverage.
PCP: Charis Guardado
RX. [facility] [place]
Original Note:
Reviewed chart. Met with patient and spouse bedside. IMM given and placed on the chart. Continues on IV ABX. Pt is on room air. PT rec HH. Pt is not interested in this service at this time.
Plan: home, no needs
[2025-07-07] MEDS: LOVENOX 40 MG SC (18:17)
[2025-07-07] MEDS: STERILE WATER FOR INJECTION 10 ML IV (18:17)
[2025-07-07] MEDS: ZITHROMAX INFUSION 250 IV (18:17)
[2025-07-07] MEDS: ROCEPHIN 1000 MG IV (18:17)
[2025-07-07] MEDS: NEURONTIN 300 MG PO (19:56)
[2025-07-07] MEDS: BENADRYL 50 MG PO (20:42)
[2025-07-08] VITALS (7 sets, daily range): BP systolic 118–142; BP diastolic 63–83; BMI 22.4
[2025-07-08 06:29] LABS: Hematocrit 25.3 % (39.0-52.0); Hemoglobin 7.4 g/dL (13.0-18.0); Mean Corp Hgb Conc. 29.2 g/dL (33.0-37.0); Mean Corpuscular Volume 94.8 fL (80.0-94.0); Nucleated Red Blood Cells % 3.1 % (-); Platelet Count 165 10^3/uL (130-400); Red Cell Dist. Width 17.1 % (11.5-14.5)
[2025-07-08 06:51] LABS: Blood Urea Nitrogen 14 mg/dl (9-20); Calcium 9.0 mg/dl (8.4-10.2); Carbon Dioxide 28 mmol/L (22-30); Chloride 102 mmol/L (98-107); Estimated Creatinine Clearance 90 ml/min; Glucose 93 mg/dl (70-99); Magnesium 1.8 mg/dl (1.6-2.3); Potassium 4.4 mmol/L (3.5-5.1); Sodium 132 mmol/L (135-145); eGFR > 60.00
[2025-07-08] MEDS: TYLENOL 1000 MG PO ×3 (08:47→23:46)
[2025-07-08] MEDS: FOLVITE 1 MG PO (08:48)
[2025-07-08] MEDS: VITAMIN C 500 MG PO (08:48)
[2025-07-08] MEDS: THERAGRAN 1 TABLET PO (08:48)
[2025-07-08] MEDS: PROTONIX 40 MG PO (08:48)
[2025-07-08] MEDS: CRESTOR 5 MG PO (08:48)
[2025-07-08] MEDS: ALDACTONE 12.5 MG PO (08:48)
[2025-07-08] MEDS: THIAMINE INJECTION 200 MG IV (08:49)
[2025-07-08] MEDS: NON-FORMULARY ITEM 600 MG PO ×2 (08:56→20:36)
--- NOTE | 2025-07-08 08:59 | W.PN.HOSP.TC ---
Today's Communication/Plan
-
Continue IV antibiotics
Repeat chest x-ray
Monitor for recurrent fever
Assessment / Plan
Assessment / Plan
#Acute hypoxemic respiratory insufficiency
#Sepsis secondary to community-acquired pneumonia
#History of dysphagia
- Likely postviral; had viral prodrome likely nonspecific etiology, then developed worsening
- Question aspiration event with possible deconditioning in context of metastatic cancer
- Presented with high-grade fever, RLL opacity, leukopenia, tachycardia and hypoxemia
- Since blood cultures x 2 were obtained in the ED, started on IV ceftriaxone and azithromycin
- Placed on the 2 L O2 in the ED, SpO2 now in the mid to high 90s, nonlabored on exam
- Hemodynamically stable without need for vasopressors at this time
- Strep and Legionella urinary antigens were negative
- Remains with high-grade fevers
Plan
- Continue IV ceftriaxone and azithromycin
- Trend CBC and temperature curve
- Follow blood cultures and sputum culture
- Order Repeat CXR
- Tylenol as needed for fever
- SpO2 goal >90%
#Euvolemic hyponatremia
- Presented with serum sodium 125, urine osmolality 538; likely SIADH from cancer versus lung disease
- Does have a chronic component with sodium baseline near 130, possibly SIADH with previous lung mass
- No signs or symptoms associated with hyponatremia at this time, started on IVF in ED
- Examines euvolemic as of this morning, sodium up to 132 after tolvaptan
Plan
- Fluid restricted diet of 40 ounces daily
- Trend BMP and volume status
#Alcohol use disorder
- Drinks 1-2 bottles of wine daily, does have history of withdrawal
- No signs of active withdrawal throughout ED course
- Start MSAS protocol for now
- Folate and thiamine supplement
#Elevated AST and ALP
- Suspect this is not associated with liver disease/metastases as ALT normal
- Likely related to bone metastases and possibly component of muscle breakdown/wasting
- CK level was low, LFTs stable otherwise
#Severe protein calorie malnutrition
- Likely associated with metastatic disease, increased caloric demand and poor intake
- Patient states he has lost 40 to 45 pounds since the start of this year
- Current BMI 22.5, does not appear significantly cachectic
- Will monitor calorie counts, start Ensure with meals
#Gastritis/duodenitis
#Anemia of chronic disease
- Chronic, likely associated with alcohol use
- Hemoglobin baseline near 9-10, was at 9.3 on arrival
- Not currently on PPI or other antacid therapies
- With active drinking status will start daily PPI
#Obstructive sleep apnea
- Ordered CPAP with order to titrate to comfort
#Primary hypertension
- Home regimen includes spironolactone 100 mg daily, not on first-line agents
- Blood pressure currently elevated though possibly in the context of hypoxemia and stress
- Monitor blood pressure and uptitrate antihypertensives as needed
#Dyslipidemia
- No known ASCVD history
- Home regimen includes moderate intensity rosuvastatin
#Insomnia
- Home regimen includes NyQuil and Benadryl
- Consider transitioning to trazodone if effective to avoid anticholinergic effects
#Right lung cancer s/p proton therapy
- Received care at [facility], seems to be in remission
- Adenocarcinoma on lung biopsy in 2020
#Stage IV prostate cancer
- Noted to have metastases to bone
- Home regimen includes darolutamide 600 mg BID
Diet -- Regular with 40 oz FR
Thromboprophylaxis -- SQ lovenox
CODE STATUS -- Full code
Disposition -- Home when medically stable
Discussed with ID and pulm
Anticipated Discharge: Within 24 hours
Subjective/Interval History
-
Date of Service: July 08, 2025
Seen and examined at the bedside. No acute events reported overnight. Temperature this morning 102 �F, otherwise hemodynamically stable and on room air
Patient states he feels generally well though did since his fever. Breathing remains improved, pleuritic chest pain minimal at this point. CXR yesterday relatively unchanged
Denies any other new complaints including dysuria, vomiting or diarrhea, rashes, pain. Denies dyspnea, cough improving. WBC stable. Sodium improved following tolvaptan
Objective Data
-
Labs:
Laboratory Results
07/08/25
05:28
WBC 3.3 L
Hgb 7.4 L
Hct 25.3 L
Plt Count 165
Sodium 132 L
Potassium 4.4
Chloride 102
Carbon Dioxide 28
BUN 14
Creatinine 0.7
Glucose 93
Calcium 9.0
Vital Signs:
Vital Signs
Temp Pulse Resp BP Pulse Ox
102.4 F H 110 18 137/83 93
07/08/25 07:48 07/08/25 07:48 07/08/25 07:48 07/08/25 07:48 07/08/25 07:48
I&O
07/07/25 07/08/25 07/09/25
06:59 06:59 05:59
Intake Total 1969 / 1969
Output Total 200 / 200 1300 / 1300
Balance -200 / -200 670 / 670
Review of Systems
-
History Source: Patient
All other systems: Reviewed and negative
Physical Exam
-
General: Well Developed, Well Nourished and No Apparent Distress
HEENT: Normocephalic, Atraumatic and Moist Mucous Membranes
Respiratory: Clear to Auscultation and Non Labored Respirations; Negative Rhonchi, Crackles or Accessory Resp Muscle Use
Cardiac: Regular Rhythm and S1/S2; Negative Murmur, Rub or Gallop
GI: Soft, Nontender, Nondistended and Normal Bowel Sounds
Musculoskeletal: No Clubbing, No Cyanosis and No Edema
Skin: Warm and Dry; Negative Rash
Neuro: AO x 3, Nonfocal/Grossly Intact and Central Nerve's Intact
Psych: Calm
--- NOTE | 2025-07-08 11:52 | W.PN.NEPH.PH ---
Today's Communication / Plan
-
follow BMP
Assessment/Plan
-
Assessment
Hypertension
Hyponatremia acute on chronic
pneumonia
Metastatic prostate cancer to bone
History lung cancer with proton therapy
Chronic alcohol use
elevated LFTs
Plan
Follow BMP
Maintain fluid restriction
Encourage oral intake
follow LFTs
-
-
Date of Service: July 08, 2025
CC / HPI / ROS
-
Chief Complaint:
hyponatremia
History of Present Illness:
hgb low 7.4
Na up to 132 with samsca
BP stable
LFTs remain elevated, particularly AST
Review of Systems:
no CP/SOB
Labs
-
Labs:
WBC 3.3 10^3/uL (4.8-10.8) L 07/08/25 05:28
RBC 2.67 10^6/uL (4.70-6.10) L 07/08/25 05:28
Hgb 7.4 g/dL (13.0-18.0) L 07/08/25 05:28
Hct 25.3 % (39.0-52.0) L 07/08/25 05:28
Plt Count 165 10^3/uL (130-400) 07/08/25 05:28
Sodium 132 mmol/L (135-145) L 07/08/25 05:28
Potassium 4.4 mmol/L (3.5-5.1) 07/08/25 05:28
Chloride 102 mmol/L (98-107) 07/08/25 05:28
Carbon Dioxide 28 mmol/L (22-30) 07/08/25 05:28
BUN 14 mg/dl (9-20) 07/08/25 05:28
Creatinine 0.7 mg/dL (0.7-1.3) 07/08/25 05:28
eGFR > 60.00 07/08/25 05:28
Glucose 93 mg/dl (70-99) 07/08/25 05:28
Calcium 9.0 mg/dl (8.4-10.2) 07/08/25 05:28
Albumin 2.9 g/dl (3.5-5.0) L 07/06/25 07:38
Physical Exam
-
Vital Signs:
Vital Signs
Temp Pulse Resp BP Pulse Ox
98.6 F 113 18 119/70 97
07/08/25 11:00 07/08/25 11:00 07/08/25 11:00 07/08/25 11:00 07/08/25 11:00
Cardiovascular:: Regular rate and rhythm
Respiratory:: Bilateral: Coarse
Lung Excursion:: Normal
Abdomen:: Nontender and Soft
Bowel Sounds:: Normal
Extremity Edema:: None: Bilateral:
[2025-07-08] MEDS: ROCEPHIN 1000 MG IV (16:52)
[2025-07-08] MEDS: STERILE WATER FOR INJECTION 10 ML IV (16:52)
[2025-07-08] MEDS: LOVENOX 40 MG SC (17:01)
[2025-07-08] MEDS: ZITHROMAX INFUSION 250 IV (18:09)
--- NOTE | 2025-07-08 19:34 | RESPNOTE ---
PT was ordered to wear the CPAP for KARMEN but PT denies having KARMEN or ever using CPAP. Machine was pulled from the room.
[2025-07-08] MEDS: VITAMIN B1 100 MG PO (20:35)
[2025-07-08] MEDS: NEURONTIN 300 MG PO (20:35)
[2025-07-09 03:40] VITALS: BP 107/50
[2025-07-09 06:00] VITALS: BMI 22.4
[2025-07-09 07:29] VITALS: BP 146/71
--- NOTE | 2025-07-09 08:25 | W.PN.HOSP.TC ---
Today's Communication/Plan
-
Transition to oral antibiotics
Discharge
Follow-up with oncology Thursday
Assessment / Plan
Assessment / Plan
#Acute hypoxemic respiratory insufficiency
#Sepsis secondary to community-acquired pneumonia
#History of dysphagia
- Likely postviral; had viral prodrome likely nonspecific etiology, then developed worsening
- Question aspiration event with possible deconditioning in context of metastatic cancer
- Presented with high-grade fever, RLL opacity, leukopenia, tachycardia and hypoxemia
- Since blood cultures x 2 were obtained in the ED, started on IV ceftriaxone and azithromycin
- Placed on the 2 L O2 in the ED, SpO2 now in the mid to high 90s, nonlabored on exam
- Hemodynamically stable without need for vasopressors at this time
- Strep and Legionella urinary antigens were negative
- Remains with high-grade fevers
Plan
- Transition from ceftriaxone and azithromycin to Augmentin to complete 7-day course
- Trend CBC and temperature curve
- Tylenol as needed for fever
- SpO2 goal >90%
#Euvolemic hyponatremia
- Presented with serum sodium 125, urine osmolality 538; likely SIADH from cancer versus lung disease
- Does have a chronic component with sodium baseline near 130, possibly SIADH with previous lung mass
- No signs or symptoms associated with hyponatremia at this time, started on IVF in ED
- Examines euvolemic as of this morning, sodium up to 132 after tolvaptan
Plan
- Fluid restricted diet of 48 ounces daily
- Trend BMP and volume status
#Alcohol use disorder
- Drinks 1-2 bottles of wine daily, does have history of withdrawal
- No signs of active withdrawal throughout ED course
- Start MSAS protocol for now
- Folate and thiamine supplement
#Elevated AST and ALP
- Suspect this is not associated with liver disease/metastases as ALT normal
- Likely related to bone metastases and possibly component of muscle breakdown/wasting
- CK level was low, LFTs stable otherwise
#Severe protein calorie malnutrition
- Likely associated with metastatic disease, increased caloric demand and poor intake
- Patient states he has lost 40 to 45 pounds since the start of this year
- Current BMI 22.5, does not appear significantly cachectic
- Will monitor calorie counts, start Ensure with meals
#Gastritis/duodenitis
#Anemia of chronic disease
- Chronic, likely associated with alcohol use
- Hemoglobin baseline near 9-10, was at 9.3 on arrival
- Not currently on PPI or other antacid therapies
- With active drinking status will start daily PPI
#Obstructive sleep apnea
- Ordered CPAP with order to titrate to comfort
#Primary hypertension
- Home regimen includes spironolactone 100 mg daily, not on first-line agents
- Blood pressure currently elevated though possibly in the context of hypoxemia and stress
- Monitor blood pressure and uptitrate antihypertensives as needed
#Dyslipidemia
- No known ASCVD history
- Home regimen includes moderate intensity rosuvastatin
#Insomnia
- Home regimen includes NyQuil and Benadryl
- Consider transitioning to trazodone if effective to avoid anticholinergic effects
#Right lung cancer s/p proton therapy
- Received care at [facility], seems to be in remission
- Adenocarcinoma on lung biopsy in 2020
#Stage IV prostate cancer
- Noted to have metastases to bone
- Home regimen includes darolutamide 600 mg BID
Diet -- Regular with 40 oz FR
Thromboprophylaxis -- SQ lovenox
CODE STATUS -- Full code
Disposition -- Home when medically stable
Anticipated Discharge: Today
Subjective/Interval History
-
Date of Service: July 09, 2025
Seen and examined at the bedside. No acute events overnight. AFVSS this morning. Did have 1 more fever near 101 �F yesterday evening
Denies any complaints this morning, breathing improved, no pleuritic pain nor fevers.
States he feels well and eager for discharge, has follow-up with Dr. Amanda from oncology on Thursday
Objective Data
-
Labs:
Laboratory Results
07/09/25
07:23
WBC Pending
Hgb Pending
Hct Pending
Plt Count Pending
Sodium Pending
Potassium Pending
Chloride Pending
Carbon Dioxide Pending
BUN Pending
Creatinine Pending
Glucose Pending
Calcium Pending
Total Bilirubin Pending
AST Pending
ALT Pending
Alkaline Phosphatase Pending
Vital Signs:
Vital Signs
Temp Pulse Resp BP Pulse Ox
97.9 F 93 18 107/50 98
07/09/25 03:40 07/09/25 03:40 07/09/25 03:40 07/09/25 03:40 07/09/25 03:40
I&O
07/08/25 07/09/25 07/10/25
06:59 05:59 06:59
Intake Total 1970 / 1970 720 / 720
Output Total 1300 / 1300 310 / 310
Balance 670 / 670 410 / 410
Review of Systems
-
History Source: Patient
All other systems: Reviewed and negative
Physical Exam
-
General: Well Developed, No Apparent Distress and Comfortable
HEENT: Normocephalic, Atraumatic, Moist Mucous Membranes and Anicteric
Respiratory: Clear to Auscultation and Non Labored Respirations; Negative Accessory Resp Muscle Use
Cardiac: Regular Rhythm and S1/S2; Negative Murmur, Rub or Gallop
GI: Soft, Nontender, Nondistended and Normal Bowel Sounds
Musculoskeletal: No Clubbing, No Cyanosis and Other (Trace edema)
Skin: Warm and Dry; Negative Rash
Neuro: AO x 3, Nonfocal/Grossly Intact and Central Nerve's Intact; Negative Tremors
Psych: Calm
Data Reviewed
-
Labs: Labs Reviewed by me, Discussed with Patient and Discussed with Family
[2025-07-09] MEDS: CRESTOR 5 MG PO (09:18)
[2025-07-09] MEDS: PROTONIX 40 MG PO (09:18)
[2025-07-09] MEDS: FOLVITE 1 MG PO (09:18)
[2025-07-09] MEDS: THERAGRAN 1 TABLET PO (09:18)
[2025-07-09] MEDS: VITAMIN B1 100 MG PO (09:18)
[2025-07-09] MEDS: ALDACTONE 12.5 MG PO (09:18)
[2025-07-09] MEDS: NON-FORMULARY ITEM 600 MG PO (09:19)
[2025-07-09] MEDS: VITAMIN C 500 MG PO (09:20)
[2025-07-09] MEDS: TYLENOL 1000 MG PO (09:32)
[2025-07-09 09:33] LABS: ALT (SGPT) 16 U/L (0-50); AST (SGOT) 195 U/L (17-59); Albumin 2.8 g/dl (3.5-5.0); Alkaline Phosphatase 278 U/L (38-126); Blood Urea Nitrogen 18 mg/dl (9-20); Calcium 9.2 mg/dl (8.4-10.2); Carbon Dioxide 27 mmol/L (22-30); Chloride 101 mmol/L (98-107); Estimated Creatinine Clearance 90 ml/min; Glucose 116 mg/dl (70-99); Potassium 3.9 mmol/L (3.5-5.1); Sodium 131 mmol/L (135-145); Total Protein 5.3 g/dl (6.3-8.2); eGFR > 60.00
[2025-07-09 09:40] LABS: Hematocrit 24.4 % (39.0-52.0); Hemoglobin 7.3 g/dL (13.0-18.0); Mean Corp Hgb Conc. 29.9 g/dL (33.0-37.0); Mean Corpuscular Volume 92.4 fL (80.0-94.0); Platelet Count 202 10^3/uL (130-400); Red Cell Dist. Width 17.2 % (11.5-14.5)
--- NOTE | 2025-07-09 10:52 | CM ---
Pt is discharged home. PT rec HH but pt does not want this. Pt informed if he gets home and changes his mind, he should call his PCP. with take pt home in his car.
[2025-07-09 11:25] VITALS: BP 128/64
[2025-07-09 11:36] LABS: Nucleated Red Blood Cells % 3.0 % (-)
--- NOTE | 2025-07-09 14:45 | W.DCSUMMARY ---
Discharge Summary
Discharge Data
Date of Admission: 07/05/25
Date of Discharge: 07/09/25
Total time spent discharging patient (in min): 32
-
Pending Results: No
Hospital Course
Discharging physician: Abdi Junior DO
Discharge disposition: Home
Primary discharge diagnoses:
Community-acquired pneumonia
Hypoxemia
Fever
Hyponatremia due to SIADH
Chronic discharge diagnoses:
Gastritis
KRAMEN on CPAP
Anemia of chronic disease
Hypertension
Dyslipidemia
Stage IV prostate cancer on Nubeqa
History of lung cancer s/p proton therapy
Hospital course:
75-year-old male that presented to the hospital with pleuritic chest pain, dyspnea, fever and hypoxemia. Initial chest x-ray showed dense of right lower lobe opacification, had elevated procalcitonin at 0.51 and diagnosed with community-acquired
pneumonia. Was started on IV ceftriaxone and azithromycin for which she received 4 days of therapy in the hospital. Sputum culture unable to be obtained, blood cultures ultimately negative. He had quick clinical improvement to his hypoxemia and
pleurisy however intermittently with recurrent fevers between 101 and 102 �F. Ultimately had improvement to fevers and was transition to Augmentin 875-125 mg every 12 hours to complete a 7-day course of antibiotics. During the hospitalization he
was seen by optical fabricator for a dose of tolvaptan due to his euvolemic hyponatremia due to SIADH. Serum sodium improved from 125-131. At time of discharge was recommended to follow-up with his oncologist to he was scheduled to see on 07/11
Consultants:
Estimator Project Manager�Chivo Ma MD
Pertinent imaging findings:
CXR (07/05/2025)
IMPRESSION: Mild cardiomegaly without definitive evidence of congestive heart failure. Small infiltrate at the right lung base which could represent atelectasis or subtle pneumonia. Possible nipple shadow overlying the left lung base. Follow-up may
be considered with nipple markers.
CXR (07/07/2025)
IMPRESSION: Patchy parenchymal opacity within both lower lungs, suggesting basilar atelectasis and/or pneumonia. Basilar linear densities of increased recent chest radiograph. Small bilateral pleural effusions, which appear increased from recent
radiograph. No evidence for pulmonary edema pattern.
CXR (07/08/2025)
IMPRESSION: Slight improvement in right lower lung patchy parenchymal opacity, suggesting improvement in atelectasis and/or pneumonia.
Procedures: N/A
Follow-up:
Oncologist appointment on 07/11/25
Family doctor within 1 week
Discharge Plan
-
Patient Disposition: Home (Routine Discharge)
Discharge Diagnosis/Procedures: Community-acquired pneumonia
Intermittent fever
SIADH
Condition: Fair
Diet: Restrict fluids to 48 oz and Other diet
Additional Diets: Use nutritional shakes with meals (would recommend boost or Ensure)
Activity: As tolerated
Driving Restrictions: No driving for 24 hours
Bathing Restrictions: None
Blood Work: Follow-up with oncologist for labs Thursday (BMP, CBC w/ diff)
Referrals:
Federico Amanda DO [Active, Hematology / Oncology] - in two days
Charis Guardado DO [Family Provider, [facility]]
Additional Discharge Medication Instructions: Continue Augmentin 875-125 mg every 12 hours for 4 more days to finish course of antibiotics for pneumonia
Take pantoprazole 40 mg daily for your history of gastritis and alcohol use
Continue thiamine 100 mg daily, folate 0.8 mg daily (can be obtained [id number] if needed)
Prescriptions:
New
pantoprazole 40 mg Tablet,Delayed Release (Dr/Ec)
40 mg PO DAILY 30 Days Qty: 30 0RF
amoxicillin-pot clavulanate 875-125 mg tablet
1 tab PO Q12H 4 Days Qty: 8 0RF
Continued
ykbmffpwipc-wottwqjhy-str C-Mn 1 TAB tablet
1 tab PO DAILY
gabapentin 300 mg Capsule
300 mg PO HS
sennosides [senna] 8.6 mg Tablet
8.6 mg PO DAILYPRN PRN (Reason: constipation) Qty: 0
therapeutic multivitamin Tablet
1 tab PO DAILY
ascorbic acid (vitamin C) [Vitamin C] 500 mg Tablet
500 mg PO DAILY
spironolactone 50 mg Tablet
12.5 mg PO DAILY
thiamine mononitrate (vit B1) 100 mg tablet
100 mg PO DAILY
diphenhydramine HCl 50 mg Capsule
50 mg PO HSPRN PRN (Reason: sleep)
rosuvastatin 5 mg Tablet
5 mg PO DAILY
folic acid 0.8 mg Capsule
0.8 mg PO DAILY
Nubeqa 300 mg Tablet
600 mg PO BID
Discharge Orders:
Discharge Patient (As Directed); Ordered 07/09/25
Ordered By: Abdi Junior
Discharge Date and Time
Discharge Date/Time: 07/09/25 12:39
Print Language: WOLOF
== END 2025-07-09 12:39 | disposition home or self-care (01) | DRG 193 ==
LOC: 4 EAST ACU 17:21
PROVIDERS: Nurse Practitioner Family; Physician Assistant; ADMITTING PHYSICIAN Internal Medicine; CONSULT PHYSICIAN Specialist; EMERGENCY PHYSICIAN Emergency Medicine; FAMILY PHYSICIAN Family Medicine
DX: J18.9 Pneumonia, unspecified organism (principal); E43 Unspecified severe protein-calorie malnutrition; C25.9 Malignant neoplasm of pancreas, unspecified; E22.2 Syndrome of inappropriate secretion of antidiuretic hormone; C79.51 Secondary malignant neoplasm of bone; D84.9 Immunodeficiency, unspecified; Z87.891 Personal history of nicotine dependence; Z11.52 Encounter for screening for COVID-19; R09.02 Hypoxemia; R06.89 Other abnormalities of breathing; E86.1 Hypovolemia; F10.10 Alcohol abuse, uncomplicated; Z68.22 Body mass index [BMI] 22.0-22.9, adult; K29.80 Duodenitis without bleeding; K29.70 Gastritis, unspecified, without bleeding; D63.8 Anemia in other chronic diseases classified elsewhere; G47.33 Obstructive sleep apnea (adult) (pediatric); I10 Essential (primary) hypertension; G47.00 Insomnia, unspecified; Z79.899 Other long term (current) drug therapy
CPT/HCPCS: 71045; 71046; 80048; 80053; 80076; 81003; 81015; 82077; 82248; 82550; 82962; 83605; 83735; 83930; 83935; 84145; 84300; 84484; 85025; 87040; 87086; 87449; 87502; 87811; 87899; 92610; 93005; 96365; 96375; 97110; 97162; 97166; 99285

== ENCOUNTER → 2025-08-01 08:40 | Outpatient (REF) | payer OTHER, SELFPAY | LOC: HWRAD 08:40 | PROVIDERS: ATTENDING PHYSICIAN Radiology Radiation Oncology; FAMILY PHYSICIAN Family Medicine | DX: C34.11 Malignant neoplasm of upper lobe, right bronchus or lung (principal) | CPT/HCPCS: 71250 ==

== ENCOUNTER 2025-08-09 11:59 | Inpatient (IN) | payer OTHER, SELFPAY ==
[2025-08-09] VITALS (10 sets, daily range): BP systolic 117–155; BP diastolic 60–84; BMI 24.9; BMI 24.3
[2025-08-09 04:48] LABS: Hematocrit 24.6 % (39.0-52.0); Hemoglobin 7.6 g/dL (13.0-18.0); Mean Corp Hgb Conc. 30.9 g/dL (33.0-37.0); Mean Corpuscular Volume 89.1 fL (80.0-94.0); Nucleated Red Blood Cells % 5.2 % (-); Platelet Count 114 10^3/uL (130-400); Red Cell Dist. Width 20.8 % (11.5-14.5)
[2025-08-09] MEDS: ZOFRAN 4 MG IV ×2 (04:56→20:36)
[2025-08-09 05:01] LABS: ALT (SGPT) 13 U/L (0-50); AST (SGOT) 353 U/L (17-59); Albumin 3.4 g/dl (3.5-5.0); Alkaline Phosphatase 237 U/L (38-126); Blood Urea Nitrogen 14 mg/dl (9-20); Calcium 8.7 mg/dl (8.4-10.2); Carbon Dioxide 28 mmol/L (22-30); Chloride 95 mmol/L (98-107); Estimated Creatinine Clearance 95 ml/min; Glucose 107 mg/dl (70-99); Potassium 4.8 mmol/L (3.5-5.1); Sodium 128 mmol/L (135-145); Total Protein 6.2 g/dl (6.3-8.2); eGFR > 60.00
--- NOTE | 2025-08-09 06:27 | ED.GENMED ---
History of Present Illness
<Tiffani Maldonado MD, Resident - Last Filed: 08/09/25 10:34>
General
Chief Complaint: Abdominal Symptoms
Source: patient and significant other
Exam Limitations: none
Time Seen by Provider: 08/09/25 05:58
Nursing documentation reviewed up to this point in time: agreed with
History of Present Illness
History of Present Illness:
Pt is a 75yo M with a hx of stage IV prostate cancer (on nubeqa), lung ca (s/p proton therapy, in remission), HTN, GERD, HLD, and recent admission with PNA & SIADH who presents with severe abdominal pain & constipation.
Pt states that yesterday he began feeling nauseous, without vomiting. Has been constipated for 2 days, straining without success. Has been passing a significant amount of flatus. States that last night around 1am he took milk of magnesia to help
with BMs. Also took tylenol. Then, he was woken from sleep with severe, sharp lower abdominal pain that has since spread and radiated to upper abdomen. 8/10 pain. Denies any recent illness (aside from PNA admission, discharged 07/09), just some
seasonal allergies.
Denies any SOB, although his partner states that he sometimes seems breathless at home recently walking around. Endorses some swelling of RLE. Pt states that he has lost a significant amt of weight recently and feels deconditioned.
Pt was diagnosed with stage IV prostate ca in March, has been managed thus far with anti-testosterone agents. Was having positive response until July, when labs began to trend in wrong direction - has repeat PET scheduled with oncologist (
Danny Amanda) this month. PET in April 2025 demonstrated pelvic, retroperitoneal, & mediastinal metastatic dz, along with widespread osseous metastatic disease. Has thus far not had severe pain, so has not had home analgesic regimen rx. Has been
pancytopenic chronically over last months.
Past History
<Tiffani Maldonado MD, Resident - Last Filed: 08/09/25 10:34>
Past History
ED Past Medical History: GERD, HTN, Hypercholesterolemia and Other (Lung cancer)
ED Past Surgical History: Cholecystectomy
Social History
Tobacco: Former smoker
Alcohol: Daily (1-2 bottles wine)
Drug: None
Personal:
Living: with family
Review of Systems
<Tiffani Maldonado MD, Resident - Last Filed: 08/09/25 10:34>
Review of Systems
Allergies reviewed?: Yes
All Other Systems: ROS reviewed and negative except as documented in HPI and ROS
Constitutional: Reports weight loss and fatigue
EENT: Reports runny nose
Respiratory: Reports other (slight CAMARGO )
Cardiac: Reports no symptoms
ABD/GI: Reports abdominal pain, nausea and constipated
: Reports no symptoms
Musculoskeletal: Reports other (neuropathic pain)
Skin: Reports no symptoms
Neurological: Reports no symptoms
Psychiatric: Reports no symptoms
Phy Exam
<Tiffani Maldonado MD, Resident - Last Filed: 08/09/25 10:34>
General Physical Exam
General Presentation: moderate distress
General age: appears stated age
General Skin: warm and dry
General Habitus: normal
General Mental: alert
ENT Exam
ENT Exam: lymphnodes (posterior JENNIFER)
Eye Exam
Eye Exam: EOMI
Cardiovascular Exam
Cardiovascular Exam: regular rate/rhythm and other (RLE edema +1 pitting )
Heart Sounds: normal
Pulmonary Exam
Pulmonary Exam: no respiratory distress and other (crackles in R lung base, otherwise clear )
Oxygen Status: oxygen 2 liters via NC
Gastrointestinal Exam
Gastrointestinal Exam: soft and tender (tender to palpation throughout; no rebound or guarding )
Neurological Exam
Neurological Exam: alert and oriented x3
Musculoskeletal Exam
Musculoskeletal Exam: edema (1+ pitting edema to mid-mak in RLE )
Skin Exam
Skin Exam: normal color and warm/dry
Psychiatric Exam
Psychiatric Exam: depressed
Sepsis
<Tiffani Maldonado MD, Resident - Last Filed: 08/09/25 10:34>
Sepsis Screen
Sepsis Screen: Sepsis
Date: 08/09/25
Time: 10:32
<Nikki Allred, DO - Last Filed: 08/09/25 09:59>
Sepsis Screening
Sepsis Assessment: Sepsis
Sepsis Screen
Sepsis Screen: Sepsis
Date: 08/09/25
Time: 09:58
Course
<Tiffani Maldonado MD, Resident - Last Filed: 08/09/25 10:34>
Orders/Labs/Results
Orders:
Orders
08/09/25 04:33
Complete Blood Count/With Diff Urgent
Comprehensive Metabolic Panel Urgent
PSA, Total - Screen Routine
Comment: ADD ON
08/09/25 04:54
Ondansetron Injectable [Zofran] 4 mg IV NOW STA
08/09/25 06:42
CR Chest - 2 Views Urgent
Comment:
Reason For Exam: CAMARGO
08/09/25 06:43
CT Abd/pelvis W Iv Cont Urgent
Comment:
Reason For Exam: abdominal pain
08/09/25 06:45
Lactic Acid Q4H
Comment: CANCEL 2nd LACTIC ACID IF 1st LACTIC ACID IS LESS THAN 2
Urinalysis Reflex To Culture Urgent
Date Specimen was Collected: 08/09/25
Time Specimen was Collected: 06:38
Urine Microscopic Reflex Cult Urgent
Blood Culture Q30M
RONALD Source: Blood/Venous
Specimen Description:
08/09/25 06:49
COVID-19 Antigen Urgent
Source: Nasal Swab
Influenza A+B Rapid Molecular Urgent
RONALD Source: Nasal Swab
Specimen Description:
12/03/25 06:50
Acetaminophen [Tylenol] 325 mg PO NOW STA
Ketorolac [Toradol] 15 mg IV NOW STA
08/09/25 06:54
HYDROmorphone [Dilaudid] 0.5 mg IV NOW STA
08/09/25 07:45
Blood Culture Q30M
RONALD Source: Blood/Venous
Specimen Description:
08/09/25 09:57
0.9% Sodium Chloride 1000 ml [Nss] 1,000 ml IV BOLUS
Cefepime HCl [Maxipime] 2,000 mg IV NOW STA
Vancomycin [Vancocin] 2,000 mg 0.9% Sodium Chloride 500 ml [Nss] 500 ml IV NOW
08/09/25 10:15
Lactic Acid Q4H
Comment: CANCEL 2nd LACTIC ACID IF 1st LACTIC ACID IS LESS THAN 2
Abnormal Lab Results
08/09/25 08/09/25
04:33 06:45
WBC 3.6 L 10^3/uL
(4.8-10.8)
RBC 2.76 L 10^6/uL
(4.70-6.10)
Hgb 7.6 L g/dL
(13.0-18.0)
Hct 24.6 L %
(39.0-52.0)
MCHC 30.9 L g/dL
(33.0-37.0)
RDW 20.8 H %
(11.5-14.5)
Plt Count 114 L 10^3/uL
(130-400)
Abs Immat Gran (auto) 0.1 H 10^3/uL
(0-0.05)
Absolute Lymphs (auto) 0.7 L 10^3/uL
(1.2-3.4)
Immature Gran % 2.2 H %
(0-0.5)
Lymphocytes % 17.9 L %
(20.5-51.1)
Monocytes % 14.0 H %
(1.7-9.3)
Sodium 128 L mmol/L
(135-145)
Chloride 95 L mmol/L
(98-107)
Creatinine 0.6 L mg/dL
(0.7-1.3)
Glucose 107 H mg/dl
(70-99)
AST 353 H U/L
(17-59)
Alkaline Phosphatase 237 H U/L
(38-126)
Total Protein 6.2 L g/dl
(6.3-8.2)
Albumin 3.4 L g/dl
(3.5-5.0)
PSA Screen 121.00 H ng/ml
(0.0-4.0)
Urine Albumin (Reflex) 1+ A
(Neg - Trace)
08/09/25 04:33
08/09/25 04:33
Vital Signs
Initial and Last Documented VS:
Initial Vital Signs
BP
120/60
08/09/25 04:06
Last Documented Vital Signs
Temp Pulse Resp BP Pulse Ox
101 F H 99 19 129/65 97
08/09/25 04:17 08/09/25 08:00 08/09/25 08:00 08/09/25 08:00 08/09/25 09:30
<Nikki Allred, DO - Last Filed: 08/09/25 09:59>
Orders/Labs/Results
Orders:
Orders
08/09/25 04:33
Complete Blood Count/With Diff Urgent
Comprehensive Metabolic Panel Urgent
PSA, Total - Screen Routine
Comment: ADD ON
08/09/25 04:54
Ondansetron Injectable [Zofran] 4 mg IV NOW STA
08/09/25 06:42
CR Chest - 2 Views Urgent
Comment:
Reason For Exam: CAMARGO
08/09/25 06:43
CT Abd/pelvis W Iv Cont Urgent
Comment:
Reason For Exam: abdominal pain
08/09/25 06:45
Lactic Acid Q4H
Comment: CANCEL 2nd LACTIC ACID IF 1st LACTIC ACID IS LESS THAN 2
Urinalysis Reflex To Culture Urgent
Date Specimen was Collected: 08/09/25
Time Specimen was Collected: 06:38
Urine Microscopic Reflex Cult Urgent
Blood Culture Q30M
RONALD Source: Blood/Venous
Specimen Description:
08/09/25 06:49
COVID-19 Antigen Urgent
Source: Nasal Swab
Influenza A+B Rapid Molecular Urgent
RONALD Source: Nasal Swab
Specimen Description:
08/09/25 06:50
Acetaminophen [Tylenol] 325 mg PO NOW STA
Ketorolac [Toradol] 15 mg IV NOW STA
08/09/25 06:54
HYDROmorphone [Dilaudid] 0.5 mg IV NOW STA
08/09/25 07:45
Blood Culture Q30M
RONALD Source: Blood/Venous
Specimen Description:
08/09/25 09:57
0.9% Sodium Chloride 1000 ml [Nss] 1,000 ml IV BOLUS
Cefepime HCl [Maxipime] 2,000 mg IV NOW STA
Vancomycin [Vancocin] 2,000 mg 0.9% Sodium Chloride 500 ml [Nss] 500 ml IV NOW
08/09/25 10:15
Lactic Acid Q4H
Comment: CANCEL 2nd LACTIC ACID IF 1st LACTIC ACID IS LESS THAN 2
Abnormal Lab Results
08/09/25 08/09/25
04:33 06:45
WBC 3.6 L 10^3/uL
(4.8-10.8)
RBC 2.76 L 10^6/uL
(4.70-6.10)
Hgb 7.6 L g/dL
(13.0-18.0)
Hct 24.6 L %
(39.0-52.0)
MCHC 30.9 L g/dL
(33.0-37.0)
RDW 20.8 H %
(11.5-14.5)
Plt Count 114 L 10^3/uL
(130-400)
Abs Immat Gran (auto) 0.1 H 10^3/uL
(0-0.05)
Absolute Lymphs (auto) 0.7 L 10^3/uL
(1.2-3.4)
Immature Gran % 2.2 H %
(0-0.5)
Lymphocytes % 17.9 L %
(20.5-51.1)
Monocytes % 14.0 H %
(1.7-9.3)
Sodium 128 L mmol/L
(135-145)
Chloride 95 L mmol/L
(98-107)
Creatinine 0.6 L mg/dL
(0.7-1.3)
Glucose 107 H mg/dl
(70-99)
AST 353 H U/L
(17-59)
Alkaline Phosphatase 237 H U/L
(38-126)
Total Protein 6.2 L g/dl
(6.3-8.2)
Albumin 3.4 L g/dl
(3.5-5.0)
PSA Screen 121.00 H ng/ml
(0.0-4.0)
Urine Albumin (Reflex) 1+ A
(Neg - Trace)
08/09/25 04:33
08/09/25 04:33
Vital Signs
Initial and Last Documented VS:
Initial Vital Signs
BP
120/60
08/09/25 04:06
Last Documented Vital Signs
Temp Pulse Resp BP Pulse Ox
101 F H 99 19 129/65 97
08/09/25 04:17 08/09/25 08:00 08/09/25 08:00 08/09/25 08:00 08/09/25 09:30
<Tiffani Maldonado MD, Resident - Last Filed: 08/09/25 10:34>
MDM/Problems Addressed
Differential Diagnosis Includes:
Ddx:
Partial bowel obstruction due to retroperitoneal/pelvic metastasis leading to constipation & severe cramping/abd pain s/p Mg admin/spasm against obstruction
Intraabdominal infection (acute appendicitis vs. diverticulitis vs. abscess, less likely given timing) in s/o leukopenia & fever 101
Potential element of CHF given 87% sat on RA on admission, partner endorsing dyspnea at home, RLE edema, R sided lung base crackles
Known hyponatremia, likely 2/2 SIADH
Superimposed URI viral infection or UTI
MDM/Problems Addressed:
- CBC, CMP, PSA (<oncologist ordered PSA for today)
- Blood cx x2
- CXR
- CT a/p w IV contrast
- UA w reflex to cx
- COVID, flu antigen
- Dilaudid 0.5mg (received without issue 07/05/25)
- Toradol 15mg IV
- Tylenol
<Tiffani Maldonado MD, Resident - Last Filed: 08/09/25 10:34>
*Pulse Oximetry
SaO2: 91
Oxygen Mode of Delivery: Room air
Patient hypoxic: no
*Critical Care Note
Total Time (30-74mins, 75-104mins- exclusive of procedures): Not Applicable
<Tiffani Maldonado MD, Resident - Last Filed: 08/09/25 10:34>
Update Note
Update Note:
9:45am
CT a/p :
No acute findings in the abdomen or pelvis. Colonic diverticulosis. Mild colonic stool burden.
There are new nodular and ground glass opacities within the inferior right lower lobe of the lung suspicious for pneumonia. Diffusely heterogeneous appearance of the bones which are likely sequelae of known widespread osseous metastatic disease.
CXR:
R lower lobe w consolidation suspicious for PNA
10:30am
Will plan to admit to hospitalist service, start empiric abx for PNA, & plan for bowel regimen on floors for constipation
ED Attending Note
<Tiffani Maldonado MD, Resident - Last Filed: 08/09/25 10:34>
-
Portions of this chart may have been created with voice recognition software.� Occasional wrong word or��sound alike� substitutions may have occurred due to the inherent limitations of voice recognition software.
<Nikki Allred DO - Last Filed: 08/09/25 09:59>
ED Attending Note
Patient seen and examined by attending physician: Yes
I performed the substantive portion of visit, reviewed & personally made and approve the management plan that is documented in note by myself or SAMEER.: Yes
I performed a history and physical exam of patient and discussed management with resident, I reviewed resident's note and agree with documented findings and plan of care.: Yes
ED Attending Note:
75-year-old male with history of stage IV prostate cancer on antitestosterone therapy presenting to the emergency department for abdominal pain. Patient reports last evening he was feeling nauseous. He also started to have generalized abdominal
pain. Around 1 AM he had worsening abdominal pain so tried milk of magnesia in hopes that having a bowel movement would relieve his symptoms. A few hours later, he woke up with worsening pain. Denies vomiting. Notes that pain is diffuse.
Reports history of cholecystectomy, otherwise denies abdominal surgeries. Patient has been following with [facility] for his oncology care. Did recently have a PET scan in April which did show retroperitoneal spread of his cancer.
Patient notes that he still passing flatus. Recent admission from 07/05 to 07/09 for pneumonia. Also history of SIADH with history of hyponatremia. Patient does note that he has had some dyspnea since recent admission and discharge. Partner at
bedside also notes some dyspnea on exertion. Vital signs on arrival significant for fever.
On exam patient is in no acute distress, however is slightly comfortable secondary to pain. No significant increased work of breathing, however oxygen saturations slightly low so placed on nasal cannula. Lungs relatively clear to auscultation. On
abdominal exam, generalized nonfocal tenderness without distention. In the setting of abdominal pain and fever, concern for intra-abdominal infection. Labs obtained prior to my assessment. Patient with baseline anemia as well as hyponatremia.
Patient meeting SIRS criteria due to fever heart rate. However at this time blood pressure within normal limits without concern for septic shock or severe sepsis. Lactate also within normal limits. Holding IV fluids, given slightly low
oxygenation and dyspnea on exertion to ensure no signs of CHF. Will plan for chest x-ray imaging as well as CT abdominal imaging. Dilaudid ordered for pain. Tylenol ordered for fever
10:00 - After Dilaudid, patient's pain is more improved. CT without any signs of obstruction or intra-abdominal infection. However there is mention of infiltrate to the right lower lobe with concern for pneumonia. This is consistent with
patient's fever and dyspnea. Given recent hospitalization, will treat as hospital-acquired. Starting broad-spectrum antibiotics. CT also shows signs of constipation which is likely contributing to abdominal discomfort. Will try bowel regiment
Discharge Plan
Departure
Patient Disposition: Admit
Date of Disposition: 08/09/25
Time of Disposition: 10:11
Presentation/result/management discussed w/ accepting MD/DO: Hospitalist
Condition: Fair
Discharge Problem:
Right lower lobe pneumonia, Constipation
Prescriptions:
No Action
lqgzasjgjjm-aupzebcll-ydi C-Mn 1 TAB tablet
1 tab PO DAILY
gabapentin 300 mg Capsule
300 mg PO HS
therapeutic multivitamin Tablet
1 tab PO DAILY
ascorbic acid (vitamin C) [Vitamin C] 500 mg Tablet
500 mg PO DAILY
spironolactone 50 mg Tablet
12.5 mg PO DAILY
thiamine mononitrate (vit B1) 100 mg tablet
100 mg PO DAILY
diphenhydramine HCl 50 mg Capsule
50 mg PO HSPRN PRN (Reason: sleep)
rosuvastatin 5 mg Tablet
5 mg PO DAILY
folic acid 0.8 mg Capsule
0.8 mg PO DAILY
Nubeqa 300 mg Tablet
600 mg PO BID
pantoprazole 40 mg Tablet,Delayed Release (Dr/Ec)
40 mg PO DAILY 30 Days Qty: 30 0RF
Referrals:
Charis Guardado DO [Family Provider, Family Practice]
Interventions
Interventions:
*Risk Screen - Suicide Last Done: 08/09/25 04:22
*General Assessment Last Done: 08/09/25 04:22
*Neglect/Abuse Screening Last Done: 08/09/25 04:22
*ED COVID-19 Vaccine History Last Done: 08/09/25 04:22
*ED Influenza Vaccine History Last Done: 08/09/25 04:22
[facility] Fall Risk Assessment Tool Last Done: 08/09/25 04:23
CP-Jhqeuc-Cgjbtxcvtn Assessment Last Done: 08/09/25 04:24
Discharge Date and Time
Print Language: YAKUT
[2025-08-09 07:23] LABS: Urine Character Clear (Clear)
[2025-08-09 07:24] LABS: COVID-19 Antigen Negative (Negative)
[2025-08-09] MEDS: TYLENOL 325 MG PO (07:29)
[2025-08-09] MEDS: TORADOL 15 MG IV (07:29)
[2025-08-09] MEDS: DILAUDID 0.5 MG IV (07:30)
[2025-08-09 07:38] LABS: Urine Red Blood Cell 0-2 /HPF (0-2); Urine Squamous Cell 0-2 /LPF (Few); Urine White Cell 0-2 /HPF (0-5)
[2025-08-09 09:26] LABS: PSA, Total - Screen 121.00 ng/ml (0.0-4.0)
[2025-08-09] MEDS: MAXIPIME 2000 MG IV (10:31)
[2025-08-09] MEDS: NSS 1000 IV ×3 (10:31→23:36)
[2025-08-09] MEDS: VANCOCIN 540 MG IV (11:17)
--- NOTE | 2025-08-09 11:38 | HPS.HSE ---
Addendum entered and electronically signed by Luiz Figueroa MD 08/09/25 14:25:
I personally performed a history and physical exam of the patient and discussed management with the resident. I reviewed the resident's note and agree with the documented findings and plan of care HPI/CC.
75-year-old male with history of gastritis/duodenitis, alcohol use, hypertension, sleep apnea, hyperlipidemia, dysphagia, history of lung cancer status post proton therapy, stage IV prostate cancer with metastases came with generalized abdominal
pain along with some shortness of breath. Patient was hypoxic in the ED and was put on nasal cannula. Chest x-ray was consistent with pneumonia. Given his another episode of pneumonia, will consult speech therapy to evaluate. Okay for clear
liquids at this time. CT of the abdomen also was done which showed some constipation. There is no obstruction on imaging. Start laxative. Oncology evaluation. Does have fever in the ER. Admitted for sepsis with acute hypoxic respiratory
insufficiency secondary to pneumonia. Start Vanco and Zosyn. Follow cultures.
General: Comfortable and Conversant
HEENT: NormoCephalic and Anicteric
Respiratory: Clear
Cardiac: S1/S2 and Regular Rhythm
GI: Soft, Normal Bowel Sounds, Tender (mildly tender) and Distended
Musculoskeletal: No Edema
Neuro: AO x 3
Psych: Calm
Right lower lobe pneumonia
Sepsis with acute hypoxic respiratory insufficiency secondary to pneumonia
Follow cultures
Patient was admitted previously on 07/09 for right lower lobe pneumonia and was managed with abx.
Previous chest CT showed no recurrence of pneumonia
Chest x-ray showed NEW right basilar opacity
Start IV Zosyn and IV vancomycin and de-escalate as necessary
Tylenol as needed for fever
Speech evaluation
Check Streptococcus pneumonia antigen, Legionella antigen
Labs shows chronic pancytopenia which is likely secondary to malignancy
Monitor white count and WBC
Consult oncology
Generalized abdominal pain likely secondary to malignancy and constipation
CT with possible constipation
Start laxatives
some stool burden on abdominal/pelvis CT, no bowel obstruction.
MiraLAX and Senokot-S
Start on clears
Hyponatremia, acute on chronic
Does appear to have history of hyponatremia
Presented with serum sodium of 128, baseline sodium is nearly 130.
Check urine and serum studies
IV fluids were started in ED. Continue
Alcohol use disorder
Daily use of half a bottle of alcohol particularly wine
MSAS protocol
Thiamine, folate
Hyperlipidemia
Continue rosuvastatin
Hypertension
Continue with home meds
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
Diagnosed in March 2024, ongoing chemotherapy until July
Continuing Nubeqa 600 mg
Consult oncology
Elevated AST and alk phos
Suspect likely secondary to liver disease/metastases
Liver enzymes were a lot worse on last admission
Continue to monitor
History of gastritis/duodenitis
Continue to monitor
Alcohol use with abuse
Monitor for withdrawal
Anemia of chronic disease
Continue to monitor
History of GERD
continue pantoprazole
-History of right lung cancer s/p proton therapy
-KARMEN
order cppap while here
DVTppx
Lovenox
Code Status
Full code
I spent a total of 78 minutes with the patient or on the floor. More than 50% of this time involved counseling and coordination of care.
Original Note:
Family Physician
-
Family Physician: Charis Guardado
Chief Complaint
-
Abdominal pain
History of Present Illness
75-year-old male with history of gastritis/duodenitis, alcohol use, KARMEN, hypertension, dyslipidemia, dysphagia, H/O lung cancer s/p proton therapy, H/O stage IV pancreatic cancer with metastases to bone presents complaining of generalized abdominal
pain. Patient notes that 2 days ago he started to have generalized constant abdominal pain. He drank some alcohol to help relieve the pain however last night the intensity of the pain increased and he was unable to sleep. He denies nausea,
vomiting. He admits to decreased appetite. He was admitted on 07/09 for pneumonia. He denies any recent illnesses. He is currently on Nubeqa chemo drug for metastatic prostate cancer. He denies shortness of breath, chest pain, weakness, headache.
Pt was diagnosed with stage IV prostate ca in March, has been managed thus far with anti-testosterone agents. Was having positive response until July, when labs began to trend in wrong direction - has repeat PET scheduled with oncologist (
Danny Amanda) this month. PET in April 2025 demonstrated pelvic, retroperitoneal, & mediastinal metastatic dz, along with widespread osseous metastatic disease. Has thus far not had severe pain, so has not had home analgesic regimen rx. Has been
pancytopenic chronically over last months.
Medical History
Past Medical History
Past Medical History: Reports Other (gastritis/duodenitis, alcohol use, KARMEN, hypertension, dyslipidemia, dysphagia, H/O lung cancer s/p proton therapy, H/O stage IV pancreatic cancer with metastases)
Past Surgical History: Reports Cholecystectomy
Social History
Tobacco: Non-smoker
Alcohol: Daily (Half a bottle of wine )
Drug: None
Personal:
Living: With Family
Employment: Retired
Family History
Family History: Not pertinent
Allergies / Home Medications
Allergies reflects when Allergies were last updated in [facility].
Home Medications with original date entered in [facility]
Allergy/Medication List:
Allergies
Allergy/AdvReac Type Severity Reaction Status Date / Time
aspirin (From Percodan) Allergy Shortness Verified 08/09/25 05:49
of Breath
codeine Allergy Anaphylaxis Verified 08/09/25 05:49
Opioids - Morphine Analogues Allergy Unknown Verified 08/09/25 05:49
oxycodone (From Percodan) Allergy Shortness Verified 08/09/25 05:49
of Breath
Home Medications
opnlcylyuiv-apdaqzjza-nui C-Mn 750 mg-600 mg-55 mg-5 mg tablet 1 tab PO DAILY Supplement 01/09/22
gabapentin 300 mg capsule 300 mg PO HS Neurological Condition 10/03/24
ascorbic acid (vitamin C) 500 mg tablet (Vitamin C) 500 mg PO DAILY Supplement 03/07/25
spironolactone 50 mg tablet 12.5 mg PO DAILY Fluid Retention/Swelling 03/07/25
therapeutic multivitamin 1 tab PO DAILY Supplement 03/07/25
thiamine mononitrate (vit B1) 100 mg tablet 100 mg PO DAILY Supplement 03/07/25
darolutamide 300 mg tablet (Nubeqa) 600 mg PO BID chemo 04/25/25
diphenhydramine HCl 50 mg capsule 50 mg PO HSPRN PRN sleep 04/25/25
folic acid 0.8 mg capsule 0.8 mg PO DAILY Supplement 04/25/25
rosuvastatin 5 mg tablet 5 mg PO DAILY High Cholesterol 04/25/25
pantoprazole 40 mg tablet,delayed release 40 mg PO DAILY 1 month #30 tabs 07/09/25
Review of Systems
-
History Source: Patient
A 12 point ROS was completed and negative except as noted: Yes
Abdomen/GI: Reports Abdominal Pain; Denies Nausea or Vomiting
Physical Exam
Vital Signs
Vital Signs
Temp Pulse Resp BP Pulse Ox
101 F H 99 19 129/65 97
08/09/25 04:17 08/09/25 08:00 08/09/25 08:00 08/09/25 08:00 08/09/25 09:30
Physical Exam
General: Comfortable and Conversant
HEENT: NormoCephalic and Anicteric
Respiratory: Clear
Cardiac: S1/S2 and Regular Rhythm
GI: Soft, Normal Bowel Sounds, Tender (mildly tender) and Distended
Musculoskeletal: No Edema
Skin: Warm and Dry
Neuro: AO x 3
Hematologic/Lymphatic: No Lymphadenopathy
Psych: Calm
Laboratory Results
-
12/03/25 04:33
08/09/25 04:33
Laboratory Results
Lactic Acid 1.2 mmol/L (0.7-2.0) 08/09/25 06:45
Total Bilirubin 0.6 mg/dl (0.2-1.3) 08/09/25 04:33
AST 353 U/L (17-59) H 08/09/25 04:33
ALT 13 U/L (0-50) 08/09/25 04:33
Alkaline Phosphatase 237 U/L (38-126) H 08/09/25 04:33
Data Reviewed
-
Diagnostic Radiology: Report Reviewed by me and Discussed with Physician
Lab Data: Labs Reviewed by me and Discussed with Physician
Impression/Plan
-
IMPRESSION:
Right lower lobe pneumonia
Generalized abdominal pain
Euvolemic hyponatremia
Chronic pancytopenia
Alcohol use disorder
Hyperlipidemia
Hypertension
History of right lung cancer s/p proton therapy
Stage IV prostate cancer with mets
GERD
KARMEN
PLAN:
Right lower lobe pneumonia
Febrile with oral temperature 101 F
Patient was admitted previously on 07/09 for right lower lobe pneumonia and was managed with abx.
Previous chest CT showed no recurrence of pneumonia
Chest x-ray showed NEW right basilar opacity
Start IV Zosyn and IV vancomycin
Tylenol as needed for fever
Speech eval to check for aspiration
Check Streptococcus pneumonia antigen, Legionella antigen
Labs shows chronic pancytopenia, no left shift
Monitor white count and WBC
Wean oxygen as able
Consult oncology
Generalized abdominal pain
Last BM 1-2 days ago. Did not pass gas in like 2 days
some stool burden on abdominal/pelvis CT, no bowel obstruction.
On physical exam mild distention of the abdomen, normal BS
MiraLAX and Senokot-S
Start on clears
Euvolemic hyponatremia
Presented with serum sodium of 128, baseline sodium is nearly 130.
No signs or symptoms of hyponatremia at this time
IV fluids were started in ED. Continue
Euvolemic on exam.
Alcohol use disorder
Daily use of half a bottle of alcohol particularly wine
MSAS protocol
Start thiamine and folate PO
Hyperlipidemia
Continue rosuvastatin
Hypertension
Continue home regimen spironolactone 100 mg daily.
Not on any first-line antihypertensive medication
Monitor blood pressure
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
Chronic pancytopenia, no left shift, no acute change in abs neutrophils.
Diagnosed in March 2024, ongoing chemotherapy until July
Continuing Nubeqa 600 mg
Consult oncology
History of GERD
continue pantoprazole
-History of right lung cancer s/p proton therapy
-KARMEN
Full code
Clear liquid diet
Lovenox
--- NOTE | 2025-08-09 12:09 | EDCM ---
Reviewed chart and met with pt bedside in ED. Lives with his spouse in [address]. Has first floor half bath, full flight to second floor bedroom and full bath.
Independent in ADLs, personal care and ambulation at baseline. Has SPC but does not always use.
Confirms rx coverage.
No hx VN or SNF, PT recommended HH on last admit in early July but pt declined.
PCP: Charis Guardado but pt states Dr Layton Amanda at [facility] is handling his care now.
Pharmacy: [facility]
CM will continue to follow for all discharge planning needs.
[2025-08-09] MEDS: TYLENOL 500 MG PO (12:45)
[2025-08-09] MEDS: SENOKOT-S 1 TABLET PO (12:45)
[2025-08-09] MEDS: MIRALAX 17 GRAMS PO (12:51)
--- NOTE | 2025-08-09 13:56 | PHA.VAN.IN ---
Assessment
- Assessment
Renal Function: Appears similar to baseline
Concomitant Antimicrobials: piperacillin/tazobactam
AUC Dosing Plan
- Dosing Variables
Dosing Weight (kg): 68
Dosing CrCl (ml/min): 95
Vd coefficient (L/kg): 0.7
- Empiric Dosing
Initial / Loading Dose: 2000mg - 08/09 11:17
Maintenance Regimen: Vanc 1000mg Q12H
Estimated AUC (mcg*h/mL): 526
Estimated Peak (mcg*h/mL): 33.3
Estimated Trough (mcg/ml): 13.3
Estimated Half Life (H): 8.3
- Monitoring
No levels ordered at this time: consider levels in next few days
MRSA Screen: Ordered per protocol
Pharmacokinetics Vancomycin I
- -
Patient Age: 75
Patient Sex: Male
Vancomycin Day #: 1
Indication: Pulmonary/Respiratory
Requesting Provider: Dr. Rome (Resident)
Pertinent Antimicrobial Allergies:
no pertinent antibiotic allergies
Height / Weight:
Height 5 ft 6 in
Actual Weight 68.152 kg
Pertinent Past Medical History: Stage IV prostate cancer
- Vital Signs / Lab Results
Temp Pulse Resp BP Pulse Ox
99.8 F 97 16 155/84 97
08/09/25 13:47 08/09/25 13:47 08/09/25 13:47 08/09/25 13:47 08/09/25 13:47
Lab Results - Hematology
08/09/25
04:33
WBC 3.6 L
Lab Results - Chemistry
08/09/25
04:33
BUN 14
Creatinine 0.6 L
Estimated Creat Clear 95
Albumin 3.4 L
08/09/25 08/09/25
06:45 10:15
Lactic Acid 1.2 Cancelled
Lab Results - Urine
08/09/25
06:45
Urine Nitrite (Reflex) Negative
Leukocyte Esterase Rfl Negative
Urine WBC (Reflex) 0-2
Ur Squamous Epith Cells 0-2
Microbiology Results
08/09/25 06:49 Influenza Types A & B (SAMIR) - Final
Nasal Swab Negative for Influenza A & B, NAAT
Negative results must be combined with clinical observations
and patient history.
Nucleic Acid Amplification test (NAAT)performed on the
[employer] NOW platform.
--- NOTE | 2025-08-09 14:10 | PTOTSP ---
Speech Language Pathology
Pt seen for clinical bedside swallow evaluation. Pt denied any difficulty swallowing at home. P.O. trials of thin liquids provided (evaluation limited as pt on clear liquids currently). No oral or overt pharyngeal difficulty noted with liquids.
Pt with recurrent PNA, so recommend instrumental swallowing assessment to rule out dysphagia as contributing factor.
Recommend:
(1) VSE
(2) Continue diet (currently limited to clear liquids by MD)
(3) General aspiration precautions
(4) Meds as tolerated
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
[2025-08-09] MEDS: ZOSYN 50 IV ×2 (14:14→20:10)
[2025-08-09] MEDS: DILAUDID 0.25 MG IV ×2 (15:17→20:24)
--- NOTE | 2025-08-09 16:06 | RESPNOTE ---
Patient states he will not wear cpap while he is here
[2025-08-09] MEDS: LOVENOX 40 MG SC (17:15)
[2025-08-09] MEDS: THIAMINE INJECTION 200 MG IV (20:10)
[2025-08-09] MEDS: NON-FORMULARY ITEM 600 MG PO (20:10)
[2025-08-09] MEDS: NEURONTIN 300 MG PO (20:21)
[2025-08-09] MEDS: TORADOL 10 MG IV (23:33)
[2025-08-10] VITALS (7 sets, daily range): BP systolic 101–134; BP diastolic 51–79; BMI 24.3
[2025-08-10] MEDS: ZOSYN 50 IV ×4 (03:12→20:04)
[2025-08-10] MEDS: DILAUDID 0.25 MG IV ×3 (03:12→22:39)
[2025-08-10] MEDS: VANCOCIN 200 IV (06:01)
[2025-08-10 06:19] LABS: ALT (SGPT) 13 U/L (0-50); Albumin 2.7 g/dl (3.5-5.0); Alkaline Phosphatase 336 U/L (38-126); Blood Urea Nitrogen 21 mg/dl (9-20); Calcium 8.2 mg/dl (8.4-10.2); Carbon Dioxide 28 mmol/L (22-30); Chloride 99 mmol/L (98-107); Estimated Creatinine Clearance 63 ml/min; Glucose 94 mg/dl (70-99); Potassium 4.9 mmol/L (3.5-5.1); Sodium 127 mmol/L (135-145); Total Protein 5.3 g/dl (6.3-8.2); eGFR > 60.00
[2025-08-10 06:27] LABS: Hematocrit 22.3 % (39.0-52.0); Hemoglobin 6.6 g/dL (13.0-18.0); Mean Corp Hgb Conc. 29.6 g/dL (33.0-37.0); Mean Corpuscular Volume 91.0 fL (80.0-94.0); Nucleated Red Blood Cells % 6.7 % (-); Platelet Count 97 10^3/uL (130-400); Red Cell Dist. Width 20.5 % (11.5-14.5)
--- NOTE | 2025-08-10 06:55 | W.PN.UPDATE ---
Update Note
Progress Note Update
hgb 6.6, 08/09 hgb 7.6. no blood in stool or urine overnight. stable VS. asymptomatic.
Consent obtained and in chart.
will repeat h&h
[2025-08-10 07:19] LABS: Hematocrit 23.0 % (39.0-52.0); Hemoglobin 7.0 g/dL (13.0-18.0)
--- NOTE | 2025-08-10 07:21 | PTCARENOTE ---
Patient with a critical hgb of 6.6. LORENA Batres notified and consent signed with patient. Will continue to monitor.
[2025-08-10 07:23] LABS: AST (SGOT) 1366 U/L (17-59)
[2025-08-10] MEDS: THIAMINE INJECTION 200 MG IV ×2 (08:03→20:05)
[2025-08-10] MEDS: THERAGRAN 1 TABLET PO (08:03)
[2025-08-10] MEDS: PROTONIX 40 MG PO (08:03)
[2025-08-10] MEDS: VITAMIN C 500 MG PO (08:06)
[2025-08-10] MEDS: ALDACTONE 12.5 MG PO (08:06)
[2025-08-10] MEDS: FOLVITE 1 MG PO (08:09)
[2025-08-10] MEDS: MIRALAX 17 GRAMS PO (08:09)
[2025-08-10] MEDS: NON-FORMULARY ITEM 600 MG PO (08:10)
--- NOTE | 2025-08-10 08:33 | CON.ONC ---
Consultation
-
Date Consultation Requested: 08/10/25
Date Consultation Performed: 08/10/25
Requesting Provider: Dr. Clayton Rome
Performing Provider: Dr. Federico Amanda
Reason for Consultation: IV prostate cancer
Impression
Impression
stage IV prostate cancer with bone, LN, and bone marrow involvement
a/w hypoxia, fever, PNA, abdominal pain
acute on chronic anemia trending down from >9g/dL in Jun to ~7g/dL Jul 2025
acute thrombocytopenia likly secondary to infection
Leukopenia, ANC 1300
transaminitis unclear etiology
Plan
Plan
abx per primary service, follow cultures
transfuse Hgb <7 or as needed for symptomatic anemia
check iron studies, b12, folate, retic, heme stool
consider GI evaluation with worsening anemia, ab pain, transaminiti& daily ETOH intake if stool heme positive
hold Nubeqa with transaminitis
Pt has OV with Dr. Amanda and next dose of Lupron 09/25/2024
Patient History
History of Present Illness
75yo M who presented with abdominal pain and SOB. He notes abdominal pain started approximately 2 days ago. The intensity increased to affect ability to sleep with prompted further evaluation in the ER. He denies N/V. He is moving his bowels. His
initial evaluation was notable for hypoxia, Tmax 102.7F, WBC 3.6, ANC 2300, Hgb 7.6, platelet 114,000, sodium 128, AST 353, ALT 13, Alk phos 237, PSA 121. His CT ab/pelvis showed RLL GGO, colonic diverticulosis, and mild constipation.
In brief, this pt is known to Dr. Amanda for management of stage IV prostate cancer. 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 He was found to hae imaing abnormalities in this past
summer for which he underwent a right iliac LN bx that was diagnostic for IV prostate cancer. His PET/CT showed extensive bone mets and his bone marrow biopsy done for evaluation of cytopenias showed extensive involvement by metastatic prostate
cancer. He has been tolerating Lupron and Nubeqa. Since startin therapy, his PSA has improved and platelets normalized.
Clinically, he denies chest pain, palpations, n/v, or diarrhea.
Past-Medical/Surgical History
PMH lung cancer, prostate cancer, GERD, HTN, HLD, KARMEN, gastritis, duodenitis, dysphagia, emphysema
PSH cholecystectomy
Social former smoker, quit 2006, ETOH daily, denies recreational drug use. 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
Family non-contributory
Patient Medication
�Medication �Instructions �Recorded �Confirmed �Last Taken �Type
apnvnpazdpc-ghrqunerh-xib C-Mn 750 1 tab PO DAILY Supplement 01/09/22 08/09/25 08/08/25 History
mg-600 mg-55 mg-5 mg tablet
gabapentin 300 mg capsule 300 mg PO HS Neurological Condition 10/03/24 08/09/25 08/08/25 History
ascorbic acid (vitamin C) 500 mg 500 mg PO DAILY Supplement 03/07/25 08/09/25 08/08/25 History
tablet (Vitamin C)
spironolactone 50 mg tablet 12.5 mg PO DAILY Fluid 03/07/25 08/09/25 08/08/25 History
Retention/Swelling
therapeutic multivitamin 1 tab PO DAILY Supplement 03/07/25 08/09/25 08/08/25 History
thiamine mononitrate (vit B1) 100 100 mg PO DAILY Supplement 03/07/25 08/09/25 08/08/25 History
mg tablet
darolutamide 300 mg tablet (Nubeqa) 600 mg PO BID chemo 04/25/25 08/09/25 08/08/25 History
diphenhydramine HCl 50 mg capsule 50 mg PO HSPRN PRN sleep 04/25/25 08/09/25 08/08/25 History
folic acid 0.8 mg capsule 0.8 mg PO DAILY Supplement 04/25/25 08/09/25 08/08/25 History
rosuvastatin 5 mg tablet 5 mg PO DAILY High Cholesterol 04/25/25 08/09/25 08/08/25 History
pantoprazole 40 mg tablet,delayed 40 mg PO DAILY 1 month #30 tabs 07/09/25 08/09/25 08/08/25 Rx
release
Active Medications
Generic Name Dose Route Start Last Admin
Trade Name Freq PRN Reason Stop Dose Admin
Acetaminophen 650 mg 08/09/25 13:39
Acetaminophen 325 Mg Tablet PO 09/06/25 13:38
On Hold: 08/09/25 14:02 Q4HPRN PRN
Comment: AST > 5� ULN mild pain/LOPEZ/temp> 100.4F
Ascorbic Acid 500 mg 08/10/25 08:00 08/10/25 08:06
Ascorbic Acid 500 Mg Tablet PO 09/07/25 07:59 500 mg
DAILY YOJANA Administration
Bisacodyl 10 mg 08/09/25 13:39
Bisacodyl 10 Mg Rectal Suppository RECTAL 09/06/25 13:38
[id number] PRN
constipation
Diphenhydramine HCl 50 mg 08/09/25 13:39
Diphenhydramine 50 Mg Capsule PO 09/06/25 13:38
HSPRN PRN
sleep
Enoxaparin Sodium 40 mg 08/09/25 18:00 08/09/25 17:15
Enoxaparin Sodium 40 Mg/0.4 Ml Syringe SC 09/06/25 17:59 40 mg
QPM YOJANA Administration
Folic Acid 1 mg 08/10/25 08:00 08/10/25 08:09
Folic Acid 1 Mg Tablet PO 09/07/25 07:59 1 mg
DAILY YOJANA Administration
Gabapentin 300 mg 08/09/25 22:00 08/09/25 20:21
Gabapentin 300 Mg Capsule PO 09/06/25 21:59 300 mg
HS YOJANA Administration
Hydromorphone HCl 0.25 mg 08/09/25 13:39 08/10/25 03:12
Hydromorphone 0.5 Mg/0.5 Ml Syringe IV 08/23/25 13:38 0.25 mg
Q4HPRN PRN Administration
severe pain
Piperacillin Sod/Tazobactam Sod 3.375 gram in 50 mls @ 100 mls/hr 08/09/25 14:00 08/10/25 08:04
Zosyn IV 50 mls
Q6H YOJANA Administration
Sodium Chloride 1,000 mls @ 100 mls/hr 08/09/25 14:00 08/09/25 23:36
Nss IV 1,000 mls
.Q10H YOJANA Administration
Folic Acid 1 mg/ Sodium 50.2 mls @ 200.8 mls/hr 08/09/25 14:16
Chloride IV 09/06/25 14:15
DAILYPRN PRN
if NPO
Vancomycin HCl 1 gram in 200 mls @ 200 mls/hr 08/10/25 06:00 08/10/25 06:01
Vancocin IV 200 mls
Q12H YOJANA Administration
Protocol
Ketorolac Tromethamine 10 mg 08/09/25 13:39 08/09/25 23:33
Ketorolac 15 Mg/Ml Injection IV 08/14/25 13:38 10 mg
Q6HPRN PRN Administration
moderate pain
Lorazepam 1 mg 08/09/25 14:16
Lorazepam 1 Mg Tablet PO 09/06/25 14:15
Q2HPRN PRN
MSAS 5-7
Lorazepam 1 mg 08/09/25 14:16
Lorazepam 2 Mg/Ml Vial IV 09/06/25 14:15
Q1HPRN PRN
MSAS 8-11
Lorazepam 2 mg 08/09/25 14:16
Lorazepam 2 Mg/Ml Vial IV 09/06/25 14:15
Q1HPRN PRN
MSAS > 11
Multivitamins Therapeutic 1 tablet 08/10/25 08:00 08/10/25 08:03
Multivitamin Tablet PO 09/07/25 07:59 1 tablet
DAILY YOJANA Administration
Darolutamide [Nubeqa 0 mg 08/09/25 20:00 08/10/25 08:10
] 300 Mg Tablet - PO 09/06/25 19:59 600 mg
600 Mg Po Bid Pt's BID YOJANA Administration
Own
Ondansetron HCl 4 mg 08/09/25 13:39 08/09/25 20:36
Ondansetron 4 Mg/2 Ml Vial IV 09/06/25 13:38 4 mg
Q6HPRN PRN Administration
nausea and vomiting
Pantoprazole Sodium 40 mg 08/10/25 08:00 08/10/25 08:03
Pantoprazole 40 Mg Delayed Release Tablet PO 09/07/25 07:59 40 mg
DAILY YOJANA Administration
Polyethylene Glycol 17 grams 08/09/25 12:00 08/10/25 08:09
Polyethylene Glycol Powder 17 Grams Packet PO 09/06/25 11:59 17 grams
DAILY YOJANA Administration
Rosuvastatin Calcium 5 mg 08/10/25 08:00
Rosuvastatin (Crestor) 5 Mg Tablet PO 09/07/25 07:59
On Hold: 08/10/25 08:00 DAILY YOJANA
Comment: AST > 5� ULN; note:
ON HOLD for now. Per Lexicomp:
Although use is
contraindicated in patients
with active liver failure or
decompensated cirrhosis
according to the lard renderer'
s labeling, baseline elevation
in AST/ALT should not
preclude use of statins for
compelling indications in
patients with chronic stable
liver disease including
compensated cirrhosis.
Senna/Docusate Sodium 1 tablet 08/09/25 13:39
Docusate W/Senna (Justina-Colace) Tablet PO 09/06/25 13:38
BIDPRN PRN
constipation
Sodium Chloride 0 ml 08/09/25 14:16
Sodium Chloride 0.9% (Preservative Free) 10 Ml Vial IV 09/06/25 14:15
PRN PRN
To dilute IV Ativan
Protocol
Spironolactone 12.5 mg 08/10/25 08:00 08/10/25 08:06
Spironolactone 25 Mg Tablet PO 09/07/25 07:59 12.5 mg
DAILY YOJANA Administration
Thiamine HCl 200 mg 08/09/25 20:00 08/10/25 08:03
Thiamine (100 Mg/Ml) 2 Ml Vial IV 08/12/25 08:01 200 mg
Q12 YOJANA Administration
Thiamine HCl 100 mg 08/12/25 20:00
Thiamine 100 Mg Tablet PO 09/09/25 19:59
BID YOJANA
Review of Systems
-
ROS is notable for HPI, otherwise negative
Physical Exam
-
General: No Apparent Distress and Appears Chronically Ill
HEENT: Moist Mucous Membranes; Negative Jaundice
Pulmonary: Other (unlabored)
GI: Soft
Extremities: Pulses Present
Neurology: Non Focal
Skin: Warm
Labs
Lab Results
WBC 2.5 10^3/uL (4.8-10.8) L 08/10/25 05:20
RBC 2.45 10^6/uL (4.70-6.10) L 08/10/25 05:20
Hgb 7.0 g/dL (13.0-18.0) L 08/10/25 07:08
Hct 23.0 % (39.0-52.0) L 08/10/25 07:08
MCV 91.0 fL (80.0-94.0) 08/10/25 05:20
MCH 26.9 pg (27.0-31.0) L 08/10/25 05:20
MCHC 29.6 g/dL (33.0-37.0) L 08/10/25 05:20
RDW 20.5 % (11.5-14.5) H 08/10/25 05:20
Plt Count 97 10^3/uL (130-400) L 08/10/25 05:20
MPV 9.5 fL (7.4-10.4) 08/10/25 05:20
Abs Immat Gran (auto) 0.1 10^3/uL (0-0.05) H 08/10/25 05:20
Absolute Neuts (auto) 1.3 10^3/uL (1.4-6.5) L 08/10/25 05:20
Absolute Lymphs (auto) 0.6 10^3/uL (1.2-3.4) L 08/10/25 05:20
Absolute Monos (auto) 0.5 10^3/uL (0.1-0.6) 08/10/25 05:20
Absolute Eos (auto) 0.0 10^3/uL (0-0.7) 08/10/25 05:20
Absolute Basos (auto) 0.0 10^3/uL (0-0.2) 08/10/25 05:20
Immature Gran % 2.4 % (0-0.5) H 08/10/25 05:20
Neutrophils % 52.7 % (42.2-75.2) 08/10/25 05:20
Lymphocytes % 24.4 % (20.5-51.1) 08/10/25 05:20
Monocytes % 17.7 % (1.7-9.3) H 08/10/25 05:20
Eosinophils % 1.2 % (0-6) 08/10/25 05:20
Basophils % 1.6 % (0-2) 08/10/25 05:20
Creatinine 0.9 mg/dL (0.7-1.3) 08/10/25 05:20
Vital Signs
Vital Signs
Temp Pulse Resp BP Pulse Ox
98.5 F 99 16 130/69 94
08/10/25 07:08 08/10/25 07:08 08/10/25 07:08 08/10/25 07:08 08/10/25 07:08
[2025-08-10] MEDS: NSS 1000 IV (10:43)
--- NOTE | 2025-08-10 10:51 | PN.CDI ---
CDI
- -
CDI:
Physician Documentation Request
Admit Date: 08/09/25 11:59
Dear Doctor Wild and Dr. Figueroa,
Please review the following and provide your response in the progress notes.
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
H+P, 08/09
#Alcohol use disorder
#...Daily use of half a bottle of alcohol particularly wine
#...MSAS protocol
#...Start thiamine and folate PO
Selected Entries
08/09/25
20:00 08/09/25
22:00 08/10/25
00:00
MSAS SCORE 2 5 2
Medications:
08/09 14:32 Ativan 1 mg po
08/09 14:32 Ativan 1 mg IV
08/09 14:32 Ativan 2 mg IV
Based on the above and your clinical assessment, please provide further specificity as outlined below, based on continued evaluation, monitoring and treatment:
Alcohol use with withdrawal
Alcohol use disorder only
Other (please specify)
Use of terms such as suspected, likely, concern for, or probable (associated with a specific diagnosis that is being evaluated, monitored, or treated as if it exists) are acceptable and can be coded in the inpatient setting, when documented at the
time of discharge.
Thank you,
Yessica Rivers RN BSN CCDS
CDI Specialist
Please contact via tiger text
Please use your independent medical judgment in providing your response.
--- NOTE | 2025-08-10 12:13 | W.PN.HOSP.TC ---
Today's Communication/Plan
-
Monitor vitals
See plan
GI evaluation
Transfuse 1 unit PRBC
Monitor LFTs
clears for now
heme test stool
Assessment / Plan
Assessment / Plan
General: Comfortable and Conversant
HEENT: NormoCephalic and Anicteric
Respiratory: Clear
Cardiac: S1/S2 and Regular Rhythm
GI: Soft, Normal Bowel Sounds, Tender (mildly tender)
Musculoskeletal: No Edema
Neuro: AO x 3
Psych: Calm
Right lower lobe pneumonia
Sepsis with acute hypoxic respiratory insufficiency secondary to pneumonia
Follow cultures
Patient was admitted previously on 07/09 for right lower lobe pneumonia and was managed with abx.
Previous chest CT showed no recurrence of pneumonia
Chest x-ray showed NEW right basilar opacity
DC Vanco, MRSA negative. Continue with Zosyn
Tylenol as needed for fever
Speech following, status post VSG 08/10. Okay for regular diet when able. Currently on clears.
Streptococcus pneumonia antigen, Legionella antigen neg
Labs shows chronic pancytopenia which is likely secondary to malignancy
Monitor white count and WBC
Consulted oncology
Generalized abdominal pain likely secondary to malignancy and constipation
cannot r/o PUD. has hx of gastritis/duodenitis
CT with possible constipation
Continue laxatives
some stool burden on abdominal/pelvis CT, no bowel obstruction.
on clears
GI evaluation
PPI
Hyponatremia, acute on chronic
Does appear to have history of hyponatremia
baseline sodium is nearly 130.
on IVF
Alcohol use disorder
Daily use of half a bottle of alcohol particularly wine
MSAS protocol
Thiamine, folate
Acute on chronic anemia
Check heme test stool
Hemoglobin 7, transfuse 1 unit PRBC and monitor
PPI
Hyperlipidemia
Continue rosuvastatin
Hypertension
Continue with home meds
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
Diagnosed in March 2024, ongoing chemotherapy until July
Continuing Nubeqa 600 mg
Consulted oncology
Elevated AST and alk phos
Suspect likely secondary to liver disease/metastases
Liver enzymes has been high in the past as well. CT abdomen 08/09 without biliary dilation. Already has cholecystectomy
Continue to monitor
History of gastritis/duodenitis
Continue to monitor
Alcohol use with abuse
Monitor for withdrawal
History of GERD
continue pantoprazole
-History of right lung cancer s/p proton therapy
Hyperlipidemia
Hold statin
-KARMEN
order cppap while here
DVTppx
Lovenox
Code Status
Full code
I spent a total of 52 minutes with the patient or on the floor. More than 50% of this time involved counseling and coordination of care.
Anticipated Discharge: > 48 hours
Subjective/Interval History
-
Date of Service: August 10, 2025
Denies nausea
Objective Data
-
Labs:
Laboratory Results
08/10/25 08/10/25
05:20 07:08
WBC 2.5 L
Hgb 6.6 L* 7.0 L
Hct 22.3 L 23.0 L
Plt Count 97 L
Sodium 127 L
Potassium 4.9
Chloride 99
Carbon Dioxide 28
BUN 21 H
Creatinine 0.9
Glucose 94
Calcium 8.2 L
Total Bilirubin 1.1
AST 1366 H*
ALT 13
Alkaline Phosphatase 336 H
Vital Signs:
Vital Signs
Temp Pulse Resp BP Pulse Ox
100.2 F 110 16 134/74 94
08/10/25 10:59 08/10/25 10:59 08/10/25 10:59 08/10/25 10:59 08/10/25 10:59
I&O
08/09/25 08/10/25 08/11/25
06:59 06:59 06:59
Intake Total 1720 / 1720
Output Total 850 / 850
Balance 870 / 870
--- NOTE | 2025-08-10 12:58 | PTOTSP ---
Video Swallow Evaluation:
Pt presenting w/ WFL- mild oral and WFL-mild pharyngeal dysphagia. Transient upper penetration observed w/ consecutive cup sip via thins, cleared w/ additional swallows. See patient care note for more details.
Recommendations:
1. Regulars, Thins
2. Medications as best tolerated
3. General aspiration/reflux precautions
4. ST to sign off. Reconsult if change in pt presentation or diet level tolerance
[2025-08-10 13:06] LABS: Reticulocyte Count 4.0 % (0.4-2.8)
[2025-08-10 13:26] LABS: Iron 53 ug/dl (49-181)
[2025-08-10 13:39] LABS: Total Iron Binding Capacity 186 ug/dl (261-462)
[2025-08-10] MEDS: TYLENOL 650 MG PO (14:32)
--- NOTE | 2025-08-10 15:39 | CON.GI ---
Addendum entered and electronically signed by Geno Knight MD 08/10/25 18:28:
The patient was seen and examined by me independently in collaboration with the nurse practitioner.
Past medical history/social history/medications/allergies/family history reviewed.
Lab data and imaging data reviewed.
75-year-old male past medical history of stage IV prostate cancer, lung cancer status post radiation, alcohol abuse drinking 1 bottle daily presenting with pneumonia and SIADH as well as abdominal pain and constipation. He was given a bowel
regiment and his constipation and abdominal pain have both improved. However, he was incidentally also found to have significantly abnormal LFTs with AST 1366 and ALT 33, alk phos 336, normal bilirubin. He also has anemia with a hemoglobin of 6.6,
thrombocytopenia with platelets of 97. He denies any overt bleeding.
LFT abnormalities seems atypical that the AST is so elevated while the ALT is normal. Alcohol can cause elevated AST but this is more than expected. It could be related to his medications for his prostate cancer. I will also check a CK given the
extreme AST elevation is that can occur with rhabdomyolysis as well. Of note, the AST was elevated similarly in June with normal ALT. I did stress to the patient alcohol cessation. In regards to anemia, there is a chance for peptic ulcer
disease although his pain seems to improve with a bowel movement. We will continue PPI twice daily. Given patient's active infection, too high risk to endoscopic procedure at this time. No overt bleeding as well. Recommend conservative
management. Of note, his anemia was also present earlier in July although this seems to be more significant.
Addendum entered and electronically signed by LORENA Sims 08/10/25 17:23:
with anemia no signs of aggressive bleeding and still with fever-- hold on scopes at this time.
Original Note:
Consultation
-
Date/Time Consultation Requested: 08/10/25 7618
Date/Time Consultation Performed: 08/10/25 [id number]
Requesting Provider: Luiz Figueroa MD
Performing Provider: LORENA Coyle, Nury Knight MD
Reason for Consultation: abdominal pain/increased LFT's
Medical History
Chief Complaint / HPI
Chief Complaint: dry heaves
History of Present Illness:
Pt is a 75yo with hx HTN, GERD, hyperlipidemia, stage IV prostate CA on Nebeqa therapy diagnosed several months ago, lung cancer status postradiation, fatty liver with F0 on prior fibroscan in 2021, prior EUS for subepithelial lesion, alcohol
abuse with drinking 1 bottle daily with recent admission with PNA and SIADH now with abdominal pain and constipation. He is also noted with abnormal labs with hbg 7.6 then drop to 6.6 with platelets 114, WBC 3.6, Na 128, and rise in LFT's after
admission to bili 1.1, AST 1366, ALT 13, alk phos 336 ( with prior elevation over last few months with primary AST elevation) Repeat Ct on admission with new nodular and ground glass opacity within inferior right lower lobe of lung concern for PNA
prostate lesion with know malignancy and osseous mets. + fever 102.7 after admission.
In review with patient he admits to abdominal pain prior to admission. Pain became intense up to 910 now 09/08/09 He took MOM was initially bloated but then began passing stools and gas with slow improvement in symptoms. He does admits to
constipation prior to admission but denies any other issue with odynophagia, dysphagia, GERD, nausea, vomiting, or bleeding.
Past Medical History
Past Medical History: Cancer (Lung cancer status postradiation, prostate CA), GERD, HTN, Hypercholesterolemia and Other (Alcohol abuse, fatty liver with F0 on fibroscan in 2021, prior EUS for supepithelial lesion)
Past Surgical History: None and Cholecystectomy
Social History
Tobacco: Non-Smoker
Alcohol: Daily (Bottle and a half of wine daily)
Drug: None
Personal: Partner
Living: With Family
Employment: Retired
Family History
Family History: Other (No family history of gastrointestinal malignancy or inflammatory bowel disease)
Allergies / Home Medications
Allergy/AdvReac Type Severity Reaction Status Date / Time
aspirin (From Percodan) Allergy Shortness Verified 08/09/25 05:49
of Breath
codeine Allergy Anaphylaxis Verified 08/09/25 05:49
Opioids - Morphine Analogues Allergy Unknown Verified 08/09/25 05:49
oxycodone (From Percodan) Allergy Shortness Verified 08/09/25 05:49
of Breath
�Medication �Instructions �Recorded
kinjidghfkh-[id number] C-Mn 750 1 tab PO DAILY Supplement 01/09/22
mg-600 mg-55 mg-5 mg tablet
gabapentin 300 mg capsule 300 mg PO HS Neurological Condition 10/03/24
ascorbic acid (vitamin C) 500 mg 500 mg PO DAILY Supplement 03/07/25
tablet (Vitamin C)
spironolactone 50 mg tablet 12.5 mg PO DAILY Fluid 03/07/25
Retention/Swelling
therapeutic multivitamin 1 tab PO DAILY Supplement 03/07/25
thiamine mononitrate (vit B1) 100 100 mg PO DAILY Supplement 03/07/25
mg tablet
darolutamide 300 mg tablet (Nubeqa) 600 mg PO BID chemo 04/25/25
diphenhydramine HCl 50 mg capsule 50 mg PO HSPRN PRN sleep 04/25/25
folic acid 0.8 mg capsule 0.8 mg PO DAILY Supplement 04/25/25
rosuvastatin 5 mg tablet 5 mg PO DAILY High Cholesterol 04/25/25
pantoprazole 40 mg tablet,delayed 40 mg PO DAILY 1 month #30 tabs 07/09/25
release
Review of Systems
-
History Source: Patient and Family
Constitutional: Reports Fever and Weight Loss ( 40 lbs since january )
EENT: Reports No Symptoms
Respiratory: Reports No Symptoms
Cardiac: Reports No Symptoms
Abdomen/GI: Reports Abdominal Pain, Diarrhea (after admission ) and Constipated
: Reports No Symptoms
Musculoskeletal: Reports Other (back pain )
Skin: Reports No Symptoms
Neurological: Reports Weakness
Endocrine: Reports No Symptoms
Hematologic/Lymphatic: Reports No Symptoms
Vital Signs
Temp Pulse Resp BP Pulse Ox
101.5 F H 67 18 105/51 94
08/10/25 15:17 08/10/25 15:17 08/10/25 15:17 08/10/25 15:17 08/10/25 15:17
Physical Exam
Exam
General: Well Developed, Well Nourished and No Apparent Distress
HEENT: Normocephalic and Anicteric
Respiratory: Clear
Cardiac: Regular Rhythm
GI: Soft, Tender (very minimal ) and Distended
Musculoskeletal: No Clubbing and No Cyanosis
Skin: Warm and Dry
Neuro: Awake, Alert and AO x 3
Psych: Calm
Results
WBC 2.5 10^3/uL (4.8-10.8) L 08/10/25 05:20
Hgb 7.0 g/dL (13.0-18.0) L 08/10/25 07:08
Hct 23.0 % (39.0-52.0) L 08/10/25 07:08
MCV 91.0 fL (80.0-94.0) 08/10/25 05:20
Plt Count 97 10^3/uL (130-400) L 08/10/25 05:20
Absolute Neuts (auto) 1.3 10^3/uL (1.4-6.5) L 08/10/25 05:20
Sodium 127 mmol/L (135-145) L 08/10/25 05:20
Potassium 4.9 mmol/L (3.5-5.1) 08/10/25 05:20
Chloride 99 mmol/L (98-107) 08/10/25 05:20
Carbon Dioxide 28 mmol/L (22-30) 08/10/25 05:20
BUN 21 mg/dl (9-20) H 08/10/25 05:20
Creatinine 0.9 mg/dL (0.7-1.3) 08/10/25 05:20
Calcium 8.2 mg/dl (8.4-10.2) L 08/10/25 05:20
Total Bilirubin 1.1 mg/dl (0.2-1.3) 08/10/25 05:20
AST 1366 U/L (17-59) H* 08/10/25 05:20
ALT 13 U/L (0-50) 08/10/25 05:20
Alkaline Phosphatase 336 U/L (38-126) H 08/10/25 05:20
Diagnostic Image Results:
08/09/25 CT Abd/pelvis W Iv Cont
No acute findings in the abdomen or pelvis.
There are new nodular and ground glass opacities within the inferior right lower lobe of the lung suspicious for pneumonia.
There is a likely lesion within the left aspect of the prostate consistent with known malignancy.
Diffusely heterogeneous appearance of the bones which are likely sequelae of known widespread osseous metastatic disease.
Colonic diverticulosis. Mild colonic stool burden.
2022 EUS - Normal esophagus.
- No gross lesions in the entire stomach.
- Subepithelial nodule found in the duodenum.
- An intramural (subepithelial) lesion was found in
the second portion of the duodenum. The lesion
appeared to originate from within the submucosa (Layer
3).
- There was no sign of significant pathology in the
pancreatic head and pancreatic body.
- There was no sign of significant pathology in the
common bile duct.
- There was no sign of significant pathology in the
ampulla.
no specimen collected
01/09/22 colonoscopy - alfredaov - One 2 mm polyp in the cecum, removed with a jumbo
cold forceps. Resected and retrieved.
- Diverticulosis in the sigmoid colon, in the
transverse colon and in the ascending colon.
- Non-bleeding external internal hemorrhoids.
03/2023 EGD - Mekapati Normal esophagus.
- Erythematous mucosa in the antrum. Biopsied.
- Submucosal nodules found in the duodenum. Biopsied.
Assessment / Plan
-
Pt is a 75yo with hx HTN, GERD, hyperlipidemia, stage IV prostate CA on Nebeqa therapy diagnosed several months ago, lung cancer status postradiation, fatty liver with F0 on prior fibroscan in 2021, prior EUS for subepithelial lesion, alcohol
abuse with drinking 1 bottle daily with recent admission with PNA and SIADH now with abdominal pain and constipation. He is also noted with abnormal labs with hbg 7.6 then drop to 6.6 with platelets 114, WBC 3.6, Na 128, and rise in LFT's after
admission to bili 1.1, AST 1366, ALT 13, alk phos 336 ( with prior elevation over last few months with primary AST elevation) Repeat Ct on admission with new nodular and ground glass opacity within inferior right lower lobe of lung concern for PNA
prostate lesion with know malignancy and osseous mets. + fever 102.7 after admission. In review with patient he admits to abdominal pain prior to admission. Pain became intense up to 05/17 now 09/08/09 He took MOM was initially bloated but then
began passing stools and gas with slow improvement in symptoms.
-abdominal pain
-constipation
-elevated LFT's with marked elevate AST
-fever
-pancytopenia
- stage IV prostate CA on Nebeqa therapy diagnosed several months ago,
other med problems:
HTN, GERD, hyperlipidemia lung cancer status postradiation, fatty liver with F0 on prior fibroscan in 2021, prior EUS for subepithelial lesion, alcohol abuse with drinking 1 bottle daily
PLAN:
etiology of symptoms with concern for constipation with abdominal pain
pain now improving
cont Miralax daily
clear diet t/c advance in AM if abdominal pain continued improvement and still passing stool and flatus
noted with pancytopenia -- unclear if liver related, bone marrow process with osseous mets, vs other
agree with transfusion
cont PPI BID
trend labs
appreciate heme input -- Nebeqa on hold -- per up to date Nebeqa may lead to LFT elevation -- has had elevation last few months
add INR for am
discussed ETOH abstinence with current other medical issue and marked elevated LFT's
cont work up for fever, remains on Abx
updated family at bedside
-
-
Thank you for consultation and allowing me to participate in the patient's care. Please call the honing machine try out setter GI physician during the after hours with any questions or concerns.
[2025-08-10 15:58] LABS: Folate > 20.0 ng/ml (2.76-20); Vitamin B12 352 pg/ml (239-931)
[2025-08-10] MEDS: LOVENOX 40 MG SC (17:10)
[2025-08-10 18:31] LABS: Ferritin > 10000.0 ng/ml (17.9-464.0)
[2025-08-10] MEDS: PROTONIX IV 40 MG IV (20:01)
[2025-08-10] MEDS: NSS (PRESERVATIVE FREE) 10 ML IV (20:01)
[2025-08-10] MEDS: NEURONTIN 300 MG PO (20:12)
[2025-08-11] MEDS: NSS IV (00:52)
[2025-08-11] MEDS: ZOSYN 50 IV ×4 (03:22→21:16)
[2025-08-11] MEDS: NSS 1000 IV ×2 (03:29→16:51)
[2025-08-11 05:40] LABS: Hematocrit 24.9 % (39.0-52.0); Hemoglobin 7.8 g/dL (13.0-18.0); Mean Corp Hgb Conc. 31.3 g/dL (33.0-37.0); Mean Corpuscular Volume 89.9 fL (80.0-94.0); Nucleated Red Blood Cells % 8.1 % (-); Platelet Count 129 10^3/uL (130-400); Red Cell Dist. Width 18.9 % (11.5-14.5)
[2025-08-11 05:49] LABS: INR 1.49; PT 17.7 Sec (11.4-14.6)
[2025-08-11 06:07] LABS: ALT (SGPT) 14 U/L (0-50); Albumin 2.8 g/dl (3.5-5.0); Alkaline Phosphatase 362 U/L (38-126); Blood Urea Nitrogen 20 mg/dl (9-20); Calcium 8.9 mg/dl (8.4-10.2); Carbon Dioxide 21 mmol/L (22-30); Chloride 101 mmol/L (98-107); Estimated Creatinine Clearance 71 ml/min; Glucose 103 mg/dl (70-99); Potassium 4.9 mmol/L (3.5-5.1); Sodium 126 mmol/L (135-145); Total Protein 5.7 g/dl (6.3-8.2); eGFR > 60.00
[2025-08-11 06:21] LABS: AST (SGOT) 891 U/L (17-59)
[2025-08-11 07:39] VITALS: BP 107/65
--- NOTE | 2025-08-11 08:31 | W.PN.ONC2 ---
Today's Communication / Plan
-
.
Impression
Impression
stage IV prostate cancer with bone, LN, and bone marrow involvement
a/w hypoxia, fever, PNA, abdominal pain
acute on chronic anemia trending down from >9g/dL in Jun to ~7g/dL Jul 2025 -no B12 or folate deficiency. iron studies c/w AOCD. retic 4, unclear etiology
acute thrombocytopenia likely secondary to infection -improving
Leukopenia, ANC 1400
transaminitis unclear etiology
hyponatremia
Plan
Plan
abx per primary service, follow cultures
transfuse Hgb <7 or as needed for symptomatic anemia
check heme stool, LDH, haptoglobin for further evaluation of elevated retic
appreciate GI assist with worsening anemia, ab pain, transaminitis & daily ETOH intake if stool heme positive
hold Nubeqa with transaminitis
Pt has OV with Dr. Amanda and next dose of Lupron 09/25/2024
significant other at bedside provided updates and questions answered
Subjective/Objective
Subjective
Tmax 102F, 3L NC, no hypotension
using tylenol prn
general weakness and fatigue
moving bowels
Vital Signs:
Vital Signs
Temp Pulse Resp BP Pulse Ox
102 F H 126 16 107/65 91
08/11/25 07:39 08/11/25 07:39 08/11/25 07:39 08/11/25 07:39 08/11/25 07:39
Lab Results:
Laboratory Data
WBC 2.5 10^3/uL (4.8-10.8) L 08/11/25 05:14
Hgb 7.8 g/dL (13.0-18.0) L 08/11/25 05:14
Plt Count 129 10^3/uL (130-400) L D 08/11/25 05:14
PT 17.7 Sec (11.4-14.6) H 08/11/25 05:14
INR 1.49 08/11/25 05:14
eGFR > 60.00 08/11/25 05:14
Physical Exam
General: No Apparent Distress and Appears Chronically Ill
HEENT: Moist Mucous Membranes; Negative Jaundice
Pulmonary: Other (unlabored)
GI: Soft
Extremities: Pulses Present
Neurology: Non Focal
Skin: Warm
Orders
Orders
Orders From Last 24 Hours
08/10/25 12:35
Add On- LAB Routine
Stool for occult blood [Hemetest Stools] As Directed
[2025-08-11] MEDS: ALDACTONE 12.5 MG PO (09:24)
[2025-08-11] MEDS: TYLENOL 650 MG PO (09:24)
[2025-08-11] MEDS: THERAGRAN 1 TABLET PO (09:24)
[2025-08-11] MEDS: PROTONIX IV 40 MG IV ×2 (09:24→21:15)
[2025-08-11] MEDS: NSS (PRESERVATIVE FREE) 10 ML IV ×2 (09:25→21:15)
[2025-08-11] MEDS: FOLVITE 1 MG PO (09:25)
[2025-08-11] MEDS: VITAMIN C 500 MG PO (09:25)
[2025-08-11] MEDS: THIAMINE INJECTION 200 MG IV ×2 (09:25→21:16)
[2025-08-11] MEDS: MIRALAX 17 GRAMS PO (09:25)
[2025-08-11 10:12] LABS: LDH > 10000 U/L (120-246)
--- NOTE | 2025-08-11 10:35 | CM ---
Initial assessment completed. Patient is a 74-year-old male with past medical history significant for hypertension, hyperlipidemia, alcohol use disorder and Hx right lung adenocarcinoma, in remission, who presented to [facility] ED for evaluation of sob
and unintentional weight loss.
Patient resides w/ spouse in a 2STH, 1 step to enter. 17 steps to second floor where bedroom and main bathroom is located. Patient is independent in all area, no DME. No SNF/HC hx reported.
Plan: CM will continue to follow for discharge planning needs. Pt has not been accepting of VN in the past, but will offer services.
PCP: Charis Guardado
Pharmacy: [facility]
[2025-08-11 10:43] VITALS: BP 95/57
--- NOTE | 2025-08-11 12:23 | W.PN.HOSP.TC ---
Today's Communication/Plan
-
Monitor vital signs and see plan
Continues to spike fever, follow fever curve
Continue antibiotic
ID evaluation
Monitor LFTs
Monitor hemoglobin
Assessment / Plan
Assessment / Plan
General: Comfortable and Conversant
HEENT: NormoCephalic and Anicteric
Respiratory: Clear
Cardiac: S1/S2 and Regular Rhythm
GI: Soft, Normal Bowel Sounds, nontender
Musculoskeletal: No Edema
Neuro: AO x 3
Psych: Calm
Right lower lobe pneumonia
Sepsis with acute hypoxic respiratory insufficiency secondary to pneumonia
Follow cultures
Patient was admitted previously on 07/09 for right lower lobe pneumonia and was managed with abx.
Previous chest CT showed no recurrence of pneumonia
Chest x-ray showed NEW right basilar opacity
DC Vanco, MRSA negative. Continue with Zosyn
Tylenol as needed for fever
Speech following, status post VSE 08/10. Now on regular diet
Streptococcus pneumonia antigen, Legionella antigen neg
Labs shows chronic pancytopenia which is likely secondary to malignancy
Monitor white count and WBC
Oncology following
Persistent fever, ID evaluation. Blood cultures so far negative. Follow fever curve. Could fever be secondary to malignancy
Generalized abdominal pain likely secondary to malignancy and constipation
cannot r/o PUD. has hx of gastritis/duodenitis
CT with possible constipation
Continue laxatives
some stool burden on abdominal/pelvis CT, no bowel obstruction.
on clears
GI following, no plan for scope at this time
PPI
Hyponatremia, acute on chronic
Does appear to have history of hyponatremia
baseline sodium is nearly 130.
on IVF
Sodium does not improve then will need nephrology evaluation
Alcohol use disorder
Daily use of half a bottle of alcohol particularly wine
MSAS protocol
Thiamine, folate
Acute on chronic anemia
Check heme test stool
Hemoglobin 7 on 08/10, status post transfuse 1 unit PRBC. hgb now 7.8
PPI
GI following. no plan for scope at this time
Hyperlipidemia
hold rosuvastatin
Hypertension
Continue with home meds
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
Diagnosed in March 2024, ongoing chemotherapy until July
Hold Nubeqa
oncology following
Elevated AST and alk phos
Suspect likely secondary to liver disease/metastases
Liver enzymes has been high in the past as well. CT abdomen 08/09 without biliary dilation. Already has cholecystectomy
Continue to monitor
GI following
History of gastritis/duodenitis
Continue to monitor
Alcohol use with abuse
Monitor for withdrawal
History of GERD
continue pantoprazole
-History of right lung cancer s/p proton therapy
Hyperlipidemia
Hold statin
-KARMEN
order cpap while here
DVTppx
Lovenox
Code Status
Full code
I spent a total of 51 minutes with the patient or on the floor. More than 50% of this time involved counseling and coordination of care.
Anticipated Discharge: > 48 hours
Subjective/Interval History
-
Date of Service: August 11, 2025
Continues to spike fever
Objective Data
-
Labs:
Laboratory Results
08/11/25
05:14
WBC 2.5 L
Hgb 7.8 L
Hct 24.9 L
Plt Count 129 L D
PT 17.7 H
INR 1.49
Sodium 126 L
Potassium 4.9
Chloride 101
Carbon Dioxide 21 L
BUN 20
Creatinine 0.8
Glucose 103 H
Calcium 8.9
Total Bilirubin 1.4 H
AST 891 H*
ALT 14
Alkaline Phosphatase 362 H
Vital Signs:
Vital Signs
Temp Pulse Resp BP Pulse Ox
101.9 F H 119 14 95/57 91
08/11/25 10:43 08/11/25 10:43 08/11/25 10:43 08/11/25 10:43 08/11/25 10:43
I&O
08/10/25 08/11/25 08/12/25
06:59 06:59 06:59
Intake Total 1720 / 1720 970 / 970
Output Total 850 / 850 800 / 800
Balance 870 / 870 170 / 170
--- NOTE | 2025-08-11 14:19 | CON.ID ---
Consultation
-
Date/Time Consultation Requested: 08/11/25 8:55
Date/Time Consultation Performed: 08/11/25 14:19
Requesting Provider: Dr Figueroa
Performing Provider: Dr Madera
Reason for Consultation: pneumonia with persistent fever
Chief Complaint / Past History
Chief Complaint
fever
History of Present Illness
Mr Armijo is a 75 year old male with history of lung cancer s/p proton therapy - cured, stage IV prostate cancer (mets bone, LN and bone marrow on lupron and nubeqa, PET pending, stopped chemotherapy about 1 month ago) He presented here two days ago
08/09 for shortness of breath, pleuritic pain and generalized abdominal pain. The abdominal pain started 2 days [employer] that recently woke him from sleep, + nausea but no vomiting. Having BMs and flatus. Has been pancytopenic but majority of ANCs WNL.
Has recently lost about 10 kg.
Note early July about 4 weeks ago he was treated for pneumonia of the right lower lung and left lower lung; initially with 4 days of ceftriaxone and IV azithromycin, then with 3 further days of augmentin. Reports he had ongoing fevers, chills,
and drenching sweats at home on the augmentin and then it resolved after about 1 week. He has a follow up 08/01 CT chest without contrast: chronic anterior upper lob opacity, no nodules, CXR new right basilar opacity.
Since arrival here two days ago he has been spiking fevers to a tmax of 102.7, his fever curve has not substantially changed, wbc initially 3.6 with ANC 2.3 WBC now 2.5 with ANC 1.4, hgb running in the 7s, plt 100s, no L shift, Na 128, cr 0.6,
lactic acid 1.2, t bili increasing and now 1.4 ast peaked at 1366 and now 891, alt 14, alk phos 362 and increasing, LDH <10,000, PSA 121 no prior on file in [facility], UA no pyuria, 03/09/25 his IgG and IgM were low, covid ag negative, Has VSG 08/10
and not aspirating. 08/09 CT a/p with IV contrast: new nodular and GGO opacities in the inferior RLL suspicious for pneumonia, no findings in the abdomen or pelvis, legionella and strep pneumoniae antigens negative, influenza negative, blood cultures
x2 no growth at 48 hours, was initially started on vancomycin and cefepime and then transitioned to zosyn. ID is consulted for assistance with management.
Past History
Additional Past Medical History:
lung cancer, prostate cancer, GERD, HTN, HLD, KARMEN, gastritis, duodenitis, dysphagia, emphysema
Additional Past Surgical History:
cholecystectomy
Allergy History:
aspirin (From Percodan) Allergy (Verified 08/09/25 05:49)
Shortness of Breath
codeine Allergy (Verified 08/09/25 05:49)
Anaphylaxis
Opioids - Morphine Analogues Allergy (Verified 08/09/25 05:49)
Unknown
oxycodone (From Percodan) Allergy (Verified 08/09/25 05:49)
Shortness of Breath
Medications Reviewed: Yes
Social History
Tobacco: Former Smoker
Alcohol: Daily
Drug: None
Family History
Family History: Not Pertinent
Review of Systems
Review of Systems
All Other Systems: ROS reviewed and negative except as documented in HPI and ROS
Constitutional: Reports weight loss and fatigue
EENT: Reports runny nose
Respiratory: Reports other (slight CAM[place])
Cardiac: Reports no symptoms
ABD/GI: Reports abdominal pain, nausea and constipated
: Reports no symptoms
Musculoskeletal: Reports other (neuropathic pain)
Skin: Reports no symptoms
Neurological: Reports no symptoms
Psychiatric: Reports no symptoms
Vital Signs
Temp Pulse Resp BP Pulse Ox
101.9 F H 119 14 95/57 91
08/11/25 10:43 08/11/25 10:43 08/11/25 10:43 08/11/25 10:43 08/11/25 10:43
Physical Exam
Physical Exam
Constitutional: No Acute Distress
Cardiovascular: Regular Rate and S1/S2; Negative Murmur or Rub
Pulmonary: Clear and Symmetric; Negative Wheezes, Rales or Rhonchi
Gastrointestinal: Soft, Non Tender, Non Distended and Normal Bowel Sounds
Skin: Warm and Dry; Negative Rash or Jaundice
Lab / Diagnostic Study Results
08/11/25 05:14
08/11/25 05:14
Abs Immat Gran (auto) 0.1 10^3/uL (0-0.05) H 08/11/25 05:14
Absolute Neuts (auto) 1.4 10^3/uL (1.4-6.5) 08/11/25 05:14
Absolute Lymphs (auto) 0.5 10^3/uL (1.2-3.4) L 08/11/25 05:14
Absolute Monos (auto) 0.4 10^3/uL (0.1-0.6) 08/11/25 05:14
Absolute Basos (auto) 0.0 10^3/uL (0-0.2) 08/11/25 05:14
Immature Gran % 4.4 % (0-0.5) H 08/11/25 05:14
Neutrophils % 54.9 % (42.2-75.2) 08/11/25 05:14
Lymphocytes % 21.0 % (20.5-51.1) 08/11/25 05:14
Monocytes % 16.9 % (1.7-9.3) H 08/11/25 05:14
Eosinophils % 1.2 % (0-6) 08/11/25 05:14
Basophils % 1.6 % (0-2) 08/11/25 05:14
PT 17.7 Sec (11.4-14.6) H 08/11/25 05:14
INR 1.49 08/11/25 05:14
Lactic Acid Cancelled 08/09/25 10:15
Ur Squamous Epith Cells 0-2 /LPF (Few) 08/09/25 06:45
Microbiology Results
Micro:
08/09/25 07:45 Blood Culture - Preliminary
Blood/Venous No Growth in 48 hours- Final report to follow
08/09/25 06:45 Blood Culture - Preliminary
Blood/Venous No Growth in 48 hours- Final report to follow
08/09/25 15:09 Nasal Screen MRSA (PCR) - Final
Nose MRSA not detected - performed by PCR methodology.
08/09/25 15:09 Legionella Urinary Antigen - Final
Urine Negative for Legionella pneumophila Serogroup 1 antigen.
A negative result does not rule out the possiblity of
Legionella infection due to other serogroups or species of
Legionella. Clinical correlation is recommended.
Streptococcus pneumoniae Antigen (M - Final
Negative for Streptococcus pneumoniae antigen.
A negative result does not exclude infection with
Streptococcus pneumoniae. Clinical correlation is
recommended.
08/09/25 06:49 Influenza Types A & B (SAMIR) - Final
Nasal Swab Negative for Influenza A & B, NAAT
Negative results must be combined with clinical observations
and patient history.
Nucleic Acid Amplification test (NAAT)performed on the
[employer] platform.
Assessment / Plan
Fever
Pneumonia
Pancytopenia without persistent neutropenia
H/o Hypogammaglobulinemia
Prostate cancer on antiandrogen therapy
- sputum culture if able to obtain one - reports he is not producing
- blood cultures x2 are in progression
- legionella/strep pneumo/covid/influenza negative
- add doxycycline
- continue zosyn for present
[2025-08-11 15:11] VITALS: BP 121/70
--- NOTE | 2025-08-11 15:13 | PN.CDI ---
CDI
- -
CDI:
Physician Documentation Request
Admit Date: 08/09/25 11:[address] Figueroa,
Sepsis without organ dysfunction is no longer used within our health system. These cases are now coded as the primary infection, not as sepsis.
[facility] is using an adapted version of the 2016 Third International Consensus Definitions for Sepsis and Septic Shock (Sepsis-3) where sepsis is defined as life threatening organ dysfunction caused by a deregulated host response to infection.
Please reference the official [facility] Sepsis Recognition Tool for further information, which is available on the Intranet under Infection Prevention.
Clinical Indicators Include:
PN, 08/10
#Right lower lobe pneumonia
#...Sepsis with acute hypoxic respiratory insufficiency secondary to pneumonia
#Chest x-ray showed NEW right basilar opacity
#...DC Vanco, MRSA negative. Continue with Zosyn
#Labs shows chronic pancytopenia which is likely secondary to malignancy
PN, 08/11
#Right lower lobe pneumonia
#...Sepsis with acute hypoxic respiratory insufficiency secondary to pneumonia
Based on your medical judgment, please review the documentation pertaining to Sepsis due to Pneumonia and further clarify the clinical indicators and any organ dysfunction associated with the diagnosis, if applicable:
�Sepsis due to Pneumonia with organ dysfunction of
�Sepsis ruled out, Pneumonia only
�Other (please specify)
Use of terms such as suspected, likely, concern for, or probable (associated with a specific diagnosis that is being evaluated, monitored, or treated as if it exists) are acceptable and can be coded in the inpatient setting when documented at the
time of discharge.
Please use your independent medical judgement in providing your response.
Thank you,
Yessica Rivers RN BSN CCDS
CDI Specialist
Please contact via tiger text
--- NOTE | 2025-08-11 15:37 | W.PN.GI.CBS2 ---
Today's Communication / Plan
-
Daily use of miralax to prevent constipation recurrence
No abd pain and tolerating diet now
AST rise in setting of normal ALT and elevated LDH/CK suggestive of muscle not liver source
GI will sign off please call for ?
Assessment / Plan
-
Pt is a 75yo with hx HTN, GERD, hyperlipidemia, stage IV prostate CA on Nebeqa therapy diagnosed several months ago, lung cancer status postradiation, fatty liver with F0 on prior fibroscan in 2021, prior EUS for subepithelial lesion, alcohol
abuse with drinking 1 bottle daily with recent admission with PNA and SIADH now with abdominal pain and constipation. He is also noted with abnormal labs with hbg 7.6 then drop to 6.6 with platelets 114, WBC 3.6, Na 128, and rise in LFT's after
admission to bili 1.1, AST 1366, ALT 13, alk phos 336 ( with prior elevation over last few months with primary AST elevation) Repeat Ct on admission with new nodular and ground glass opacity within inferior right lower lobe of lung concern for PNA
prostate lesion with know malignancy and osseous mets. + fever 102.7 after admission. In review with patient he admits to abdominal pain prior to admission. Pain became intense up to 05/17 now 09/08/09 He took MOM was initially bloated but then
began passing stools and gas with slow improvement in symptoms.
Impression
-constipation
-elevated LFT's with marked elevate AST
-fever
-pancytopenia
- stage IV prostate CA on Nebeqa therapy diagnosed several months ago,
other med problems:
HTN, GERD, hyperlipidemia lung cancer status postradiation, fatty liver with F0 on prior fibroscan in 2021, prior EUS for subepithelial lesion, alcohol abuse with drinking 1 bottle daily
Recommendation
- Abd pain resolved with treatment of constipation
- C/w benefiber OP and use senna daily not PRN basis
- ALT is normal AST elevation in setting of elevated LDH and CK suggestive of muscle and NOT liver source
- Tolerating regular diet
At this juncture GI will sign off please call for ?
Subjective
Subjective
Date of Service: August 11, 2025
He has no abd pain. Tolerating diet. Reports chronic constipation on benefiber and sometimes senna. Overall body weakness
Objective
Data Reviewed
Laboratory Data:
Laboratory Results
08/11/25 05:14
08/11/25 05:14
Laboratory Results
PT 17.7 Sec (11.4-14.6) H 08/11/25 05:14
INR 1.49 08/11/25 05:14
Total Bilirubin 1.4 mg/dl (0.2-1.3) H 08/11/25 05:14
AST 891 U/L (17-59) H* 08/11/25 05:14
ALT 14 U/L (0-50) 08/11/25 05:14
Alkaline Phosphatase 362 U/L (38-126) H 08/11/25 05:14
Vital Signs and I&O:
Vital Signs
Temp Pulse Resp BP Pulse Ox
98.3 F 102 14 121/70 96
08/11/25 15:11 08/11/25 15:11 08/11/25 15:11 08/11/25 15:11 08/11/25 15:11
I&O
08/10/25 08/11/25 08/12/25
06:59 06:59 06:59
Intake Total 1720 / 1720 970 / 970
Output Total 850 / 850 800 / 800
Balance 870 / 870 170 / 170
Physical Exam
Physical Exam
GEN: No acute distress, conversant, pleasant
HEENT: +icteric, extraocular movements intact, clear oropharynx without exudates
GI: soft, non-distended, not tender to palpation, normal active bowel sounds, no hepatosplenomegaly
EXT: warm, well perfused, trace edema bilaterally
NEURO: AAOx3, non-focal
[2025-08-11] MEDS: LOVENOX 40 MG SC (18:19)
[2025-08-11] MEDS: DILAUDID 0.25 MG IV (18:26)
[2025-08-11 19:32] VITALS: BP 124/67
[2025-08-11] MEDS: NEURONTIN 300 MG PO (21:16)
[2025-08-11] MEDS: VIBRAMYCIN 100 MG PO (21:16)
[2025-08-11 23:13] VITALS: BP 130/65
[2025-08-12] MEDS: ZOSYN 50 IV ×4 (02:45→21:51)
[2025-08-12 03:04] VITALS: BP 128/70
[2025-08-12 08:18] VITALS: BP 128/76
[2025-08-12 09:58] LABS: Hematocrit 25.0 % (39.0-52.0); Hemoglobin 7.7 g/dL (13.0-18.0); Mean Corp Hgb Conc. 30.8 g/dL (33.0-37.0); Mean Corpuscular Volume 93.3 fL (80.0-94.0); Platelet Count 136 10^3/uL (130-400); Red Cell Dist. Width 19.8 % (11.5-14.5)
[2025-08-12] MEDS: PROTONIX IV 40 MG IV ×2 (10:03→21:50)
[2025-08-12] MEDS: NSS (PRESERVATIVE FREE) 10 ML IV ×2 (10:04→21:50)
[2025-08-12] MEDS: VITAMIN C 500 MG PO (10:04)
[2025-08-12] MEDS: VIBRAMYCIN 100 MG PO ×2 (10:04→21:51)
[2025-08-12] MEDS: MIRALAX 17 GRAMS PO (10:04)
[2025-08-12] MEDS: FOLVITE 1 MG PO (10:05)
[2025-08-12] MEDS: THERAGRAN 1 TABLET PO (10:05)
[2025-08-12] MEDS: ALDACTONE 12.5 MG PO (10:05)
[2025-08-12 10:30] LABS: Nucleated Red Blood Cells % 14.8 % (-)
[2025-08-12 10:33] LABS: ALT (SGPT) 17 U/L (0-50); AST (SGOT) 710 U/L (17-59); Albumin 2.8 g/dl (3.5-5.0); Alkaline Phosphatase 366 U/L (38-126); Blood Urea Nitrogen 26 mg/dl (9-20); Calcium 8.2 mg/dl (8.4-10.2); Carbon Dioxide 22 mmol/L (22-30); Chloride 99 mmol/L (98-107); Estimated Creatinine Clearance 57 ml/min; Glucose 100 mg/dl (70-99); Potassium 4.4 mmol/L (3.5-5.1); Sodium 127 mmol/L (135-145); Total Protein 5.6 g/dl (6.3-8.2); eGFR > 60.00
[2025-08-12 11:30] VITALS: BP 124/71
--- NOTE | 2025-08-12 12:28 | W.PN.HOSP.TC ---
Today's Communication/Plan
-
Monitor vital signs see plan
Follow fever curve
Follow culture
Continue with antibiotic
Monitor hemoglobin
Assessment / Plan
Assessment / Plan
General: Comfortable and Conversant
HEENT: NormoCephalic and Anicteric
Respiratory: Clear
Cardiac: S1/S2 and Regular Rhythm
GI: Soft, Normal Bowel Sounds, nontender
Musculoskeletal: No Edema
Neuro: AO x 3
Psych: Calm
Right lower lobe pneumonia
Suspect community-acquired pneumonia
Does not appear to have sepsis POA
Follow cultures
Patient was admitted previously on 07/09 for right lower lobe pneumonia and was managed with abx.
Previous chest CT showed no recurrence of pneumonia
Chest x-ray showed NEW right basilar opacity
DC Vanco, MRSA negative. Continue with Zosyn, added Doxy
Tylenol as needed for fever
Speech following, status post VSE 08/10. Now on regular diet
Streptococcus pneumonia antigen, Legionella antigen neg
Labs shows chronic pancytopenia which is likely secondary to malignancy
Monitor white count and WBC
Oncology following
Persistent fever, ID following. Blood cultures so far negative. Follow fever curve. Could fever be secondary to malignancy
Generalized abdominal pain likely secondary to malignancy and constipation
cannot r/o PUD. has hx of gastritis/duodenitis
CT with possible constipation, improving
Continue laxatives
some stool burden on abdominal/pelvis CT, no bowel obstruction.
on clears
GI following, no plan for scope at this time
PPI
Hyponatremia, acute on chronic
Does appear to have history of hyponatremia
baseline sodium is nearly 130.
If Sodium does not improve then will need nephrology evaluation
Alcohol use disorder
Daily use of half a bottle of alcohol particularly wine
MSAS protocol
Thiamine, folate
Acute on chronic anemia
Check heme test stool
Hemoglobin 7 on 08/10, status post transfuse 1 unit PRBC. hgb now 7.7
PPI
GI following. no plan for scope at this time
Hyperlipidemia
hold rosuvastatin
Hypertension
Continue with home meds
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
Diagnosed in March 2024, ongoing chemotherapy until July
Hold Nubeqa
oncology following
Elevated AST and alk phos
Suspect likely secondary to liver disease/metastases
Liver enzymes has been high in the past as well. CT abdomen 08/09 without biliary dilation. Already has cholecystectomy
Continue to monitor
GI following
History of gastritis/duodenitis
Continue to monitor
Alcohol use with abuse
Monitor for withdrawal
History of GERD
continue pantoprazole
-History of right lung cancer s/p proton therapy
Hyperlipidemia
Hold statin
-KARMEN
order cpap while here
DVTppx
Lovenox
Code Status
Full code
Anticipated Discharge: 24 - 48 hours
Subjective/Interval History
-
Date of Service: August 12, 2025
Denies nausea
Objective Data
-
Labs:
Laboratory Results
08/12/25
06:40
WBC 2.8 L
Hgb 7.7 L
Hct 25.0 L
Plt Count 136
Sodium 127 L
Potassium 4.4
Chloride 99
Carbon Dioxide 22
BUN 26 H
Creatinine 1.0
Glucose 100 H
Calcium 8.2 L
Total Bilirubin 1.0
AST 710 H*
ALT 17
Alkaline Phosphatase 366 H
Vital Signs:
Vital Signs
Temp Pulse Resp BP Pulse Ox
99.9 F 107 16 124/71 94
08/12/25 11:30 08/12/25 11:30 08/12/25 11:30 08/12/25 11:30 08/12/25 11:30
I&O
08/11/25 08/12/25 08/13/25
06:59 06:59 06:59
Intake Total 970 / 970 480 / 480
Output Total 800 / 800
Balance 170 / 170 480 / 480
[2025-08-12 12:38] LABS: Glucose - Point of Care 163 mg/dl (70-99)
[2025-08-12] MEDS: THIAMINE INJECTION 200 MG IV (13:17)
--- NOTE | 2025-08-12 14:27 | W.PN.ID1 ---
Date of Service
Date of Service: August 12, 2025
Today's Communication
- fever curve appears to be responding
- continue doxycycline
- continue zosyn for present
Assessment / Plan
Fever
Pneumonia
Pancytopenia without persistent neutropenia
H/o Hypogammaglobulinemia
Prostate cancer on antiandrogen therapy
- fever curve appears to be responding
- sputum culture if able to obtain one - reports he is not producing
- blood cultures x2 are in progression
- legionella/strep pneumo/covid/influenza negative
- continue doxycycline
- continue zosyn for present
Chief Complaint
-: Fever
Subjective / Review of Systems
fever curve appears to be improving
bp stable
no events overnight
poor appetite
Vital Signs / Physical Exam
Vital Signs
Vital Signs
Temp Pulse Resp BP Pulse Ox
99.9 F 107 16 124/71 94
08/12/25 11:30 08/12/25 11:30 08/12/25 11:30 08/12/25 11:30 08/12/25 11:30
Physical Exam
Constitutional: No Acute Distress
Cardiovascular: Regular Rate and S1/S2; Negative Murmur or Rub
Pulmonary: Clear and Symmetric; Negative Wheezes or Rales
Gastrointestinal: Soft, Non Tender, Non Distended and Normal Bowel Sounds
Skin: Warm and Dry; Negative Rash or Jaundice
Objective Data
Lab Data
Lab Results
08/12/25 06:40
08/12/25 06:40
PT 17.7 Sec (11.4-14.6) H 08/11/25 05:14
INR 1.49 08/11/25 05:14
Estimated Creat Clear 57 ml/min 08/12/25 06:40
Lactic Acid Cancelled 08/09/25 10:15
Total Bilirubin 1.0 mg/dl (0.2-1.3) 08/12/25 06:40
AST 710 U/L (17-59) H* 08/12/25 06:40
ALT 17 U/L (0-50) 08/12/25 06:40
Alkaline Phosphatase 366 U/L (38-126) H 08/12/25 06:40
Most recent labs reviewed.
Micro Results:
08/09/25 07:45 Blood Culture - Preliminary
Blood/Venous No Growth in 72 hours- Final report to follow
08/09/25 06:45 Blood Culture - Preliminary
Blood/Venous No Growth in 72 hours- Final report to follow
08/09/25 15:09 Nasal Screen MRSA (PCR) - Final
Nose MRSA not detected - performed by PCR methodology.
08/09/25 15:09 Legionella Urinary Antigen - Final
Urine Negative for Legionella pneumophila Serogroup 1 antigen.
A negative result does not rule out the possiblity of
Legionella infection due to other serogroups or species of
Legionella. Clinical correlation is recommended.
Streptococcus pneumoniae Antigen (M - Final
Negative for Streptococcus pneumoniae antigen.
A negative result does not exclude infection with
Streptococcus pneumoniae. Clinical correlation is
recommended.
08/09/25 06:49 Influenza Types A & B (SAMIR) - Final
Nasal Swab Negative for Influenza A & B, NAAT
Negative results must be combined with clinical observations
and patient history.
Nucleic Acid Amplification test (NAAT)performed on the
[employer] platform.
[2025-08-12 15:45] VITALS: BP 135/76
[2025-08-12] MEDS: LOVENOX 40 MG SC (17:38)
[2025-08-12 19:20] VITALS: BP 143/74
[2025-08-12] MEDS: NEURONTIN 300 MG PO (21:52)
[2025-08-12] MEDS: DILAUDID 0.25 MG IV (21:55)
[2025-08-13] VITALS (9 sets, daily range): BP systolic 111–147; BP diastolic 66–79
[2025-08-13] MEDS: VITAMIN B1 100 MG PO ×3 (00:05→22:06)
[2025-08-13] MEDS: ZOSYN 50 IV ×2 (01:56→08:54)
[2025-08-13 08:11] LABS: Hematocrit 22.8 % (39.0-52.0); Hemoglobin 7.0 g/dL (13.0-18.0); Mean Corp Hgb Conc. 30.7 g/dL (33.0-37.0); Mean Corpuscular Volume 90.5 fL (80.0-94.0); Platelet Count 126 10^3/uL (130-400); Red Cell Dist. Width 19.8 % (11.5-14.5)
[2025-08-13 08:28] LABS: ALT (SGPT) 16 U/L (0-50); AST (SGOT) 246 U/L (17-59); Albumin 2.6 g/dl (3.5-5.0); Alkaline Phosphatase 288 U/L (38-126); Blood Urea Nitrogen 24 mg/dl (9-20); Calcium 8.4 mg/dl (8.4-10.2); Carbon Dioxide 23 mmol/L (22-30); Chloride 100 mmol/L (98-107); Estimated Creatinine Clearance 63 ml/min; Glucose 110 mg/dl (70-99); Potassium 3.7 mmol/L (3.5-5.1); Sodium 126 mmol/L (135-145); Total Protein 5.2 g/dl (6.3-8.2); eGFR > 60.00
[2025-08-13] MEDS: NSS (PRESERVATIVE FREE) 10 ML IV ×2 (08:54→19:35)
[2025-08-13] MEDS: PROTONIX IV 40 MG IV ×2 (08:54→19:37)
[2025-08-13] MEDS: ALDACTONE 12.5 MG PO (08:56)
[2025-08-13] MEDS: MIRALAX 17 GRAMS PO (08:56)
[2025-08-13] MEDS: VIBRAMYCIN 100 MG PO ×2 (08:56→19:36)
[2025-08-13] MEDS: FOLVITE 1 MG PO (08:56)
[2025-08-13] MEDS: VITAMIN C 500 MG PO (08:56)
[2025-08-13] MEDS: THERAGRAN 1 TABLET PO (08:56)
[2025-08-13 09:00] LABS: Nucleated Red Blood Cells % 9.8 % (-)
--- NOTE | 2025-08-13 11:19 | W.PN.HOSP.TC ---
Today's Communication/Plan
-
Monitor vitals
See plan
Transfuse 1 unit PRBC
Follow fever curve
Continue antibiotic
Assessment / Plan
Assessment / Plan
General: Comfortable and Conversant
HEENT: NormoCephalic and Anicteric
Respiratory: Clear
Cardiac: S1/S2 and Regular Rhythm
GI: Soft, Normal Bowel Sounds, nontender
Musculoskeletal: No Edema
Neuro: AO x 3
Psych: Calm
Right lower lobe pneumonia
Suspect community-acquired pneumonia
Does not appear to have sepsis POA
Follow cultures
Patient was admitted previously on 07/09 for right lower lobe pneumonia and was managed with abx.
Previous chest CT showed no recurrence of pneumonia
Chest x-ray showed NEW right basilar opacity
DC Vanco, MRSA negative. Continue with Zosyn, added Doxy
Tylenol as needed for fever
Speech following, status post VSE 08/10. Now on regular diet
Streptococcus pneumonia antigen, Legionella antigen neg
Labs shows chronic pancytopenia which is likely secondary to malignancy
Oncology following
Persistent fever, ID following. Blood cultures so far negative. Follow fever curve. Could fever be secondary to malignancy
Generalized abdominal pain likely secondary to malignancy and constipation
cannot r/o PUD. has hx of gastritis/duodenitis
CT with possible constipation, improving
Continue laxatives
some stool burden on abdominal/pelvis CT, no bowel obstruction.
on clears
GI following, no plan for scope at this time
PPI
Hyponatremia, acute on chronic
Does appear to have history of hyponatremia
baseline sodium is nearly 130.
If Sodium does not improve then will need nephrology evaluation
Alcohol use disorder
Daily use of half a bottle of alcohol particularly wine
MSAS protocol
Thiamine, folate
Acute on chronic anemia
Hemoglobin 7 on 08/10, status post transfuse 1 unit PRBC. hgb now 7 again. Transfuse 1 unit PRBC. From oncology records, does appear to have bone marrow involvement.
No signs of arturo bleeding
PPI
GI following. no plan for scope at this time
Hyperlipidemia
hold rosuvastatin
Hypertension
Continue with home meds
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
Diagnosed in March 2024, ongoing chemotherapy until July
Hold Nubeqa
oncology following
Elevated AST and alk phos
Suspect likely secondary to liver disease/metastases
Liver enzymes has been high in the past as well. CT abdomen 08/09 without biliary dilation. Already has cholecystectomy
Continue to monitor
GI following
History of gastritis/duodenitis
Continue to monitor
Alcohol use with abuse
Monitor for withdrawal
History of GERD
continue pantoprazole
-History of right lung cancer s/p proton therapy
Hyperlipidemia
Hold statin
-KARMEN
order cpap while here
DVTppx
Lovenox
Code Status
Full code
I spent a total of 52 minutes with the patient or on the floor. More than 50% of this time involved counseling and coordination of care.
Anticipated Discharge: 24 - 48 hours
Subjective/Interval History
-
Date of Service: August 13, 2025
Denies nausea
Objective Data
-
Labs:
Laboratory Results
08/13/25
07:28
WBC 2.8 L
Hgb 7.0 L
Hct 22.8 L
Plt Count 126 L
Sodium 126 L
Potassium 3.7
Chloride 100
Carbon Dioxide 23
BUN 24 H
Creatinine 0.9
Glucose 110 H
Calcium 8.4
Total Bilirubin 0.9
AST 246 H
ALT 16
Alkaline Phosphatase 288 H
Vital Signs:
Vital Signs
Temp Pulse Resp BP Pulse Ox
99.1 F 104 20 119/74 90
08/13/25 08:13 08/13/25 08:56 08/13/25 08:13 08/13/25 08:56 08/13/25 08:13
I&O
08/12/25 08/13/25 08/14/25
06:59 06:59 06:59
Intake Total 480 / 480 1480 / 1480
Output Total 300 / 300
Balance 480 / 480 1480 / 1480 -300 / -300
--- NOTE | 2025-08-13 14:38 | W.PN.ID1 ---
Date of Service
Date of Service: August 13, 2025
Today's Communication
- continue doxycycline 10 day course 08/11-08/20
- stop zosyn start cefdinir also through 08/20
Assessment / Plan
Fever - resolving
Pneumonia
Pancytopenia without persistent neutropenia
H/o Hypogammaglobulinemia
Prostate cancer on antiandrogen therapy
- fever curve appears to be responding
- sputum culture if able to obtain one - reports he is not producing
- blood cultures x2 are in progression
- continue doxycycline 10 day course 08/11-08/20
- stop zosyn start cefdinir also through 08/20
Chief Complaint
-: Fever
Subjective / Review of Systems
approx 24 hours fever free
bp stable
reports malaise ongoing
cough persists
poor appetite
Vital Signs / Physical Exam
Vital Signs
Vital Signs
Temp Pulse Resp BP Pulse Ox
97.8 F 101 16 111/68 93
08/13/25 12:44 08/13/25 12:44 08/13/25 12:44 08/13/25 12:44 08/13/25 12:44
Physical Exam
Constitutional: No Acute Distress
Cardiovascular: Regular Rate and S1/S2; Negative Murmur or Rub
Pulmonary: Clear and Symmetric; Negative Wheezes or Rales
Gastrointestinal: Soft, Non Tender, Non Distended and Normal Bowel Sounds
Skin: Warm and Dry; Negative Rash or Jaundice
Objective Data
Lab Data
Lab Results
08/13/25 07:28
08/13/25 07:28
PT 17.7 Sec (11.4-14.6) H 08/11/25 05:14
INR 1.49 08/11/25 05:14
Estimated Creat Clear 63 ml/min 08/13/25 07:28
Lactic Acid Cancelled 08/09/25 10:15
Total Bilirubin 0.9 mg/dl (0.2-1.3) 08/13/25 07:28
AST 246 U/L (17-59) H 08/13/25 07:28
ALT 16 U/L (0-50) 08/13/25 07:28
Alkaline Phosphatase 288 U/L (38-126) H 08/13/25 07:28
Most recent labs reviewed.
Micro Results:
08/09/25 07:45 Blood Culture - Preliminary
Blood/Venous No Growth in 4 days- Final report to follow
08/09/25 06:45 Blood Culture - Preliminary
Blood/Venous No Growth in 4 days- Final report to follow
08/09/25 15:09 Nasal Screen MRSA (PCR) - Final
Nose MRSA not detected - performed by PCR methodology.
08/09/25 15:09 Legionella Urinary Antigen - Final
Urine Negative for Legionella pneumophila Serogroup 1 antigen.
A negative result does not rule out the possiblity of
Legionella infection due to other serogroups or species of
Legionella. Clinical correlation is recommended.
Streptococcus pneumoniae Antigen (M - Final
Negative for Streptococcus pneumoniae antigen.
A negative result does not exclude infection with
Streptococcus pneumoniae. Clinical correlation is
recommended.
08/09/25 06:49 Influenza Types A & B (SAMIR) - Final
Nasal Swab Negative for Influenza A & B, NAAT
Negative results must be combined with clinical observations
and patient history.
Nucleic Acid Amplification test (NAAT)performed on the
[employer] platform.
[2025-08-13] MEDS: ZOSYN IV (15:00)
[2025-08-13] MEDS: LOVENOX 40 MG SC (18:19)
[2025-08-13] MEDS: OMNICEF 300 MG PO (19:36)
[2025-08-13] MEDS: DILAUDID 0.25 MG IV (19:39)
[2025-08-13] MEDS: NEURONTIN 300 MG PO (22:06)
[2025-08-14] VITALS (7 sets, daily range): BP systolic 129–163; BP diastolic 67–87
[2025-08-14] MEDS: BENADRYL 50 MG PO ×2 (01:42→21:41)
[2025-08-14 06:03] LABS: Hematocrit 25.7 % (39.0-52.0); Hemoglobin 8.3 g/dL (13.0-18.0); Mean Corp Hgb Conc. 32.3 g/dL (33.0-37.0); Mean Corpuscular Volume 90.2 fL (80.0-94.0); Platelet Count 119 10^3/uL (130-400); Red Cell Dist. Width 19.2 % (11.5-14.5)
[2025-08-14 06:04] LABS: ALT (SGPT) 22 U/L (0-50); AST (SGOT) 142 U/L (17-59); Albumin 2.5 g/dl (3.5-5.0); Alkaline Phosphatase 248 U/L (38-126); Blood Urea Nitrogen 22 mg/dl (9-20); Calcium 9.0 mg/dl (8.4-10.2); Carbon Dioxide 21 mmol/L (22-30); Chloride 101 mmol/L (98-107); Estimated Creatinine Clearance 81 ml/min; Glucose 89 mg/dl (70-99); Potassium 3.9 mmol/L (3.5-5.1); Sodium 127 mmol/L (135-145); Total Protein 5.3 g/dl (6.3-8.2); eGFR > 60.00
[2025-08-14 06:50] LABS: Normal RBC Morphology No; Platelets Checked Yes; Polychromasia 1+
[2025-08-14 06:51] LABS: Anisocytosis 1+; Macrocytosis 1+; Poikilocytosis 1+
[2025-08-14 06:52] LABS: Ovalocytes 1+; Tear Drop Red Blood Cells 1+; Total Cells Counted 100
[2025-08-14] MEDS: NSS (PRESERVATIVE FREE) 10 ML IV ×2 (09:07→21:37)
[2025-08-14] MEDS: PROTONIX IV 40 MG IV ×2 (09:08→21:37)
[2025-08-14] MEDS: THERAGRAN 1 TABLET PO (09:09)
[2025-08-14] MEDS: FOLVITE 1 MG PO (09:09)
[2025-08-14] MEDS: VITAMIN C 500 MG PO (09:09)
[2025-08-14] MEDS: ALDACTONE 12.5 MG PO (09:09)
[2025-08-14] MEDS: VIBRAMYCIN 100 MG PO ×2 (09:09→21:41)
[2025-08-14] MEDS: MIRALAX PO (09:10)
[2025-08-14] MEDS: OMNICEF 300 MG PO ×2 (09:10→21:40)
[2025-08-14] MEDS: VITAMIN B1 100 MG PO ×2 (09:10→21:41)
--- NOTE | 2025-08-14 09:45 | W.PN.ONC2 ---
Today's Communication / Plan
-
.
Impression
Impression
stage IV prostate cancer with bone, LN, and bone marrow involvement
a/w hypoxia, fever, PNA, abdominal pain
acute on chronic anemia trending down from >9g/dL in Jun to ~7g/dL Jul 2025 -no B12 or folate deficiency. iron studies c/w AOCD. retic 4, nml Tbili, elevated LDH, unclear etiology. s/p 2U PRBC during hospitalization
acute thrombocytopenia likely secondary to infection -improving
Leukopenia, lymphopenia
transaminitis improving
hyponatremia
Plan
Plan
abx per ID, follow cultures and fever curve
transfuse Hgb <7 or as needed for symptomatic anemia
appreciate GI assist with worsening anemia, ab pain, transaminitis & daily ETOH intake
f/u heme stool
f/u haptoglobin
hold Nubeqa with transaminitis
Pt has OV with Dr. Amanda and next dose of Lupron 09/25/2024
significant other at bedside provided updates and questions answered
Subjective/Objective
Subjective
Tmax 100.4F overnight, 4L NC, no hypotension.
using IV hydromorphone prn pain
moving bowels
Vital Signs:
Vital Signs
Temp Pulse Resp BP Pulse Ox
99.5 F 107 17 149/80 98
08/14/25 07:30 08/14/25 09:09 08/14/25 07:30 08/14/25 09:09 08/14/25 07:30
Lab Results:
Laboratory Data
WBC 3.0 10^3/uL (4.8-10.8) L 08/14/25 05:10
Hgb 8.3 g/dL (13.0-18.0) L 08/14/25 05:10
Plt Count 119 10^3/uL (130-400) L 08/14/25 05:10
PT 17.7 Sec (11.4-14.6) H 08/11/25 05:14
INR 1.49 08/11/25 05:14
eGFR > 60.00 08/14/25 05:10
Physical Exam
HEENT: Moist Mucous Membranes; No Jaundice
Pulmonary: Other (unlabored)
GI: Soft
Extremities: Pulses Present
Neuro: Non Focal
--- NOTE | 2025-08-14 10:27 | W.PN.ID1 ---
Date of Service
Date of Service: August 14, 2025
Today's Communication
- continue doxycycline 10 day course 08/11-08/20
- continue cefdinir also through 08/20
- would follow fever curve at least another day
Assessment / Plan
Fever - resolving
Pneumonia
Pancytopenia without persistent neutropenia
H/o Hypogammaglobulinemia
Prostate cancer on antiandrogen therapy
- fever curve appears to be responding
- has not produced a sputum for culture
- blood cultures x2 are in progression
- continue doxycycline 10 day course 08/11-08/20
- continue cefdinir also through 08/20
- would follow fever curve at least another day
Chief Complaint
-: Fever
Subjective / Review of Systems
tmax 100.4
bp stable
no other events overnight
had some breakfast this am
still with coughing paroxysms
Vital Signs / Physical Exam
Vital Signs
Vital Signs
Temp Pulse Resp BP Pulse Ox
99.5 F 107 17 149/80 98
08/14/25 07:30 08/14/25 09:09 08/14/25 07:30 08/14/25 09:09 08/14/25 07:30
Physical Exam
Constitutional: No Acute Distress
Cardiovascular: Regular Rate and S1/S2; Negative Murmur or Rub
Pulmonary: Clear and Symmetric; Negative Wheezes or Rales
Gastrointestinal: Soft, Non Tender, Non Distended and Normal Bowel Sounds
Skin: Warm and Dry; Negative Rash or Jaundice
Neurological: Awake
Objective Data
Lab Data
Lab Results
08/14/25 05:10
08/14/25 05:10
PT 17.7 Sec (11.4-14.6) H 08/11/25 05:14
INR 1.49 08/11/25 05:14
Estimated Creat Clear 81 ml/min 08/14/25 05:10
Lactic Acid Cancelled 08/09/25 10:15
Total Bilirubin 1.0 mg/dl (0.2-1.3) 08/14/25 05:10
AST 142 U/L (17-59) H 08/14/25 05:10
ALT 22 U/L (0-50) 08/14/25 05:10
Alkaline Phosphatase 248 U/L (38-126) H 08/14/25 05:10
Most recent labs reviewed.
Micro Results:
08/09/25 07:45 Blood Culture - Final
Blood/Venous No Growth - Final Report
08/09/25 06:45 Blood Culture - Final
Blood/Venous No Growth - Final Report
08/09/25 15:09 Nasal Screen MRSA (PCR) - Final
Nose MRSA not detected - performed by PCR methodology.
08/09/25 15:09 Legionella Urinary Antigen - Final
Urine Negative for Legionella pneumophila Serogroup 1 antigen.
A negative result does not rule out the possiblity of
Legionella infection due to other serogroups or species of
Legionella. Clinical correlation is recommended.
Streptococcus pneumoniae Antigen (M - Final
Negative for Streptococcus pneumoniae antigen.
A negative result does not exclude infection with
Streptococcus pneumoniae. Clinical correlation is
recommended.
08/09/25 06:49 Influenza Types A & B (SAMIR) - Final
Nasal Swab Negative for Influenza A & B, NAAT
Negative results must be combined with clinical observations
and patient history.
Nucleic Acid Amplification test (NAAT)performed on the
[employer] platform.
--- NOTE | 2025-08-14 12:02 | W.PN.HOSP.TC ---
Today's Communication/Plan
-
Monitor vitals
See plan
Follow fever curve
Continue with antibiotics per infectious disease
Repeat chest x-ray
Hematology to see today
Assessment / Plan
Assessment / Plan
General: Comfortable and Conversant
HEENT: NormoCephalic and Anicteric
Respiratory: Clear
Cardiac: S1/S2 and Regular Rhythm
GI: Soft, Normal Bowel Sounds, nontender
Musculoskeletal: No Edema
Neuro: AO x 3
Psych: Calm
Right lower lobe pneumonia
Suspect community-acquired pneumonia
Does not appear to have sepsis POA
Follow cultures
Patient was admitted previously on 07/09 for right lower lobe pneumonia and was managed with abx.
Previous chest CT showed no recurrence of pneumonia
Chest x-ray showed NEW right basilar opacity
DC Vanco, MRSA negative. continue doxycycline 10 day course 08/11-08/20
- continue cefdinir also through 08/20
Still complaining of shortness of breath, repeat chest x-ray
Tylenol as needed for fever
Speech following, status post VSE 08/10. Now on regular diet
Streptococcus pneumonia antigen, Legionella antigen neg
Labs shows chronic pancytopenia which is likely secondary to malignancy
Oncology following
Persistent fever, ID following. Blood cultures so far negative. Follow fever curve. Could fever be secondary to malignancy
Generalized abdominal pain likely secondary to malignancy and constipation
cannot r/o PUD. has hx of gastritis/duodenitis
CT with possible constipation, improving
Continue laxatives
some stool burden on abdominal/pelvis CT, no bowel obstruction.
on clears
GI following, no plan for scope at this time
PPI
Hyponatremia, acute on chronic
Does appear to have history of hyponatremia
baseline sodium is nearly 128-130.
If Sodium does not improve then will need nephrology evaluation
Alcohol use disorder
Daily use of half a bottle of alcohol particularly wine
MSAS protocol
Thiamine, folate
Acute on chronic anemia
Hemoglobin 7 on 08/10, status post transfuse 1 unit PRBC. hgb now 7 again 08/13. Transfuse 1 unit PRBC. From oncology records, does appear to have bone marrow involvement.
hgb now 8.3
No signs of arturo bleeding
Received 2 unit PRBC this hospitalization
PPI
GI following. no plan for scope at this time
Hyperlipidemia
hold rosuvastatin
Hypertension
Continue with home meds
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
Diagnosed in March 2024, ongoing chemotherapy until July
Hold Nubeqa
oncology following
Elevated AST and alk phos
Suspect likely secondary to liver disease/metastases
Liver enzymes has been high in the past as well. CT abdomen 08/09 without biliary dilation. Already has cholecystectomy
Continue to monitor
GI following
History of gastritis/duodenitis
Continue to monitor
Alcohol use with abuse
Monitor for withdrawal
History of GERD
continue pantoprazole
-History of right lung cancer s/p proton therapy
Hyperlipidemia
Hold statin
-KARMEN
order cpap while here
DVTppx
Lovenox
Code Status
Full code
I spent a total of 51 minutes with the patient or on the floor. More than 50% of this time involved counseling and coordination of care.
Anticipated Discharge: 24 - 48 hours
Subjective/Interval History
-
Date of Service: August 14, 2025
Denies nausea
Objective Data
-
Labs:
Laboratory Results
08/14/25
05:10
WBC 3.0 L
Hgb 8.3 L
Hct 25.7 L
Plt Count 119 L
Sodium 127 L
Potassium 3.9
Chloride 101
Carbon Dioxide 21 L
BUN 22 H
Creatinine 0.7
Glucose 89
Calcium 9.0
Total Bilirubin 1.0
AST 142 H
ALT 22
Alkaline Phosphatase 248 H
Vital Signs:
Vital Signs
Temp Pulse Resp BP Pulse Ox
98.6 F 98 18 129/67 96
08/14/25 11:10 08/14/25 11:10 08/14/25 11:10 08/14/25 11:10 08/14/25 11:10
I&O
08/13/25 08/14/25 08/15/25
06:59 06:59 06:59
Intake Total 1480 / 1480 250 / 250
Output Total 300 / 300 950 / 950
Balance 1480 / 1480 -50 / -50 -950 / -950
[2025-08-14 15:59] LABS: Absolute Neutrophils -Man Diff 1.8 10^3/uL (1.4-6.5)
--- NOTE | 2025-08-14 16:51 | CM ---
Addendum entered by Regine Shepherd 08/15/25 17:10:
Plan remains the same at this time - patient to return home at discharge with no needs.
Original Note:
CM continues to follow for discharge planning needs. Pt to continue ABX (cefdinir and doxycycline) thru 08/20/2025.
Discharge anticipated in 24-48 hours. Pt declined VN.
Plan: Discharge to home with no needs per patient preference.
[2025-08-14] MEDS: LOVENOX 40 MG SC (17:15)
[2025-08-14] MEDS: NEURONTIN 300 MG PO (21:41)
[2025-08-15 03:00] VITALS: BP 129/72
[2025-08-15 06:12] LABS: ALT (SGPT) 48 U/L (0-50); AST (SGOT) 169 U/L (17-59); Albumin 2.4 g/dl (3.5-5.0); Alkaline Phosphatase 277 U/L (38-126); Blood Urea Nitrogen 17 mg/dl (9-20); Calcium 9.0 mg/dl (8.4-10.2); Carbon Dioxide 26 mmol/L (22-30); Chloride 101 mmol/L (98-107); Estimated Creatinine Clearance 95 ml/min; Glucose 90 mg/dl (70-99); Potassium 3.8 mmol/L (3.5-5.1); Sodium 129 mmol/L (135-145); Total Protein 5.0 g/dl (6.3-8.2); eGFR > 60.00
[2025-08-15 06:28] LABS: Hematocrit 24.7 % (39.0-52.0); Hemoglobin 7.8 g/dL (13.0-18.0); Mean Corp Hgb Conc. 31.6 g/dL (33.0-37.0); Mean Corpuscular Volume 90.1 fL (80.0-94.0); Platelet Count 138 10^3/uL (130-400); Red Cell Dist. Width 19.1 % (11.5-14.5)
[2025-08-15 06:40] LABS: Absolute Neutrophils -Man Diff 2.1 10^3/uL (1.4-6.5); Normal RBC Morphology No; Platelets Checked Yes; Total Cells Counted 100
[2025-08-15 07:41] VITALS: BP 144/73
[2025-08-15] MEDS: VITAMIN B1 100 MG PO ×2 (08:22→20:21)
[2025-08-15] MEDS: VIBRAMYCIN 100 MG PO ×2 (08:22→20:21)
[2025-08-15] MEDS: ALDACTONE 12.5 MG PO (08:22)
[2025-08-15] MEDS: VITAMIN C 500 MG PO (08:22)
[2025-08-15] MEDS: THERAGRAN 1 TABLET PO (08:23)
[2025-08-15] MEDS: OMNICEF 300 MG PO ×2 (08:23→20:21)
[2025-08-15] MEDS: FOLVITE 1 MG PO (08:23)
[2025-08-15] MEDS: NSS (PRESERVATIVE FREE) 10 ML IV ×2 (08:23→20:21)
[2025-08-15] MEDS: PROTONIX IV 40 MG IV ×2 (08:24→20:21)
[2025-08-15] MEDS: MIRALAX PO (08:25)
--- NOTE | 2025-08-15 09:21 | W.PN.ID1 ---
Date of Service
Date of Service: August 15, 2025
Today's Communication
- fevers ongoing however not as high, slower response may reflect his leukopenia
- brought sputum cup to the bedside
- blood cultures x2 are finalized negative
- continue doxycycline 14 day course 08/11-08/24
- continue cefdinir also through 08/24
- would follow fever curve at least another day
Assessment / Plan
Fever - resolving
Pneumonia
Pancytopenia without persistent neutropenia
H/o Hypogammaglobulinemia
Prostate cancer on antiandrogen therapy
- fevers ongoing however not as high, slower response may reflect his leukopenia
- brought sputum cup to the bedside
- blood cultures x2 are finalized negative
- continue doxycycline 14 day course 08/11-08/24
- continue cefdinir also through 08/24
- would follow fever curve at least another day
Chief Complaint
-: Fever
Subjective / Review of Systems
febrile overnight to 100.6
bp stable
still with coughing paroxysms
appetite is getting better
Vital Signs / Physical Exam
Vital Signs
Vital Signs
Temp Pulse Resp BP Pulse Ox
98.2 F 98 18 144/73 97
08/15/25 07:41 08/15/25 07:41 08/15/25 07:41 08/15/25 07:41 08/15/25 07:41
Physical Exam
Constitutional: No Acute Distress
Cardiovascular: Regular Rate and S1/S2; Negative Murmur or Rub
Pulmonary: Clear and Symmetric; Negative Wheezes or Rales
Gastrointestinal: Soft, Non Tender, Non Distended and Normal Bowel Sounds
Skin: Warm and Dry; Negative Rash or Jaundice
Objective Data
Lab Data
Lab Results
08/15/25 05:11
08/15/25 05:11
PT 17.7 Sec (11.4-14.6) H 08/11/25 05:14
INR 1.49 08/11/25 05:14
Estimated Creat Clear 95 ml/min 08/15/25 05:11
Lactic Acid Cancelled 08/09/25 10:15
Total Bilirubin 0.8 mg/dl (0.2-1.3) 08/15/25 05:11
AST 169 U/L (17-59) H 08/15/25 05:11
ALT 48 U/L (0-50) 08/15/25 05:11
Alkaline Phosphatase 277 U/L (38-126) H 08/15/25 05:11
Most recent labs reviewed.
Micro Results:
08/09/25 07:45 Blood Culture - Final
Blood/Venous No Growth - Final Report
08/09/25 06:45 Blood Culture - Final
Blood/Venous No Growth - Final Report
08/09/25 15:09 Nasal Screen MRSA (PCR) - Final
Nose MRSA not detected - performed by PCR methodology.
08/09/25 15:09 Legionella Urinary Antigen - Final
Urine Negative for Legionella pneumophila Serogroup 1 antigen.
A negative result does not rule out the possiblity of
Legionella infection due to other serogroups or species of
Legionella. Clinical correlation is recommended.
Streptococcus pneumoniae Antigen (M - Final
Negative for Streptococcus pneumoniae antigen.
A negative result does not exclude infection with
Streptococcus pneumoniae. Clinical correlation is
recommended.
08/09/25 06:49 Influenza Types A & B (SAMIR) - Final
Nasal Swab Negative for Influenza A & B, NAAT
Negative results must be combined with clinical observations
and patient history.
Nucleic Acid Amplification test (NAAT)performed on the
[employer] platform.
Chest X-Ray: Image Reviewed and Report Reviewed ('Progressed findings concerning for developing mild right lower lobe pneumonia versus mild atelectasis')
[2025-08-15 11:25] VITALS: BP 139/75
--- NOTE | 2025-08-15 12:44 | W.PN.HOSP.TC ---
Today's Communication/Plan
-
Monitor vital signs see plan
Follow fever curve
Continue with antibiotic per ID
Monitor hemoglobin
Continue with IS
Assessment / Plan
Assessment / Plan
General: Comfortable and Conversant
HEENT: NormoCephalic and Anicteric
Respiratory: Clear
Cardiac: S1/S2 and Regular Rhythm
GI: Soft, Normal Bowel Sounds, nontender
Musculoskeletal: No Edema
Neuro: AO x 3
Psych: Calm
Right lower lobe pneumonia
Suspect community-acquired pneumonia
Does not appear to have sepsis POA
Follow cultures
Patient was admitted previously on 07/09 for right lower lobe pneumonia and was managed with abx.
Previous chest CT showed no recurrence of pneumonia
Chest x-ray showed NEW right basilar opacity
DC Vanco, MRSA negative. continue doxycycline 10 day course 08/11-08/20
- continue cefdinir also through 08/20
Still complaining of shortness of breath, repeat chest x-rayWith possible atelectasis, pneumonia
Tylenol as needed for fever
Speech following, status post VSE 08/10. Now on regular diet
Streptococcus pneumonia antigen, Legionella antigen neg
Labs shows chronic pancytopenia which is likely secondary to malignancy
Oncology following
Persistent fever, ID following. Blood cultures so far negative. Follow fever curve. Could fever be secondary to malignancy
Generalized abdominal pain likely secondary to malignancy and constipation
cannot r/o PUD. has hx of gastritis/duodenitis
CT with possible constipation, improving
Continue laxatives, Now resolved
GI following, no plan for scope at this time
PPI
Hyponatremia, acute on chronic
Does appear to have history of hyponatremia
baseline sodium is nearly 128-130.
If Sodium does not improve then will need nephrology evaluation
Alcohol use disorder
Daily use of half a bottle of alcohol particularly wine
MSAS protocol
Thiamine, folate
Acute on chronic anemia
Hemoglobin 7 on 08/10, status post transfuse 1 unit PRBC. hgb now 7 again 08/13. Transfuse 1 unit PRBC. From oncology records, does appear to have bone marrow involvement.
hgb now 7.8
No signs of arturo bleeding
Received 2 unit PRBC this hospitalization
PPI
GI following. no plan for scope at this time
Hyperlipidemia
hold rosuvastatin
Hypertension
Continue with home meds
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
Diagnosed in March 2024, ongoing chemotherapy until July
Hold Nubeqa
oncology following
Elevated AST and alk phos
Suspect likely secondary to liver disease/metastases
Liver enzymes has been high in the past as well. CT abdomen 08/09 without biliary dilation. Already has cholecystectomy
Continue to monitor
GI following
History of gastritis/duodenitis
Continue to monitor
Alcohol use with abuse
Monitor for withdrawal
History of GERD
continue pantoprazole
-History of right lung cancer s/p proton therapy
Hyperlipidemia
Hold statin
-KARMEN
order cpap while here
DVTppx
Lovenox
Code Status
Full code
Anticipated Discharge: 24 - 48 hours
Subjective/Interval History
-
Date of Service: August 15, 2025
Denies nausea
Objective Data
-
Labs:
Laboratory Results
08/15/25
05:11
WBC 3.6 L
Hgb 7.8 L
Hct 24.7 L
Plt Count 138
Sodium 129 L
Potassium 3.8
Chloride 101
Carbon Dioxide 26
BUN 17
Creatinine 0.6 L
Glucose 90
Calcium 9.0
Total Bilirubin 0.8
AST 169 H
ALT 48
Alkaline Phosphatase 277 H
Vital Signs:
Vital Signs
Temp Pulse Resp BP Pulse Ox
98.0 F 95 17 139/75 97
08/15/25 11:25 08/15/25 11:25 08/15/25 11:25 08/15/25 11:25 08/15/25 11:25
I&O
08/14/25 08/15/25 08/16/25
06:59 06:59 06:59
Intake Total 250 / 250 1080 / 1080
Output Total 300 / 300 1550 / 1550 450 / 450
Balance -50 / -50 -470 / -470 -450 / -450
[2025-08-15 14:55] VITALS: BP 136/75
[2025-08-15] MEDS: TYLENOL 650 MG PO (14:58)
--- NOTE | 2025-08-15 16:06 | W.PN.ONC ---
Today's Communication / Plan
-
As per plan above. He seems to be slowly improving. Still low-grade fevers. Continue antibiotics. LDH were markedly elevated at greater than 10,000, suspect due to spontaneous tumor necrosis, but will recheck. Cytopenias not too bad, given his
bone marrow involvement.
Impression
Impression
stage IV prostate cancer with bone, LN, and bone marrow involvement
a/w hypoxia, fever, PNA, abdominal pain
acute on chronic anemia trending down from >9g/dL in Jun to ~7g/dL Jul 2025 -no B12 or folate deficiency. iron studies c/w AOCD. retic 4, nml Tbili, elevated LDH, unclear etiology. s/p 2U PRBC during hospitalization
acute thrombocytopenia likely secondary to infection -improving
Leukopenia, lymphopenia
transaminitis improving
hyponatremia
Plan
Plan
abx per ID, follow cultures and fever curve
transfuse Hgb <7 or as needed for symptomatic anemia
appreciate GI assist with worsening anemia, ab pain, transaminitis & daily ETOH intake
f/u heme stool
f/u haptoglobin
hold Nubeqa with transaminitis
Pt has OV with Dr. Amanda and next dose of Lupron 09/25/2024
significant other at bedside provided updates and questions answered
Subjective/Objective
Subjective/Objective
He feels a little better. A little less arthritic type pain. He is still running fevers of a little above 100. His breathing is stable. Examination is unchanged.
Vital Signs:
Vital Signs
Temp Pulse Resp BP Pulse Ox
97.6 F 95 18 136/75 96
08/15/25 14:55 08/15/25 14:55 08/15/25 14:55 08/15/25 14:55 08/15/25 14:55
Lab Results:
Laboratory Data
WBC 3.6 10^3/uL (4.8-10.8) L 08/15/25 05:11
Hgb 7.8 g/dL (13.0-18.0) L 08/15/25 05:11
Plt Count 138 10^3/uL (130-400) 08/15/25 05:11
PT 17.7 Sec (11.4-14.6) H 08/11/25 05:14
INR 1.49 08/11/25 05:14
eGFR > 60.00 08/15/25 05:11
Orders
Orders
Orders From Last 24 Hours
08/16/25 06:00
[facility] IN AM
[2025-08-15] MEDS: LOVENOX 40 MG SC (17:14)
[2025-08-15] MEDS: BENADRYL 50 MG PO (21:20)
[2025-08-15] MEDS: NEURONTIN 300 MG PO (21:20)
[2025-08-15 23:40] VITALS: BP 128/61
[2025-08-16] MEDS: TYLENOL 325 MG PO (03:39)
[2025-08-16 05:44] LABS: Hematocrit 26.1 % (39.0-52.0); Hemoglobin 8.1 g/dL (13.0-18.0); Mean Corp Hgb Conc. 31.0 g/dL (33.0-37.0); Mean Corpuscular Volume 90.0 fL (80.0-94.0); Platelet Count 165 10^3/uL (130-400); Red Cell Dist. Width 19.1 % (11.5-14.5)
[2025-08-16 06:03] LABS: ALT (SGPT) 109 U/L (0-50); AST (SGOT) 301 U/L (17-59); Albumin 2.7 g/dl (3.5-5.0); Alkaline Phosphatase 341 U/L (38-126); Blood Urea Nitrogen 18 mg/dl (9-20); Calcium 9.1 mg/dl (8.4-10.2); Carbon Dioxide 25 mmol/L (22-30); Chloride 102 mmol/L (98-107); Estimated Creatinine Clearance 95 ml/min; Glucose 101 mg/dl (70-99); Potassium 3.8 mmol/L (3.5-5.1); Sodium 129 mmol/L (135-145); Total Protein 5.6 g/dl (6.3-8.2); eGFR > 60.00
[2025-08-16 06:12] LABS: LDH 1150 U/L (120-246)
[2025-08-16 06:16] LABS: Absolute Neutrophils -Man Diff 2.6 10^3/uL (1.4-6.5); Platelets Checked Yes
[2025-08-16 06:17] LABS: Anisocytosis 1+; Hypochromasia 1+; Normal RBC Morphology No; Ovalocytes 1+; Polychromasia 1+
[2025-08-16 06:18] LABS: Total Cells Counted 100
[2025-08-16 07:35] VITALS: BP 134/55
--- NOTE | 2025-08-16 08:07 | W.PN.ONC2 ---
Today's Communication / Plan
-
Heme-onc status stable. Okay for discharge when stable from fever/infectious perspective.
Impression
Impression
stage IV prostate cancer with bone, LN, and bone marrow involvement
a/w hypoxia, fever, PNA, abdominal pain
acute on chronic anemia trending down from >9g/dL in Jun to ~7g/dL Jul 2025 -no B12 or folate deficiency. iron studies c/w AOCD. retic 4, nml Tbili, elevated LDH, unclear etiology. s/p 2U PRBC during hospitalization
acute thrombocytopenia likely secondary to infection -improving
Leukopenia, lymphopenia
transaminitis improving
hyponatremia
Plan
Plan
hold Nubeqa with transaminitis
Pt has OV with Dr. Amanda and next dose of Lupron 09/25/2024. He will discuss restarting Nubeqa then
Subjective/Objective
Chief Complaint
ACS Heme Onc
Subjective
No complaints other than persistent fevers which seem to have finally resolved/defervesced. Patient thinks he will would be able to go home today.
Vital Signs:
Vital Signs
Temp Pulse Resp BP Pulse Ox
98.6 F 86 17 134/55 97
08/16/25 07:35 08/16/25 07:35 08/16/25 07:35 08/16/25 07:35 08/16/25 07:35
Lab Results:
Laboratory Data
WBC 4.2 10^3/uL (4.8-10.8) L 08/16/25 05:17
Hgb 8.1 g/dL (13.0-18.0) L 08/16/25 05:17
Plt Count 165 10^3/uL (130-400) 08/16/25 05:17
PT 17.7 Sec (11.4-14.6) H 08/11/25 05:14
INR 1.49 08/11/25 05:14
eGFR > 60.00 08/16/25 05:17
Physical Exam
Cardiology: S1 and S2
Pulmonary: Clear
GI: Soft
[2025-08-16] MEDS: NSS (PRESERVATIVE FREE) 10 ML IV (08:27)
[2025-08-16] MEDS: VIBRAMYCIN 100 MG PO (08:27)
[2025-08-16] MEDS: PROTONIX IV 40 MG IV (08:27)
[2025-08-16] MEDS: OMNICEF 300 MG PO (08:27)
[2025-08-16] MEDS: ALDACTONE 12.5 MG PO (08:28)
[2025-08-16] MEDS: VITAMIN B1 100 MG PO (08:28)
[2025-08-16] MEDS: VITAMIN C 500 MG PO (08:28)
[2025-08-16] MEDS: MIRALAX PO (08:28)
[2025-08-16] MEDS: FOLVITE 1 MG PO (08:28)
[2025-08-16] MEDS: THERAGRAN 1 TABLET PO (08:28)
--- NOTE | 2025-08-16 11:00 | W.PN.HOSP.TC ---
Today's Communication/Plan
-
Monitor vitals
See plan
Discussed with ID, continue with antibiotics until 08/24
Discharge today with outpatient follow-up
Time of discharge 39 minutes
Assessment / Plan
Assessment / Plan
General: Comfortable and Conversant
HEENT: NormoCephalic and Anicteric
Respiratory: Clear
Cardiac: S1/S2 and Regular Rhythm
GI: Soft, Normal Bowel Sounds, nontender
Musculoskeletal: No Edema
Neuro: AO x 3
Psych: Calm
Right lower lobe pneumonia
Suspect community-acquired pneumonia
Does not appear to have sepsis POA
Follow cultures
Patient was admitted previously on 07/09 for right lower lobe pneumonia and was managed with abx.
Previous chest CT showed no recurrence of pneumonia
Chest x-ray showed NEW right basilar opacity
DC Vanco, MRSA negative. continue doxycycline 14 day course 08/11-08/24
- continue cefdinir also through 08/24
Still complaining of shortness of breath, repeat chest x-rayWith possible atelectasis, pneumonia
Tylenol as needed for fever
Speech following, status post VSE 08/10. Now on regular diet
Streptococcus pneumonia antigen, Legionella antigen neg
Labs shows chronic pancytopenia which is likely secondary to malignancy
Oncology following
Persistent fever, ID following. Blood cultures so far negative. Follow fever curve. Could fever be secondary to malignancy
Generalized abdominal pain likely secondary to malignancy and constipation
cannot r/o PUD. has hx of gastritis/duodenitis
CT with possible constipation, improving
Continue laxatives, Now resolved
GI following, no plan for scope at this time
PPI
Hyponatremia, acute on chronic
Does appear to have history of hyponatremia
baseline sodium is nearly 128-130.
If Sodium does not improve then will need nephrology evaluation
Alcohol use disorder
Daily use of half a bottle of alcohol particularly wine
MSAS protocol
Thiamine, folate
Acute on chronic anemia
Hemoglobin 7 on 08/10, status post transfuse 1 unit PRBC. hgb now 7 again 08/13. Transfuse 1 unit PRBC. From oncology records, does appear to have bone marrow involvement.
hgb now 8.1
No signs of arturo bleeding
Received 2 unit PRBC this hospitalization
PPI
GI following. no plan for scope at this time
Hyperlipidemia
hold rosuvastatin
Hypertension
Continue with home meds
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
Diagnosed in March 2024, ongoing chemotherapy until July
Hold Nubeqa per oncology
oncology following
Elevated AST and alk phos
Suspect likely secondary to liver disease/metastases
Liver enzymes has been high in the past as well. CT abdomen 08/09 without biliary dilation. Already has cholecystectomy
Continue to monitor
GI following
Hold Nubeqa per oncology
History of gastritis/duodenitis
Continue to monitor
Alcohol use with abuse
Monitor for withdrawal
History of GERD
continue pantoprazole
-History of right lung cancer s/p proton therapy
Hyperlipidemia
Hold statin
-KARMEN
order cpap while here
DVTppx
Lovenox
Code Status
Full code
Anticipated Discharge: Today
Subjective/Interval History
-
Date of Service: August 16, 2025
Feeling better
Objective Data
-
Labs:
Laboratory Results
08/16/25
05:17
WBC 4.2 L
Hgb 8.1 L
Hct 26.1 L
Plt Count 165
Sodium 129 L
Potassium 3.8
Chloride 102
Carbon Dioxide 25
BUN 18
Creatinine 0.6 L
Glucose 101 H
Calcium 9.1
Total Bilirubin 0.7
AST 301 H
ALT 109 H
Alkaline Phosphatase 341 H
Vital Signs:
Vital Signs
Temp Pulse Resp BP Pulse Ox
98.6 F 86 17 134/55 97
08/16/25 07:35 08/16/25 07:35 08/16/25 07:35 08/16/25 07:35 08/16/25 07:35
I&O
08/15/25 08/16/25 08/17/25
06:59 06:59 06:59
Intake Total 1080 / 1080 1050 / 1050
Output Total 1550 / 1550 1500 / 1500
Balance -470 / -470 -450 / -450
--- NOTE | 2025-08-16 11:10 | W.DCSUMMARY ---
Discharge Summary
Discharge Data
Date of Admission: 08/09/25
Date of Discharge: 08/16/25
-
Pending Results: No
Hospital Course
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
proton therapy, hyperlipidemia, KARMEN came to the hospital with generalized abdominal pain which appeared to be secondary to constipation. Patient symptoms continue to improve over time. Patient was seen by gastroenterology however that the patient
symptoms were likely secondary to constipation so no scope was done. Patient also had acute on chronic hyponatremia which continue to improve over time. While he was in the hospital he also had acute on chronic anemia where he required 2 units of
blood transfusion throughout hospitalization. It was determined that his hemoglobin is likely low secondary to his bone marrow involvement from malignancy. His LFTs were also elevated so oncology recommended to hold Nubeqa. Patient also had
shortness of breath which was likely thought was secondary to right lower lobe pneumonia. Initially he was started on IV antibiotic which were later transitioned to p.o. cefdinir and doxycycline per ID recommendation. Once his symptoms continue to
improve, he was then discharged home with instructions to follow-up with all his physicians outpatient.
Discharge Plan
-
Patient Disposition: Home (Routine Discharge)
Discharge Diagnosis/Procedures: Right lower lobe pneumonia
Acute on chronic anemia
Hyponatremia, acute on chronic
Elevated LFTs
Condition: Fair
Diet: As tolerated and Other diet
Additional Diets: 50 ounce fluid restriction
Activity: No restrictions
Driving Restrictions: As prior to admission
Others Tests: Chest x-ray in 4 weeks with primary care provider
Referrals:
Federico Amanda DO [Active, Hematology / Oncology]
Charis Guardado DO [Family Provider, Family Practice] - in less than 1 week
Prescriptions:
New
doxycycline hyclate 100 mg Capsule
100 mg PO Q12 9 Days Qty: 18 0RF
cefdinir 300 mg Capsule
300 mg PO Q12 9 Days Qty: 18 0RF
thiamine mononitrate (vit B1) 100 mg Tablet
100 mg PO BID Qty: 60 0RF
Lactobacillus acidophilus [Probiotic] 10 billion cell capsule
10,000 mmu cells PO DAILY Qty: 10 0RF
Continued
gwxfhyegmhx-swsxkgpne-dcr C-Mn 1 TAB tablet
1 tab PO DAILY
gabapentin 300 mg Capsule
300 mg PO HS
therapeutic multivitamin Tablet
1 tab PO DAILY
ascorbic acid (vitamin C) [Vitamin C] 500 mg Tablet
500 mg PO DAILY
spironolactone 50 mg Tablet
12.5 mg PO DAILY
thiamine mononitrate (vit B1) 100 mg tablet
100 mg PO DAILY
diphenhydramine HCl 50 mg Capsule
50 mg PO HSPRN PRN (Reason: sleep)
folic acid 0.8 mg Capsule
0.8 mg PO DAILY
Changed
pantoprazole 40 mg Tablet,Delayed Release (Dr/Ec)
40 mg PO BID 30 Days Qty: 60 0RF
Held
rosuvastatin 5 mg Tablet
5 mg PO DAILY
Hold Instructions: Restart when LFTs improves
Nubeqa 300 mg Tablet
600 mg PO BID
Hold Instructions: Until instructed to take by oncology
Discharge Orders:
Discharge Patient (As Directed); Ordered 08/16/25
Ordered By: Luiz Figueroa
Discharge Date and Time
Discharge Date/Time: 08/16/25 12:19
Print Language: SAMI
--- NOTE | 2025-08-16 11:32 | CM ---
Jayme is cleared for discharge to home today. VN discussed and Jayme wants to wait to make a decision after he gets home; stating he wants to get the 'lay of the land' before making any decisions. [facility] reviewed and signed, copy of IMM provided to
Jayme.
CM advised Jayme and his , Marc, to contact Jayme's PCP to request VN services if desired after he returns home.
Patient provided with VN agency list and will contact his PCP if he feels it would be helpful.
Plan: Discharge to home today with no needs per patient preference.
--- NOTE | 2025-08-16 11:39 | CM ---
CM met with Jayme and his at bedside to discuss discharge to home today. VN offered, however Jayme does not wish to make any decisions until he is home and 'gets the lay of the land'.
IMM reviewed and signed, copy given to Jayme and the signed form was placed in pt's chart.
Jayme's will drive him home.
CM advised Jayme to contact his PCP if he decides he would like visiting nurses once he is discharged.
Plan: Discharge to home with no needs per patient preference. Jayme's will transport home.
--- NOTE | 2025-08-16 11:44 | W.PN.ID1 ---
Date of Service
Date of Service: August 16, 2025
Today's Communication
- continue doxycycline 14 day course 08/11-08/24
- continue cefdinir also through 08/24
- follow up with PCP and oncology
Assessment / Plan
Fever - resolving
Pneumonia
Pancytopenia without persistent neutropenia
H/o Hypogammaglobulinemia
Prostate cancer on antiandrogen therapy
- fevers resolved - may have been slower due to his leukopenia
- brought sputum cup to the bedside - was not able to produce a sputum
- blood cultures x2 are finalized negative
- continue doxycycline 14 day course 08/11-08/24
- continue cefdinir also through 08/24
- follow up with PCP and oncology
Chief Complaint
-: Fever
Subjective / Review of Systems
no further fevers
malaise improved
appetite better
slept more last night
Vital Signs / Physical Exam
Vital Signs
Vital Signs
Temp Pulse Resp BP Pulse Ox
98.6 F 86 17 134/55 97
08/16/25 07:35 08/16/25 07:35 08/16/25 07:35 08/16/25 07:35 08/16/25 07:35
Physical Exam
Constitutional: No Acute Distress
Cardiovascular: Regular Rate and S1/S2; Negative Murmur or Rub
Pulmonary: Clear and Symmetric; Negative Wheezes or Rales
Gastrointestinal: Soft, Non Tender, Non Distended and Normal Bowel Sounds
Skin: Warm and Dry; Negative Rash or Jaundice
Objective Data
Lab Data
Lab Results
08/16/25 05:17
08/16/25 05:17
PT 17.7 Sec (11.4-14.6) H 08/11/25 05:14
INR 1.49 08/11/25 05:14
Estimated Creat Clear 95 ml/min 08/16/25 05:17
Lactic Acid Cancelled 08/09/25 10:15
Total Bilirubin 0.7 mg/dl (0.2-1.3) 08/16/25 05:17
AST 301 U/L (17-59) H 08/16/25 05:17
ALT 109 U/L (0-50) H 08/16/25 05:17
Alkaline Phosphatase 341 U/L (38-126) H 08/16/25 05:17
Most recent labs reviewed.
Micro Results:
08/09/25 07:45 Blood Culture - Final
Blood/Venous No Growth - Final Report
08/09/25 06:45 Blood Culture - Final
Blood/Venous No Growth - Final Report
08/09/25 15:09 Nasal Screen MRSA (PCR) - Final
Nose MRSA not detected - performed by PCR methodology.
08/09/25 15:09 Legionella Urinary Antigen - Final
Urine Negative for Legionella pneumophila Serogroup 1 antigen.
A negative result does not rule out the possiblity of
Legionella infection due to other serogroups or species of
Legionella. Clinical correlation is recommended.
Streptococcus pneumoniae Antigen (M - Final
Negative for Streptococcus pneumoniae antigen.
A negative result does not exclude infection with
Streptococcus pneumoniae. Clinical correlation is
recommended.
08/09/25 06:49 Influenza Types A & B (SAMIR) - Final
Nasal Swab Negative for Influenza A & B, NAAT
Negative results must be combined with clinical observations
and patient history.
Nucleic Acid Amplification test (NAAT)performed on the
[employer] platform.
Care Review
Plan reviewed with: Physician (Dr Henry de la rosa)
[2025-08-16 11:59] VITALS: BP 147/74
== END 2025-08-16 12:19 | disposition home or self-care (01) | DRG 194 ==
LOC: 3 WEST ACU 11:59
PROVIDERS: Nurse Practitioner Adult Health; Nurse Practitioner Gerontology; Student in an Organized Health Care Education/Training Program; ADMITTING PHYSICIAN Internal Medicine; CONSULT PHYSICIAN Internal Medicine Gastroenterology; CONSULT PHYSICIAN Student in an Organized Health Care Education/Training Program; EMERGENCY PHYSICIAN Student in an Organized Health Care Education/Training Program; FAMILY PHYSICIAN Family Medicine; OTHER PHYSICIAN Internal Medicine Hematology & Oncology
PROC: 30233N1 Transfusion of Nonautologous Red Blood Cells into Peripheral Vein, Percutaneous Approach (ICD-10-PCS; 2025-08-10)
DX: J18.9 Pneumonia, unspecified organism (principal); C78.1 Secondary malignant neoplasm of mediastinum; C79.51 Secondary malignant neoplasm of bone; D61.818 Other pancytopenia; E22.2 Syndrome of inappropriate secretion of antidiuretic hormone; K59.00 Constipation, unspecified; F10.10 Alcohol abuse, uncomplicated; I10 Essential (primary) hypertension; K21.9 Gastro-esophageal reflux disease without esophagitis; G47.33 Obstructive sleep apnea (adult) (pediatric); C61 Malignant neoplasm of prostate; D63.8 Anemia in other chronic diseases classified elsewhere; E78.00 Pure hypercholesterolemia, unspecified; R09.02 Hypoxemia; Z11.52 Encounter for screening for COVID-19; Z79.899 Other long term (current) drug therapy; Z85.118 Personal history of other malignant neoplasm of bronchus and lung; Z87.891 Personal history of nicotine dependence
CPT/HCPCS: 71046; 74177; 74230; 80053; 81003; 81015; 82550; 82607; 82728; 82746; 82962; 83010; 83540; 83550; 83605; 83615; 83930; 83935; 84300; 85014; 85018; 85025; 85045; 85610; 86850; 86900; 86901; 86920; 87040; 87449; 87502; 87641; 87811; 87899; 92610; 92611; 93005; 96361; 96374; 96375; 99285; G0103; P9016; Q9967

== ENCOUNTER 2025-09-04 18:55 | Inpatient (IN) | payer OTHER, SELFPAY ==
[2025-09-04] VITALS (13 sets, daily range): BP systolic 107–156; BP diastolic 61–78; O2SAT 97
[2025-09-04] MEDS: NSS 500 IV ×2 (13:37→17:18)
[2025-09-04 13:52] LABS: Hematocrit 25.7 % (39.0-52.0); Hemoglobin 8.0 g/dL (13.0-18.0); Mean Corp Hgb Conc. 31.1 g/dL (33.0-37.0); Mean Corpuscular Volume 89.5 fL (80.0-94.0); Platelet Count 172 10^3/uL (130-400); Red Cell Dist. Width 19.0 % (11.5-14.5)
[2025-09-04 14:00] LABS: ALT (SGPT) 12 U/L (0-50); AST (SGOT) 428 U/L (17-59); Albumin 3.3 g/dl (3.5-5.0); Alkaline Phosphatase 244 U/L (38-126); Blood Urea Nitrogen 18 mg/dl (9-20); Calcium 8.6 mg/dl (8.4-10.2); Carbon Dioxide 25 mmol/L (22-30); Chloride 95 mmol/L (98-107); Glucose 97 mg/dl (70-99); Magnesium 1.5 mg/dl (1.6-2.3); Potassium 4.7 mmol/L (3.5-5.1); Sodium 127 mmol/L (135-145); Total Protein 6.2 g/dl (6.3-8.2); eGFR > 60.00
[2025-09-04 14:26] LABS: Absolute Neutrophils -Man Diff 2.3 10^3/uL (1.4-6.5); Normal RBC Morphology No; Platelets Checked Yes
[2025-09-04 14:27] LABS: Anisocytosis 1+; Hypochromasia 1+; Ovalocytes 1+; Polychromasia 1+; Total Cells Counted 100
--- NOTE | 2025-09-04 14:32 | ED.GENMED ---
History of Present Illness
General
Chief Complaint: Generalized Pain
Source: patient and spouse
Exam Limitations: none
Time Seen by Provider: 09/04/25 12:51
Nursing documentation reviewed up to this point in time: agreed with
History of Present Illness
History of Present Illness:
Patient with history of metastatic prostate cancer, whose cancer treatment was recently discontinued during hospitalization, presents to ED secondary to worsening generalized pain, especially legs, along with decreased appetite over the past 3 to 4
days. Denies fever or chills. Denies vomiting or diarrhea. Denies coughing. Denies headache or dizziness. Denies loss of sensation or weakness. Denies sick contact. Denies recent change in medications or diet. Patient was given fentanyl in
route to the hospital by paramedics.
Past History
Past History
ED Past Medical History: GERD, HTN, Hypercholesterolemia and Other (Lung cancer)
ED Past Surgical History: Cholecystectomy
Social History
Tobacco: Former smoker
Alcohol: Daily (1-2 bottles wine)
Drug: None
Personal:
Living: with family
Review of Systems
Review of Systems
Allergies reviewed?: Yes
Constitutional: Reports no symptoms
Respiratory: Reports no symptoms
Cardiac: Reports no symptoms
ABD/GI: Reports no symptoms
Musculoskeletal: Reports joint pain and muscle pain
Skin: Reports no symptoms
Neurological: Reports no symptoms
Phy Exam
Physical Exam
Physical Exam:
Physical Exam
General: mild painful distress, not acutely ill. afebrile. weak appearing.
Head: nc/at. eomi
Neck: supple. normal range of motion
Heart: s1/s2 regular rate and rhythm
Lungs: no acute respiratory distress. clear bilaterally
Abdomen: normal bowel sounds. not tender.
Neuro: alert and oriented x 3. no focal neurological deficits
Skin: no rash
Psychiatric: well kept. interactive and cooperative
Extremities: no edema. no calf tenderness. diffuse joint/LE tenderness to pain/ROM
Course
Orders/Labs/Results
Orders:
Orders
09/04/25 Breakfast
Cholesterol Lowering
At Your Request: Full Participation
Cholesterol Lowering: Sodium, 2 Gram
09/04/25 13:25
0.9% Sodium Chloride 500 ml [Nss] 500 ml IV BOLUS
09/04/25 13:37
C-Reactive Protein Urgent
Comment: ADD ON
Complete Blood Count/With Diff Urgent
Comprehensive Metabolic Panel Urgent
Erythrocyte Sed Rate Urgent
Comment: ADD ON
Magnesium Urgent
Manual Differential Urgent
NT-proBNP Urgent
Comment: AD ON
09/04/25 14:30
Urinalysis Reflex To Culture Urgent
Date Specimen was Collected: 09/04/25
Time Specimen was Collected: 14:25
Urine Microscopic Reflex Cult Urgent
09/04/25 14:32
Magnesium Oxide 400 mg PO NOW STA
09/04/25 14:37
Acetaminophen [Tylenol] 1,000 mg PO NOW STA
Physical Therapy Consult [Pt Eval And Treat] Urgent
Activity Level: Ambulate
09/04/25 16:00
0.9% Sodium Chloride 500 ml [Nss] 500 ml IV 100 mls/hr
09/04/25 17:53
Admit/Transfer Patient As Directed
Co-Sign Provider:
Level of Care: Inpatient admission
Assign to:: Medical/Surgical
Physician / Group: hospitalist
Diagnosis: metastatic prostate cancer, pain/lethargy
Reason for Hospitalization: metastatic prostate cancer, pain/lethargy
Expected length of stay greater than two midnights?: Yes
ELOS- Estimated Length of Stay in days: 3
I certify the patient meets the requirements for IP care: Yes
PRN Pain Medication Management As Directed
May give lesser potent ordered pain med per pt: Yes
preference::
Protocol:: Medication orders for pain may be administered in a
manner that supports deferring to patient preference
when the pt is:
- Requesting an ordered lesser potent pain medication.
Least to most potent pain medications are defined
as: acetaminophen < NSAID < tramadol < opioids
(morphine, oxycodone, hydromorphone).
- Requesting a lesser dose of the same medication IF
ORDERED.
- Requesting a less intrusive route of administration
if both routes are prescribed by the provider (PO <
IV).
09/04/25 17:57
Code Status As Directed
Resuscitation Status: Full Code
09/04/25 18:29
Add On- LAB Routine
Tests Added?: CRP, ESR
Add On- LAB Routine
Tests Added?: pro BNP
09/04/25 20:35
Acetaminophen [Tylenol] 650 mg PO Q4HPRN PRN
Bisacodyl [Dulcolax] 10 mg RECTAL [id number] PRN
Diphenhydramine [Benadryl] 50 mg PO HSPRN PRN sleep
Docusate W/Senna [Senokot-S] 1 tablet PO BID
Enoxaparin Sodium [Lovenox] 40 mg SC QPM
HYDROmorphone [Dilaudid] 0.25 mg IV Q4HPRN PRN
HYDROmorphone [Dilaudid] 0.5 mg IV Q4HPRN PRN
Magnesium Sulfate 4 Gram/100Ml [Magnesium Sulfate] 4 gram in 100 ml IV NOW
Ondansetron Injectable [Zofran] 4 mg IV Q6HPRN PRN
Pantoprazole [Protonix] 40 mg PO BID
09/04/25 20:35
ONCOLOGY CONSULT Routine
Consulting Provider: Patricia Rose
Was physician already notified: Yes
COVID-19 Antigen Routine
Source: Nasal Swab
Influenza A+B Rapid Molecular Routine
RONALD Source: Nasal Swab
Specimen Description:
Activity As Directed
Activity Level: Out of Bed-Early Mobility
Vital Signs As Directed
Frequency: Per unit guidelines
O2 Therapy [RESP] Routine
Nasal Cannula Liter Flow: 2 LPM
Titrate/Wean O2 to maintain O2 sat greater than (%): 95
Ot Eval And Treat Routine
DX Deep Vein Thrombosis Video Routine
09/04/25 22:00
Dexamethasone Sod Phosphate [Decadron] 4 mg IV Q6H
Gabapentin [Neurontin] 300 mg PO HS
09/05/25 06:00
Complete Blood Count/With Diff IN AM
Comprehensive Metabolic Panel IN AM
Magnesium IN AM
CR Chest - 2 Views Routine
Comment:
Reason For Exam: cough
09/05/25 08:00
Ascorbic Acid [Vitamin C] 500 mg PO DAILY
FOLic ACID [Folvite] 1 mg PO DAILY
Furosemide [Lasix] 20 mg PO DAILY
Polyethylene Glycol Powder [Miralax] 17 grams PO DAILY
Spironolactone [Aldactone] 12.5 mg PO DAILY
Thiamine HCl [Vitamin B1] 100 mg PO DAILY
Abnormal Lab Results
09/04/25 09/04/25
13:37 14:30
WBC 4.1 L 10^3/uL
(4.8-10.8)
RBC 2.87 L 10^6/uL
(4.70-6.10)
Hgb 8.0 L g/dL
(13.0-18.0)
Hct 25.7 L %
(39.0-52.0)
MCHC 31.1 L g/dL
(33.0-37.0)
RDW 19.0 H %
(11.5-14.5)
MPV 10.8 H fL
(7.4-10.4)
Band Neutrophils 10 H %
(0-3)
Monocytes (Manual) 16 H %
(2-9)
ESR > 145 H mm/hour
(0-20)
Sodium 127 L mmol/L
(135-145)
Chloride 95 L mmol/L
(98-107)
Magnesium 1.5 L mg/dl
(1.6-2.3)
AST 428 H U/L
(17-59)
Alkaline Phosphatase 244 H U/L
(38-126)
C-Reactive Protein 169.80 H mg/L
(0.0-10.00)
Total Protein 6.2 L g/dl
(6.3-8.2)
Albumin 3.3 L g/dl
(3.5-5.0)
Urine Ketones 2+ A
(Negative)
Urine Bacteria (Reflex) Few A
(Negative)
Urine Albumin (Reflex) 2+ A
(Neg - Trace)
09/04/25 13:37
09/04/25 13:37
Vital Signs
Initial and Last Documented VS:
Initial Vital Signs
Temp Pulse Resp BP Pulse Ox
100.0 F 112 20 146/74 91
09/04/25 12:23 09/04/25 12:23 09/04/25 12:23 09/04/25 12:23 09/04/25 12:23
Last Documented Vital Signs
Temp Pulse Resp BP Pulse Ox
98.5 F 100 18 137/70 92
09/04/25 20:54 09/04/25 20:54 09/04/25 20:54 09/04/25 20:54 09/04/25 22:10
MDM/Problems Addressed
MDM/Problems Addressed:
Patient evaluated in ED by physical therapy with recommendation for SNF provided.
Patient with persistent pain despite treatment with multiple medications. Initial hypoxia, requiring supplemental oxygen, likely secondary to recent administration of narcotics.
In light of patient's ongoing symptoms and safety concerns, patient will be admitted for further evaluation and treatment, including potential oncology consultation, to discuss whether or not patient will need to restart his chemo treatment.
*Pulse Oximetry
SaO2: 98
Nasal Cannula flow liters per minute: 2
Oxygen Mode of Delivery: Room air
Patient hypoxic: no
*Critical Care Note
Total Time (30-74mins, 75-104mins- exclusive of procedures): Not Applicable
ED Attending Note
-
Portions of this chart may have been created with voice recognition software.� Occasional wrong word or��sound alike� substitutions may have occurred due to the inherent limitations of voice recognition software.
Discharge Plan
Departure
Patient Disposition: Admit
Date of Disposition: 09/04/25
Time of Disposition: 15:49
Admit to: Med/Surg
Presentation/result/management discussed w/ accepting MD/DO: Hospitalist
Discharge Problem:
intractable pain, Hyponatremia
Interventions
Interventions:
*General Assessment Last Done: 09/04/25 12:23
*Neglect/Abuse Screening Last Done: 09/04/25 12:23
*ED COVID-19 Vaccine History Last Done: 09/04/25 12:32
*ED Influenza Vaccine History Last Done: 09/04/25 12:32
[facility] Risk Assessment Tool Last Done: 09/04/25 12:43
*Risk Screen - Suicide (C-SSRS) Last Done: 09/04/25 12:23
*Nursing Disposition Last Done: 09/04/25 20:53
Discharge Date and Time
Discharge Date/Time: 09/04/25 20:53
[2025-09-04 14:41] LABS: Urine Character Clear (Clear)
[2025-09-04 15:08] LABS: Urine Squamous Cell 0-2 /LPF (Few)
[2025-09-04 15:09] LABS: Urine Red Blood Cell 0-2 /HPF (0-2); Urine White Cell 0-2 /HPF (0-5)
[2025-09-04] MEDS: MAGNESIUM OXIDE 400 MG PO (15:12)
[2025-09-04] MEDS: TYLENOL 1000 MG PO (15:12)
--- NOTE | 2025-09-04 16:35 | HPS.HSE ---
Addendum entered and electronically signed by Tiffani Maldonado MD, Resident 09/11/25 14:44:
Comments:
- Vitamin C 500 mg p.o. daily
- Darolutamide 600 mg p.o. twice daily
- Diphenhydramine HCl 50 mg p.o. at bedtime as needed
- Folic acid 0.8 mg p.o. daily
- Furosemide 20 mg p.o. daily
- Gabapentin 300 mg p.o. at bedtime
- Glucosamine�chondroitin�vitamin C�Mn 1 tab p.o. daily
- Lactobacillus acidophilus 10,000 MMU cells p.o. daily
- Pantoprazole 40 mg twice daily p.o.
- Prednisone 25 mg p.o. twice daily
- Spironolactone 12.5 mg p.o. daily
- Therapeutic multivitamin 1 tab p.o. daily
- Thiamine mononitrate (vit B1) 100 mg p.o. daily & 100 mg p.o. twice daily
Addendum entered and electronically signed by Yessica Olmedo MD 09/04/25 19:58:
I personally performed a history and physical exam of the patient and discussed management with the resident. I reviewed the resident's note and agree with the documented findings and plan of care HPI/CC.
GENERAL: well developed, well nourished, male in no apparent distress
HEENT: NC/AT --O2 NC in place--2L
HEART: regular rate and rhythm, +S1, +S2
LUNGS : rhonchi right lung field
ABDOM: soft, nontender, nondistended, + bowel sounds--abdominal wall hernia
EXT: no cyanosis, clubbing-- 2+ pedal edema
NEUROLOGIC: grossly intact
Lethargy, weakness, poor appetite, night sweats--possibly due to stage 4 prostate cancer--consult onc--pain control--start IV decadron 4mg Q6--pt allergic to codeine
Pain in bilateral shoulders and hips--could be due to prostate ca and off Nubeqa--other etiology could be PMR--check ESR, CRP although with prostate cancer may be unreliable--cont steroids as above--low dose dilaudid and mid dose for moderate and
severe pain control--bowel regimen with narcotics
Cough--History recent RLL pneumonia--Lower extremity edema and acute hypoxemic resp insufficiency--finished doxy and cefdinir--check CXR--check pro-BNP--consider CT chest and ECHO--check Covid/flu-add lasix 20 mg daily, cont aldactone
Elevated LFTs--Patient AST up trended since last admission to 428. ALT remains within normal limits 12-- alcohol use disorder, with ongoing use vs other (mets)-- check US--hold statin
Hypomagnesemia--replete
HLD�holding statin, pending liver workup
Essential HTN-continue home spironolactone
GERD-continue home PPI
Alcohol use disorder-continue home thiamine supplement
DVT Proph-- Lovenox
Code status-- Full
Original Note:
Family Physician
-
Family Physician: Charis Guardado
Chief Complaint
-
weakness, lethargy, pain in bilateral upper/lower extremities
History of Present Illness
Jayme Armijo is a 75-year-old M with a hx of HLD, essential HTN, anemia of chronic disease, chronic hyponatremia, alcohol use disorder, right sided lung cancer (s/p proton therapy 3-4 years prior; in remission), stage IV prostate cancer with mets
to the bones (s/p Nubeqa), and recent admission for R-sided pneumonia, who presents with subacute worsening of lethargy/weakness, poor appetite, pain in extremities, night sweats, and worsening cough.
Per patient's partner at bedside, patient was recovering well following his discharge from on 08/16. Patient had been treated during that admission for right sided pneumonia, and had been discharged on a 9-day course of antibiotics (cefdinir and
doxycycline) along with probiotics, which he completed. Patient/partner state that he was also discharged on Lasix, but this was not documented in discharge summary or home meds list. Patient states that cough improved, and swelling in lower
extremities bilaterally also improved. Patient's Nubeqa (androgen inhibitor, treatment for prostate cancer), has been held since his early August admission due to elevated LFTs. His statin has also been held for the same reason. Per patient,
RUQ US had been planned outpatient but not yet completed.
Per patient's partner, patient began declining on 08/31. Patient began having worsening lethargy, very poor appetite, and inability to get up from bed without assistance due to severe pain in bilateral lower extremities with movement. Patient also
endorses severe pain with lifting arms above head, localized to the shoulder joints. This pain feels dull and achy in the joints rather than neuropathic; patient denies paresthesias. Patient is able to ambulate with assistance, although very
slowly and limited by pain. Per patient's partner, patient also has been requiring more naps over the past few days. The patient also states that he has developed a new wet cough over the last 3 to 4 days. Patient also endorses worsening night
sweats, waking up soaked in sweat overnight for the last week or so. Patient follows with Dr. Amanda at [facility] as his oncologist. Patient's last PET scan was in April 2025, which demonstrated extensive metastasis including to the axial
skeleton and bilateral shoulder girdles. Patient's next PET scan was scheduled for 09/18, with follow-up appointment with Dr. Amanda scheduled for 09/25. At that point in time, patient was planning to discuss reinitiation of Nubeqa. Patient
attempted to get in touch with Dr. Amanda's office this past week, but was unable to during the holidays. Given these changes, patient presented to the ED. Patient was given fentanyl and route in the ambulance.
Patient has been managing pain at home with his scheduled gabapentin and with Tylenol as needed; this has not controlled the pain well. Patient denies any nausea/vomiting, denies diarrhea. Denies any recent sick contacts. Confirms that he does
not currently smoke (quit 16 to 17 years ago).
On presentation to the ED, patient was afebrile (temperature 100.0), tachycardic (HR 112), with RR 20, BP 146/74, and mild hypoxia with O2 sat 91% on room air. CBC notable for leukopenia (WBC 4.1, consistent with baseline), anemia (hemoglobin 8.0,
consistent with baseline), hyponatremia (127, consistent with baseline). Patient slightly hypomagnesemic (1.5, not consistent with baseline). Patient with AST up trended to 428 from prior 301 on 08/16. ALT within normal limits. Total bilirubin
not elevated (1.0). Alk phos elevated to 244, consistent with fluctuating elevated baseline. Patient was ordered IV fluids and seen by PT, who deemed patient unsafe to be discharged due to pain/weakness. PT spoke with partner, discussed options
for home health versus SNF. Plan for inpatient admission.
On exam in the ED, patient lethargic/somnolent, although able to answer questions. Much of history per patient's partner. Patient appears somewhat uncomfortable but not in any acute pain. Endorses above story.
Medical History
Past Medical History
Past Medical History: Reports Cancer (lung, prostate), GERD, HTN and Hypercholesterolemia
Past Surgical History: Reports Cholecystectomy
Social History
Tobacco: Former Smoker
Alcohol: Chronic Alcoholic
Drug: None
Personal:
Living: With Family
Family History
Family History: Not pertinent
Allergies / Home Medications
Allergies reflects when Allergies were last updated in [facility].
Home Medications with original date entered in [facility]
Allergy/Medication List:
codeine - anaphylaxis
Review of Systems
-
History Source: Patient and Family
Constitutional: Reports Fever, Fatigue, Night Sweats and Chills
EENT: Reports No Symptoms
Respiratory: Reports Cough
Cardiac: Reports No Symptoms
Abdomen/GI: Reports No Symptoms
: Reports No Symptoms
Musculoskeletal: Reports Joint Pain (bilateral shoulders, hips) and Muscle Pain (legs w walking)
Skin: Reports No Symptoms
Neurological: Reports No Symptoms
Psych: Reports No Symptoms
Physical Exam
Vital Signs
Vital Signs
Temp Pulse Resp BP Pulse Ox
100.0 F 102 19 112/66 96
09/04/25 12:23 09/04/25 16:15 09/04/25 16:15 09/04/25 16:00 09/04/25 16:15
Physical Exam
General: Appears in Distress (mild) and Appears Chronically Ill
HEENT: NormoCephalic, Anicteric and Moist mucous membranes
Respiratory: Rhonchi (RLL )
Cardiac: Tachycardia
GI: Soft, Non Tender, Non Distended and Other (abdominal hernia, reducible )
Musculoskeletal: Edema, Left Lower Extremity (1+ pitting to mid mak), Edema, Right Lower Extremity (1+ pitting to mid mak) and Other (slight tenderness to palpation over bilateral shoulders; no tenderness to palpation over lower extremities, able
to move lower extremities on command although with weakness/slowly)
Skin: Warm and Dry
Neuro: Awake and Alert
Psych: Calm
Laboratory Results
-
09/04/25 13:37
09/04/25 13:37
Laboratory Results
Total Bilirubin 1.0 mg/dl (0.2-1.3) 09/04/25 13:37
AST 428 U/L (17-59) H 09/04/25 13:37
ALT 12 U/L (0-50) 09/04/25 13:37
Alkaline Phosphatase 244 U/L (38-126) H 09/04/25 13:37
Data Reviewed
-
Critical Care Time (in minutes): 60
Diagnostic Radiology: Report Reviewed by me
Lab Data: Labs Reviewed by me
Old Records: Reviewed
Impression/Plan
-
75yo M with a hx of HLD, essential HTN, anemia of chronic disease, chronic hyponatremia, alcohol use disorder, right sided lung cancer (s/p proton therapy 3-4 years prior; in remission), stage IV prostate cancer with mets to the bones (s/p Nubeqa),
and recent admission for RLL pneumonia, who presents with subacute worsening of lethargy/weakness, poor appetite, pain in extremities, night sweats, and worsening cough.
#Stage IV prostate cancer
#Lethargy, weakness, poor appetite, night sweats
#Pain in bilateral shoulders and hips
Patient's presentation most likely consistent with advanced metastatic prostate cancer, potentially in the setting of holding his nubeqa vs. ongoing progression of disease. Fever/chills most likely due to malignancy rather than infectious etiology.
Bone pain consistent with known areas of metastasis per PET scan in April. Patient follows with Dr. Perdomo and oncology.
- 4 mg IV Decadron every 4 hours
- PRN 0.25mg Dilaudid for moderate pain, 0.5mg Dilaudid for severe pain
- Schedule bowel regimen
- Continue holding Nubeqa
- Consult oncology, appreciate recs
#Cough
#History recent RLL pneumonia
#Lower extremity edema
#Mild hypoxia
Patient endorsing worsening wet cough over the last 3 to 4 days. Patient recently completed treatment with doxycycline and cefdinir for right sided pneumonia (discharged 08/16). Patient with rhonchi on right side on exam on admission. Patient does
have bilateral pitting lower extremity edema, which he states has been improving status post diuresis. Ddx for cough includes recurrent infectious pneumonia vs. pulmonary congestion/edema in the setting of volume overload. Patient's site of prior
lung cancer was also on the right, recurrence is lower on differential. Patient with mild desat to the high 80s/low 90s on room air, although patient did sat up to the 96% on room air while discussing in room on admission. This is likely secondary
to ongoing process in the lung, whether infectious or congestive.
- CXR
- Consider CT chest, pending result of CXR
- Check proBNP
- Check COVID/flu
- Consider TTE, pending result of proBNP
- Continue home spironolactone
- Start 20 mg p.o. Lasix daily
- O2 NC as needed to maintain O2 sat over 96%, wean as tolerated
#Elevated LFTs
Patient AST up trended since last admission to 428. ALT remains within normal limits 12. Patient with known history of alcohol use disorder, with ongoing use. Most likely secondary to this etiology. Patient notes that he had gallbladder removed
as a child. Bilirubin within normal limits, no evidence of obstructive etiology. Nubeqa and statins have been held since 08/16 due to elevated LFTs.
- RUQ US
- Continue holding home statin
#Hypomagnesemia
Patient with magnesium of 1.5 on admission, decreased from prior 1.8. Likely in s/o alcohol intake vs. poor PO intake over last week.
- Replete Mg (4 mg IV over 12 hours)
- Trend CMP
#Chronic
#HLD�holding statin, pending liver workup
#Essential HTN-continue home spironolactone
#GERD-continue home PPI
#Alcohol use disorder-continue home thiamine supplement
#Global
- DVT PPx: Lovenox
- Code: Full
- Diet: Cholesterol-lowering
- Dispo: Pending PT/OT eval, case management
[2025-09-04] MEDS: PROTONIX 40 MG PO (21:38)
[2025-09-04] MEDS: NEURONTIN 300 MG PO (21:39)
[2025-09-04] MEDS: SENOKOT-S PO (21:39)
[2025-09-04] MEDS: LOVENOX 40 MG SC (21:41)
[2025-09-04] MEDS: DECADRON 4 MG IV (21:42)
[2025-09-04] MEDS: NSS 1000 IV (21:53)
[2025-09-04] MEDS: MAGNESIUM SULFATE 100 IV (21:53)
[2025-09-05 01:14] LABS: COVID-19 Antigen Negative (Negative)
--- NOTE | 2025-09-05 01:47 | PTCARENOTE ---
Pt arrived to unit via stretcher. Pt transferred from stretcher to bed. Pt oriented to room. Pt AAOx3, VSS. Pt's spouse present at bedside. Call reddy within reach, plan of care ongoing.
[2025-09-05] MEDS: DECADRON 4 MG IV ×2 (04:06→09:59)
[2025-09-05 06:00] VITALS: BMI 22.5
[2025-09-05 06:38] LABS: Hematocrit 23.9 % (39.0-52.0); Hemoglobin 7.3 g/dL (13.0-18.0); Mean Corp Hgb Conc. 30.5 g/dL (33.0-37.0); Mean Corpuscular Volume 89.5 fL (80.0-94.0); Platelet Count 131 10^3/uL (130-400); Red Cell Dist. Width 18.7 % (11.5-14.5)
--- NOTE | 2025-09-05 07:05 | W.PN.HOSP.TC ---
Addendum entered and electronically signed by Yessica Olmedo MD 09/05/25 14:13:
I saw and evaluated the patient independently. I reviewed and discussed the resident�s note and agree with findings and plan as documented by Dr. Maldonado.
GENERAL: well developed, well nourished, male in no apparent distress
HEENT: NC/AT --O2 NC in place--2L
HEART: regular rate and rhythm, +S1, +S2
LUNGS : rhonchi right lung field
ABDOM: soft, nontender, nondistended, + bowel sounds--abdominal wall hernia
EXT: no cyanosis, clubbing-- 2+ pedal edema
NEUROLOGIC: grossly intact
Lethargy, weakness, poor appetite, night sweats--possibly due to stage 4 prostate cancer--await onc input--pain control--start IV decadron 4mg Q6--pt allergic to codeine--did well with steroids--change to prednisone 25mg BID (50 mg total)
Pain in bilateral shoulders and hips--could be due to prostate ca and off Nubeqa--other etiology could be PMR-- ESR, CRP both elevated although with prostate cancer may be unreliable--cont steroids as above--low dose dilaudid and mid dose for
moderate and severe pain control (has not needed)--bowel regimen with narcotics
Cough--History recent RLL pneumonia--Lower extremity edema and acute hypoxemic resp insufficiency--finished doxy and cefdinir--CXR without pna, small bilateral pleural effusions--pro-BNP elevated--check ECHO--Covid/flu both negative--add lasix 40 mg
daily, cont aldactone
Elevated LFTs--Patient AST up trended since last admission to 428. ALT remains within normal limits 12-- alcohol use disorder, with ongoing use vs other (mets)-- US with new 'spot' from 08/09 CT scan--check MRI abdomen--hold statin
Hypomagnesemia--replete
HLD�holding statin, pending liver workup
Essential HTN-continue home spironolactone
GERD-continue home PPI
Alcohol use disorder-continue home thiamine supplement
DVT Proph-- Lovenox
Code status-- Full
Original Note:
Today's Communication/Plan
-
- 4 mg IV Decadron every 6 hours >> convert to prednisone 25mg bid
- PRN 0.25mg Dilaudid for moderate pain, 0.5mg Dilaudid for severe pain
- Schedule bowel regimen
- Continue holding Nubeqa
- Consult oncology, appreciate recs
- Check TTE
- Continue home spironolactone
- Increase lasix to 40mg PO
- O2 NC as needed to maintain O2 sat over 96%, wean as tolerated
- MRI abdomen w & w/o contrast
- Continue holding home statin
Assessment / Plan
Assessment / Plan
75yo M with a hx of HLD, essential HTN, anemia of chronic disease, chronic hyponatremia, alcohol use disorder, right sided lung cancer (s/p proton therapy 3-4 years prior; in remission), stage IV prostate cancer with mets to the bones (s/p Nubeqa),
and recent admission for RLL pneumonia, who presents with subacute worsening of lethargy/weakness, poor appetite, pain in extremities, night sweats, and worsening cough.
#Stage IV prostate cancer
#Lethargy, weakness, poor appetite, night sweats
#Pain in bilateral shoulders and hips, c/f PMR superimposed on mets pain
Patient's presentation most likely consistent with advanced metastatic prostate cancer, potentially in the setting of holding his nubeqa vs. ongoing progression of disease vs. PMR given distribution of pain. Fever/chills most likely due to
malignancy rather than infectious etiology. Bone pain consistent with known areas of metastasis per PET scan in April. Patient follows with Dr. Amanda oncology. ESR>145 & CRP 168, indicating inflammation. For cancer pain or PMR, trt is steroids.
- Convert IV decadron to 25mg prednisone bid today
- PRN 0.25mg Dilaudid for moderate pain, 0.5mg Dilaudid for severe pain
- Schedule bowel regimen
- Continue holding Nubeqa
- Consult oncology, appreciate recs
- Should f/u with rheum OP
#Cough, likely 2/2 congestion
#History recent RLL pneumonia
#Lower extremity edema
#Mild hypoxia
Patient endorsing worsening wet cough over the last 3 to 4 days. Patient recently completed treatment with doxycycline and cefdinir for right sided pneumonia (discharged 08/16). Patient with rhonchi on right side on exam on admission. Patient does
have bilateral pitting lower extremity edema, which he states has been improving status post diuresis. Patient with mild desat to the high 80s/low 90s on room air, although patient did sat up to the 96% on room air while discussing in room on
admission. This is likely secondary to ongoing process in the lung. Ddx includes recurrent infectious pneumonia vs. pulmonary congestion/edema in the setting of volume overload. Patient's site of prior lung cancer was also on the right, although
recurrence is lower on differential. Flu/covid negative. ProBNP elevated to 2,830. CXR 'Improved inflation of both lungs since most recent radiograph with preliminary previously seen atelectasis. Band of probable scarring within the right midlung,
stable. Small bilateral pleural effusions, improved from most recent radiograph.' Supports congestive etiology.
- Check TTE
- Continue home spironolactone
- Increase lasix to 40mg PO
- O2 NC as needed to maintain O2 sat over 96%, wean as tolerated
#Elevated LFTs
#C/f liver mets
Patient AST up trended since last admission to 428. ALT remains within normal limits 12. Patient with known history of alcohol use disorder, with ongoing use. Most likely secondary to this etiology. Patient notes that he had gallbladder removed
as a child. Bilirubin within normal limits, no evidence of obstructive etiology. Nubeqa and statins have been held since 08/16 due to elevated LFTs. RUQ US 09/05 with new L-sided lesion not visible on CT from 08/09.
- MRI abdomen w & w/o contrast
- Continue holding home statin
- Consult oncology, appreciate recs
#Hypomagnesemia, resolved
Patient with magnesium of 1.5 on admission, decreased from prior 1.8. Likely in s/o alcohol intake vs. poor PO intake over last week.
Today - 2.3, s/p 4mg IV
- Trend CMP
#Chronic
#HLD�holding statin, pending liver workup
#Essential HTN-continue home spironolactone
#GERD-continue home PPI
#Alcohol use disorder-continue home thiamine supplement
#Global
- DVT PPx: Lovenox
- Code: Full
- Diet: Cholesterol-lowering
- Dispo: Pending PT/OT eval, case management - likely home w VN & visiting PT
Anticipated Discharge: 24 - 48 hours
Subjective/Interval History
-
Date of Service: September 05, 2025
Patient states that he feels much better today than yesterday. Able to lift arms above head without pain. He is feeling antsy and would like to get out of the bed. Has not tested walking, cannot comment on if leg pain is improved. However,
denies pain at rest. States that his cough feels less wet/junky today. States that he is still having night sweats, that his back is soaked in sweat. Hungry, ready for breakfast after ultrasound. States that he had a good night's sleep. Feels
that his lower extremity edema is improving.
Objective Data
-
Labs:
Laboratory Results
09/05/25
06:14
WBC 3.5 L
Hgb 7.3 L
Hct 23.9 L
Plt Count 131 D
Sodium Pending
Potassium Pending
Chloride Pending
Carbon Dioxide Pending
BUN Pending
Creatinine Pending
Glucose Pending
Calcium Pending
Total Bilirubin Pending
AST Pending
ALT Pending
Alkaline Phosphatase Pending
Vital Signs:
Vital Signs
Temp Pulse Resp BP Pulse Ox
98.5 F 100 18 137/70 92
09/04/25 20:54 09/04/25 20:54 09/04/25 20:54 09/04/25 20:54 09/04/25 22:10
Review of Systems
-
History Source: Patient
Constitutional: Reports Night Sweats
Respiratory: Reports Cough (Improved)
Cardiac: Reports No Symptoms
Abdomen/GI: Reports No Symptoms
Musculoskeletal: Reports Edema (Improved)
Skin: Reports No Symptoms
Neuro: Reports No Symptoms
Physical Exam
-
General: No Apparent Distress and Appears Chronically Ill
HEENT: Normocephalic, Atraumatic and Moist Mucous Membranes
Respiratory: Clear to Auscultation and Rhonchi (Improved from yesterday)
Cardiac: Regular Rhythm
GI: Soft, Nontender and Nondistended (Abdominal hernia, reducible)
Musculoskeletal: Edema, Right Lower Extrem, Edema, Left Lower Extrem and Other (Bilateral lower extremity edema, with 1+ pitting to mid mak, improved from yesterday; some tenderness to palpation over right lower extremity)
Skin: Warm, Dry and Other (Sweat on back)
Neuro: Awake, Alert and Oriented
Psych: Calm
Data Reviewed
-
Total Time Spent with Patient (in minutes): 15
Critical Care Time (in minutes): 45
Ultrasound: Report Reviewed by me
Labs: Labs Reviewed by me
[2025-09-05 07:40] VITALS: BP 133/63
[2025-09-05 07:47] LABS: ALT (SGPT) 12 U/L (0-50); AST (SGOT) 381 U/L (17-59); Albumin 3.0 g/dl (3.5-5.0); Alkaline Phosphatase 226 U/L (38-126); Blood Urea Nitrogen 15 mg/dl (9-20); Calcium 9.0 mg/dl (8.4-10.2); Carbon Dioxide 25 mmol/L (22-30); Glucose 112 mg/dl (70-99); Magnesium 2.3 mg/dl (1.6-2.3); Total Protein 5.7 g/dl (6.3-8.2); eGFR > 60.00
[2025-09-05 07:53] LABS: Chloride 99 mmol/L (98-107); Potassium 4.6 mmol/L (3.5-5.1); Sodium 129 mmol/L (135-145)
[2025-09-05] MEDS: ALDACTONE 12.5 MG PO (09:57)
[2025-09-05] MEDS: VITAMIN B1 100 MG PO (09:58)
[2025-09-05] MEDS: FOLVITE 1 MG PO (09:58)
[2025-09-05] MEDS: VITAMIN C 500 MG PO (09:58)
[2025-09-05] MEDS: PROTONIX 40 MG PO ×2 (09:58→21:54)
[2025-09-05] MEDS: LASIX 20 MG PO ×2 (09:58→11:29)
[2025-09-05] MEDS: SENOKOT-S PO ×2 (09:58→21:54)
[2025-09-05 11:02] LABS: Nucleated Red Blood Cells % 0.9 % (-)
--- NOTE | 2025-09-05 11:45 | CM ---
Patient seen at bedside with spouse. Patient confirmed that she still lives in a 2STH, 1 step to enter. 17 steps to second floor where bedroom and main bathroom is located. Patient is independent in all area, no DME. No SNF/HC hx reported. Patient
now in agreement to have [facility] if possible or [facility] if [facility] does not cover [place]. Patient and spouse indicated that they did not anticipate any other needs other than [facility]N at this time. Patient PCP is Dr. Guardado and her Pharmacy is [facility] in [place]. CM will continue to follow for discharge planning needs.
Plan; home with VN; [facility] vs [facility] pending coverage.
[2025-09-05] MEDS: NSS IV (11:50)
[2025-09-05 12:13] VITALS: BP 124/72; PULSE 116; O2SAT 97
[2025-09-05 12:19] VITALS: BMI 23.9
[2025-09-05 12:31] VITALS: BP 124/72; PULSE 117; O2SAT 98
--- NOTE | 2025-09-05 14:31 | CON.ONC ---
Consultation
-
Date Consultation Requested: 09/04/25
Date Consultation Performed: 09/05/25
Requesting Provider: Tiffani Maldonado MD
Performing Provider: Angelina Calle MD
Reason for Consultation: prostate cancer
Impression
Impression
weakness, fatigue, diffuse pain - unclear etiology - viral, malignant, inflammatory/autoimmune --- improving on steroids
stage IV prostate cancer
anemia, secondary to marrow involvement of cancer
Plan
Plan
would continue steroids, with plans for slow taper as able
await liver MRI
I think Nubeqa could be resumed (as long as echo and MRI liver without any unexpected findings), his AST has been elevated and fluctuating for a long time
f/u with Dr. Amanda in ~3 weeks
Patient History
History of Present Illness
This is a 75yo M w/ stage 4 prostate cancer, involving bones and marrow, on Lupron for ADT and oral Nubeqa (which has been on hold since early 08/2025 due to elevated LFTs), who was recently hospitalized with pneumonia in early August, who was
brought in yesterday with increasing weakness and lethargy, anorexia, sweats and generalized pain. Rapid flu testing was negative. No fevers.
Hgb today is 7.3, c/w chronic anemia in the 7-8 range over the past couple months.
He was started on steroids, with improvement in symptoms.
Abd US this am (for elevated LFT evaluation) showed a new focus of decreased echogenicity in the left lobe of liver, for which MRI is planned for tomorrow.
He just completed echo to evaluate lung congestion.
Nubeqa has been on hold since early August, and he's eager to restart it
Past-Medical/Surgical History
PMH lung cancer, prostate cancer, GERD, HTN, HLD, KARMEN, gastritis, duodenitis, dysphagia, emphysema
PSH cholecystectomy
Social former smoker, quit 2006, ETOH daily, denies recreational drug use. 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
Family non-contributory
Patient Medication
�Medication �Instructions �Recorded �Confirmed �Last Taken �Type
hliefzbajws-alazeiisk-wuv C-Mn 750 1 tab PO DAILY Supplement 01/09/22 08/09/25 08/08/25 History
mg-600 mg-55 mg-5 mg tablet
gabapentin 300 mg capsule 300 mg PO HS Neurological Condition 10/03/24 08/09/25 08/08/25 History
ascorbic acid (vitamin C) 500 mg 500 mg PO DAILY Supplement 03/07/25 08/09/25 08/08/25 History
tablet (Vitamin C)
spironolactone 50 mg tablet 12.5 mg PO DAILY Fluid 03/07/25 08/09/25 08/08/25 History
Retention/Swelling
therapeutic multivitamin 1 tab PO DAILY Supplement 03/07/25 08/09/25 08/08/25 History
thiamine mononitrate (vit B1) 100 100 mg PO DAILY Supplement 03/07/25 08/09/25 08/08/25 History
mg tablet
darolutamide 300 mg tablet (Nubeqa) 600 mg PO BID chemo 04/25/25 08/09/25 08/08/25 History
Held on 08/16/25.
Instructions: Until
instructed to take by oncology
diphenhydramine HCl 50 mg capsule 50 mg PO HSPRN PRN sleep 04/25/25 08/09/25 08/08/25 History
folic acid 0.8 mg capsule 0.8 mg PO DAILY Supplement 04/25/25 08/09/25 08/08/25 History
rosuvastatin 5 mg tablet 5 mg PO DAILY High Cholesterol 04/25/25 08/09/25 08/08/25 History
Held on 08/16/25.
Instructions: Restart when
LFTs improves
Lactobacillus acidophilus 10 10,000 mmu cells PO DAILY #10 caps 08/16/25 Unknown Rx
billion cell capsule (Probiotic)
cefdinir 300 mg capsule 300 mg PO Q12 9 days #18 caps 08/16/25 Unknown Rx
doxycycline hyclate 100 mg capsule 100 mg PO Q12 9 days #18 caps 08/16/25 Unknown Rx
pantoprazole 40 mg tablet,delayed 40 mg PO BID 1 month #60 tabs 08/16/25 Unknown Rx
release
thiamine mononitrate (vit B1) 100 100 mg PO BID #60 tabs 08/16/25 Unknown Rx
mg tablet
Active Medications
Generic Name Dose Route Start Last Admin
Trade Name Freq PRN Reason Stop Dose Admin
Acetaminophen 650 mg 09/04/25 20:35
Acetaminophen 325 Mg Tablet PO 10/02/25 20:34
Q4HPRN PRN
mild pain/LOPEZ/temp> 100.4F
Ascorbic Acid 500 mg 09/05/25 08:00 09/05/25 09:58
Ascorbic Acid 500 Mg Tablet PO 10/03/25 07:59 500 mg
DAILY YOJANA Administration
Bisacodyl 10 mg 09/04/25 20:35
Bisacodyl 10 Mg Rectal Suppository RECTAL 10/02/25 20:34
[id number] PRN
constipation
Diphenhydramine HCl 50 mg 09/04/25 20:35
Diphenhydramine 50 Mg Capsule PO 10/02/25 20:34
HSPRN PRN
sleep
Enoxaparin Sodium 40 mg 09/04/25 20:35 09/04/25 21:41
Enoxaparin Sodium 40 Mg/0.4 Ml Syringe SC 10/02/25 20:34 40 mg
QPM YOJANA Administration
Folic Acid 1 mg 09/05/25 08:00 09/05/25 09:58
Folic Acid 1 Mg Tablet PO 10/03/25 07:59 1 mg
DAILY YOJANA Administration
Furosemide 40 mg 09/06/25 08:00
Furosemide 40 Mg Tablet PO 10/04/25 07:59
DAILY YOJANA
Gabapentin 300 mg 09/04/25 22:00 09/04/25 21:39
Gabapentin 300 Mg Capsule PO 10/02/25 21:59 300 mg
HS YOJANA Administration
Hydromorphone HCl 0.25 mg 09/04/25 20:35
Hydromorphone 0.25 Mg/0.5 Ml Syringe IV 09/18/25 20:34
Q4HPRN PRN
moderate pain
Hydromorphone HCl 0.5 mg 09/04/25 20:35
Hydromorphone 0.5 Mg/0.5 Ml Syringe IV 09/18/25 20:34
Q4HPRN PRN
severe pain
Ondansetron HCl 4 mg 09/04/25 20:35
Ondansetron 4 Mg/2 Ml Vial IV 10/02/25 20:34
Q6HPRN PRN
nausea and vomiting
Pantoprazole Sodium 40 mg 09/04/25 20:35 09/05/25 09:58
Pantoprazole 40 Mg Delayed Release Tablet PO 10/02/25 20:34 40 mg
BID YOJANA Administration
Polyethylene Glycol 17 grams 09/05/25 08:00 09/05/25 09:59
Polyethylene Glycol Powder 17 Grams Packet PO 10/03/25 07:59 Not Given
DAILY YOJANA
Prednisone 25 mg 09/05/25 20:00
Prednisone 10 Mg Tablet PO 10/03/25 19:59
BID YOJANA
Senna/Docusate Sodium 1 tablet 09/04/25 20:35 09/05/25 09:58
Docusate W/Senna (Justina-Colace) Tablet PO 10/02/25 20:34 Not Given
BID YOJANA
Sodium Chloride 0 flush 09/04/25 21:00
Sodium Chloride 0.9% (Flush) Syringe IV 10/02/25 20:59
PER PROTOCOL YOJANA
Spironolactone 12.5 mg 09/05/25 08:00 09/05/25 09:57
Spironolactone 12.5 Mg Dose (1/2 Of 25 Mg Tablet) PO 10/03/25 07:59 12.5 mg
DAILY YOJANA Administration
Thiamine HCl 100 mg 09/05/25 08:00 09/05/25 09:58
Thiamine 100 Mg Tablet PO 10/03/25 07:59 100 mg
DAILY YOJANA Administration
Review of Systems
-
All Other Systems: Not reviewed unless documented
Physical Exam
-
General: No Apparent Distress, Comfortable and Conversant; Negative Appears in Distress or Appears Chronically Ill
HEENT: Negative Jaundice
Neurology: Non Focal, No Lateralizing Symptoms and No Word Finding Difficulty
Skin: Warm and Dry
Psych: Calm and Intact Judgement/Insight
Labs
Lab Results
WBC 3.5 10^3/uL (4.8-10.8) L 09/05/25 06:14
RBC 2.67 10^6/uL (4.70-6.10) L 09/05/25 06:14
Hgb 7.3 g/dL (13.0-18.0) L 09/05/25 06:14
Hct 23.9 % (39.0-52.0) L 09/05/25 06:14
MCV 89.5 fL (80.0-94.0) 09/05/25 06:14
MCH 27.3 pg (27.0-31.0) 09/05/25 06:14
MCHC 30.5 g/dL (33.0-37.0) L 09/05/25 06:14
RDW 18.7 % (11.5-14.5) H 09/05/25 06:14
Plt Count 131 10^3/uL (130-400) D 09/05/25 06:14
MPV Not Reportable 09/05/25 06:14
Abs Immat Gran (auto) 0.2 10^3/uL (0-0.05) H 09/05/25 06:14
Absolute Neuts (auto) 2.2 10^3/uL (1.4-6.5) 09/05/25 06:14
Absolute Lymphs (auto) 0.7 10^3/uL (1.2-3.4) L 09/05/25 06:14
Absolute Monos (auto) 0.3 10^3/uL (0.1-0.6) 09/05/25 06:14
Absolute Eos (auto) 0.0 10^3/uL (0-0.7) 09/05/25 06:14
Absolute Basos (auto) 0.0 10^3/uL (0-0.2) 09/05/25 06:14
Immature Gran % 6.6 % (0-0.5) H 09/05/25 06:14
Neutrophils % 63.0 % (42.2-75.2) 09/05/25 06:14
Lymphocytes % 19.5 % (20.5-51.1) L 09/05/25 06:14
Monocytes % 9.2 % (1.7-9.3) 09/05/25 06:14
Eosinophils % 1.1 % (0-6) 09/05/25 06:14
Basophils % 0.6 % (0-2) 09/05/25 06:14
Creatinine 0.6 mg/dL (0.7-1.3) L 09/05/25 06:14
Vital Signs
Vital Signs
Temp Pulse Resp BP Pulse Ox
98.3 F 94 17 133/63 92
09/05/25 07:40 09/05/25 07:40 09/05/25 07:40 09/05/25 07:40 09/05/25 08:30
[2025-09-05 15:27] VITALS: BP 130/76
--- NOTE | 2025-09-05 15:47 | VNURNOTE ---
Home Health Liaison met with patient and spouse at bedside to discuss [facility] nurse/therapy, visits, schedule and homebound status. Patient is agreeable and understands that visits at home will be 2-3 x per week to assess and teach medical
management. He declines a hospital bed rental at this time. He has ordered a rolling walker and raised toilet seat.
Patient is aware that [facility] will contact them for start of care within a week after discharge from . Provided contact number for [facility].
[facility] referral completed in [facility].
[2025-09-05] MEDS: TYLENOL 650 MG PO (15:58)
[2025-09-05] MEDS: LOVENOX 40 MG SC (17:13)
[2025-09-05] MEDS: DELTASONE 25 MG PO (21:52)
[2025-09-05] MEDS: DILAUDID 0.5 MG IV (21:55)
[2025-09-05] MEDS: NEURONTIN 300 MG PO (21:55)
[2025-09-05 23:00] VITALS: BP 146/80
[2025-09-06] MEDS: BENADRYL 50 MG PO (00:25)
[2025-09-06 06:47] LABS: Hematocrit 26.1 % (39.0-52.0); Hemoglobin 7.9 g/dL (13.0-18.0); Mean Corp Hgb Conc. 30.3 g/dL (33.0-37.0); Mean Corpuscular Volume 89.7 fL (80.0-94.0); Platelet Count 158 10^3/uL (130-400); Red Cell Dist. Width 18.5 % (11.5-14.5)
--- NOTE | 2025-09-06 07:27 | W.PN.HOSP.TC ---
Addendum entered and electronically signed by Yessica Olmedo MD 09/08/25 17:06:
Acute pulmonary edema due to fluid overload
Addendum entered and electronically signed by Tiffani Maldonado MD, Resident 09/08/25 09:58:
CDI:
Pt with cough 2/2 mild acute pulmonary edema due to fluid overload - improved s/p lasix during inpatient stay
Addendum entered and electronically signed by Yessica Olmedo MD 09/06/25 15:31:
I saw and evaluated the patient independently. I reviewed and discussed the resident�s note and agree with findings and plan as documented by Dr. Maldonado.
GENERAL: well developed, well nourished, male in no apparent distress
HEENT: NC/AT -room air
HEART: regular rate and rhythm, +S1, +S2
LUNGS : rhonchi right lung field
ABDOM: soft, nontender, nondistended, + bowel sounds--abdominal wall hernia
EXT: no cyanosis, clubbing-- 2+ pedal edema
NEUROLOGIC: grossly intact
Lethargy, weakness, poor appetite, night sweats--possibly due to stage 4 prostate cancer now with mets to liver presumed--apprec onc input--pain control--start IV decadron 4mg Q6--pt allergic to codeine--did well with steroids--change to prednisone
25mg daily at d/c with outpt rheum follow up
Pain in bilateral shoulders and hips--could be due to prostate ca and off Nubeqa, can restart as per onc--other etiology could be PMR-- ESR, CRP both elevated although with prostate cancer may be unreliable--cont steroids as above--low dose dilaudid
and mid dose for moderate and severe pain control (has not needed)--bowel regimen with narcotics
Cough--History recent RLL pneumonia--Lower extremity edema and acute hypoxemic resp insufficiency--finished doxy and cefdinir--CXR without pna, small bilateral pleural effusions--pro-BNP elevated-- ECHO with preserved EF and trivial pericardial
effusion--Covid/flu both negative--add lasix 40 mg daily, cont aldactone
Elevated LFTs--Patient AST up trended since last admission to 428. ALT remains within normal limits 12-- alcohol use disorder, with ongoing use vs other (mets)-- US with new 'spot' from 08/09 CT scan-- MRI abdomen shows multiple lesions within the
liver which likely represent hepatic metastatic disease, there is a cluster of lesions which likely corresponds to the finding on the ultrasound, lobulated cyst within the lateral segment of the left lobe of the liver--hold statin until seen by
PCP--will need Liver biopsy as outpt
wound POA--stage 1 sacral pressure injury
Hypomagnesemia--replete
HLD�holding statin
Essential HTN--continue home spironolactone
GERD--continue home PPI
Alcohol use disorder--continue home thiamine supplement
DVT Proph-- Lovenox
Code status-- Full
D/C and follow up as outpt
Addendum entered and electronically signed by Tiffani Maldonado MD, Resident 09/06/25 13:04:
CDI:
Patient with stage 1 sacral pressure injury POA. Mid-sacrum. Wound care following.
Original Note:
Today's Communication/Plan
-
- Continue 25mg prednisone bid, with plan for slow taper per onc
- Continue holding Nubeqa
- Per onc, nubeqa may be resumed today pending MRI without unexpected findings
- MRI abdomen w & w/o contrast today
- Continue holding home statin
- Continue home spironolactone
- Continue lasix 40mg PO
- O2 NC as needed to maintain O2 sat over 96%, wean as tolerated
Assessment / Plan
Assessment / Plan
75yo M with a hx of HLD, essential HTN, anemia of chronic disease, chronic hyponatremia, alcohol use disorder, right sided lung cancer (s/p proton therapy 3-4 years prior; in remission), stage IV prostate cancer with mets to the bones (s/p Nubeqa),
and recent admission for RLL pneumonia, who presents with subacute worsening of lethargy/weakness, poor appetite, pain in extremities, night sweats, and worsening cough; improving s/p steriods, found to have new lesion on liver.
#Pain in bilateral shoulders and hips, c/f PMR superimposed on mets pain
#Lethargy, weakness, poor appetite, night sweats - improving
#Stage IV prostate cancer
Patient's presentation most likely consistent with advanced metastatic prostate cancer, potentially in the setting of holding his nubeqa vs. ongoing progression of disease vs. PMR given distribution of pain. Fever/chills most likely due to
malignancy rather than infectious etiology. Bone pain consistent with known areas of metastasis per PET scan in April. Patient follows with Dr. Amanda oncology. ESR>145 & CRP 168, indicating inflammation. For cancer pain or PMR, trt is steroids.
Today - systemic sx improved s/p steroids
- Continue 25mg prednisone bid, with plan for slow taper per onc
- PRN 0.25mg Dilaudid for moderate pain, 0.5mg Dilaudid for severe pain
- Schedule bowel regimen
- Continue holding Nubeqa
- Per onc, nubeqa may be resumed pending TTE & MRI without unexpected findings
- Oncology following, appreciate recs
- Should f/u with rheum OP
#Elevated LFTs
#C/f liver mets
Patient AST uptrended since last admission to [facility]. ALT remains within normal limits 12. Patient with known history of alcohol use disorder, with ongoing use. May be secondary to this etiology vs. new mets. Patient notes that he had gallbladder
removed as a child. Bilirubin within normal limits, no evidence of obstructive etiology. Nubeqa and statins have been held since 08/16 due to elevated LFTs. RUQ US 09/05 with new L-sided lesion not visible on CT from 08/09, c/f new mets. Pending
more detailed imaging.
Today - AST downtrending slightly; ALT wnl
- MRI abdomen w & w/o contrast today
- Continue holding home statin
- Consult oncology, appreciate recs
#Cough, likely 2/2 congestion, improving
#Lower extremity edema, improving
#Mild hypoxia
#History recent RLL pneumonia
Patient endorsing worsening wet cough over the last 3 to 4 days & mild desat to high 80s on RA. Recently completed treatment with doxycycline and cefdinir for right sided pneumonia (discharged 08/16). Bilat VAZQUEZ, improving s/p diuresis. Covid/flu
negative. ProBNP elevated 2,830. CXR 09/04: 'Improved inflation of both lungs since most recent radiograph with preliminary previously seen atelectasis. Band of probable scarring within the right midlung, stable. Small bilateral pleural effusions,
improved from most recent radiograph.' TTE 09/05: 'normal LV, LVEF 63%, normal RV, mild MR, trivial pericardial effusion unchanged from 1 yr prior. ' Net clinical picture supports mild congestive etiology of cough more than infectious, no HFrEF,
potential mild HFpEF.
Today - cough improving s/p steroids & lasix, still 1+ pitting edema bilateral LE but just to ankles (improved)
- Continue home spironolactone
- Continue lasix 40mg PO
- O2 NC as needed to maintain O2 sat over 96%, wean as tolerated
#Hypomagnesemia, resolved
Patient with magnesium of 1.5 on admission, decreased from prior 1.8. Likely in s/o alcohol intake vs. poor PO intake over last week.
Today - 2.3, s/p 4mg IV
- Trend CMP
#Chronic
#Anemia, leukopenia - chronic, in s/o stage IV pr ca
#HLD�holding statin, pending liver workup
#Essential HTN-continue home spironolactone
#GERD-continue home PPI
#Alcohol use disorder-continue home thiamine supplement
#Global
- DVT PPx: Lovenox
- Code: Full
- Diet: Cholesterol-lowering
- Dispo: home w VN & visiting PT w commode/walker
Anticipated Discharge: Today
Subjective/Interval History
-
Date of Service: September 06, 2025
Pt feeling well this am, about the same as yesterday with maybe a bit more energy. Sitting up in the chair at bedside. Talkative. Had episode if LOPEZ overnight that was severe, along with R leg pain - used 1 dose of PRN dilaudid, pain resolved 90%.
Has free nubeqa through 2024, inquiring about ability to rx before 09/07.
Objective Data
-
Labs:
Laboratory Results
09/06/25
06:15
WBC 4.2 L
Hgb 7.9 L
Hct 26.1 L
Plt Count 158 D
Sodium Pending
Potassium Pending
Chloride Pending
Carbon Dioxide Pending
BUN Pending
Creatinine Pending
Glucose Pending
Calcium Pending
Total Bilirubin Pending
AST Pending
ALT Pending
Alkaline Phosphatase Pending
Vital Signs:
Vital Signs
Temp Pulse Resp BP Pulse Ox
98.3 F 95 16 146/80 96
09/05/25 23:00 09/05/25 23:00 09/05/25 23:00 09/05/25 23:00 09/05/25 23:00
I&O
09/05/25 09/06/25 09/07/25
06:59 06:59 06:59
Intake Total 960 / 960
Output Total 400 / 400
Balance 560 / 560
Review of Systems
-
History Source: Patient
Constitutional: Reports Night Sweats
Respiratory: Reports Cough (Improved)
Cardiac: Reports No Symptoms
Abdomen/GI: Reports No Symptoms
Musculoskeletal: Reports Edema (Improved) and Other (R leg pain)
Skin: Reports No Symptoms
Neuro: Reports No Symptoms and Headache
Physical Exam
-
General: Well Developed, Well Nourished and No Apparent Distress
HEENT: Normocephalic, Atraumatic and Moist Mucous Membranes
Respiratory: Clear to Auscultation and Non Labored Respirations
Cardiac: Regular Rhythm
GI: Soft, Nontender and Nondistended (Abdominal hernia, reducible)
Musculoskeletal: Edema, Right Lower Extrem (to ankle, improved from yesterday, 1+ ) and Edema, Left Lower Extrem (to ankle, improved from yesterday, 1+ )
Skin: Warm and Dry
Neuro: Awake, Alert and Oriented
Psych: Calm
Data Reviewed
-
Total Time Spent with Patient (in minutes): 15
Critical Care Time (in minutes): 45
Ultrasound: Report Reviewed by me
Medical Tests (Nuc Med, Echo etc): Report Reviewed by me
Labs: Labs Reviewed by me
[2025-09-06 07:28] LABS: ALT (SGPT) 18 U/L (0-50); AST (SGOT) 325 U/L (17-59); Albumin 2.9 g/dl (3.5-5.0); Alkaline Phosphatase 194 U/L (38-126); Blood Urea Nitrogen 23 mg/dl (9-20); Calcium 9.3 mg/dl (8.4-10.2); Carbon Dioxide 24 mmol/L (22-30); Chloride 95 mmol/L (98-107); Estimated Creatinine Clearance 83 ml/min; Glucose 124 mg/dl (70-99); Potassium 4.8 mmol/L (3.5-5.1); Sodium 125 mmol/L (135-145); Total Protein 5.5 g/dl (6.3-8.2); eGFR > 60.00
[2025-09-06 07:34] LABS: Absolute Neutrophils -Man Diff 2.9 10^3/uL (1.4-6.5); Anisocytosis 1+; Hypochromasia 1+; Normal RBC Morphology No; Ovalocytes 1+; Platelets Checked Yes; Polychromasia Slight; Total Cells Counted 100
[2025-09-06 07:50] VITALS: BP 145/81
[2025-09-06] MEDS: DILAUDID 0.25 MG IV (08:11)
[2025-09-06] MEDS: PROTONIX 40 MG PO (08:12)
[2025-09-06] MEDS: VITAMIN C 500 MG PO (08:12)
[2025-09-06] MEDS: DELTASONE 25 MG PO (08:12)
[2025-09-06] MEDS: LASIX 40 MG PO (08:12)
[2025-09-06] MEDS: ALDACTONE 12.5 MG PO (08:12)
[2025-09-06] MEDS: FOLVITE 1 MG PO (08:13)
[2025-09-06] MEDS: SENOKOT-S 1 TABLET PO (08:13)
[2025-09-06] MEDS: VITAMIN B1 100 MG PO (08:13)
--- NOTE | 2025-09-06 12:08 | PN.CDI ---
CDI
- -
CDI:
Physician Documentation Request
Admit Date: 09/04/25 18:55
Dear Doctor,
Please review the following and provide your response in the progress notes.
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
Pt admitted for Pain in bilateral shoulders and hips, c/f PMR superimposed on mets pain
09/04 patient assessment coordinator in Wound Panel noted stage 1 Sacral pressure injury POA.
Physician documentation of the type and location of wounds is required for compliant documentation. Based on the above clinical findings and your assessment, please provide the following in your progress note:
1. Location of the ulcer/wound, including laterality.
2. Type (etiology) of ulcer/wound:
Sacral stage 1 pressure injury POA
Sacral non-pressure injury POA
Other
Use of terms such as suspected, likely, concern for, or probable (associated with a specific diagnosis that is being evaluated, monitored, or treated as if it exists) are acceptable and can be coded in the inpatient setting, when documented at the
time of discharge.
Thank you,
Deandra Shannon RN, BSN
CDI Specialist
[place] [employer]
Please use your independent medical judgment in providing your response.
*Source: National Pressure Ulcer Advisory Panel (NPUAP)
[2025-09-06] MEDS: TYLENOL 650 MG PO (12:49)
--- NOTE | 2025-09-06 14:08 | W.DCSUMMARY ---
Addendum entered and electronically signed by Yessica Olmedo MD 09/06/25 16:36:
Read, reviewed, and agree. See same day progress note for additional details. Time spent coordinating care, DC planning, review of DC plan of care with resident, transition of care, review of records in EMR, med rec, consults, notes, d/w
consultants, nursing, family, and CM = 34 minutes
Original Note:
Discharge Summary
Discharge Data
Date of Admission: 09/04/25
Date of Discharge: 09/06/25
-
Pending Results: No
Hospital Course
Discharging Physician : Yessica Olmedo MD ; Tiffani Maldonado MD
Disposition : home with VN, visiting PT
Primary care physician : Charis Guardado DO
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
Chronic Discharge diagnosis : HLD, essential HTN, anemia of chronic disease, chronic hyponatremia, alcohol use disorder, right sided lung cancer (s/p proton therapy 3-4 years prior; in remission), stage IV prostate cancer with mets to the bones
(s/p Nubeqa), recent admission for RLL pneumonia
Hospital Course :
75yo M with a hx of HLD, essential HTN, anemia of chronic disease, chronic hyponatremia, alcohol use disorder, right sided lung cancer (s/p proton therapy 3-4 years prior; in remission), stage IV prostate cancer with mets to the bones (s/p Nubeqa),
and recent admission for RLL pneumonia, who presents with subacute worsening of lethargy/weakness, poor appetite, pain in extremities, night sweats, and worsening cough.
Patient presented on 09/04 with worsening appetite, lethargy/weakness, night sweats, cough, and pain in bilateral shoulders and hips. On presentation, patient was afebrile, tachycardic (HR 112), with mild hypoxia with O2 sat 91% on room air. CBC
was notable for mild hypomagnesemia to 1.5, and AST trending up to 428 from prior 301 on 08/16. Other labs were consistent with his baseline. Patient was given IV fluids, magnesium was repleted, and patient was admitted to the hospital.
Patient was started on 4 mg every 6 hours of Decadron, with his symptoms improving by 09/05. Chest x-ray demonstrated no persistent right sided pneumonia, some small bilateral pleural effusions. Exam of patient demonstrated bilateral pitting edema
to the midshin, which patient states has been improving over the past few weeks with diuretics. Patient's ESR and CRP returned elevated (ESR 145, CRP 168). Consistent with polymyalgia rheumatica, likely overlying pain from known bone mets. On
09/05, patient was transitioned to 25 mg prednisone twice daily, with plan for slow taper at discharge.
Patient's mild cough thought to be likely secondary to volume overload, given edema on chest x-ray and elevated proBNP to 2830. COVID and flu were negative. Patient was given 20 mg Lasix p.o. on 09/04, which was increased to 40 mg daily on 09/05.
TTE was obtained, which demonstrated no findings consistent with HFrEF.
Of note, patient's Nubeqa medication had been stopped on 08/16 after patient's last admission due to elevated LFTs. Ultrasound of the liver on 09/05 demonstrated new left-sided lesion that was not visible on the last CT abdomen from 08/09. MRI with
and without contrast of the abdomen was ordered to further investigate. MRI found: 'Multiple lesions within the liver as described. These very likely represent hepatic metastatic disease. There is a cluster of lesions within the medial segment which
likely corresponds to the finding on recent ultrasound.' Oncology was consulted & advised care during inpatient hospitalization.
Patient was discharged home on 09/06 with visiting nurse and visiting PT, along with home walker and commode. Patient was discharged on 25mg daily prednisone with plans for follow-up with rheumatology. Patient was instructed to restart Nubeqa and
call Dr. Amanda's office on Thursday to schedule earliest appt for potential liver bx. Pt was discharged on 40mg lasix and instructed to hold home statin (given elevated AST) until follow-up with PCP. Instructed to follow-up with PCP in 1 week.
Important imaging findings :
CXR 09/05:
Improved inflation of both lungs since most recent radiograph with preliminary previously seen atelectasis.
Band of probable scarring within the right midlung, stable.
Small bilateral pleural effusions, improved from most recent radiograph.
Bony metastatic disease.
Abdomen ultrasound 09/05:
Status post cholecystectomy. Sonographically, no evidence for significant biliary ductal dilation. The common bile duct measures 5 mm.
Focus of somewhat poorly defined decreased echogenicity within the anterior left lobe of the liver, not present on previous CT of August 09, 2025. Consider further evaluation with dedicated CT or MRI of the abdomen with attention to the liver, best
performed without and with intravenous contrast, if there are no contraindications.
Small right pleural effusion.
Simple right renal cysts. No evidence for pelvicalyceal dilation.
TTE 09/05:
1. Normal left ventricular size and systolic function. LVEF 63%. Mild concentric LVH. Normal diastolic function.
2. Normal right ventricular size and function.
3. Mild mitral regurgitation.
4. Trivial pericardial effusion present.
5. When compared to prior study on 10/05/2024, trivial pericardial effusion present. No other significant changes noted.
Abdominal MRI w & wo contrast 09/06:
Multiple lesions within the liver as described. These very likely represent hepatic metastatic disease. There is a cluster of lesions within the medial segment which likely corresponds to the finding on recent ultrasound.
There is also a lobulated cyst within the lateral segment of the left lobe of the liver.
Spleen has relatively decreased T2-weighted signal, similar to liver. This suggests the possibility of iron deposition. Consider correlation with iron serology.
Procedure findings : N/A
Discharge Plan
-
Patient Disposition: Home with Home Care
Discharge Diagnosis/Procedures: PMR, stage IV metastatic prostate cancer, new likely liver mets
Condition: Fair
Diet: No restrictions
Activity: As tolerated
Driving Restrictions: As prior to admission
Bathing Restrictions: None
Other Services: VN and PT
Referrals:
Federico Amanda DO [Active, Hematology / Oncology] - in two to three weeks
Hans Bryant MD [Active, Rheumatology] - in one week
Charis Guardado DO [Family Provider, Family Practice] - in one week
Additional Discharge Medication Instructions: START taking 25mg prednisone daily until you follow up with rheumatology for your likely polymyalgia rheumatica (Dr. Hans Bryant). Their office will call you after 's to set up an
appointment.
START taking 40mg lasix (furosemide) daily to improve your feet swelling until you follow up with your primary care doctor. HOLD on taking your statin until you see your primary care doctor. Please follow up with your primary care doctor in 1-2
weeks.
Your abdominal MRI showed new areas of metastasis in your liver. Your oncologist, Dr. Amanda, was made aware.
Please call Dr. Amanda's office on Thursday to schedule the soonest available appointment to discuss potential liver biopsy.
RESTART taking your Nubeqa as previously dosed.
Your cardiac echo showed no abnormalities.
Prescriptions:
New
furosemide 40 mg Tablet
40 mg PO DAILY 30 Days Qty: 30 0RF
prednisone 10 mg Tablet
25 mg PO BID 30 Days Qty: 150 0RF
Continued
[id number] C-Mn 1 TAB tablet
1 tab PO DAILY
gabapentin 300 mg Capsule
300 mg PO HS
therapeutic multivitamin Tablet
1 tab PO DAILY
ascorbic acid (vitamin C) [Vitamin C] 500 mg Tablet
500 mg PO DAILY
spironolactone 50 mg Tablet
12.5 mg PO DAILY
thiamine mononitrate (vit B1) 100 mg tablet
100 mg PO DAILY
diphenhydramine HCl 50 mg Capsule
50 mg PO HSPRN PRN (Reason: sleep)
folic acid 0.8 mg Capsule
0.8 mg PO DAILY
Nubeqa 300 mg Tablet
600 mg PO BID
thiamine mononitrate (vit B1) 100 mg Tablet
100 mg PO BID Qty: 60 0RF
Lactobacillus acidophilus [Probiotic] 10 billion cell capsule
10,000 mmu cells PO DAILY Qty: 10 0RF
pantoprazole 40 mg Tablet,Delayed Release (Dr/Ec)
40 mg PO BID 30 Days Qty: 60 0RF
Discontinued
rosuvastatin 5 mg Tablet
5 mg PO DAILY
doxycycline hyclate 100 mg Capsule
100 mg PO Q12 9 Days Qty: 18 0RF
cefdinir 300 mg Capsule
300 mg PO Q12 9 Days Qty: 18 0RF
Discharge Orders:
Discharge Patient (As Directed); Ordered 09/06/25
Ordered By: Tiffani Maldonado
Discharge Date and Time
Print Language: SYRIAC
--- NOTE | 2025-09-06 15:01 | CM ---
Patient seen at bedside with physician and patient spouse also present. Patient completed IMM 09/05/25 and patient for follow up with VN. Patient pending MRI per physicians but patient eager to go home and for follow up with oncology. CM will
continue to follow for discharge planning needs.
Plan; home with [facility]
[2025-09-06 15:08] VITALS: BP 151/92
--- NOTE | 2025-09-08 08:33 | PN.CDI ---
CDI
- -
CDI:
Physician Documentation Request
Admit Date: 09/04/25 18:55
Dear Doctor,
Please review the following and provide your response in the progress notes.
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
Pt admitted for Pain in bilateral shoulders and hips, c/f PMR superimposed on mets pain.
09/06 PN: ' Patient endorsing worsening wet cough over the last 3 to 4 days & mild desat to high 80s on RA. Recently completed treatment with doxycycline and cefdinir for right sided pneumonia (discharged 08/16). Mireya SHUKLA, improving s/p diuresis.
Covid/flu negative. ProBNP elevated 2,830. CXR 09/04: '..... Small bilateral pleural effusions, improved from most recent radiograph.' TTE 09/05: 'normal LV, LVEF 63%, normal RV, mild MR, trivial pericardial effusion unchanged from 1 yr prior. ' Net
clinical picture supports mild congestive etiology of cough more than infectious, no HFrEF, potential mild HFpEF. '
09/06 d/c summary: ' Patient's mild cough thought to be likely secondary to volume overload, given edema on chest x-ray and elevated proBNP to 2830. COVID and flu were negative. Patient was given 20 mg Lasix p.o. on 09/04, which was increased to
40 mg daily on 09/05. TTE was obtained, which demonstrated no findings consistent with HFrEF.'
Due to potentially conflicting documentation, please clarify the diagnosis that supports the above abnormalities and additional evaluation, monitoring/or treatment rendered:
Acute HFpEF
Acute pulmonary edema due to fluid overload
Volume overload only
Other
Use of terms such as suspected, likely, concern for, or probable (associated with a specific diagnosis that is being evaluated, monitored, or treated as if it exists) are acceptable and can be coded in the inpatient setting, when documented at the
time of discharge.
Thank you,
Deandra Shannon RN, BSN
CDI Specialist
[place] [employer]
Please use your independent medical judgment in providing your response.
== END 2025-09-06 16:18 | disposition home health service (06) | DRG 435 ==
LOC: 3 WEST ACU 18:55
PROVIDERS: ADMITTING PHYSICIAN Internal Medicine; EMERGENCY PHYSICIAN Emergency Medicine; FAMILY PHYSICIAN Family Medicine; OTHER PHYSICIAN Internal Medicine Hematology & Oncology
DX: C78.7 Secondary malignant neoplasm of liver and intrahepatic bile duct (principal); J81.0 Acute pulmonary edema; C79.51 Secondary malignant neoplasm of bone; E87.1 Hypo-osmolality and hyponatremia; I50.32 Chronic diastolic (congestive) heart failure; I31.39 Other pericardial effusion (noninflammatory); E83.42 Hypomagnesemia; I11.9 Hypertensive heart disease without heart failure; K21.9 Gastro-esophageal reflux disease without esophagitis; F10.10 Alcohol abuse, uncomplicated; C61 Malignant neoplasm of prostate; M35.3 Polymyalgia rheumatica; D63.8 Anemia in other chronic diseases classified elsewhere; G89.3 Neoplasm related pain (acute) (chronic); L89.151 Pressure ulcer of sacral region, stage 1; Z79.899 Other long term (current) drug therapy; Z87.891 Personal history of nicotine dependence
CPT/HCPCS: 71046; 74183; 76705; 80053; 81003; 81015; 83735; 83880; 85025; 85652; 86140; 87502; 87811; 93306; 96360; 96361; 97116; 97167; 97530; 97535; 99285; A9575